=== PATIENT | male | born 1950 | race Caucasian/White ===

== ENCOUNTER → 2016-05-01 | Outpatient (CLI) | payer OTHER ==
[~2016-05-01] MED LIST: ADVIN25/60 INH; ALBUAER19 INH; ALLO300T2 PO; ASPI81TA21 PO; CALCTAB5 PO; CITA40TA12 PO; CLC100X PO; GUAI1TAB55 PO; LEVO125T4 PO; MULTTAB58 PO
--- NOTE | 2016-05-01 09:43 | DIAGNOSTIC IMAGING REPORT ---
RIGHT FOOT 3 VIEWS CLINICAL HISTORY: Bunion. FINDINGS: 3 views of the right foot are obtained. No prior studies are available for comparison at the time of dictation. The skeletal structures appear osteopenic. No fracture is seen. There is a hallux valgus deformity with mild arthritic change at the first metatarsophalangeal joint. Hammertoe deformities are suggested in the third through fifth digits. There is a dorsal calcaneal enthesophyte. Minimal spurring is seen along the dorsal aspect of the tarsal bones. Mild lateral soft tissue swelling is suggested at the level of the fifth metatarsophalangeal joint. IMPRESSION: 1. No acute bony abnormality is seen in the right foot. 2. Hallux valgus, suspected hammertoes, and mild arthritic change as above. 3. Lateral soft tissue swelling is suggested. Electronically signed by: Jeremy Rockwell M.D. 05/01/2016 9:41 AM Dictated Date/Time: 05/01/2016 9:37 AM
== END | disposition home or self-care (01) ==
LOC: C.RDSM 08:00
PROVIDERS: ATTEND Family Medicine
DX: M21.611 Bunion of right foot (principal)

== ENCOUNTER → 2016-06-03 | Outpatient (CLI) | payer OTHER ==
[2016-06-03 13:05] LABS: BLOOD UREA NITROGEN 14 mg/dl (7-18); BUN/CREATININE RATIO 14.9 (10-20); CALCIUM 8.7 mg/dl (8.5-10.1); CARBON DIOXIDE 27 mmol/L (21-32); CHLORIDE 99 mmol/L (98-107); CREATININE 0.96 mg/dl (0.60-1.40); GLUCOSE 98 mg/dl (70-99); POTASSIUM 4.2 mmol/L (3.5-5.1); SODIUM 135 mmol/L (136-145); URIC ACID 4.2 mg/dl (2.6-7.2)
[2016-06-03 13:10] LABS: C-REACTIVE PROTEIN 2.25 mg/dl (0-0.29); RHEUMATOID FACTOR 63.4 U/mL (0-15)
[2016-06-06 11:12] LABS: ANA TITER > OR = 1:1280 TITER (<1:40)
== END | disposition home or self-care (01) ==
LOC: C.LABBFT 07:45
PROVIDERS: ATTEND Nurse Practitioner
DX: Z11.59 Encounter for screening for other viral diseases (principal); M79.672 Pain in left foot

== ENCOUNTER → 2016-06-03 | Outpatient (CLI) | payer OTHER ==
--- NOTE | 2016-06-03 09:17 | DIAGNOSTIC IMAGING REPORT ---
LEFT FOOT MIN 3 VIEWS ROUTINE CLINICAL HISTORY: M79.672 Acute foot pain, [id number] pain COMPARISON: None. DISCUSSION: Moderate degenerative change of all major osseous structures. Moderate soft tissue edema. Deformity distal aspects second and third metatarsals felt to be secondary to old trauma. Mild bunion deformity distal first metatarsal. Mild hallux valgus configuration. IMPRESSION: Degenerative change. Heel spur. Nonspecific soft tissue edematous change Electronically signed by: Joby Ye M.D. 06/03/2016 9:15 AM Dictated Date/Time: 06/03/2016 9:13 AM
== END | disposition home or self-care (01) ==
LOC: C.RAD1850 08:58
PROVIDERS: ATTEND Nurse Practitioner
DX: M79.672 Pain in left foot (principal); M77.31 Calcaneal spur, right foot; Z11.59 Encounter for screening for other viral diseases

== ENCOUNTER → 2016-06-20 | Outpatient (CLI) | payer OTHER ==
--- NOTE | 2016-06-20 12:45 | DIAGNOSTIC IMAGING REPORT ---
MRI LEFT FOREFOOT WITHOUT IV CONTRAST CLINICAL HISTORY: Foot pain and swelling. Gout. Metatarsalgia. COMPARISON STUDY: Radiographs of the left foot dated 06/03/2016. TECHNIQUE: MRI of the left forefoot is performed utilizing various T1 and T2-weighted sequences in the axial, sagittal, coronal planes. IV contrast was not administered for this examination. The examination is modestly degraded by motion artifact. FINDINGS: There is hallux valgus deformity. Mild arthritic change is seen at the first metatarsophalangeal joint. There is significant marrow edema seen within the distal shafts and heads of the second and third metatarsals. There is flattening of both metatarsal heads, with significant drop in T1 signal identified in the head of the second metatarsal. There is more chronic appearing deformity seen in the third metatarsal head. 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 There are trace joint effusions. Overlying soft tissue edema is present in the surrounding soft tissues. No similar marrow changes are present within the first, third, or fifth metatarsals. A small loose body is seen at the third metatarsophalangeal joint. Mild myositis is noted in the musculature around the second and third metatarsals. The visualized flexor and extensor tendons appear intact. IMPRESSION: 1. 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 2. This may be chronic on the left where there is greater deformity and a small intra-articular loose body. 3. There is significant edema present in the soft tissues overlying the second and third metatarsals. 4. Hallux valgus is noted. Only mild arthritic change is present at the first metatarsophalangeal joint. Dictated: 06/20/2016 10:55 AM Transcribed: 06/20/2016 12:44 PM Alondra Electronically signed by: Jeremy Rockwell M.D. 06/20/2016 1:48 PM Dictated Date/Time: 06/20/2016 10:55 AM
== END | disposition home or self-care (01) ==
LOC: C.MRI 09:52
PROVIDERS: ATTEND Internal Medicine Rheumatology
DX: M10.9 Gout, unspecified (principal); M79.672 Pain in left foot; M77.40 Metatarsalgia, unspecified foot; R76.8 Other specified abnormal immunological findings in serum; M20.12 Hallux valgus (acquired), left foot

== ENCOUNTER → 2016-07-10 | Outpatient (CLI) | payer OTHER ==
[2016-07-10 13:02] LABS: URINE APPEARANCE CLEAR (CLEAR); URINE BILIRUBIN NEG (NEG); URINE COLOR YELLOW; URINE EPITHELIAL CELL AUTO 0-5 /lpf (0-5); URINE NITRITE NEG (NEG); URINE PH 7.5 (4.5-7.5); URINE SPECIFIC GRAVITY 1.007 (1.000-1.030); UROBILINOGEN NEG (NEG)
[2016-07-10 13:11] LABS: MANUAL MICROSCOPIC REQUIRED? NO; REVIEW REQ? NO
[2016-07-15 20:34] LABS: ANTI-CENTROMERE AB <1.0 NEG AI (<1.0 NEG); ANTI-SS-A >8.0 POS AI (<1.0 NEG); ANTI-SS-B >8.0 POS AI (<1.0 NEG); CYCLIC CITRULLINATED PEPT IGG <16 UNITS (<20); DNA ds CRITHIDIA NEGATIVE (NEGATIVE); MYELOPEROXIDASE AB <1.0 AI (<1.0); PARVOVIRUS IgG INDEX 3.5 (<0.9); PARVOVIRUS IgM INDEX 0.2 (<0.9); Sm Antibody <1.0 NEG AI (<1.0 NEG)
[2016-07-16 11:08] LABS: ANA TITER > OR = 1:1280 TITER (<1:40)
== END | disposition home or self-care (01) ==
LOC: C.LAB1850 08:45
PROVIDERS: ATTEND Internal Medicine Rheumatology
DX: M10.9 Gout, unspecified (principal); M79.672 Pain in left foot; M77.40 Metatarsalgia, unspecified foot; R76.8 Other specified abnormal immunological findings in serum; M87.17 Osteonecrosis due to drugs, ankle, foot and toes

== ENCOUNTER → 2016-07-25 | Outpatient (CLI) | payer OTHER ==
[~2016-07-25] MED LIST changes: -LEVO125T4 PO; +LEVO125T5 PO
== END | disposition home or self-care (01) ==
LOC: C.RDSM 12:20
PROVIDERS: ATTEND Physical Medicine & Rehabilitation Sports Medicine
DX: Z87.39 Personal history of other diseases of the musculoskeletal system and connective tissue (principal)

== ENCOUNTER → 2016-08-06 | Outpatient (CLI) | payer OTHER ==
[2016-08-06 13:08] LABS: CALCIUM 9.5 mg/dl (8.5-10.1)
[2016-08-06 13:11] LABS: ESTIMATED AVERAGE GLUCOSE 140 mg/dl; HA1C FLAG Normal (Normal)
[2016-08-06 13:12] LABS: ALT/SGPT 24 U/L (12-78); AST/SGOT 22 U/L (15-37); BLOOD UREA NITROGEN 19 mg/dl (7-18); BUN/CREATININE RATIO 19.9 (10-20); CARBON DIOXIDE 27 mmol/L (21-32); CHLORIDE 101 mmol/L (98-107); CHOLESTEROL 160 mg/dl (0-200); CREATININE 0.93 mg/dl (0.60-1.40); GLUCOSE 99 mg/dl (70-99); POTASSIUM 4.2 mmol/L (3.5-5.1); SODIUM 136 mmol/L (136-145); TRIGLYCERIDES 127 mg/dl (0-150); URIC ACID 4.2 mg/dl (2.6-7.2); VERY LOW DENSITY LIPOPROT CALC 25 mg/dl
[2016-08-06 13:23] LABS: ALB/GLOB RATIO 0.8 (0.9-2); ALKALINE PHOSPHATASE 87 U/L (45-117); HDL CHOLESTEROL 32 mg/dl; LDL CHOLESTEROL CALCULATED 103 mg/dl
== END | disposition home or self-care (01) ==
LOC: C.LABBFT 10:54
PROVIDERS: ATTEND Internal Medicine
DX: R73.01 Impaired fasting glucose (principal); I10 Essential (primary) hypertension; E03.9 Hypothyroidism, unspecified; M10.9 Gout, unspecified; Z12.5 Encounter for screening for malignant neoplasm of prostate

== ENCOUNTER → 2016-10-15 | Outpatient (CLI) | payer OTHER ==
[~2016-10-15] MED LIST changes: +LEVO125T4 PO; -LEVO125T5 PO
--- NOTE | 2016-10-15 17:49 | DIAGNOSTIC IMAGING REPORT ---
LEFT LOWER EXTREMITY VENOUS DOPPLER CLINICAL HISTORY: Left leg pain. COMPARISON STUDY: No previous studies for comparison. TECHNIQUE: Sonography of the deep venous system of the left lower extremity was performed. Compression and augmentation were evaluated. FINDINGS: The common femoral, superficial femoral and popliteal veins were compressible. Augmentation was normal. Flow was shown within the deep calf vessels. Subcutaneous edema of the left ankle was noted. No fluid collection is identified. IMPRESSION: No evidence of deep venous thrombus within the left lower extremity. Electronically signed by: Chris Salinas M.D. 10/15/2016 5:48 PM Dictated Date/Time: 10/15/2016 5:47 PM
[2016-10-15 17:54] LABS: HEMATOCRIT 37.9 % (42-52); MEAN CELL VOLUME 95.5 fL (80-100); MEAN CORPUSCULAR HEMOGLOBIN 31.2 pg (25-34); MEAN CORPUSCULAR HGB CONC 32.7 g/dl (32-36); MEAN PLATELET VOLUME 9.5 fL (7.4-10.4); PLATELET COUNT 193 K/uL (130-400); RED BLOOD COUNT 3.97 M/uL (4.7-6.1); WHITE BLOOD COUNT 4.04 K/uL (4.8-10.8)
== END | disposition home or self-care (01) ==
LOC: C.ULTR 17:04
PROVIDERS: ATTEND Physician Assistant Medical
DX: M79.605 Pain in left leg (principal); M79.89 Other specified soft tissue disorders; E03.9 Hypothyroidism, unspecified; R25.1 Tremor, unspecified

== ENCOUNTER → 2016-11-27 | Outpatient (CLI) | payer OTHER ==
[2016-11-27 12:18] LABS: BASO % 0.3 %; BASO ABS # 0.01 K/uL (0-0.2); COMPLETE YES; EOS % 0.8 %; HEMATOCRIT 40.4 % (42-52); IG% 0.3 %; LYMPH % 19.9 %; LYMPH ABS # 0.74 K/uL (1.2-3.4); MEAN CORPUSCULAR HEMOGLOBIN 30.6 pg (25-34); MEAN CORPUSCULAR HGB CONC 31.9 g/dl (32-36); MONO % 12.9 %; NEUT % 65.8 %; PLATELET COUNT 195 K/uL (130-400); RED BLOOD COUNT 4.21 M/uL (4.7-6.1); WHITE BLOOD COUNT 3.72 K/uL (4.8-10.8)
[2016-11-27 12:51] LABS: ALT/SGPT 20 U/L (12-78); CREATININE 0.99 mg/dl (0.60-1.40)
[2016-11-27 13:03] LABS: ALKALINE PHOSPHATASE 99 U/L (45-117); AST/SGOT 23 U/L (15-37); THYROID STIMULATING HORMONE 0.107 uIu/ml (0.300-4.500)
[2016-11-27 17:48] LABS: URINE APPEARANCE CLEAR (CLEAR); URINE BILIRUBIN NEG (NEG); URINE COLOR DK YELLOW; URINE EPITHELIAL CELL AUTO 0-5 /lpf (0-5); URINE NITRITE NEG (NEG); URINE PH 6.5 (4.5-7.5); URINE SPECIFIC GRAVITY 1.017 (1.000-1.030); UROBILINOGEN NEG (NEG)
[2016-11-27 18:07] LABS: MANUAL MICROSCOPIC REQUIRED? NO; REVIEW REQ? NO
== END | disposition home or self-care (01) ==
LOC: C.LABBFT 08:57
PROVIDERS: ATTEND Physician Assistant Medical
DX: M10.9 Gout, unspecified (principal); E03.9 Hypothyroidism, unspecified

== ENCOUNTER → 2016-12-16 | Outpatient (CLI) | payer OTHER | END | disposition home or self-care (01) | LOC: C.LABBFT 10:01 | PROVIDERS: ATTEND Physician Assistant Medical | DX: E03.9 Hypothyroidism, unspecified (principal); F41.8 Other specified anxiety disorders; J45.909 Unspecified asthma, uncomplicated; D64.9 Anemia, unspecified; M79.671 Pain in right foot; J98.4 Other disorders of lung; Z79.899 Other long term (current) drug therapy ==

== ENCOUNTER → 2017-01-29 | Outpatient (CLI) | payer OTHER ==
[2017-01-29 12:59] LABS: THYROID STIMULATING HORMONE 0.762 uIu/ml (0.300-4.500)
== END | disposition home or self-care (01) ==
LOC: C.LABBFT 09:07
PROVIDERS: ATTEND Physician Assistant Medical
DX: E03.9 Hypothyroidism, unspecified (principal)

== ENCOUNTER → 2017-02-04 | Outpatient (CLI) | payer OTHER ==
[~2017-02-04] MED LIST changes: -LEVO125T4 PO; +LEVO125T5 PO
[2017-02-04 12:35] LABS: ESTIMATED AVERAGE GLUCOSE 131 mg/dl; HA1C FLAG Normal (Normal)
[2017-02-04 13:05] LABS: ALT/SGPT 18 U/L (12-78); AST/SGOT 19 U/L (15-37); BLOOD UREA NITROGEN 7 mg/dl (7-18); BUN/CREATININE RATIO 7.5 (10-20); CALCIUM 8.8 mg/dl (8.5-10.1); CARBON DIOXIDE 25 mmol/L (21-32); CHLORIDE 104 mmol/L (98-107); CREATININE 0.97 mg/dl (0.60-1.40); GLUCOSE 107 mg/dl (70-99); POTASSIUM 4.1 mmol/L (3.5-5.1); SODIUM 134 mmol/L (136-145); TRIGLYCERIDES 76 mg/dl (0-150); VERY LOW DENSITY LIPOPROT CALC 15 mg/dl
[2017-02-04 13:07] LABS: ALB/GLOB RATIO 0.7 (0.9-2); ALKALINE PHOSPHATASE 111 U/L (45-117); CHOLESTEROL 128 mg/dl (0-200); CHOLESTEROL/HDL RATIO 3.5; HDL CHOLESTEROL 37 mg/dl; LDL CHOLESTEROL CALCULATED 76 mg/dl
== END | disposition home or self-care (01) ==
LOC: C.LABBFT 11:04
PROVIDERS: ATTEND Internal Medicine
DX: R73.01 Impaired fasting glucose (principal)

== ENCOUNTER → 2017-08-14 | Outpatient (CLI) | payer OTHER ==
[~2017-08-14] MED LIST changes: +ASPI-319 PO; -ASPI81TA21 PO
[2017-08-14 12:47] LABS: ALBUMIN 3.5 gm/dl (3.4-5.0); ALT/SGPT 21 U/L (12-78); AST/SGOT 25 U/L (15-37); BLOOD UREA NITROGEN 10 mg/dl (7-18); CALCIUM 8.9 mg/dl (8.5-10.1); CARBON DIOXIDE 28 mmol/L (21-32); CREATININE 0.97 mg/dl (0.60-1.40); GLUCOSE 100 mg/dl (70-99); POTASSIUM 4.2 mmol/L (3.5-5.1); SODIUM 132 mmol/L (136-145)
[2017-08-14 12:56] LABS: HEMOGLOBIN A1C 6.2 % (4.5-5.6)
[2017-08-14 12:59] LABS: ALKALINE PHOSPHATASE 103 U/L (45-117); TOTAL PROTEIN 8.8 gm/dl (6.4-8.2)
== END | disposition home or self-care (01) ==
LOC: C.LABBFT 09:56
PROVIDERS: ATTEND Internal Medicine
DX: E03.9 Hypothyroidism, unspecified (principal); R73.01 Impaired fasting glucose; Z12.5 Encounter for screening for malignant neoplasm of prostate

== ENCOUNTER → 2017-08-18 | Outpatient (CLI) | payer OTHER | END | disposition home or self-care (01) | LOC: C.LABBFT 13:40 | PROVIDERS: ATTEND Internal Medicine | DX: E88.09 Other disorders of plasma-protein metabolism, not elsewhere classified (principal) ==

== ENCOUNTER 2021-02-06 20:53 | Inpatient (IN) ==
[2021-02-06 21:48] LABS: Basophils # (auto) 0.01 K/uL (0-0.2); Basophils % (auto) 0.1 %; Hematocrit (blood only) 37.6 % (42-52); Hemoglobin 12.2 g/dL (14.0-18.0); Immature Granulocytes # (auto) 0.05 K/uL (0.00-0.02); Immature Granulocytes % (auto) 0.4 %; Lymphocytes # (auto) 0.54 K/uL (1.2-3.4); Lymphocytes % (auto) 3.9 %; Mean Corpuscular Hemoglobin 27.9 pg (25-34); Mean Corpuscular Hgb Conc 32.4 g/dL (32-36); Mean Corpuscular Volume 85.8 fL (80-100); Mean Platelet Volume 9.5 fL (7.4-10.4); Monocytes # (auto) 0.54 K/uL (0.11-0.59); Monocytes % (auto) 3.9 %; Neutrophils % (auto) 91.7 %; Platelet Count 256 K/uL (130-400); RDW Coefficient of Variation 14.5 % (11.5-14.5); RDW Standard Deviation 45.9 fL (36.4-46.3); Red Blood Count 4.38 M/uL (4.7-6.1); White Blood Count 13.84 K/uL (4.8-10.8)
[2021-02-06 21:56] LABS: Alanine Aminotransferase 16 U/L (12-78); Aspartate Aminotransferase 20 U/L (15-37); BUN Creatinine Ratio 14.9 (10-20); Blood Urea Nitrogen 18 mg/dl (7-18); Calcium 8.9 mg/dl (8.5-10.1); Carbon Dioxide 21 mmol/L (21-32); Chloride 100 mmol/L (98-107); Est GFR (African American) 68.9 ml/min; Est GFR (Non-African American) 59.5 ml/min; Glucose 150 mg/dl (70-99); Magnesium 1.8 mg/dl (1.8-2.4); Potassium 4.4 mmol/L (3.5-5.1); Sodium 131 mmol/L (136-145)
--- NOTE | 2021-02-06 21:58 | Emergency Department Note ---
Impression & Plan Pneumonia, Hypoxia, Generalized weakness ED Provider Note NAME: MONALISA BAEZ AGE: 70 SEX: M : 1950 ARRIVES VIA: Ambulance INFORMANT: Patient, ED PROVIDER(S): Fredi Pastor DO CHIEF COMPLAINT: Weakness HPI: The patient is a 70-year-old male who presented to emergency department for an evaluation of generalized weakness. The patient states he has been having generalized weakness has been worsening over the course the last few months. He states he is been trying to take his usual medications without relief. The patient states he was trying to get out of a chair tonight but he was unable to move. He felt he could not get out of the chair. He requested evaluation because he felt that he was unsafe at home. The patient states he has had similar symptoms in the past. He has been trying to see his family doctor but has been unable to reach him. ROS: See above HPI for pertinent positives & negatives. A total of 10 systems reviewed and were otherwise negative. PAST MEDICAL HISTORY: See Below PAST SURGICAL HISTORY: See Below FAMILY HISTORY: See Below SOCIAL HISTORY: See Below HOME MEDICATIONS: See Below ALLERGIES: See Below VITALS: See Below PHYSICAL EXAMINATION: GENERAL: Patient is awake alert in no acute distress patient is resting comfortably and showing no signs of anxiety EYES: The conjunctivae are clear. The pupils are round and reactive. EARS, NOSE, MOUTH AND THROAT: The nose is without any evidence of any deformity. NECK: The neck is nontender and supple. RESPIRATORY: Diminished breath sounds are noted throughout. There is no tachypnea or conversational dyspnea. CARDIOVASCULAR: Tachycardic but regular rate was noted to auscultation. There is no definite murmur. MUSCULOSKELETAL/EXTREMITIES: There is no evidence of gross deformity full range of motion is noted in the hips and shoulders. SKIN: Skin is warm and dry. Pedal edema was noted bilaterally. NEUROLOGIC: Patient is awake alert and oriented x3. Strength was diminished but symmetric. MEDICAL DECISION MAKING: The patient is a 70-year-old male who presented to the emergency department by ambulance for an evaluation of generalized weakness. The patient did have hypoxia and a cough. I discussed the patient's laboratory and radiographic martín dies with him. He was treated with supplemental oxygen and IV antibiotics. He was reevaluated multiple times. Because of his symptoms I discussed his case with the on-call [facility] hospitalist group. They have agreed to evaluate the patient in the emergency department for further management and disposition. The patient was feeling much better. Triage Nursing notes reviewed. Prior medical records reviewed Vital Signs: reviewed and remarkable for hypoxia. Differential diagnosis: Infection, dehydration, metabolic abnormality, hypo/hyperglycemia, electrolyte disturbance, anemia, hypoxia, cardiac sources, intracerebral event, toxicologic, neurologic, as well as other pathologies. ER treatment provided: See below Diagnostics interpreted by me: ECG: EKG was obtained in the emergency department. My interpretation is sinus tachycardia at 120 bpm. There was PVCs noted. No acute ST segment abnormalities were noted. This was compared to a tracing from March 29, 2020. There was an increase in the ventricular rate otherwise no significant changes were noted. Cardiac Monitoring: An order was placed for continuous cardiac monitoring. The monitor shows a rate of 88 bpm with sinus rhythm. Laboratory studies: As stated above and show below. Imaging studies: See below Consultation(s): I discussed this case with the on-call [facility] hospitalist. Past Med/Surg History Medical History Abnormal neck finding Anemia Asthma Ataxia Cystic-bullous disease of lung Depression with anxiety Elevated blood protein Fall at home Gout Granulomatous lung disease Hypertension Hypothyroidism Impaired fasting glucose Lymphadenopathy, cervical Neuropathy Oral candidiasis SUMANTH on CPAP Pain and swelling of left wrist Parkinson's disease Parotid mass Polyarthritis, inflammatory Positive LAZARO (antinuclear antibody) Pulmonary fibrosis Restless legs Sialoadenitis of submandibular gland Surgical History H/O inguinal hernia repair H/O parotidectomy H/O umbilical hernia repair S/P rotator cuff repair Family History Father Stroke Hypertension Lung disease Sister Diabetes Mother Cancer Denies family history of Ovarian cancer Prostate cancer Myocardial infarction Breast cancer Colorectal cancer Social History Smoking Status: Never smoker Second Hand Exposure: Yes (parents smoked); Hx Alcohol Use: No Hx Substance Use: No Preferred Language: Persian Communication Ability: Effective Visual Impairment: No Limitations Hearing Ability: Normal Tractor Expert Required: No Beliefs That Will Affect Care: None marital status: / Current Living Situation: Alone Current Living Situation Comment: alone in apartment current occupational status: retired Feels Safe at Home: Yes Dental Care, Regularly: No Physical Activity Frequency: Does not Exercise Seatbelt Use: sometimes Sunscreen Use: No Assistive Devices: Denture - Upper, Denture - Lower, Glasses and Walker Allergies Allergies Allergy/AdvReac Type Severity Reaction Status Date / Time No Known Drug Allergies Allergy Verified 02/06/21 22:13 Home Meds Home Medications Medication Instructions Recorded Confirmed allopurinol 300 mg tablet 300 mg PO QAM 06/15/18 02/06/21 aspirin 81 mg tablet,delayed 81 mg PO QAM 06/15/18 02/06/21 release calcium carbonate 600 mg calcium 600 mg PO QAM 06/15/18 02/06/21 (1,500 mg) tablet (Calcium) docusate sodium 100 mg capsule 100 mg PO QAM 06/15/18 02/06/21 (Colace) ascorbic acid (vitamin C) 1,000 mg 1 g PO DAILY tab 02/23/20 02/06/21 tablet omega-3 fatty acids 1,000 mg 1,000 mg PO DAILY 03/29/20 02/06/21 capsule (Fish Oil Concentrate) duloxetine 60 mg capsule,delayed 60 mg PO DAILY 02/06/21 02/06/21 release fluticasone 100 mcg-salmeterol 50 2 inh INHALATION BID 02/06/21 02/06/21 mcg/dose blistr powdr for inhalation (Advair Diskus) mycophenolate mofetil 500 mg tablet 500 mg PO BID 02/06/21 02/06/21 pramipexole 0.25 mg tablet 0.5 mg PO HS PRN 02/06/21 02/06/21 tamsulosin 0.4 mg capsule 0.4 mg PO DAILY 02/06/21 02/06/21 Previous Rx's Medication Instructions Recorded meclizine 12.5 mg tablet 12.5 mg PO DAILY PRN #90 tab 11/23/19 diclofenac sodium 1 % topical gel 4 g TOPICAL QID #100 g 01/30/20 levothyroxine 150 mcg tablet 150 mcg PO QAM #90 tab 04/23/20 omeprazole 20 mg tablet,delayed 20 mg PO DAILY #90 tab 10/16/20 release albuterol sulfate 90 mcg/actuation 2 puff INHALATION Q4H PRN #18 gm 12/04/20 aerosol inhaler (Ventolin HFA) carbidopa 25 mg-levodopa 100 mg 1 tab PO HS 30 Days #30 tab 12/14/20 tablet Results & Data (ED) Vital Signs Vital Signs - 24 hr 02/06/21 21:16 02/06/21 21:21 02/06/21 21:47 Temperature 36.7 C Temperature Source Oral Pulse Rate 120 H Pulse Rate [Apical] 115 H Respiratory Rate 18 18 Respiratory Effort / Characteristics SOB on Exertion Respiratory Depth Respiratory Pattern Blood Pressure 154/93 H Blood Pressure [Right Arm] Blood Pressure Mean 113 Blood Pressure Mean [Right Arm] Pulse Oximetry 95 95 Oxygen Delivery Method Nasal Cannula Nasal Cannula Nasal Cannula Oxygen Flow Rate 3 3 3 Sepsis Recent Fever Within 48 Hours No Sepsis New/Unexplained Change in Mental Status No Sepsis Action Taken by Nursing No Action Required 02/07/21 00:30 Temperature Temperature Source Pulse Rate Pulse Rate [Apical] 105 H Respiratory Rate 18 Respiratory Effort / Characteristics Non-Labored Spontaneous Respiratory Depth Normal Respiratory Pattern Regular Blood Pressure Blood Pressure [Right Arm] 123/76 Blood Pressure Mean Blood Pressure Mean [Right Arm] 91 Pulse Oximetry 94 Oxygen Delivery Method Nasal Cannula Oxygen Flow Rate 2 Sepsis Recent Fever Within 48 Hours Sepsis New/Unexplained Change in Mental Status Sepsis Action Taken by [facility] Medications Current Medication List: was personally reviewed by me Laboratory Data Attestation: I reviewed the patient's lab results. Result diagrams: 02/06/21 21:18 02/06/21 21:18 Lab Results 02/06/21 02/06/21 02/06/21 Range/Units 21:18 21:18 21:18 WBC 13.84 H (4.8-10.8) K/uL RBC 4.38 L (4.7-6.1) M/uL Hgb 12.2 L (14.0-18.0) g/dL Hct 37.6 L (42-52) % MCV 85.8 (80-100) fL MCH 27.9 (25-34) pg MCHC 32.4 (32-36) g/dL RDW Std Deviation 45.9 (36.4-46.3) fL RDW Coeff of Swathi 14.5 (11.5-14.5) % Plt Count 256 (130-400) K/uL MPV 9.5 (7.4-10.4) fL Immature Gran % (Auto) 0.4 % Neut % (Auto) 91.7 % Lymph % (Auto) 3.9 % [place] % (Auto) 3.9 % Eos % (Auto) 0.0 % Baso % (Auto) 0.1 % Neut # (Auto) 12.70 H (1.4-6.5) K/uL Lymph # (Auto) 0.54 L (1.2-3.4) K/uL [place] # (Auto) 0.54 (0.11-0.59) K/uL Eos # (Auto) 0.00 (0-0.5) K/uL Baso # (Auto) 0.01 (0-0.2) K/uL Immature Gran # (Auto) 0.05 H (0.00-0.02) K/uL PT 10.3 (9.0-12.0) Seconds INR 1.0 (0.9-1.1) APTT 29.0 (21.0-31.0) Seconds PTT Ratio 1.1 D-Dimer (0-500) ug/L FEU Sodium 131 L (136-145) mmol/L Potassium 4.4 (3.5-5.1) mmol/L Chloride 100 (98-107) mmol/L Carbon Dioxide 21 (21-32) mmol/L Anion Gap 9.0 (3-11) BUN 18 (7-18) mg/dl Creatinine 1.21 (0.6-1.4) mg/dl Est Cr Clr Drug Dosing Not Reportable Est GFR ( Amer) 68.9 ml/min Est GFR (Non-Af Amer) 59.5 ml/min BUN/Creatinine Ratio 14.9 (10-20) Glucose 150 H (70-99) mg/dl Lactate (0.4-2.0) mmol/L Calcium 8.9 (8.5-10.1) mg/dl Magnesium 1.8 (1.8-2.4) mg/dl Total Bilirubin 0.7 (0.2-1) mg/dl AST 20 (15-37) U/L ALT 16 (12-78) U/L Alkaline Phosphatase 101 (45-117) U/L Total Creatine Kinase 370 H (39-308) U/L Troponin I < 0.015 (0-0.045) ng/ml NT-Pro-B Natriuret Pep 392 (0-900) pg/ml Total Protein 8.1 (6.4-8.2) gm/dl Albumin 3.0 L (3.4-5.0) gm/dl Globulin 5.1 H (2.5-4.0) gm/dl Albumin/Globulin Ratio 0.6 L (0.9-2) TSH 0.943 (0.300-4.500) uIu/ml COVID-19 Eval Order SARS-CoV-2 (PCR) (Negative) 02/06/21 02/06/21 02/06/21 Range/Units 21:18 22:30 22:30 WBC (4.8-10.8) K/uL RBC (4.7-6.1) M/uL Hgb (14.0-18.0) g/dL Hct (42-52) % MCV (80-100) fL MCH (25-34) pg MCHC (32-36) g/dL RDW Std Deviation (36.4-46.3) fL RDW Coeff of Swathi (11.5-14.5) % Plt Count (130-400) K/uL MPV (7.4-10.4) fL Immature Gran % (Auto) % Neut % (Auto) % Lymph % (Auto) % [place] % (Auto) % Eos % (Auto) % Baso % (Auto) % Neut # (Auto) (1.4-6.5) K/uL Lymph # (Auto) (1.2-3.4) K/uL [place] # (Auto) (0.11-0.59) K/uL Eos # (Auto) (0-0.5) K/uL Baso # (Auto) (0-0.2) K/uL Immature Gran # (Auto) (0.00-0.02) K/uL PT (9.0-12.0) Seconds INR (0.9-1.1) APTT (21.0-31.0) Seconds PTT Ratio D-Dimer 1580 H* (0-500) ug/L FEU Sodium (136-145) mmol/L Potassium (3.5-5.1) mmol/L Chloride (98-107) mmol/L Carbon Dioxide (21-32) mmol/L Anion Gap (3-11) BUN (7-18) mg/dl Creatinine (0.6-1.4) mg/dl Est Cr Clr Drug Dosing Est GFR ( Amer) ml/min Est GFR (Non-Af Amer) ml/min BUN/Creatinine Ratio (10-20) Glucose (70-99) mg/dl Lactate (0.4-2.0) mmol/L Calcium (8.5-10.1) mg/dl Magnesium (1.8-2.4) mg/dl Total Bilirubin (0.2-1) mg/dl AST (15-37) U/L ALT (12-78) U/L Alkaline Phosphatase (45-117) U/L Total Creatine Kinase (39-308) U/L Troponin I (0-0.045) ng/ml NT-Pro-B Natriuret Pep (0-900) pg/ml Total Protein (6.4-8.2) gm/dl Albumin (3.4-5.0) gm/dl Globulin (2.5-4.0) gm/dl Albumin/Globulin Ratio (0.9-2) TSH (0.300-4.500) uIu/ml COVID-19 Eval Order Covid19 at [facility] SARS-CoV-2 (PCR) NEGATIVE (Negative) 02/06/21 Range/Units 23:28 WBC (4.8-10.8) K/uL RBC (4.7-6.1) M/uL Hgb (14.0-18.0) g/dL Hct (42-52) % MCV (80-100) fL MCH (25-34) pg MCHC (32-36) g/dL RDW Std Deviation (36.4-46.3) fL RDW Coeff of Swathi (11.5-14.5) % Plt Count (130-400) K/uL MPV (7.4-10.4) fL Immature Gran % (Auto) % Neut % (Auto) % Lymph % (Auto) % [place] % (Auto) % Eos % (Auto) % Baso % (Auto) % Neut # (Auto) (1.4-6.5) K/uL Lymph # (Auto) (1.2-3.4) K/uL [place] # (Auto) (0.11-0.59) K/uL Eos # (Auto) (0-0.5) K/uL Baso # (Auto) (0-0.2) K/uL Immature Gran # (Auto) (0.00-0.02) K/uL PT (9.0-12.0) Seconds INR (0.9-1.1) APTT (21.0-31.0) Seconds PTT Ratio D-Dimer (0-500) ug/L FEU Sodium (136-145) mmol/L Potassium (3.5-5.1) mmol/L Chloride (98-107) mmol/L Carbon Dioxide (21-32) mmol/L Anion Gap (3-11) BUN (7-18) mg/dl Creatinine (0.6-1.4) mg/dl Est Cr Clr Drug Dosing Est GFR ( Amer) ml/min Est GFR (Non-Af Amer) ml/min BUN/Creatinine Ratio (10-20) Glucose (70-99) mg/dl Lactate 1.2 (0.4-2.0) mmol/L Calcium (8.5-10.1) mg/dl Magnesium (1.8-2.4) mg/dl Total Bilirubin (0.2-1) mg/dl AST (15-37) U/L ALT (12-78) U/L Alkaline Phosphatase (45-117) U/L Total Creatine Kinase (39-308) U/L Troponin I (0-0.045) ng/ml NT-Pro-B Natriuret Pep (0-900) pg/ml Total Protein (6.4-8.2) gm/dl Albumin (3.4-5.0) gm/dl Globulin (2.5-4.0) gm/dl Albumin/Globulin Ratio (0.9-2) TSH (0.300-4.500) uIu/ml COVID-19 Eval Order SARS-CoV-2 (PCR) (Negative) Administered Medications Albuterol (Albut/Ipratrop 3mg/0.5mg Neb 3 Ml Vial) 3 ml NEB QIDR JOSAFAT Stop: 03/09/21 06:59 Last Admin: 02/07/21 15:21 Dose: 3 ml Documented by: [id number] Admin: 02/07/21 10:51 Dose: 3 ml Documented by: [id number] Admin: 02/07/21 07:38 Dose: 3 ml Documented by: [id number] Allopurinol (Allopurinol 300 Mg Tab) 300 mg PO QAM [facility] Stop: 03/09/21 08:59 Last Admin: 02/07/21 08:45 Dose: 300 mg Documented by: [id number] Ascorbic Acid (Ascorbic Acid 500 Mg Tab) 1,000 mg PO DAILY [facility] Stop: 03/09/21 08:59 Last Admin: 02/07/21 08:45 Dose: 1,000 mg Documented by: [id number] Aspirin (Aspirin 81 Mg Ectab) [facility] Stop: 03/09/21 08:59 Last Admin: 02/07/21 08:45 Dose: 81 mg Documented by: [id number] Docusate Sodium (Docusate Sodium 100 Mg Cap) [facility] [place] Stop: 03/09/21 08:59 Last Admin: 02/07/21 08:42 Dose: 100 mg Documented by: [id number] Duloxetine HCl (Duloxetine Hcl 60 Mg Cap) 60 mg PO DAILY [facility] Stop: 03/09/21 08:59 Last Admin: 02/07/21 08:44 Dose: 60 mg Documented by: [id number] Fish Oil ([place]-3 (Purified Fish Oil) 1 Gm Cap) 1 gm PO DAILY [facility] Stop: 03/09/21 08:59 Last Admin: 02/07/21 08:44 Dose: 1 gm Documented by: [id number] Guaifenesin (Guaifenesin 600 Mg Tabcr) 1,200 mg PO Q12 JOSAFAT Stop: 03/09/21 08:59 Last Admin: 02/07/21 08:45 Dose: 1,200 mg Documented by: [id number] Piperacillin Sod/Tazobactam (Sod 4.5 gm/ Dextrose) 120 mls @ 30 mls/hr IV Q8H [facility]; Protocol Stop: 02/14/21 07:59 Last Admin: 02/07/21 18:14 Dose: 30 mls/hr Documented by: [id number] Infusion: 02/07/21 12:33 Dose: 0 mls/hr Documented by: [id number] Admin: 02/07/21 08:45 Dose: 30 mls/hr Documented by: [id number] Methylprednisolone 40 mg/ (Syringe) 0.64 mls @ 1.5 mls/min IV Q8H JOSAFAT Stop: 03/09/21 04:59 Last Admin: 02/07/21 12:33 Dose: 1.5 mls/min Documented by: [id number] Admin: 02/07/21 06:23 Dose: 1.5 mls/min Documented by: [id number] Levothyroxine Sodium (Levothyroxine Sodium 150 Mcg Tablet) 150 mcg PO DAILYBB JOSAFAT Stop: 03/09/21 06:29 Last Admin: 02/07/21 06:25 Dose: 150 mcg Documented by: [id number] Multivitamins/Minerals (Calcium 600mg + Vit D 400 Iu Tab) 1 tab PO QAM JOSAFAT Stop: 03/09/21 08:59 Last Admin: 02/07/21 08:44 Dose: 1 tab Documented by: [id number] Pantoprazole Sodium (Pantoprazole 40 Mg Tab) 40 mg PO DAILY JOSAFAT Stop: 03/09/21 08:59 Last Admin: 02/07/21 08:45 Dose: 40 mg Documented by: [id number] Tamsulosin HCl (Tamsulosin Hcl 0.4 Mg Cap) 0.4 mg PO DAILY JOS[facility]AT Stop: 03/09/21 08:59 Last Admin: 02/07/21 08:45 Dose: 0.4 mg Documented by: [id number] Discontinued Medications Enoxaparin Sodium (Enoxaparin Inj 40 Mg/0.4 Ml Syr) 40 mg SQ Q12H JOSAFAT Stop: 03/09/21 05:59 Last Admin: 02/07/21 06:24 Dose: 40 mg Documented by: [id number] Piperacillin Sod/Tazobactam Sod (Zosyn) 4.5 gm in 120 mls @ 240 mls/hr IV NOW ONE Stop: 02/07/21 01:11 Last Infusion: 02/07/21 06:23 Dose: 0 mls/hr Documented by: [id number] Admin: 02/07/21 02:10 Dose: 240 mls/hr Documented by: [id number] Ioversol (Optiray 320 125ml) 125 ml IV ONCE ONE Stop: 02/07/21 00:28 Last Admin: 02/07/21 00:27 Dose: 119 ml Documented by: [id number] Miscellaneous (Patient's Height Needed) 1 ea N/A Q2H JOSAFAT Stop: 02/07/21 11:01 Last Admin: 02/07/21 06:12 Dose: 1 ea Documented by: [id number] Mycophenolate Mofetil (Mycophenolate Mofetil 250 Mg Cap) 500 mg PO BID JOSAFAT Stop: 03/09/21 08:59 Last Admin: 02/07/21 08:44 Dose: 500 mg Documented by: [id number] Imaging Data Radiologist's Impression: Abdomen/Pelvis CT 02/06/21 23:06 CT OF THE ABDOMEN AND PELVIS WITH CONTRAST CLINICAL HISTORY: Abdominal pain. Weakness. COMPARISON STUDY: None. TECHNIQUE: Following IV administration of 119 mL of Optiray, axial images of the abdomen and pelvis were obtained from the lung bases to the proximal femurs. Images were reviewed in the axial, sagittal, and coronal planes. IV contrast was administered without complication. Automated exposure control was utilized for the study. A dose lowering technique was utilized adhering to the principles of ALARA. CT DOSE: 5198.80 mGy.cm FINDINGS: Please note that the chest CT will be reported separately. Right lower lobe consolidation is better depicted on that exam. No pneumatosis, free air or portal venous gas is present. There is possible hepatic steatosis. No biliary or pancreatic ductal dilatation is present. Pancreatic glandular atrophy is noted. The spleen, adrenal glands and kidneys are unremarkable. There is no hydronephrosis. Mesenteric infiltration is of doubtful significance. The caliber and wall thickness of small and large bowel are normal. The appendix is normal. Infrarenal abdominal aorta is ectatic, measuring approximately 2.9 cm. 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 Left common iliac artery measures 2.5 cm. Right common iliac artery measures 2.2 cm. Fat- containing right ventral hernia is present. No acute fracture or suspicious lesion is identified within the visualized skeletal structures. IMPRESSION: 1. No acute process within the abdomen or pelvis. 2. Right lower lobe consolidation which favors pneumonia. This is better depicted on the chest CT which will be reported separately. 3. 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 Ectatic infrarenal abdominal aorta. 4. No bowel obstruction. No bowel wall thickening. Normal appendix. ACT 112: Negative or not required by law. Electronically signed by: Chris Salinas M.D. 02/07/2021 7:06 AM Chest CTA 02/06/21 23:06 CT angio chest PE protocol HISTORY: 70 years-old Male with PE. Acute chest pain with shortness of breath and weakness TECHNIQUE: Multiple CTA images of the chest were obtained after the intravenous administration of 119 ml Optiray. Coronal and sagittal MIPS were obtained from the axial data set and were submitted for review. All measurements were obtained according to NASCET criteria. A dose lowering technique was utilized adhering to the principles of ALARA. COMPARISON: Chest CT 03/28/2015, chest radiograph 02/06/2021, chest CT 01/19/2020 FINDINGS: CTA: Mild cardiomegaly. No pericardial effusion. No thoracic aortic aneurysm or dissection. Unchanged mild descending thoracic aortic ectasia, 3.9 x 3.9 cm. There is patency of the imaged great vessels. Descending thoracic aortic tortuosity. Unremarkable pulmonary artery without filling defects to suggest thromboembolic disease. Evaluation of the segmental and subsegmental branches at the level of the lung bases is limited secondary to respiratory motion artifact. CT CHEST: No thyroid nodule. Mild mediastinal and hilar adenopathy includes a 2.1 x 1.6 cm subcarinal lymph node with paratracheal lymph nodes measuring up to 10 mm. Calcified left hilar lymph nodes. No pneumothorax or pleural effusion. Mild emphysema. Calcified granuloma of the lingula redemonstrated. Reticular subple ural opacities compatible with fibrosis. Mild groundglass densities of the left lung base suggestive of atelectasis. Segmental consolidative opacities of the basal right lower lobe with air bronchograms. No suspicious pulmonary nodules or masses identified. No overt pulmonary edema. Mild tracheobronchial secretions. No acute process of the imaged upper abdomen. There is hepatic steatosis. No acute fracture. Degenerative changes of the shoulders and spine. IMPRESSION: 1. Consolidative opacities of the basal right lower lobe are suggestive of pneumonia. 2. Mild mediastinal and right hilar adenopathy is likely reactive. 3. Mild bibasilar fibrotic changes are redemonstrated. 4. No pulmonary emboli. 5. Prior granulomatous disease. ACT 112: Negative or not required by law. The above report was generated using voice recognition software. It may contain grammatical, syntax or spelling errors. Electronically signed by: Dario Delgadillo M.D. 02/07/2021 8:01 AM Patient: MONALISA BAZE (Male) : 46 Status: ER Date: 02/07/21 00:20 Room #: History: weakness Slices: 67 Priors: Tech: Jonatan Thurman @ [phone] Exams: CT HEAD Contrast: Accession Numbers: [id number] Referring Physician: REFERRED SELF Preliminary Findings Only See Final Report For Complete Findings CT HEAD: No acute infarct, bleed, or acute intracranial abnormality. Moderate age-related findings are stable compared with head CT March 29, 2020 Stable, prominent size left ICA terminus, ectasia versus 4 mm aneurysm. Radiologist: Eidlia Manriquez M.D. Study ready at 00:25 and initial results transmitted at 00:34 Patient: MONALISA BAEZ (Male) : 46 Status: ER Date: 02/07/21 00:20 Room #: History: CHEST PAIN SOB Slices: [id number] Priors: Tech: Jonatan Thurman @ [phone] Exams: CTA CHEST Contrast: IV Amt: 119 ML OPTIRAY 320 Accession Numbers: [id number] Referring Physician: REFERRED SELF Preliminary Findings Only See Final Report For Complete Findings CTA CHEST: No definite pulmonary embolism. Moderate breathing motion artifact limits evaluation. Moderate right lower lobe infiltrate, nonspecific, concerning for pneumonia. Emphysema with scattered blebs. Cardiomegaly. Radiologist: Edilia Manriquez M.D. Study ready at 00:25 and initial results transmitted at 00:37 Patient: MONALISA BAEZ (Male) : 46 Status: ER Date: 02/07/21 00:28 Room #: History: ABD PAIN WEAKNESS Slices: [id number] Priors: Tech: Jonatan Thurman @ [phone] Exams: CT ABDOMEN & PELVIS With Contrast Contrast: IV Amt: 119 ML OPTIRAY 320 Accession Numbers: [id number] Referring Physician: REFERRED SELF Preliminary Findings Only See Final Report For Complete Findings CT ABDOMEN & PELVIS With Contrast: No definite acute finding. No SBO, free air or free fluid. Mild mesenteric haziness, without adenopathy, likely chronic. Fatty liver, and fat-containing right femoral hernia. Radiologist: Edilia Manriquez M.D. Study ready at 00:33 and initial results transmitted at 00:44 Discharge Plan Visit Data Chief Complaint: Shortness of Breath/Dyspnea Stated Complaint: breathing difficulty ED Provider: Fredi Pastor Discharge Problem: Pneumonia, Hypoxia, Generalized weakness Patient Disposition: Admitted As Inpatient Discharge Instructions Interventions: ED Discharge Assessment Last Done: 02/07/21 01:44 Discharge Problem: Pneumonia Qualifiers: Pneumonia type: due to unspecified organism Laterality: unspecified laterality Lung location: lower lobe of lung Qualified Code(s): J18.9 - Pneumonia, unspecified organism
[2021-02-06 22:07] LABS: Albumin Globulin Ratio 0.6 (0.9-2); Alkaline Phosphatase 101 U/L (45-117); Bilirubin,Total 0.7 mg/dl (0.2-1); Creatine Kinase 370 U/L (39-308); Globulin 5.1 gm/dl (2.5-4.0); Thyroid Stimulating Hormone 0.943 uIu/ml (0.300-4.500); Total Protein 8.1 gm/dl (6.4-8.2); Troponin I < 0.015 ng/ml (0-0.045)
[2021-02-06 22:09] LABS: Partial Thromboplastin Ratio 1.1; Prothrombin Time 10.3 Seconds (9.0-12.0)
[2021-02-06 23:01] LABS: D Dimer 1580 ug/L FEU (0-500)
[2021-02-06 23:10] LABS: NT Pro B Type Natriuretic Pept 392 pg/ml (0-900)
[2021-02-07] MEDS ORDERED: OPTIRAY 320 125ml IV ONE (00:27)
[2021-02-07] MEDS ORDERED: PIPERACILLIN/TAZOBACTAM 4.5 GM/120 ML BAG IV ONE (00:42)
[2021-02-07] MEDS ORDERED: PIPERACILL/TAZOBAC CONSULT ACTIVE PRN ×2 (00:42→01:57)
--- NOTE | 2021-02-07 01:17 | History & Physical Report ---
Date of Service February 07, 2021 Assessment & Plan (1) Pneumonia: Plan: Right lower lobe pneumonia/interstitial lung disease/pulmonary fibrosis/asthma- Continue Zosyn 4.5 g IV every 8 hours begun in the ED Duonebs every 4 hours while awake and every 2 hours when necessary. Guaifenesin extended release 1200 mg p.o. twice daily Methylprednisolone 40 mg IV every 8 hours Continue Advair Diskus (2) Type 2 diabetes mellitus without complication: Plan: On no specific treatment If glucose increased in the morning, will place on Accu-Cheks with coverage. Glucose upon admission 150 (3) Parkinsonism: Plan: Continue carbidopa/levodopa and pramipexole Patient symptoms of not being able to get up from his chair a progressive weakness may be associated with this diagnosis May need to consult neurology (4) Hyperglobulinemia: Plan: Continue mycophenolate (5) SUMANTH (obstructive sleep apnea): Plan: CPAP at bedtime as needed (6) Interstitial lung disease: Plan: See above (7) Pulmonary fibrosis: Plan: See above (8) Hypertension: (9) Hypothyroidism: Plan: Continue levothyroxine (10) Neuropathy: (11) Gout: Plan: Continue allopurinol (12) Asthma: Plan: See above History of Present Illness Chief Complaint: The patient presents to the emergency department for progressively worsening just generalized weakness, which initially began a few months ago, but is worsened over the past several days. Primary Care Provider: Albert Abdullahi MD The patient is a 70-year-old male with a past medical history including diabetes mellitus type 2, parkinsonism, interstitial lung disease, hyperglobulinemia, urinary incontinence, SUMANTH, interstitial lung disease, granulomatous lung disease, restless legs, pulmonary fibrosis, positive LAZARO, inflammatory polyarthritis, hypothyroidism, hypertension, gout, depression with anxiety, ataxia, asthma and anemia. The patient reports symptoms as noted above, in addition, he was trying to get off his chair tonight please reports he that he was unable to move. Imaging in the emergency department included a CTA of chest PE protocol, which was negative for PE, but did show a right lower lobe infiltrate. CT scan head was negative for acute findings, but did note left ICA 4 mm aneurysm that was stable Allergies Allergy/AdvReac Type Severity Reaction Status Date / Time No Known Drug Allergies Allergy Verified 02/06/21 22:13 Home Medications Medication Instructions Recorded Confirmed Type allopurinol 300 mg tablet 300 mg PO QAM 06/15/18 02/06/21 History aspirin 81 mg tablet,delayed 81 mg PO QAM 06/15/18 02/06/21 History release calcium carbonate 600 mg calcium 600 mg PO QAM 06/15/18 02/06/21 History (1,500 mg) tablet (Calcium) docusate sodium 100 mg capsule 100 mg PO QAM 06/15/18 02/06/21 History (Colace) meclizine 12.5 mg tablet 12.5 mg PO DAILY PRN #90 tab 11/23/19 02/06/21 Rx diclofenac sodium 1 % topical gel 4 g TOPICAL QID #100 g 01/30/20 02/06/21 Rx ascorbic acid (vitamin C) 1,000 mg 1 g PO DAILY tab 02/23/20 02/06/21 History tablet omega-3 fatty acids 1,000 mg 1,000 mg PO DAILY 03/29/20 02/06/21 History capsule (Fish Oil Concentrate) levothyroxine 150 mcg tablet 150 mcg PO QAM #90 tab 04/23/20 02/06/21 Rx omeprazole 20 mg tablet,delayed 20 mg PO DAILY #90 tab 10/16/20 02/06/21 Rx release albuterol sulfate 90 mcg/actuation 2 puff INHALATION Q4H PRN #18 gm 12/04/20 02/06/21 Rx aerosol inhaler (Ventolin HFA) carbidopa 25 mg-levodopa 100 mg 1 tab PO HS 30 Days #30 tab 12/14/20 02/06/21 Rx tablet duloxetine 60 mg capsule,delayed 60 mg PO DAILY 02/06/21 02/06/21 History release fluticasone 100 mcg-salmeterol 50 2 inh INHALATION BID 02/06/21 02/06/21 History mcg/dose blistr powdr for inhalation (Advair Diskus) mycophenolate mofetil 500 mg tablet 500 mg PO BID 02/06/21 02/06/21 History pramipexole 0.25 mg tablet 0.5 mg PO HS PRN 02/06/21 02/06/21 History tamsulosin 0.4 mg capsule 0.4 mg PO DAILY 02/06/21 02/06/21 History Past Med/Surg History Medical History Abnormal neck finding Anemia Asthma Ataxia Cystic-bullous disease of lung Depression with anxiety Elevated blood protein Fall at home Gout Granulomatous lung disease Hypertension Hypothyroidism Impaired fasting glucose Lymphadenopathy, cervical Neuropathy Oral candidiasis SUMANTH on CPAP Pain and swelling of left wrist Parkinson's disease Parotid mass Polyarthritis, inflammatory Positive LAZARO (antinuclear antibody) Pulmonary fibrosis Restless legs Sialoadenitis of submandibular gland Surgical History H/O inguinal hernia repair H/O parotidectomy H/O umbilical hernia repair S/P rotator cuff repair Family History Father Stroke Hypertension Lung disease Sister Diabetes Mother Cancer Denies family history of Ovarian cancer Prostate cancer Myocardial infarction Breast cancer Colorectal cancer Social History Smoking Status: Smoker, status unknown Second Hand Exposure: Yes (parents smoked); Hx Alcohol Use: No Hx Substance Use: No Preferred Language: Bulgarian Communication Ability: Effective Visual Impairment: No Limitations Hearing Ability: Normal Current Living Situation: Alone current occupational status: retired Feels Safe at Home: Yes Dental Care, Regularly: No Physical Activity Frequency: Does not Exercise Seatbelt Use: sometimes Sunscreen Use: No Review of Systems Review of Systems: The patient denies chest pain, palpitations, cough, lower extremity swelling, sore throat, fevers, chills, sweats, nausea, vomiting, diarrhea , constipation, abdominal pain, pelvic pain, blood in urine or stool, dysuria, urinary frequency or urgency, lightheadedness, dizziness, headache, memory loss, loss of consciousness, rash, abnormal bruising or bleeding, imbalance, focal weakness, numbness or tingling in arms or legs, generalized arthralgias or myalgias, back or neck pain, or night sweats. The review of systems is otherwise negative other than for that already noted above, and at least 10 systems have been reviewed. Physical Exam Physical Exam: The patient is awake, alert and oriented 3, well developed and well nourished, normocephalic and atraumatic, lying in bed and in no acute distress. HEENT--PERRL, EOMI, mucous membranes and oropharynx normal. Neck--supple. No JVD. No bruits. Thyroid normal, trachea midline, no adenopathy. Heart--normal S1 and S2. No murmurs, rubs or gallops. Lungs--overall diminished bilaterally. No respiratory distress, no accessory muscle use. Abdomen--normal bowel sounds and soft. Nontender. Nondistended. Morbidly obese Extremities--no cyanosis or clubbing. No edema. Dermatologic--normal skin turgor, normal color, no abnormal lymph nodes, no rash. Neurologic--cranial nerves II through XII grossly intact. Rheumatologic--normal range of motion. Psychiatric--normal affect. Results & Data Results & Data ([facility]) Vital Signs (Past 12 Hours) Vital Signs Temp Pulse Pulse Resp BP BP Pulse Ox 02/07/21 00:30 105 H 18 123/76 94 02/06/21 21:47 115 H 18 95 02/06/21 21:16 98.1 F 120 H 18 154/93 H 95 Laboratory Results Laboratory Results WBC 13.84 K/uL (4.8-10.8) H 02/06/21 21:18 RBC 4.38 M/uL (4.7-6.1) L 02/06/21 21:18 Hgb 12.2 g/dL (14.0-18.0) L 02/06/21 21:18 Hct 37.6 % (42-52) L 02/06/21 21:18 MCV 85.8 fL (80-100) 02/06/21 21:18 MCH 27.9 pg (25-34) 02/06/21 21:18 MCHC 32.4 g/dL (32-36) 02/06/21 21:18 RDW Std Deviation 45.9 fL (36.4-46.3) 02/06/21 21:18 RDW Coeff of Swathi 14.5 % (11.5-14.5) 02/06/21 21:18 Plt Count 256 K/uL (130-400) 02/06/21 21:18 MPV 9.5 fL (7.4-10.4) 02/06/21 21:18 Immature Gran % (Auto) 0.4 % 02/06/21:18 Neut % (Auto) 91.7 % 02/06/21 21:18 Lymph % (Auto) 3.9 % 02/06/21 21:18 Mcpherson % (Auto) 3.9 % 02/06/21 21:18 Eos % (Auto) 0.0 % 02/06/21 21:18 Baso % (Auto) 0.1 % 02/06/21 21:18 Neut # (Auto) 12.70 K/uL (1.4-6.5) H 02/06/21 21:18 Lymph # (Auto) 0.54 K/uL (1.2-3.4) L 02/06/21 21:18 Mcpherson # (Auto) 0.54 K/uL (0.11-0.59) 02/06/21 21:18 Eos # (Auto) 0.00 K/uL (0-0.5) 02/06/21 21:18 Baso # (Auto) 0.01 K/uL (0-0.2) 02/06/21 21:18 Immature Gran # (Auto) 0.05 K/uL (0.00-0.02) H 02/06/21 21:18 PT 10.3 Seconds (9.0-12.0) 02/06/21 21:18 INR 1.0 (0.9-1.1) 02/06/21 21:18 APTT 29.0 Seconds (21.0-31.0) 02/06/21 21:18 PTT Ratio 1.1 02/06/21 21:18 D-Dimer 1580 ug/L FEU (0-500) H* 02/06/21 21:18 Sodium 131 mmol/L (136-145) L 02/06/21 21:18 Potassium 4.4 mmol/L (3.5-5.1) 02/06/21 21:18 Chloride 100 mmol/L (98-107) 02/06/21 21:18 Carbon Dioxide 21 mmol/L (21-32) 02/06/21 21:18 Anion Gap 9.0 (3-11) 02/06/21 21:18 BUN 18 mg/dl (7-18) 02/06/21 21:18 Creatinine 1.21 mg/dl (0.6-1.4) 02/06/21 21:18 Est Cr Clr Drug Dosing Not Reportable 02/06/21 21:18 Est GFR ( Amer) 68.9 ml/min 02/06/21 21:18 Est GFR (Non-Af Amer) 59.5 ml/min 02/06/21 21:18 BUN/Creatinine Ratio 14.9 (10-20) 02/06/21 21:18 Glucose 150 mg/dl (70-99) H 02/06/21 21:18 Lactate 1.2 mmol/L (0.4-2.0) 02/06/21 23:28 Calcium 8.9 mg/dl (8.5-10.1) 02/06/21 21:18 Magnesium 1.8 mg/dl (1.8-2.4) 02/06/21 21:18 Total Bilirubin 0.7 mg/dl (0.2-1) 02/06/21 21:18 AST 20 U/L (15-37) 02/06/21 21:18 ALT 16 U/L (12-78) 02/06/21 21:18 Alkaline Phosphatase 101 U/L (45-117) 02/06/21 21:18 Total Creatine Kinase 370 U/L (39-308) H 02/06/21 21:18 Troponin I < 0.015 ng/ml (0-0.045) 02/06/21 21:18 NT-Pro-B Natriuret Pep 392 pg/ml (0-900) 02/06/21 21:18 Total Protein 8.1 gm/dl (6.4-8.2) 02/06/21 21:18 Albumin 3.0 gm/dl (3.4-5.0) L 02/06/21 21:18 Globulin 5.1 gm/dl (2.5-4.0) H 02/06/21 21:18 Albumin/Globulin Ratio 0.6 (0.9-2) L 02/06/21 21:18 TSH 0.943 uIu/ml (0.300-4.500) 02/06/21 21:18 COVID-19 Eval Order Covid19 at [facility] 02/06/21 22:30 SARS-CoV-2 (PCR) NEGATIVE (Negative) 02/06/21 22:30 Diagnostic Findings [facility] Patient: MONALISA BAEZ (Male) : 46 Status: ER Date: 02/07/21 00:20 Room #: History: weakness Slices: 67 Priors: Tech: Jonatan Thurman @ [phone] Exams: CT HEAD Contrast: Accession Numbers: [id number] Referring Physician: REFERRED SELF Preliminary Findings Only See Final Report For Complete Findings CT HEAD: No acute infarct, bleed, or acute intracranial abnormality. Moderate age-related findings are stable compared with head CT March 29, 2020 Stable, prominent size left ICA terminus, ectasia versus 4 mm aneurysm. Radiologist: Edilia Manriquez M.D. Study ready at 00:25 and initial results transmitted at 00:34 *This report constitutes a preliminary interpretation only. Non-acute findings felt to be unrelated to the clinical presentation may not be discussed in this report. The study will be interpreted and a final report will be generated by the local Radiologist the following shift. To reach the hospital radiology department call [phone]. If a discrepancy is found between the preliminary and final interpretations of this study, please notify us via our Client Portal at [email or web address].You can also fax this report with a description of the discrepancy, or include the final report, to our daytime fax number [phone].If faxing, please indicate the severity of discrepancy using one of the following categories: [ ] 1 - Agree/Informational [ ] 2 - Unlikely to Affect Management [ ] 3 - Possible Eventual Change of Management [ ] 4 - Probable Immediate Change of Management For all other patient related information, please fax us at [phone]. [id number] [facility] Patient: MONALISA BAEZ (Male) : 46 Status: ER Date: 02/07/21 00:20 Room #: History: CHEST PAIN SOB Slices: 834 Priors: Tech: Jonatan Thurman @ [phone] Exams: CTA CHEST Contrast: IV Amt: 119 ML OPTIRAY 320 Accession Numbers: [id number] Referring Physician: REFERRED SELF Preliminary Findings Only See Final Report For Complete Findings CTA CHEST: No definite pulmonary embolism. Moderate breathing motion artifact limits evaluation. Moderate right lower lobe infiltrate, nonspecific, concerning for pneumonia. Emphysema with scattered blebs. Cardiomegaly. Radiologist: Edilia Manriquez M.D. Study ready at 00:25 and initial results transmitted at 00:37 *This report constitutes a preliminary interpretation only. Non-acute findings felt to be unrelated to the clinical presentation may not be discussed in this report. The study will be interpreted and a final report will be generated by the local Radiologist the following shift. To reach the hospital radiology department call [phone]. If a discrepancy is found between the preliminary and final interpretations of this study, please notify us via our Client Portal at [email or web address].You can also fax this report with a description of the discrepancy, or include the final report, to our daytime fax number [phone].If faxing, please indicate the severity of discrepancy using one of the following categories: [ ] 1 - Agree/Informational [ ] 2 - Unlikely to Affect Management [ ] 3 - Possible Eventual Change of Management [ ] 4 - Probable Immediate Change of Management For all other patient related information, please fax us at [phone]. [id number] [facility] Patient: MONALISA BAEZ (Male) : 46 Status: ER Date: 02/07/21 00:28 Room #: History: ABD PAIN WEAKNESS Slices: 1527 Priors: Tech: Jonatan Thurman @ [phone] Exams: CT ABDOMEN & PELVIS With Contrast Contrast: IV Amt: 119 ML OPTIRAY 320 Accession Numbers: [id number] Referring Physician: REFERRED SELF Preliminary Findings Only See Final Report For Complete Findings CT ABDOMEN & PELVIS With Contrast: No definite acute finding. No SBO, free air or free fluid. Mild mesenteric haziness, without adenopathy, likely chronic. Fatty liver, and fat-containing right femoral hernia. Radiologist: Edilia Manriquez M.D. Study ready at 00:33 and initial results transmitted at 00:44 *This report constitutes a preliminary interpretation only. Non-acute findings felt to be unrelated to the clinical presentation may not be discussed in this report. The study will be interpreted and a final report will be generated by the local Radiologist the following shift. To reach the hospital radiology department call [phone]. If a discrepancy is found between the preliminary and final interpretations of this study, please notify us via our Client Portal at [email or web address].You can also fax this report with a description of the discrepancy, or include the final report, to our daytime fax number [phone].If faxing, please indicate the severity of discrepancy using one of the following categories: [ ] 1 - Agree/Informational [ ] 2 - Unlikely to Affect Management [ ] 3 - Possible Eventual Change of Management [ ] 4 - Probable Immediate Change of Management For all other patient related information, please fax us at [phone]. [id number] Code Status & VTE Plan Code Status Full code VTE Prophylaxis Plan VTE Prophylaxis will be ordered: Yes PG Care Time/CCT Total # of Minutes Spent Total Time Spent with Patient: Total time spent is greater than 50% in coordination of care (as documented) at patient's floor/unit and/or counseling patient: Coding Level of Care Code 63336 Initial Inpt Care Lvl 3 Diagnoses Pneumonia J18.9 Type 2 diabetes mellitus without complication E11.9 Parkinsonism G20 Hyperglobulinemia R77.1 SUMANTH (obstructive sleep apnea) G47.33 Interstitial lung disease J84.9 Pulmonary fibrosis J84.10 Hypertension I10 Hypothyroidism E03.9 Neuropathy G62.9 Gout M10.9 Asthma J45.909
[2021-02-07] MEDS ORDERED: ACETAMINOPHEN 325 MG TAB PO PRN (01:57)
[2021-02-07] MEDS ORDERED: PRAMIPEXOLE DIHYDROCHLO 0.5 MG TAB PO PRN (01:57)
[2021-02-07] MEDS ORDERED: MECLIZINE 12.5 MG TAB PO PRN (01:57)
[2021-02-07] MEDS ORDERED: ONDANSETRON INJ 2 MG/ML 2 ML VIAL IV PRN (01:57)
[2021-02-07] MEDS ORDERED: PATIENT'S HEIGHT NEEDED SCH (05:00)
[2021-02-07] MEDS ORDERED: PNEUMOCOCCAL POLYSACCHARIDES 25 MCG/0.5 ML VIAL/SYR IM ONE (05:14)
[2021-02-07] MEDS ORDERED: ENOXAPARIN INJ 40 MG/0.4 ML SYR SQ SCH (06:00)
[2021-02-07] MEDS: methylPREDNISolone 40 MG in SYRINGE 0 ML IV SCH ×3 (06:23→21:16)
[2021-02-07] MEDS: LEVOTHYROXINE SODIUM 150 MCG TABLET PO SCH (06:25)
--- NOTE | 2021-02-07 06:45 | XRay Report ---
XR chest 1V portable HISTORY: 70 years-old Male weakness acute weakness COMPARISON: CTA chest of same day, chest radiograph 03/29/2020 TECHNIQUE: Portable AP view of the chest FINDINGS: Calcified left hilar lymph nodes. Mild cardiomegaly. Emphysema. Calcific granuloma of the lingula red emonstrated. No pneumothorax, pleural effusion or overt pulmonary edema. Right greater than left biba silar opacities. Degenerative changes of the shoulders and spine. IMPRESSION: 1. Right lung base opacities are suspicious for pneumonia versus aspiration pneumonitis. 2. Emphysema with prior granulomatous disease. ACT 112: Negative or not required by law. The above report was generated using voice recognition software. It may contain grammatical, syntax o r spelling errors. Electronically signed by: Dario Delgadillo M.D. 02/07/2021 6:43 AM
--- NOTE | 2021-02-07 06:48 | CT Scan Report ---
CT OF THE HEAD WITHOUT CONTRAST CLINICAL HISTORY: Weakness. Altered mental status. COMPARISON STUDY: MRI of the brain May 14, 2018. Head CT March 29, 2020. TECHNIQUE: Helical axial images of the head were obtained without IV contrast. Automated exposure con trol was utilized for the study. A dose lowering technique was utilized adhering to the principles o f ALARA. FINDINGS: No acute intracranial hemorrhage, midline shift or mass effect is present. The ventricular system is stable. Multifocal white matter hypodensities are slightly more prominent than on exam of D ec2019. The basal cisterns are patent. No extra-axial collections are present. There are no findings to suggest acute dural sinus thrombosis or acute territorial infarct. No significant calvar ial abnormalities are present. Visualized portions of the sinuses and mastoid air cells are clear. IMPRESSION: 1. No acute intracranial hemorrhage or mass effect. 2. White matter hypodensities which are slightly more prominent than on CT of March 29, 2020. Thes e statistically reflect small vessel disease however are nonspecific and if persistent symptoms, an M RI could be obtained. ACT 112: Negative or not required by law. Electronically signed by: Chris Salinas M.D. 02/07/2021 6:47 AM
--- NOTE | 2021-02-07 07:07 | CT Scan Report ---
CT OF THE ABDOMEN AND PELVIS WITH CONTRAST CLINICAL HISTORY: Abdominal pain. Weakness. COMPARISON STUDY: None. TECHNIQUE: Following IV administration of 119 mL of Optiray, axial images of the abdomen and pelvis w ere obtained from the lung bases to the proximal femurs. Images were reviewed in the axial, sagittal, and coronal planes. IV contrast was administered without complication. Automated exposure control w as utilized for the study. A dose lowering technique was utilized adhering to the principles of [place] Wiley. CT DOSE: 5198.80 mGy.cm FINDINGS: Please note that the chest CT will be reported separately. Right lower lobe consolidation i s better depicted on that exam. No pneumatosis, free air or portal venous gas is present. There is po ssible hepatic steatosis. No biliary or pancreatic ductal dilatation is present. Pancreatic glandular atrophy is noted. The spleen, adrenal glands and kidneys are unremarkable. There is no hydronephrosi s. Mesenteric infiltration is of doubtful significance. The caliber and wall thickness of small and l arge bowel are normal. The appendix is normal. Infrarenal abdominal aorta is ectatic, measuring appro ximately 2.9 cm. 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 Left com mon iliac artery measures 2.5 cm. Right common iliac artery measures 2.2 cm. Fat-containing right lizzy tral hernia is present. No acute fracture or suspicious lesion is identified within the visualized sk eletal structures. IMPRESSION: 1. No acute process within the abdomen or pelvis. 2. Right lower lobe consolidation which favors pneumonia. This is better depicted on the chest CT whi ch will be reported separately. 3. 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 Ectatic inf rarenal abdominal aorta. 4. No bowel obstruction. No bowel wall thickening. Normal appendix. ACT 112: Negative or not required by law. Electronically signed by: Chris Salinas M.D. 02/07/2021 7:06 AM
[2021-02-07] MEDS: ALBUT/IPRATROP 3MG/0.5MG NEB 3 ML VIAL NEB SCH ×4 (07:38→19:33)
--- NOTE | 2021-02-07 08:02 | CT Scan Report ---
CT angio chest PE protocol HISTORY: 70 years-old Male with PE. Acute chest pain with shortness of breath and weakness TECHNIQUE: Multiple CTA images of the chest were obtained after the intravenous administration of 119 ml Optiray. Coronal and sagittal MIPS were obtained from the axial data set and were submitted for review. All measurements were obtained according to NASCET criteria. A dose lowering technique was u tilized adhering to the principles of ALARA. COMPARISON: Chest CT 03/28/2015, chest radiograph 02/06/2021, chest CT 01/19/2020 FINDINGS: CTA: Mild cardiomegaly. No pericardial effusion. No thoracic aortic aneurysm or dissection. Unchanged mild descending thoracic aortic ectasia, 3.9 x 3.9 cm. There is patency of the imaged great vessels. Desc ending thoracic aortic tortuosity. Unremarkable pulmonary artery without filling defects to suggest t hromboembolic disease. Evaluation of the segmental and subsegmental branches at the level of the lung bases is limited secondary to respiratory motion artifact. CT CHEST: No thyroid nodule. Mild mediastinal and hilar adenopathy includes a 2.1 x 1.6 cm subcarinal lymph nod e with paratracheal lymph nodes measuring up to 10 mm. Calcified left hilar lymph nodes. No pneumotho rax or pleural effusion. Mild emphysema. Calcified granuloma of the lingula redemonstrated. Reticular subpleural opacities compatible with fibrosis. Mild groundglass densities of the left lung base sugg estive of atelectasis. Segmental consolidative opacities of the basal right lower lobe with air bronc hograms. No suspicious pulmonary nodules or masses identified. No overt pulmonary edema. Mild tracheo bronchial secretions. No acute process of the imaged upper abdomen. There is hepatic steatosis. No acute fracture. Degenera tive changes of the shoulders and spine. IMPRESSION: 1. Consolidative opacities of the basal right lower lobe are suggestive of pneumonia. 2. Mild mediastinal and right hilar adenopathy is likely reactive. 3. Mild bibasilar fibrotic changes are redemonstrated. 4. No pulmonary emboli. 5. Prior granulomatous disease. ACT 112: Negative or not required by law. The above report was generated using voice recognition software. It may contain grammatical, syntax o r spelling errors. Electronically signed by: Dario Delgadillo M.D. 02/07/2021 8:01 AM
[2021-02-07] MEDS: DOCUSATE SODIUM 100 MG CAP PO SCH (08:42)
[2021-02-07] MEDS: CALCIUM 600MG + VIT D 400 IU TAB PO SCH (08:44)
[2021-02-07] MEDS: DULoxetine HCL 60 MG CAP PO SCH (08:44)
[2021-02-07] MEDS: OMEGA-3 (PURIFIED FISH OIL) 1 GM CAP PO SCH (08:44)
[2021-02-07] MEDS: ASPIRIN 81 MG ECTAB PO SCH (08:45)
[2021-02-07] MEDS: TAMSULOSIN HCL 0.4 MG CAP PO SCH (08:45)
[2021-02-07] MEDS: PIPERACILLIN/TAZOBACTAM 4.5 GM in DEXTROSE 5% 100 ML IV SCH ×2 (08:45→18:14)
[2021-02-07] MEDS: guaiFENesin 600 MG TABCR PO SCH ×2 (08:45→21:16)
[2021-02-07] MEDS: allopurinoL 300 MG TAB PO SCH (08:45)
[2021-02-07] MEDS: ASCORBIC ACID 500 MG TAB PO SCH (08:45)
[2021-02-07] MEDS: PANTOprazole 40 MG TAB PO SCH (08:45)
[2021-02-07] MEDS ORDERED: MYCOPHENOLATE MOFETIL 250 MG CAP PO SCH (09:00)
--- NOTE | 2021-02-07 11:52 | Hospitalist Progress Note ---
Date of Service February 07, 2021 Assessment & Plan (1) Pneumonia: Plan: CTA chest on 02/06 showed right lower lobe consolidation, likely pneumonia. MRSA swab negative. - Continue Zosyn - Defer atypical given focal nature, but will add if no resolution of fever/overall improvement. - DuoNebs, guaifenesin - Continue methyl-prednisolone 40 mg IV every 8 hours for now; consider taper soon if improving. - Continue Advair Diskus - Will attempt to get sputum culture, though reports not bring much up. (2) Type 2 diabetes mellitus without complication: Plan: A1c was 6.8% in 10/2020. On no specific treatment. - Sliding scale insulin - Consider glycemic pharmacy consult given now on steroids (3) Hypertension: Plan: BP today is 150/70. Do not see home med for HTN. - Monitor (4) Interstitial lung disease: Plan: Seen by Dr. Castelan recently. Seems to be due to Sjogren's or a mixed connective tissue disease per notes. - See above - Continue CellCept for now; will reach out to pulm re: continuing with infection. (5) Parkinsonism: Plan: Follows with Dr. Lozano. Parkinson's variant, and he has not been on Sinemet due to somnolence. - Continue carbidopa/levodopa and pramipexole HS - May need to consult neurology if any changes (6) SUMANTH (obstructive sleep apnea): Plan: CPAP at bedtime as needed (7) Hypothyroidism: Plan: TSH is 0.94 this admission. - Continue home levothyroxine 150 mcg PO daily. (8) Gout: Plan: No present gout flare. - Continue allopurinol (9) DVT prophylaxis: Plan: Lovenox 40 mg SQ daily Admission and Anticipated Discharge Date Admission Date: February 07, 2021 Subjective With some sweating this morning. Some dry cough (non-productive). Reports no chest pain, shortness of breath, abdominal pain, nausea, or vomiting. Physical Exam Constitutional: WD/WN, vitals as above Eyes: EOM intact bilaterally; no conjunctival abnormality ENMT: external ear and nose normal, oropharynx normal Neck: trachea midline, no thyromegaly normal visual inspection Respiratory: normal respiratory effort, lungs clear to auscultation no respiratory distress Cardiovascular: RRR, no murmur, no edema Gastrointestinal (Abdomen): Inspection/Auscultation: abdomen normal to inspection; abdomen not distended Musculoskeletal: no cyanosis or clubbing, extremities motor strength 5/5 Skin: no rashes, warm and dry Neurologic: moves all extremities and awake Psychiatric: Orientation: alert, oriented to person and cooperative Results & Data Results & Data ([facility]) Vital Signs (Past 12 Hours) Vital Signs Temp Pulse Pulse Pulse Resp BP Pulse Ox 02/07/21 11:21 36.2 C L 90 18 151/68 H 93 02/07/21 10:52 90 18 98 02/07/21 07:39 81 18 94 02/07/21 07:26 37.0 C 90 18 115/71 96 02/07/21 02:27 98 H 02/07/21 02:10 36.5 C 101 H 16 123/75 94 02/07/21 01:29 104 H 18 117/80 95 02/07/21 00:30 105 H 18 123/76 94 PG Care Time/CCT Total # of Minutes Spent Total Time Spent with Patient: Total time spent is greater than 50% in coordination of care (as documented) at patient's floor/unit and/or counseling patient: Coding Level of Care Code 66334 Subseq Hosp Care Lvl 3 Diagnoses Pneumonia J18.9 Type 2 diabetes mellitus without complication E11.9 Parkinsonism G20 SUMANTH (obstructive sleep apnea) G47.33 Interstitial lung disease J84.9 Hypertension I10 Hypothyroidism E03.9 Gout M10.9 DVT prophylaxis Z29.9
[2021-02-07] MEDS: CARBIDOPA/LEVODOPA 25/100MG TAB PO SCH (21:16)
[2021-02-07] MEDS ORDERED: Nursing to Pharmacy Communication SCH (23:45)
[2021-02-08] MEDS: PIPERACILLIN/TAZOBACTAM 4.5 GM in DEXTROSE 5% 100 ML IV SCH ×3 (01:55→18:13)
--- NOTE | 2021-02-08 05:57 | Electrocardiogram Report ---
Test Reason : Blood Pressure : / mmHG Vent. Rate : 120 BPM Atrial Rate : 120 BPM P-R Int : 162 ms QRS Dur : 098 ms QT Int : 316 ms P-R-T Axes : 060 -20 067 degrees QTc Int : 446 ms Sinus tachycardia with occasional Premature ventricular complexes Possible Inferior infarct , age undetermined Abnormal ECG When compared with ECG of 29-MAR-2020 08:14, Premature ventricular complexes are now Present Confirmed by Brad Leung ([id number]) on 02/08/2021 5:57:18 AM Referred By: REFERRED SELF Confirmed By:Brad Leung
[2021-02-08] MEDS: methylPREDNISolone 40 MG in SYRINGE 0 ML IV SCH ×2 (07:05→13:51)
[2021-02-08] MEDS: ALBUT/IPRATROP 3MG/0.5MG NEB 3 ML VIAL NEB SCH (07:30)
[2021-02-08] MEDS: LEVOTHYROXINE SODIUM 150 MCG TABLET PO SCH (07:43)
[2021-02-08 08:01] LABS: Hematocrit (blood only) 36.6 % (42-52); Hemoglobin 11.8 g/dL (14.0-18.0); Mean Corpuscular Hemoglobin 27.6 pg (25-34); Mean Corpuscular Hgb Conc 32.2 g/dL (32-36); Mean Corpuscular Volume 85.7 fL (80-100); Mean Platelet Volume 9.5 fL (7.4-10.4); Platelet Count 282 K/uL (130-400); RDW Coefficient of Variation 14.6 % (11.5-14.5); RDW Standard Deviation 45.7 fL (36.4-46.3); Red Blood Count 4.27 M/uL (4.7-6.1); White Blood Count 15.94 K/uL (4.8-10.8)
[2021-02-08] MEDS: DOCUSATE SODIUM 100 MG CAP PO SCH (09:17)
[2021-02-08 09:18] LABS: Albumin Globulin Ratio 0.5 (0.9-2); Albumin Level 2.6 gm/dl (3.4-5.0); BUN Creatinine Ratio 22.3 (10-20); Bilirubin,Total 0.4 mg/dl (0.2-1); Calcium 9.3 mg/dl (8.5-10.1); Creatinine Clr Calc Pharmacy 72.5 ml/min; Est GFR (African American) 67.6 ml/min; Est GFR (Non-African American) 58.3 ml/min; Globulin 5.1 gm/dl (2.5-4.0); Magnesium 2.5 mg/dl (1.8-2.4); Potassium 4.3 mmol/L (3.5-5.1); Total Protein 7.7 gm/dl (6.4-8.2)
[2021-02-08] MEDS: PANTOprazole 40 MG TAB PO SCH (09:19)
[2021-02-08] MEDS: TAMSULOSIN HCL 0.4 MG CAP PO SCH (09:19)
[2021-02-08] MEDS: ASPIRIN 81 MG ECTAB PO SCH (09:19)
[2021-02-08] MEDS: guaiFENesin 600 MG TABCR PO SCH ×2 (09:19→21:19)
[2021-02-08] MEDS: allopurinoL 300 MG TAB PO SCH (09:19)
[2021-02-08] MEDS: DULoxetine HCL 60 MG CAP PO SCH (09:19)
[2021-02-08] MEDS: CALCIUM 600MG + VIT D 400 IU TAB PO SCH (09:19)
[2021-02-08] MEDS: ASCORBIC ACID 500 MG TAB PO SCH (09:19)
[2021-02-08] MEDS: OMEGA-3 (PURIFIED FISH OIL) 1 GM CAP PO SCH (09:20)
[2021-02-08] MEDS: ENOXAPARIN INJ 40 MG/0.4 ML SYR SQ SCH (09:20)
[2021-02-08] MEDS ORDERED: ALBUT/IPRATROP 3MG/0.5MG NEB 3 ML VIAL NEB PRN (10:49)
--- NOTE | 2021-02-08 13:16 | Hospitalist Progress Note ---
Date of Service February 08, 2021 Assessment & Plan (1) Pneumonia: Plan: CTA chest on 02/06 showed right lower lobe consolidation, likely pneumonia. MRSA swab negative. - Continue Zosyn - Defer atypical given focal nature, but will add if no resolution of fever/overall improvement. - DuoNejennyfer, guaifenesin - Stop methyl-prednisolone; move to prednisone with short taper on discharge. - Continue Advair Diskus - Sputum culture from 02/07 with normal oral isabel. (2) Type 2 diabetes mellitus without complication: Plan: A1c was 6.8% in 10/2020. On no specific treatment. - Sliding scale insulin - Consider glycemic pharmacy consult given now on steroids -> Sugars overall ok. Defer for now. (3) Hypertension: Plan: BP today is 130/80. Do not see home med for HTN. - Monitor (4) Interstitial lung disease: Plan: Seen by Dr. Castelan recently. Seems to be due to Sjogren's or a mixed connective tissue disease per notes. - See above - Hold CellCept for now after discussion with pulm. Could restart in approx. 1 week. (5) Parkinsonism: Plan: Follows with Dr. Lozano. Parkinson's variant, and he has not been on Sinemet due to somnolence. - Continue carbidopa/levodopa and pramipexole HS - May need to consult neurology if any changes (6) SUMANTH (obstructive sleep apnea): Plan: CPAP at bedtime as needed (7) Hypothyroidism: Plan: TSH is 0.94 this admission. - Continue home levothyroxine 150 mcg PO daily. (8) Gout: Plan: No present gout flare. - Continue allopurinol (9) DVT prophylaxis: Plan: Lovenox 40 mg SQ daily Admission and Anticipated Discharge Date Admission Date: February 07, 2021 Subjective Improved today. Some dry cough (non-productive). Reports no chest pain, shortness of breath, abdominal pain, nausea, or vomiting. Physical Exam Constitutional: WD/WN, vitals as above Eyes: EOM intact bilaterally; no conjunctival abnormality ENMT: external ear and nose normal, oropharynx normal Neck: trachea midline, no thyromegaly normal visual inspection Respiratory: normal respiratory effort, lungs clear to auscultation no respiratory distress Cardiovascular: RRR, no murmur, no edema Gastrointestinal (Abdomen): Inspection/Auscultation: abdomen normal to inspection; abdomen not distended Musculoskeletal: no cyanosis or clubbing, extremities motor strength 5/5 Skin: no rashes, warm and dry Neurologic: moves all extremities and awake Psychiatric: Orientation: alert, oriented to person and cooperative Results & Data Results & Data ([facility]) Vital Signs (Past 12 Hours) Vital Signs Temp Pulse Pulse Resp BP BP Pulse Ox 02/08/21 12:00 36.4 C L 96 H 18 131/78 93 02/08/21 11:27 02/08/21 09:18 36.4 C L 76 18 123/76 94 02/08/21 07:30 75 18 96 02/08/21 07:00 86 02/08/21 02:38 36.4 C L 78 18 121/81 94 Pulse Ox 02/08/21 12:00 02/08/21 11:27 94 02/08/21 09:18 02/08/21 07:30 02/08/21 07:00 02/08/21 02:38 PG Care Time/CCT Total # of Minutes Spent Total Time Spent with Patient: Total time spent is greater than 50% in coordination of care (as documented) at patient's floor/unit and/or counseling patient: Coding Level of Care Code 51822 Subseq Hosp Care Lvl 2 Diagnoses Pneumonia J18.9 Type 2 diabetes mellitus without complication E11.9 Hypertension I10 Interstitial lung disease J84.9 Parkinsonism G20 SUMANTH (obstructive sleep apnea) G47.33 Hypothyroidism E03.9 Gout M10.9 DVT prophylaxis Z29.9
[2021-02-08] MEDS: CARBIDOPA/LEVODOPA 25/100MG TAB PO SCH (21:18)
[2021-02-09] MEDS: PIPERACILLIN/TAZOBACTAM 4.5 GM in DEXTROSE 5% 100 ML IV SCH ×2 (01:35→09:21)
[2021-02-09] MEDS: LEVOTHYROXINE SODIUM 150 MCG TABLET PO SCH (06:14)
[2021-02-09 07:21] LABS: Hemoglobin 12.1 g/dL (14.0-18.0); Mean Corpuscular Hemoglobin 28.1 pg (25-34); Mean Corpuscular Hgb Conc 32.7 g/dL (32-36); Mean Corpuscular Volume 85.8 fL (80-100); Mean Platelet Volume 9.6 fL (7.4-10.4); Platelet Count 308 K/uL (130-400); RDW Coefficient of Variation 14.4 % (11.5-14.5); RDW Standard Deviation 45.2 fL (36.4-46.3); Red Blood Count 4.31 M/uL (4.7-6.1); White Blood Count 14.73 K/uL (4.8-10.8)
[2021-02-09 07:38] LABS: BUN Creatinine Ratio 23.4 (10-20); Calcium 8.8 mg/dl (8.5-10.1); Creatinine Clr Calc Pharmacy 72.6 ml/min; Est GFR (African American) 67.6 ml/min; Est GFR (Non-African American) 58.3 ml/min; Magnesium 2.5 mg/dl (1.8-2.4); Potassium 4.2 mmol/L (3.5-5.1)
[2021-02-09] MEDS: DOCUSATE SODIUM 100 MG CAP PO SCH (08:02)
[2021-02-09] MEDS: ENOXAPARIN INJ 40 MG/0.4 ML SYR SQ SCH (08:02)
[2021-02-09] MEDS: OMEGA-3 (PURIFIED FISH OIL) 1 GM CAP PO SCH (08:03)
[2021-02-09] MEDS: TAMSULOSIN HCL 0.4 MG CAP PO SCH (08:03)
[2021-02-09] MEDS: DULoxetine HCL 60 MG CAP PO SCH (08:03)
[2021-02-09] MEDS: ASPIRIN 81 MG ECTAB PO SCH (08:03)
[2021-02-09] MEDS: PANTOprazole 40 MG TAB PO SCH (08:03)
[2021-02-09] MEDS: ASCORBIC ACID 500 MG TAB PO SCH (08:03)
[2021-02-09] MEDS: allopurinoL 300 MG TAB PO SCH (08:03)
[2021-02-09] MEDS: CALCIUM 600MG + VIT D 400 IU TAB PO SCH (08:04)
[2021-02-09] MEDS: guaiFENesin 600 MG TABCR PO SCH (08:04)
[2021-02-09] MEDS ORDERED: predniSONE 10 MG TABLET PO SCH (09:00)
--- NOTE | 2021-02-09 18:16 | Discharge Summary ---
Date of Service February 09, 2021 Admission HPI Per Admitting Provider The patient is a 70-year-old male with a past medical history including diabetes mellitus type 2, parkinsonism, interstitial lung disease, hyperglobulinemia, urinary incontinence, SUMANTH, interstitial lung disease, granulomatous lung disease, restless legs, pulmonary fibrosis, positive LAZARO, inflammatory polyarthritis, hypothyroidism, hypertension, gout, depression with anxiety, ataxia, asthma and anemia. The patient reports symptoms as noted above, in addition, he was trying to get off his chair tonight please reports he that he was unable to move. Imaging in the emergency department included a CTA of chest PE protocol, which was negative for PE, but did show a right lower lobe infiltrate. CT scan head was negative for acute findings, but did note left ICA 4 mm aneurysm that was stable Principal Diagnosis Community-acquired pneumonia in an immunosuppressed patient Discharge Exam Constitutional WD/WN, vitals as above Eyes EOM intact bilaterally; no conjunctival abnormality ENMT external ear and nose normal, oropharynx normal Neck trachea midline, no thyromegaly normal visual inspection Respiratory normal respiratory effort, lungs clear to auscultation no respiratory distress Cardiovascular RRR, no murmur, no edema Gastrointestinal (Abdomen) Inspection/Auscultation: abdomen normal to inspection; abdomen not distended Musculoskeletal no cyanosis or clubbing, extremities motor strength 5/5 Skin no rashes, warm and dry Neurologic moves all extremities and awake Psychiatric Orientation: alert, oriented to person and cooperative Discharge Data Allergies Allergy/AdvReac Type Severity Reaction Status Date / Time No Known Drug Allergies Allergy Verified 02/06/21 22:13 Consultations 02/07/21 00:53 ED Decision to Admit Stat Ordered Studies 02/06/21 23:06 CT abd pelvis IV con only Urgent CT angio chest PE protocol Urgent CT head/brain wo con Urgent Hospital Course (1) Pneumonia: CTA chest on 02/06 showed right lower lobe consolidation, likely pneumonia. MRSA swab negative. - Defer atypical given focal nature, but will add if no resolution of fever/overall improvement. - danika Louise - On methyl-prednisolone; moved to prednisone 30 mg PO daily on discharge. (slightly lower dose given DM). - Continue Advair Diskus - Sputum culture from 02/07 with normal oral isabel. - Continue Zosyn inpatient, switched to Augmentin for a total of 7-day course of abx. Slightly longer due to his immunosuppression. Encouraged close f/u with his dining service worker, Dr. Castelan. (2) Type 2 diabetes mellitus without complication: A1c was 6.8% in 10/2020. On no specific treatment. - Sliding scale insulin while admitted. - Consider glycemic pharmacy consult given now on steroids -> Sugars overall ok while inpatient. Will return to normal after steroids done. (3) Hypertension: BP today is 130/80. Do not see home med for HTN. - Monitor (4) Interstitial lung disease: Seen by Dr. Castelan recently. Seems to be due to Sjogren's or a mixed connective tissue disease per notes. - See above - Hold CellCept for now after discussion with pulm. Restart in approx. 1 week. (5) Parkinsonism: Follows with Dr. Lozano. Parkinson's variant, and he has not been on Sinemet due to somnolence. - Continue carbidopa/levodopa and pramipexole HS - May need to consult neurology if any changes - None while inpatient. (6) SUMANTH (obstructive sleep apnea): CPAP at bedtime as needed (7) Hypothyroidism: TSH is 0.94 this admission. - Continue home levothyroxine 150 mcg PO daily. (8) Gout: No present gout flare. - Continue allopurinol (9) DVT prophylaxis: Lovenox 40 mg SQ daily Total Time Total Time Spent Total Time Spent (In Minutes): 35 Discharge Plan Discharge Items Patient Disposition: Home - Self-Care Reason For Visit: PNEUMONIA Discharge Diagnosis: Community-acquired pneumonia Activity: Resume your previous activity Non-emergency contact: Primary Care Provider and Disaster Recovery Manager Call non-emergency contact if: your symptoms worsen and your temperature is above 101 Follow-up/Referrals: Albert Abdullahi III, MD [Primary Care Provider] - 02/20/21 11:00 am Marlene Castelan MD [Physician] - 02/26/21 10:00 am () Diet: Regular Addtl Attending Provider Instructions: Mr. Hall, You were admitted to the hospital with pneumonia. This responded well to antibiotics. We did hold your CellCept as this suppresses the immune system, and we want your body to be able to fight off the infection. We are sending you home on 5 more days of antibiotics. Normally for community pneumonia, we would treat with 5 days, but for you, I'd like to go slightly longer to give your body a bit of extra time to recover. We are also sending a few days of steroids to help reduce any lung inflammation caused by the infection. Please restart your CellCept in 1 week. Please take the green "pickle" valve home and use that a few times per day to help break up any mucus remaining in your lungs. Please see Dr. Castelan soon (1-2 weeks) to make sure you breathing is better and that you are healing from your illness. Please call Dr. Abdullahi's office or Dr. Castelan's office if you have any fevers, chills, more shortness of breath, or other concerning symptoms. Pending Studies at Discharge: No Stand-Alone Forms: My [facility] [place], Smoking Cessation Medications and DC Order Prescriptions: New amoxicillin-pot clavulanate [Augmentin] 875-125 mg tablet 1 tab PO BID Qty: 11 RF: 0 prednisone 10 mg tablet 30 mg PO DAILY Qty: 9 RF: 0 Continued meclizine 12.5 mg tablet 12.5 mg PO DAILY PRN (Reason: dizziness) Qty: 90 RF: 3 omeprazole 20 mg tablet,delayed release (DR/EC) 20 mg PO DAILY Qty: 90 RF: 2 carbidopa-levodopa 25-100 mg tablet 1 tab PO HS 30 Days Qty: 30 RF: 5 levothyroxine 150 mcg tablet 150 mcg PO QAM Qty: 90 RF: 3 diclofenac sodium 1 % gel 4 g topical QID Qty: 100 RF: 5 ascorbic acid (vitamin C) 1,000 mg tablet 1 g PO DAILY RF: 0 albuterol sulfate [Ventolin HFA] 90 mcg/actuation HFA aerosol inhaler 2 puff INHALATION Q4H PRN (Reason: Shortness Of Breath Or Wheezing) Qty: 18 RF: 3 aspirin 81 mg Tablet,Delayed Release (Dr/Ec) 81 mg PO QAM RF: 0 calcium carbonate [Calcium 600] 600 mg calcium (1,500 mg) Tablet 600 mg PO QAM RF: 0 docusate sodium [Colace] 100 mg Capsule 100 mg PO QAM RF: 0 allopurinol 300 mg tablet 300 mg PO QAM RF: 0 omega-3 fatty acids [Fish Oil Concentrate] 1,000 mg Capsule 1,000 mg PO DAILY RF: 0 duloxetine 60 mg capsule,delayed release(DR/EC) 60 mg PO DAILY RF: 0 fluticasone propion-salmeterol [Advair Diskus] 100-50 mcg/dose blister with device 2 inh inhalation BID RF: 0 pramipexole 0.25 mg tablet 0.5 mg PO HS PRN (Reason: restless legs) RF: 0 tamsulosin 0.4 mg capsule 0.4 mg PO DAILY RF: 0 Discontinued mycophenolate mofetil 500 mg tablet 500 mg PO BID RF: 0 Discharge Orders: Discharge Order (Routine); Ordered 02/09/21 Ordered By: Italo Claudio Admission Data Admit Date/Time: 02/07/21 01:16 Attending Provider: Italo Claudio Admit Provider: Alfa Reyes Primary Care Provider: Albert Abdullahi III Other Providers: Italo Claudio Other Interventions: Discharge Summary Assessment (RN) Last Done: 02/09/21 14:01 Coding Level of Care Code D/C DAY MANAGEMENT >30 MINS Diagnoses Pneumonia J18.9 Type 2 diabetes mellitus without complication E11.9 Hypertension I10 Interstitial lung disease J84.9 Parkinsonism G20 SUMANTH (obstructive sleep apnea) G47.33 Hypothyroidism E03.9 Gout M10.9 DVT prophylaxis Z29.9
== END 2021-02-09 15:05 | disposition home or self-care (01) | DRG 194 ==
LOC: ED 20:53 → 2N 02-07 01:16 → SUATTDRO 02-07 01:16 → 2N 02-07 01:44

== ENCOUNTER 2021-07-28 22:33 | Inpatient (IN) ==
[2021-07-28] MEDS ORDERED: SODIUM CHLORIDE 0.9% 1000ML 1,000 ML IV ONE (22:53)
[2021-07-28 23:32] LABS: INR 1.1 (0.9-1.1); Prothrombin Time 11.7 Seconds (9.0-12.0)
[2021-07-28 23:40] LABS: Alanine Aminotransferase 13 U/L (7-52); Albumin Globulin Ratio 0.8 (0.9-2); Albumin Level 3.8 gm/dl (3.4-5.0); Alkaline Phosphatase 92 U/L (34-104); Anion Gap 10 (3-11); Bilirubin,Total 0.6 mg/dl (0.2-1.0); Blood Urea Nitrogen 36 mg/dl (6-23); Calcium 9.5 mg/dl (8.5-10.1); Carbon Dioxide 21 mmol/L (21-32); Chloride 101 mmol/L (98-107); Creatine Kinase 766 U/L (30-223); Est GFR (African American) 80.3 ml/min; Est GFR (Non-African American) 69.3 ml/min; Globulin 4.7 gm/dl (2.5-4.0); Glucose 104 mg/dl (70-99(Fasting)); Hematocrit (blood only) 42.3 % (42-52); Hemoglobin 13.7 g/dL (14.0-18.0); Lipase 5 U/L (11-82); Magnesium 2.2 mg/dl (1.7-2.4); Mean Corpuscular Hemoglobin 28.2 pg (25-34); Mean Corpuscular Hgb Conc 32.4 g/dL (32-36); Mean Platelet Volume 9.8 fL (7.4-10.4); Phosphorus 4.7 mg/dl (2.5-4.9); Platelet Count 184 K/uL (130-400); RDW Coefficient of Variation 15.9 % (11.5-14.5); RDW Standard Deviation 50.5 fL (36.4-46.3); Red Blood Count 4.86 M/uL (4.7-6.1); Sodium 132 mmol/L (136-145); Total Protein 8.5 gm/dl (6.0-8.3); Troponin I High Sensitivity 10.7 pg/ml (0-20); White Blood Count 7.76 K/uL (4.8-10.8)
[2021-07-28 23:42] LABS: Basophils # (auto) 0.01 K/uL (0-0.2); Basophils % (auto) 0.1 %; Eosinophils # (auto) 0.01 K/uL (0-0.5); Eosinophils % (auto) 0.1 %; Immature Granulocytes # (auto) 0.04 K/uL (0.00-0.02); Immature Granulocytes % (auto) 0.5 %; Lymphocytes # (auto) 0.74 K/uL (1.2-3.4); Lymphocytes % (auto) 9.5 %; Monocytes # (auto) 0.31 K/uL (0.11-0.59); Neutrophils # (auto) 6.65 K/uL (1.4-6.5); Neutrophils % (auto) 85.8 %; Platelet Estimate Normal (Normal)
[2021-07-28 23:52] LABS: Aspartate Aminotransferase 28 U/L (13-39); Potassium 4.5 mmol/L (3.5-5.1)
--- NOTE | 2021-07-29 00:27 | Emergency Department Note ---
Impression & Plan Weakness generalized, Elevated CPK, Ambulatory dysfunction ED Provider Note NAME: MONALISA BAEZ AGE: 71 SEX: M ARRIVES VIA: Ambulance INFORMANT: Patient, EMS ED PROVIDER(S): Robin Mayorga MD CHIEF COMPLAINT: Weakness. PLAN: Disposition: Admit MEDICAL DECISION MAKING: The patient is a pleasant 71-year-old gentleman with a past medical history of Parkinsonism/Lewy body disease, interstitial lung disease, hypertension, hyperlipidemia, inflammatory polyarthritis, SUMANTH on CPAP who presents emergency department via EMS after he was found down in his home/bathtub where he had apparently been since Thursday when he went to bathe. The patient reports that he became acutely weak in his legs and lowered himself to the ground but was unable to get up. It was not until family attempted to check on him today but it was noted that something was wrong. Prior to his episode of weakness he denies any recent fevers, chills, cough, congestion, GI or symptoms. On arrival the patient is acute on chronically ill-appearing but no acute distress, afebrile stable vital signs. He was stained in feces. He appears clinically dry. He has generalized weakness throughout with no focal deficits. Compartments are soft. EKG without overt acute ischemia. Chest x-ray negative for acute cardiopulmonary process per my preliminary review. Plain film of the pelvis negative for acute fracture per my preliminary review. WBC, HCT and platelets within normal limits. Chemistry without metabolic acidosis. BUN 36 with BUN/creatinine> 30 consistent with the patient's clinically dry appearance. Electrolytes and LFTs without significant abnormality. CPK is elevated at 766. Initial high-sensitivity troponin 10.7, within normal limits. Lipase is not elevated. Covid-19 RNA, NAAT negative. CT of the head was negative for acute process per preliminary stat rad report. Reevaluation the patient did feel some improvement after IV fluid hydration. Given the patient's weakness leading to his prolonged downtime he does agree with plan for admission. Likely will require placement. Case was discussed with Dr. Reyes, [facility] hospitalist, who will evaluate the patient for admission. Triage Nursing notes reviewed and agree them. Prior medical records reviewed Vital Signs: reviewed and remarkable for no significant abnormalities Differential diagnosis: Infection, dehydration, metabolic abnormality, hypo/hyperglycemia, electrolyte disturbance, anemia, hypoxia, cardiac sources, intracerebral event, toxicologic, neurologic, as well as other pathologies. ER treatment provided: See below. Diagnostics interpreted by me: ECG: Sinus rhythm with occasional PVCs, 93 bpm, no overt ST elevation or depression, QTC 457, QRS 102 Cardiac Monitoring: An order for continuous cardiac monitoring was placed and demonstrated sinus rhythm with occasional PVCs, 93 bpm. Laboratory studies: See below Imaging studies: See below Consultation(s): Case was discussed with Dr. Reyes, [facility] hospitalist, who will evaluate the patient for admission. HPI: The patient is a pleasant 71-year-old gentleman with a past medical history of Parkinsonism/Lewy body disease, interstitial lung disease, hypertension, hyperlipidemia, inflammatory polyarthritis, SUMANTH on CPAP who presents emergency department via EMS after he was found down in his home/bathtub where he had apparently been since Thursday when he went to bathe. The patient reports that he became acutely weak in his legs and lowered himself to the ground but was unable to get up. It was not until family attempted to check on him today but it was noted that something was wrong. Prior to his episode of weakness he denies any recent fevers, chills, cough, congestion, GI or symptoms. ROS: See above HPI for pertinent positives & negatives. A total of 10 systems reviewed and were otherwise negative. VITALS:See Below PHYSICAL EXAMINATION: GENERAL: Awake, alert, acute on chronically ill-appearing, in no distress HENT: Normocephalic, atraumatic. Oropharynx with dry mucous membranes and otherwise unremarkable. EYES: Normal conjunctiva. Mild injection of right sclera. EOMI. No nystamgus. PEARRL. NECK: Supple. No nuchal rigidity. FROM. No JVD. RESPIRATORY: Clear to auscultation. CARDIAC: Regular rate, normal rhythm. Extremities warm and well perfused. Pulses equal. ABDOMEN: Soft, non-distended. No tenderness to palpation. No rebound or guarding. No masses. RECTAL: Deferred. MUSCULOSKELETAL: Chest examination reveals no tenderness. The back is symmetrical on inspection without obvious abnormality. There is no CVA tenderness to palpation. No joint edema. LOWER EXTREMITIES: Calves are equal size bilaterally and non-tender. No edema. No discoloration. NEURO: Generalized muscle weakness throughout. No focal sensory or motor defic its noted. SKIN: Decubitus ulcer of bilateral gluteal areas. No rash or jaundice noted. Robin E Cross, MD Past Med/Surg History Medical History Acid reflux Asthma At high risk for falls PER PT Depression with anxiety Enlarged prostate Family history of reaction to anesthesia sister - n/v ; trouble staying awake - not every time Gout HX Granulomatous lung disease pt not sure...follows lung dr, not sure details - has phone # [phone] Hypertension Hypothyroidism Parkinson's disease Restless legs Rheumatoid arthritis [employer] Sleep apnea CPAP Surgical History H/O inguinal hernia repair L H/O parotidectomy H/O umbilical hernia repair History of colonoscopy with polypectomy S/P rotator cuff repair R Family History Father Lung disease Hypertension Stroke Sister Diabetes Mother Cancer Brother Diabetes Grandmother (Maternal) Diabetes Grandmother (Paternal) Diabetes Denies family history of Ovarian cancer Prostate cancer Myocardial infarction Breast cancer Colorectal cancer Social History Smoking Status: Never smoker Tobacco Type: Smokeless Tobacco (Dip or Chew) Second Hand Exposure: Yes (parents smoked); Hx Alcohol Use: No Hx Substance Use: No Preferred Language: Austrian Communication Ability: Effective Visual Impairment: No Limitations Hearing Ability: Normal Carburetor Expert Required: No Beliefs That Will Affect Care: None marital status: / Current Living Situation: Alone Current Living Situation Comment: alone in apartment current occupational status: retired current occupation: used to work on a farm, 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 [employer] Feels Safe at Home: Yes Childhood Exposure to Second-Hand Smoke: Yes caffeine: Yes Dental Care, Regularly: No Physical Activity Frequency: Does not Exercise Seatbelt Use: sometimes Sunscreen Use: No Assistive Devices: Cane, CPAP, Denture - Upper, Denture - Lower, Glasses and [place] lker Allergies Allergies Allergy/AdvReac Type Severity Reaction Status Date / Time No Known Allergies Allergy Verified 07/18/21 08:24 Home Meds Home Medications Medication Instructions Recorded Confirmed allopurinol 300 mg tablet 300 mg PO QAM 06/15/18 07/18/21 aspirin 81 mg tablet,delayed 81 mg PO QAM 06/15/18 07/18/21 release omega-3 fatty acids 1,000 mg 1,000 mg PO QAM 03/29/20 07/18/21 capsule (Fish Oil Concentrate) duloxetine 60 mg capsule,delayed 60 mg PO QAM 02/06/21 07/18/21 release tamsulosin 0.4 mg capsule 0.4 mg PO QAM 02/06/21 07/18/21 amlodipine 5 mg tablet 5 mg PO QAM 03/21/21 07/18/21 levothyroxine 175 mcg tablet 175 mcg PO QAM 06/04/21 07/18/21 meclizine 12.5 mg tablet 12.5 mg PO UD PRN 06/04/21 07/18/21 [id number] 333 mg-133 1 tab PO DAILY tab 07/18/21 07/18/21 mg-8.3 mg tablet docusate sodium 100 mg capsule 200 mg PO .COMPLEX cap 07/18/21 07/18/21 (Colace) guaifenesin 600 mg tablet, 600 mg PO Q12H PRN 07/18/21 07/18/21 extended release 12 hr (Mucinex) Previous Rx's Medication Instructions Recorded mycophenolate mofetil 500 mg tablet 500 mg PO BID #60 tab 02/26/21 syringe with needle, safety 1 mL #4 ea 03/22/21 28 gauge x 1/2" (Monoject TB Safety Syringe) cyanocobalamin (vitamin B-12) 1,000 mcg SUBCUT MONTHLY #1 ml 04/15/21 1,000 mcg/mL injection solution carbidopa 25 mg-levodopa 100 mg 1 tab PO HS 90 Days #90 tab 05/02/21 tablet pramipexole 0.5 mg tablet 0.5 mg PO HS #90 tab 05/02/21 omeprazole 20 mg tablet,delayed 20 mg PO QAM #90 tab 05/13/21 release albuterol sulfate 90 mcg/actuation 2 puff INHALATION Q4H PRN #18 g 07/11/21 aerosol inhaler (Ventolin HFA) CPAP Machine #1 ea 07/16/21 fluticasone 100 mcg-salmeterol 50 1 inh INHALATION BID #60 ea 07/17/21 mcg/dose blistr powdr for inhalation (Advair Diskus) Lift Chair #1 ea 07/26/21 Results & Data (ED) Vital Signs Vital Signs - 24 hr 07/28/21 22:40 07/28/21 23:15 07/29/21 01:01 Temperature 36.5 C Temperature Source Oral Pulse Rate 97 H 87 Pulse Rate [Right Finger] 100 H Pulse Rhythm Regular Regular Pulse Rhythm [Right Finger] Regular Pulse Strength Normal Pulse Strength [Right Finger] Normal Respiratory Rate 20 20 18 Respiratory Effort / Characteristics Non-Labored Spontaneous Non-Labored Spontaneous Respiratory Depth Normal Normal Respiratory Pattern Regular Blood Pressure 139/87 Blood Pressure [Right Arm] 154/102 H Blood Pressure Mean 104 Blood Pressure Mean [Right Arm] 119 Blood Pressure Position [Right Arm] Lying Pulse Oximetry 97 97 97 Oxygen Delivery Method Room Air Room Air Room Air Sepsis Recent Fever Within 48 Hours No Sepsis New/Unexplained Change in Mental Status No Sepsis Action Taken by Nursing No Action Required Laboratory Data Attestation: I reviewed the patient's lab results. Result diagrams: 07/28/21 22:50 07/28/21 22:50 Lab Results 07/28/21 07/28/21 07/28/21 Range/Units 22:50 22:50 23:05 WBC 7.76 (4.8-10.8) K/uL RBC 4.86 (4.7-6.1) M/uL Hgb 13.7 L (14.0-18.0) g/dL Hct 42.3 (42-52) % MCV 87.0 (80-100) fL MCH 28.2 (25-34) pg MCHC 32.4 (32-36) g/dL RDW Std Deviation 50.5 H (36.4-46.3) fL RDW Coeff of Swathi 15.9 H (11.5-14.5) % Plt Count 184 (130-400) K/uL MPV 9.8 (7.4-10.4) fL Immature Gran % (Auto) 0.5 % Neut % (Auto) 85.8 % Lymph % (Auto) 9.5 % [place] % (Auto) 4.0 % Eos % (Auto) 0.1 % Baso % (Auto) 0.1 % Neut # (Auto) 6.65 H (1.4-6.5) K/uL Lymph # (Auto) 0.74 L (1.2-3.4) K/uL [place] # (Auto) 0.31 (0.11-0.59) K/uL Eos # (Auto) 0.01 (0-0.5) K/uL Baso # (Auto) 0.01 (0-0.2) K/uL Immature Gran # (Auto) 0.04 H (0.00-0.02) K/uL Platelet Estimate Normal (Normal) PT 11.7 (9.0-12.0) Seconds INR 1.1 (0.9-1.1) Sodium 132 L (136-145) mmol/L Potassium 4.5 (3.5-5.1) mmol/L Chloride 101 (98-107) mmol/L Carbon Dioxide 21 (21-32) mmol/L Anion Gap 10 (3-11) BUN 36 H (6-23) mg/dl Creatinine 1.06 (0.6-1.4) mg/dl Est Cr Clr Drug Dosing Not Reportable Est GFR ( Amer) 80.3 ml/min Est GFR (Non-Af Amer) 69.3 ml/min BUN/Creatinine Ratio 34.0 H (10-20) Glucose 104 H (70-99(Fasting)) mg/dl Calcium 9.5 (8.5-10.1) mg/dl Phosphorus 4.7 (2.5-4.9) mg/dl Magnesium 2.2 (1.7-2.4) mg/dl Total Bilirubin 0.6 (0.2-1.0) mg/dl AST 28 (13-39) U/L ALT 13 (7-52) U/L Alkaline Phosphatase 92 (34-104) U/L Total Creatine Kinase 766 H (30-223) U/L Troponin I High Sens 10.7 (0-20) pg/ml Total Protein 8.5 H (6.0-8.3) gm/dl Albumin 3.8 (3.4-5.0) gm/dl Globulin 4.7 H (2.5-4.0) gm/dl Albumin/Globulin Ratio 0.8 L (0.9-2) Lipase 5 L (11-82) U/L SARS-CoV-2, RNA, NAAT (NEGATIVE) 07/28/21 Range/Units 23:21 WBC (4.8-10.8) K/uL RBC (4.7-6.1) M/uL Hgb (14.0-18.0) g/dL Hct (42-52) % MCV (80-100) fL MCH (25-34) pg MCHC (32-36) g/dL RDW Std Deviation (36.4-46.3) fL RDW Coeff of Swathi (11.5-14.5) % Plt Count (130-400) K/uL MPV (7.4-10.4) fL Immature Gran % (Auto) % Neut % (Auto) % Lymph % (Auto) % [place] % (Auto) % Eos % (Auto) % Baso % (Auto) % Neut # (Auto) (1.4-6.5) K/uL Lymph # (Auto) (1.2-3.4) K/uL [place] # (Auto) (0.11-0.59) K/uL Eos # (Auto) (0-0.5) K/uL Baso # (Auto) (0-0.2) K/uL Immature Gran # (Auto) (0.00-0.02) K/uL Platelet Estimate (Normal) PT (9.0-12.0) Seconds INR (0.9-1.1) Sodium (136-145) mmol/L Potassium (3.5-5.1) mmol/L Chloride (98-107) mmol/L Carbon Dioxide (21-32) mmol/L Anion Gap (3-11) BUN (6-23) mg/dl Creatinine (0.6-1.4) mg/dl Est Cr Clr Drug Dosing Est GFR ( Amer) ml/min Est GFR (Non-Af Amer) ml/min BUN/Creatinine Ratio (10-20) Glucose (70-99(Fasting)) mg/dl Calcium (8.5-10.1) mg/dl Phosphorus (2.5-4.9) mg/dl Magnesium (1.7-2.4) mg/dl Total Bilirubin (0.2-1.0) mg/dl AST (13-39) U/L ALT (7-52) U/L Alkaline Phosphatase (34-104) U/L Total Creatine Kinase (30-223) U/L Troponin I High Sens (0-20) pg/ml Total Protein (6.0-8.3) gm/dl Albumin (3.4-5.0) gm/dl Globulin (2.5-4.0) gm/dl Albumin/Globulin Ratio (0.9-2) Lipase (11-82) U/L SARS-CoV-2, RNA, NAAT NEGATIVE (NEGATIVE) Administered Medications Sodium Chloride (Nss 1000ml) 1,000 mls @ 125 mls/hr IV .Q8H JOSAFAT Stop: 08/28/21 01:29 Last Admin: 07/29/21 01:44 Dose: 125 mls/hr Documented by: [id number] Discontinued Medications Sodium Chloride (Nss 1000ml) 1,000 mls @ 999 mls/hr IV .Q1H1M ONE Stop: 07/28/21 23:53 Last Infusion: 07/29/21 00:22 Dose: 0 mls/hr Documented by: [id number] Admin: 07/28/21 23:02 Dose: 999 mls/hr Documented by: [id number] Imaging Data Radiologist's Impression: STATRAD Preliminary Findings Only See Final Report For Complete Findings CT HEAD: No acute intracranial abnormality. Radiologist: Alejandro Oleary MD Study ready at 23:42 and initial results transmitted at 00:15 Discharge Plan Visit Data Chief Complaint: Weakness Stated Complaint: WEAKNESS/DIZZY (COULDNT GET OUT OF TUB >12H ED Provider: Robin Mayorga Discharge Problem: Weakness generalized, Elevated CPK, Ambulatory dysfunction Forms Stand Alone Forms: [facility] Prescriptions Prescriptions: No Action (DME) Monoject TB Safety Syringe 1 mL 28 gauge x 1/2" syringe See Rx Instructions .ROUTE .MEDSUPPLY Qty: 4 RF: 0 cyanocobalamin (vitamin B-12) 1,000 mcg/mL solution 1,000 mcg subcut MONTHLY Qty: 1 RF: 5 omeprazole 20 mg tablet,delayed release (DR/EC) 20 mg PO QAM Qty: 90 RF: 0 (DME) CPAP Machine Misc See Rx Instructions .MEDSUPPLY Qty: 1 RF: 0 fluticasone propion-salmeterol [Advair Diskus] 100-50 mcg/dose blister with device 1 inh inhalation BID Qty: 60 RF: 6 (DME) Lift Chair Misc See Rx Instructions .Route Qty: 1 RF: 0 mycophenolate mofetil 500 mg tablet 500 mg PO BID Qty: 60 RF: 0 pramipexole 0.5 mg tablet 0.5 mg PO HS Qty: 90 RF: 1 carbidopa-levodopa 25-100 mg tablet 1 tab PO HS 90 Days Qty: 90 RF: 1 [id number]-wxomdfycm-hwbx 333-133-8.3 mg tablet 1 tab PO DAILY RF: 0 guaifenesin [Mucinex] 600 mg tablet extended release 12hr 600 mg PO Q12H PRNRF: 0 docusate sodium [Colace] 100 mg capsule 200 mg PO .COMPLEX RF: 0 albuterol sulfate [Ventolin HFA] 90 mcg/actuation HFA aerosol inhaler 2 puff INHALATION Q4H PRN (Reason: Shortness Of Breath Or Wheezing) Qty: 18 RF: 3 aspirin 81 mg Tablet,Delayed Release (Dr/Ec) 81 mg PO QAM RF: 0 allopurinol 300 mg tablet 300 mg PO QAM RF: 0 omega-3 fatty acids [Fish Oil Concentrate] 1,000 mg Capsule 1,000 mg PO QAM RF: 0 amlodipine 5 mg tablet 5 mg PO QAM RF: 0 levothyroxine 175 mcg tablet 175 mcg PO QAM RF: 0 meclizine 12.5 mg tablet 12.5 mg PO UD PRN (Reason: dizziness) RF: 0 duloxetine 60 mg capsule,delayed release(DR/EC) 60 mg PO QAM RF: 0 tamsulosin 0.4 mg capsule 0.4 mg PO QAM RF: 0 Referrals Referrals: PCP,NO [Primary Care Provider] -
[2021-07-29] MEDS: SODIUM CHLORIDE 0.9% 1000ML 1,000 ML IV SCH ×3 (01:44→18:09)
--- NOTE | 2021-07-29 02:31 | History & Physical Report ---
Date of Service July 29, 2021 Assessment & Plan (1) Confusion: Plan: Patient was found confused, possibly being in his bathtub for the past 3 days- CT of head negative Likely metabolic encephalopathy associated with dehydration, precipitated by generalized weakness Patient has been living by himself, and his present living situation should be verified that he is acceptable to go back to that situation eventually (2) Generalized weakness: Plan: When strong enough we will consult PT/OT Patient will likely need an inpatient rehab stay (3) Parkinsonism: Plan: Continue carbidopa levodopa (4) Polyarthritis, inflammatory: (5) Lewy body disease: Plan: Continue usual medications (6) Ambulatory dysfunction: (7) Pulmonary fibrosis: Plan: Pulmonary fibrosis/interstitial lung disease- Continue usual inhalers (8) Interstitial lung disease: Plan: See above (9) Hypertension: Plan: Continue amlodipine, aspirin (10) SUMANTH on CPAP: Plan: CPAP at bedtime as needed (11) Hypothyroidism: Plan: Continue levothyroxine 135 mcg daily (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 Primary Care Provider: NO PCP The patient is a 71-year-old male with a past medical history including hypothyroidism, neuropathy, SUMANTH on CPAP, inflammatory polyarthritis, pulmonary fibrosis, interstitial lung disease, morbid obesity, diabetes mellitus type 2, pneumonia, seizure-like activity, hypertension, parkinsonism, Lewy body disease and ambulatory dysfunction. Patient reportedly had become weak while he was attempting to base, and lowered himself to the bathtub but was unable to get up, and remained there for about the last 3 days. Upon arrival to the ED, he was noted to be stained in feces, appeared dehydrated, and was able to communicate to staff, but was lethargic. Allergies Allergy/AdvReac Type Severity Reaction Status Date / Time No Known Allergies Allergy Verified 07/18/21 08:24 Home Medications Medication Instructions Recorded Confirmed Type allopurinol 300 mg tablet 300 mg PO QAM 06/15/18 07/18/21 History aspirin 81 mg tablet,delayed 81 mg PO QAM 06/15/18 07/18/21 History release omega-3 fatty acids 1,000 mg 1,000 mg PO QAM 03/29/20 07/18/21 History capsule (Fish Oil Concentrate) duloxetine 60 mg capsule,delayed 60 mg PO QAM 02/06/21 07/18/21 History release tamsulosin 0.4 mg capsule 0.4 mg PO QAM 02/06/21 07/18/21 History mycophenolate mofetil 500 mg tablet 500 mg PO BID #60 tab 02/26/21 07/18/21 Rx amlodipine 5 mg tablet 5 mg PO QAM 03/21/21 07/18/21 History syringe with needle, safety 1 mL #4 ea 03/22/21 07/18/21 Rx 28 gauge x 1/2" (Monoject TB Safety Syringe) cyanocobalamin (vitamin B-12) 1,000 mcg SUBCUT MONTHLY #1 ml 04/15/21 07/18/21 Rx 1,000 mcg/mL injection solution carbidopa 25 mg-levodopa 100 mg 1 tab PO HS 90 Days #90 tab 05/02/21 07/18/21 Rx tablet pramipexole 0.5 mg tablet 0.5 mg PO HS #90 tab 05/02/21 07/18/21 Rx omeprazole 20 mg tablet,delayed 20 mg PO QAM #90 tab 05/13/21 07/18/21 Rx release levothyroxine 175 mcg tablet 175 mcg PO QAM 06/04/21 07/18/21 History meclizine 12.5 mg tablet 12.5 mg PO UD PRN 06/04/21 07/18/21 History albuterol sulfate 90 mcg/actuation 2 puff INHALATION Q4H PRN #18 g 07/11/21 07/18/21 Rx aerosol inhaler (Ventolin HFA) CPAP Machine #1 ea 07/16/21 07/18/21 Rx fluticasone 100 mcg-salmeterol 50 1 inh INHALATION BID #60 ea 07/17/21 07/18/21 Rx mcg/dose blistr powdr for inhalation (Advair Diskus) rjndzvb-aerhwvnit-tjzv 333 mg-133 1 tab PO DAILY tab 07/18/21 07/18/21 History mg-8.3 mg tablet docusate sodium 100 mg capsule 200 mg PO .COMPLEX cap 07/18/21 07/18/21 History (Colace) guaifenesin 600 mg tablet, 600 mg PO Q12H PRN 07/18/21 07/18/21 History extended release 12 hr (Mucinex) Lift Chair #1 ea 07/26/21 Rx Past Med/Surg History Medical History (Updated 07/29/21 @ 05:05 by Alfa Reyes MD) Acid reflux Asthma At high risk for falls PER PT Depression with anxiety Enlarged prostate Family history of reaction to anesthesia sister - n/v ; trouble staying awake - not every time Gout HX Granulomatous lung disease pt not sure...follows lung dr, not sure details - has phone # [phone] Hypertension Hypothyroidism Parkinson's disease Restless legs Rheumatoid arthritis GHANSHYAM AMBROSIO, [employer] Sleep apnea CPAP Surgical History H/O inguinal hernia repair L H/O parotidectomy H/O umbilical hernia repair History of colonoscopy with polypectomy S/P rotator cuff repair R Family History Father Lung disease Hypertension Stroke Sister Diabetes Mother Cancer Brother Diabetes Grandmother (Maternal) Diabetes Grandmother (Paternal) Diabetes Denies family history of Ovarian cancer Prostate cancer Myocardial infarction Breast cancer Colorectal cancer Social History Smoking Status: Never smoker Tobacco Type: Smokeless Tobacco (Dip or Chew) Second Hand Exposure: Yes (parents smoked); Hx Alcohol Use: No Hx Substance Use: No Preferred Language: [place] Helen[place] Communication Ability: Effective Visual Impairment: No Limitations Hearing Ability: Normal Instrument Mechanics Supervisor Required: No Beliefs That Will Affect Care: None marital status: / Current Living Situation: Alone Current Living Situation Comment: alone in apartment current occupational status: retired current occupation: used to work on a farm, 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 HEENT--PERRL, EOMI, mucous membranes and oropharynx dry. Neck--supple. No JVD. No bruits. Thyroid normal, trachea midline, no adenopathy. Heart--normal S1 and S2. No murmurs, rubs or gallops. Lungs--clear bilaterally, no respiratory distress, no accessory muscle use. Abdomen--normal bowel sounds and soft. Nontender. Nondistended Extremities--no cyanosis or clubbing. No edema. Dermatologic--decubitus ulcers noted on bilateral buttocks and shoulders Neurologic--cranial nerves II through XII grossly intact. Rheumatologic--limited exam Psychiatric--lethargic. Results & Data Results & Data ([facility]) Vital Signs (Past 12 Hours) Vital Signs Temp Pulse Pulse Resp BP BP Pulse Ox 07/29/21 01:01 100 H 18 154/102 H 97 07/28/21 23:15 87 20 97 07/28/21 22:40 36.5 C 97 H 20 139/87 97 Laboratory Results Laboratory Results WBC 7.76 K/uL (4.8-10.8) 07/28/21 22:50 RBC 4.86 M/uL (4.7-6.1) 07/28/21 22:50 Hgb 13.7 g/dL (14.0-18.0) L 07/28/21 22:50 Hct 42.3 % (42-52) 07/28/21 22:50 MCV 87.0 fL (80-100) 07/28/21 22:50 MCH 28.2 pg (25-34) 07/28/21 22:50 MCHC 32.4 g/dL (32-36) 07/28/21 22:50 RDW Std Deviation 50.5 fL (36.4-46.3) H 07/28/21 22:50 RDW Coeff of Swathi 15.9 % (11.5-14.5) H 07/28/21 22:50 Plt Count 184 K/uL (130-400) 07/28/21 22:50 MPV 9.8 fL (7.4-10.4) 07/28/21 22:50 Immature Gran % (Auto) 0.5 % 07/28/21 22:50 Neut % (Auto) 85.8 % 07/28/21 22:50 Lymph % (Auto) 9.5 % 07/28/21 22:50 [place] % (Auto) 4.0 % 07/28/21 22:50 Eos % (Auto) 0.1 % 07/28/21 22:50 Baso % (Auto) 0.1 % 07/28/21 22:50 Neut # (Auto) 6.65 K/uL (1.4-6.5) H 07/28/21 22:50 Lymph # (Auto) 0.74 K/uL (1.2-3.4) L 07/28/21 22:50 [place] # (Auto) 0.31 K/uL (0.11-0.59) 07/28/21 22:50 Eos # (Auto) 0.01 K/uL (0-0.5) 07/28/21 22:50 Baso # (Auto) 0.01 K/uL (0-0.2) 07/28/21 22:50 Immature Gran # (Auto) 0.04 K/uL (0.00-0.02) H 07/28/21 22:50 Platelet Estimate Normal (Normal) 07/28/21 22:50 PT 11.7 Seconds (9.0-12.0) 07/28/21 23:05 INR 1.1 (0.9-1.1) 07/28/21 23:05 Sodium 132 mmol/L (136-145) L 07/28/21 22:50 Potassium 4.5 mmol/L (3.5-5.1) 07/28/21 22:50 Chloride 101 mmol/L (98-107) 07/28/21 22:50 Carbon Dioxide 21 mmol/L (21-32) 07/28/21 22:50 Anion Gap 10 (3-11) 07/28/21 22:50 BUN 36 mg/dl (6-23) H 07/28/21 22:50 Creatinine 1.06 mg/dl (0.6-1.4) 07/28/21 22:50 Est Cr Clr Drug Dosing Not Reportable 07/28/21 22:50 Est GFR ( Amer) 80.3 ml/min 07/28/21 22:50 Est GFR (Non-Af Amer) 69.3 ml/min 07/28/21 22:50 BUN/Creatinine Ratio 34.0 (10-20) H 07/28/21 22:50 Glucose 104 mg/dl (70-99(Fasting)) H 07/28/21 22:50 Calcium 9.5 mg/dl (8.5-10.1) 07/28/21 22:50 Phosphorus 4.7 mg/dl (2.5-4.9) 07/28/21 22:50 Magnesium 2.2 mg/dl (1.7-2.4) 07/28/21 22:50 Total Bilirubin 0.6 mg/dl (0.2-1.0) 07/28/21 22:50 AST 28 U/L (13-39) 07/28/21 22:50 ALT 13 U/L (7-52) 07/28/21 22:50 Alkaline Phosphatase 92 U/L (34-104) 07/28/21 22:50 Total Creatine Kinase 766 U/L (30-223) H 07/28/21 22:50 Troponin I High Sens 10.7 pg/ml (0-20) 07/28/21 22:50 Total Protein 8.5 gm/dl (6.0-8.3) H 07/28/21 22:50 Albumin 3.8 gm/dl (3.4-5.0) 07/28/21 22:50 Globulin 4.7 gm/dl (2.5-4.0) H 07/28/21 22:50 Albumin/Globulin Ratio 0.8 (0.9-2) L 07/28/21 22:50 Lipase 5 U/L (11-82) L 07/28/21 22:50 SARS-CoV-2, RNA, NAAT NEGATIVE (NEGATIVE) 07/28/21 23:21 Diagnostic Findings [facility] Patient: MONALISA BAEZ (Male) : 46 Status: ER Date: 07/28/21 23:38 Room #: History: FELL IN TUB, LAYED IN TUB SINCE 07-26-21 Slices: 66 Priors: Tech: Jonatan Thurman @ [phone] Exams: CT HEAD Contrast: Accession Numbers: [id number] Referring Physician: REFERRED SELF Preliminary Findings Only See Final Report For Complete Findings CT HEAD: No acute intracranial abnormality. Radiologist: Alejandro Oleary MD Study ready at 23:42 and initial results transmitted at 00:15 *This report constitutes a preliminary interpretation only. Non-acute findings felt to be unrelated to the clinical presentation may not be discussed in this report. The study will be interpreted and a final report will be generated by the local Radiologist the following shift. To reach the [facility] radiology department call [phone]. If a discrepancy is found between the preliminary and final interpretations of this study, please notify us via our Client Portal at [email or web address], under QA Exams. You can also fax this report with a description of the discrepancy, or include the final report, to our daytime fax number [phone]. If faxing, please indicate the severity of discrepancy using one of the following categories: [ ] 1 - Agree/Informational [ ] 2 - Unlikely to Affect Management [ ] 3 - Possible Eventual Change of Management [ ] 4 - Probable Immediate Change of Management For all other patient related information, please fax us at [phone]. [id number] Code Status & VTE Plan Code Status Full code VTE Prophylaxis Plan VTE Prophylaxis will be ordered: Yes PG Care Time/CCT Total # of Minutes Spent Total Time Spent with Patient: Total time spent is greater than 50% in coordination of care (as documented) at patient's floor/unit and/or counseling patient: Coding Level of Care Code 22373 Initial Inpt Care Lvl 3 Diagnoses Hypothyroidism E03.9 SUMANTH on CPAP G47.33; Z99.89 Polyarthritis, inflammatory M06.4 Pulmonary fibrosis J84.10 Interstitial lung disease J84.9 Parkinsonism G20 Generalized weakness R53.1 Confusion R41.0 Lewy body disease G31.83; F02.80 Ambulatory dysfunction R26.2 Hypertension I10 Cystic-bullous disease of lung J98.4 Rheumatoid arthritis M06.9 BPH loc w urin obs/LUTS N40.1
[2021-07-29] MEDS ORDERED: ACETAMINOPHEN 325 MG TAB PO PRN (04:03)
[2021-07-29] MEDS ORDERED: ONDANSETRON INJ 2 MG/ML 2 ML VIAL IV PRN (04:03)
[2021-07-29] MEDS ORDERED: PATIENT'S HEIGHT AND/OR WEIGHT NEEDED SCH (05:00)
[2021-07-29] MEDS ORDERED: LEVOTHYROXINE SODIUM 175 MCG TABLET PO SCH (06:30)
[2021-07-29] MEDS: CEFEPIME 2,000 MG in SYRINGE 0 ML IV SCH ×3 (06:33→21:27)
--- NOTE | 2021-07-29 07:12 | CT Scan Report ---
CT OF THE HEAD WITHOUT CONTRAST CLINICAL HISTORY: fall, weakness COMPARISON STUDY: Head CT February 06, 2021. MRI of the brain March 12, 2021. CT DOSE: 614.27 mGy.cm TECHNIQUE: Helical axial images of the head were obtained without IV contrast. Automated exposure con trol was utilized for the study. A dose lowering technique was utilized adhering to the principles o f ALARA. FINDINGS: No acute intracranial hemorrhage, midline shift or mass effect is present. White matter hyp odensities are unchanged and suggest small vessel disease. The ventricular system is unremarkable. Th e basal cisterns are patent. No extra-axial collections are present. There are no findings to suggest acute dural sinus thrombosis or acute territorial infarct. No significant calvarial abnormalities ar e present. Visualized portions of the sinuses and mastoid air cells are clear. IMPRESSION: 1. No acute intracranial findings. 2. No acute calvarial fracture. ACT 112: Negative or not required by law. Electronically signed by: Chris Salinas M.D. 07/29/2021 7:11 AM
[2021-07-29] MEDS ORDERED: DAPTOmycin 375 MG in SYRINGE 0 ML IV SCH (08:00)
--- NOTE | 2021-07-29 08:06 | XRay Report ---
XR chest 1V portable HISTORY: Atypical Chest Pain COMPARISON: Chest 02/06/2021. FINDINGS: No pneumothorax. The heart remains mildly enlarged. Emphysema is again noted. Increased mar kings at the lung bases which favors vascular crowding from the emphysema. This is similar to the preet or study. Otherwise, no new focal lung consolidations. No evidence for pulmonary edema. Stable calcif ied granuloma within the left midlung zone. Stable blunting of the costophrenic sulci. This could be chronic or represent trace bilateral pleural effusions. IMPRESSION: 1. Emphysema with chronic interstitial thickening. This is similar to the prior study. 2. Stable blunting of the costophrenic sulci which is likely chronic. ACT 112: Negative or not required by law. Electronically signed by: Harshal Oliva M.D. 07/29/2021 8:04 AM
--- NOTE | 2021-07-29 08:07 | XRay Report ---
XR pelvis 1-2V routine CLINICAL HISTORY: Fall. Pelvic pain. COMPARISON STUDY: None. FINDINGS: No fracture or dislocation within the pelvis or hips. The sacrum appears intact. Mild degen erative changes within the bilateral hips and sacroiliac joints. No radiopaque foreign bodies. IMPRESSION: No fracture or dislocation within the pelvis or hips. ACT 112: Negative or not required by law. Electronically signed by: Harshal Oliva M.D. 07/29/2021 8:05 AM
[2021-07-29 08:56] LABS: Hematocrit (blood only) 35.5 % (42-52); Hemoglobin 11.2 g/dL (14.0-18.0); Mean Corpuscular Hemoglobin 27.7 pg (25-34); Mean Corpuscular Hgb Conc 31.5 g/dL (32-36); Mean Corpuscular Volume 87.9 fL (80-100); Mean Platelet Volume 9.7 fL (7.4-10.4); Platelet Count 251 K/uL (130-400); RDW Coefficient of Variation 15.8 % (11.5-14.5); RDW Standard Deviation 50.8 fL (36.4-46.3); Red Blood Count 4.04 M/uL (4.7-6.1); White Blood Count 7.53 K/uL (4.8-10.8)
[2021-07-29] MEDS: MYCOPHENOLATE MOFETIL 250 MG CAP PO SCH ×2 (09:10→21:28)
[2021-07-29 09:11] LABS: Calcium 8.8 mg/dl (8.5-10.1); Creatinine Clr Calc Pharmacy 93.7 ml/min; Est GFR (African American) 98.8 ml/min; Est GFR (Non-African American) 85.2 ml/min; Potassium 3.8 mmol/L (3.5-5.1)
[2021-07-29] MEDS: ASPIRIN 81 MG ECTAB PO SCH (09:11)
[2021-07-29] MEDS: DULoxetine HCL 60 MG CAP PO SCH (09:11)
[2021-07-29] MEDS: ENOXAPARIN INJ 30 MG/0.3 ML SYR SQ SCH (09:11)
[2021-07-29] MEDS: allopurinoL 300 MG TAB PO SCH (09:11)
--- NOTE | 2021-07-29 10:22 | History & Physical Bridge Note ---
Date of Service July 29, 2021 History & Physical Bridge Note I have examined the patient, reviewed the History & Physical and in the interval since the performance of the History & Physical I have noted the following changes of clinical significance: no changes noted Patient seen later in the morning. He notes his legs just gave out on him and he lowered himself into the bathtub. It wasn't until police/EMS arrived to get him out after sister/brother called the police. He notes he was given water when they arrived and drank half a bottle without stopping as he was so thirsty. Pain to his right knee where he notes his in home nanny stated he had some fluid collection there. Mildly tender to palpation. No issues with the left knee. He states someone said something about a cream but he hasn't gotten any. Discussed would check for Voltaren and order if not ordered. Assisted RN in getting in better position in the bed. Continues on IVF for elevated CK/rhabdo secondary to being down for extended period of time.Cr stable. BUN improving. TSH elevated but suspect some degree of non-compliance (TSH July 11), but given weakness/confusion prior increased dose for AM. F/u TFT outpatient. Also, checking B12/folate given prior borderline low B12 and weakness. On Dapto/Cefepime for decubitus ulcers to b/l shoulder (elbow) and buttocks. Will also check Xray R knee given fluid collection/hematoma to lateral aspect. Ordered voltaren for comfort. Will also check Lyme. Urine cx ordered but already on abx -- denied urinary sx Consult orthopedics if needed.
--- NOTE | 2021-07-29 10:56 | XRay Report ---
XR knee RT 3V CLINICAL HISTORY: s/p fall, hematoma lateral knee, eval fx COMPARISON STUDY: Right knee 01/24/2020. FINDINGS: There is lateral soft tissue swelling and a moderate joint effusion. There is chondrocalcin osis. No acute fractures identified within the right knee. There is moderate tricompartmental osteoar thritis most pronounced at the medial compartment. IMPRESSION: 1. No acute fracture or dislocation within the right knee. 2. Moderate joint effusion and lateral soft tissue swelling. 3. Chondrocalcinosis and moderate osteoarthritis. ACT 112: Negative or not required by law. Electronically signed by: Harshal Oliva M.D. 07/29/2021 10:54 AM
[2021-07-29 11:33] LABS: Lyme Ab IgG w/WB Rflx Negative (Negative); Lyme Ab IgM w/WB Rflx Negative (Negative)
[2021-07-29] MEDS ORDERED: IRON SUCROSE 200 MG in 0.9 % SODIUM CHLORIDE 100 ML IV ONE (11:45)
[2021-07-29 12:17] LABS: Ferritin 154.3 ng/ml (8-388)
[2021-07-29] MEDS: DICLOFENAC SOD 1% GEL 100 GM TUBE EXT SCH ×3 (12:26→21:27)
[2021-07-29] MEDS ORDERED: BUPIVACAINE/EPINEPHRINE 0.25% 1:200,000 30 ML VIAL INFIL ONE (12:52)
[2021-07-29] MEDS ORDERED: TRIAMCINOLONE ACET 40 MG/ML VIAL IA ONE (12:55)
[2021-07-29 13:14] LABS: Folate (Folic Acid) 4.56 ng/ml (>5.38)
--- NOTE | 2021-07-29 14:06 | Electrocardiogram Report ---
Test Reason : Blood Pressure : / mmHG Vent. Rate : 093 BPM Atrial Rate : 093 BPM P-R Int : 162 ms QRS Dur : 102 ms QT Int : 368 ms P-R-T Axes : 052 -17 072 degrees QTc Int : 457 ms Sinus rhythm with occasional Premature ventricular complexes Otherwise normal ECG When compared with ECG of 06-FEB-2021 20:58, No significant change was found Confirmed by Elijah Little ([id number]) on 07/29/2021 2:05:52 PM Referred By: REFERRED SELF Confirmed By:Dallas Little
[2021-07-29 14:42] LABS: Appearance Urine Clear (Clear); Bacteria Urine Automated Negative (Negative); Bilirubin Urine Negative (Negative); Blood Urine Negative (Negative); Cast Urine Automated 0 /lpf (0-5); Color Urine Yellow; Glucose Urine UA Negative (Negative); Ketones Urine 1+ (Negative); Leukocyte Esterase Urine Negative (Negative); Nitrite Urine Negative (Negative); Protein Urine 2+ (Negative); RBC Urine Automated 0-4 /hpf (0-4); Specific Gravity Urine 1.022 (1.000-1.030); Urobilinogen Urine Negative (Negative)
[2021-07-29] MEDS: FOLIC ACID 400 MCG TAB PO SCH (14:45)
--- NOTE | 2021-07-29 14:51 | Orthopedic Consultation ---
Date of Service July 29, 2021 Assessment & Plan (1) Osteoarthritis of right knee: (2) Effusion, right knee: -Effusion is secondary to a flare up of severe arthritis -We discussed treatment of this with pt and recommended aspiration and injection of steroid. He agreed to procedure and tolerated it well. 30 mL of normal appearing joint fluid was aspirated from his knee. He was injected with a mixture of 2 mL Kenolog (80 mg) and 3 mL Bupivacaine. -No weight bearing or range of motion restrictions. Agree w/ PT/OT -Follow up with Dr. Carolina as an outpatient on an as needed basis. Injection can be repeated in 3 months Pt seen and discussed w/ Dr. Carolina who performed the bedside procedure. History of Present Illness Reason for Consultation: Painful R knee effusion . Requesting Physician: Kodi Alcocer . Attending Physician: Kodi Alcocer Pt is a 71 y/o/m with extensive past medical history who was admitted to the hospital after a fall at home. His legs suddenly felt weak and he lowered himself to the floor and was unable to get up. Family found him overnight last night and he was brought to [facility] ED for evaluation. Admitted to medicine service for further workup and treatment of rhabdomyolysis. Noted to have a painful right knee effusion on admission; consulted for evaluation and management of effusion. Knee XRs obtained showing no acute injury with soft tissue swelling and severe degenerative joint space loss. Pt is a good historian. He states that he's had several weeks of worsening knee pain and swelling. He knows he has a history of knee osteoarthritis that is severe. His PCP had given him a steroid shot in the knee several months ago which he feels helped quite a bit with his day-to-day knee pain for several months until it wore off several weeks ago. He denies any recent fevers, myalgias, tick bites, etc. He ambulates typically with a cane or a walker. Allergies Allergy/AdvReac Type Severity Reaction Status Date / Time No Known Allergies Allergy Verified 07/18/21 08:24 Home Medications Medication Instructions Recorded Confirmed Type allopurinol 300 mg tablet 300 mg PO QAM 06/15/18 07/18/21 History aspirin 81 mg tablet,delayed 81 mg PO QAM 06/15/18 07/18/21 History release omega-3 fatty acids 1,000 mg 1,000 mg PO QAM 03/29/20 07/18/21 History capsule (Fish Oil Concentrate) duloxetine 60 mg capsule,delayed 60 mg PO QAM 02/06/21 07/18/21 History release tamsulosin 0.4 mg capsule 0.4 mg PO QAM 02/06/21 07/18/21 History mycophenolate mofetil 500 mg tablet 500 mg PO BID #60 tab 02/26/21 07/18/21 Rx amlodipine 5 mg tablet 5 mg PO QAM 03/21/21 07/18/21 History syringe with needle, safety 1 mL #4 ea 03/22/21 07/18/21 Rx 28 gauge x 1/2" (Monoject TB Safety Syringe) cyanocobalamin (vitamin B-12) 1,000 mcg SUBCUT MONTHLY #1 ml 04/15/21 07/18/21 Rx 1,000 mcg/mL injection solution carbidopa 25 mg-levodopa 100 mg 1 tab PO HS 90 Days #90 tab 05/02/21 07/18/21 Rx tablet pramipexole 0.5 mg tablet 0.5 mg PO HS #90 tab 05/02/21 07/18/21 Rx omeprazole 20 mg tablet,delayed 20 mg PO QAM #90 tab 05/13/21 07/18/21 Rx release levothyroxine 175 mcg tablet 175 mcg PO QAM 06/04/21 07/18/21 History meclizine 12.5 mg tablet 12.5 mg PO UD PRN 06/04/21 07/18/21 History albuterol sulfate 90 mcg/actuation 2 puff INHALATION Q4H PRN #18 g 07/11/21 Rx aerosol inhaler (Ventolin HFA) CPAP Machine #1 ea 07/16/21 07/18/21 Rx fluticasone 100 mcg-salmeterol 50 1 inh INHALATION BID #60 ea 07/17/21 07/18/21 Rx mcg/dose blistr powdr for inhalation (Advair Diskus) aprpeuo-cjzdazfvv-hamk 333 mg-133 1 tab PO DAILY tab 07/18/21 07/18/21 History mg-8.3 mg tablet docusate sodium 100 mg capsule 200 mg PO .COMPLEX cap 07/18/21 07/18/21 History (Colace) guaifenesin 600 mg tablet, 600 mg PO Q12H PRN 07/18/21 07/18/21 History extended release 12 hr (Mucinex) Lift Chair #1 ea 07/26/21 Rx Past Med/Surg History Medical History (Updated 07/29/21 @ 14:57 by Alejandro Syed PA-C) Acid reflux Asthma At high risk for falls PER PT Depression with anxiety Enlarged prostate Family history of reaction to anesthesia sister - n/v ; trouble staying awake - not every time Gout HX Granulomatous lung disease pt not sure...follows lung dr, not sure details - has phone # [phone] Hypertension Hypothyroidism Parkinson's disease Restless legs Rheumatoid arthritis [employer] [employer] Sleep apnea CPAP Surgical History H/O inguinal hernia repair L H/O parotidectomy H/O umbilical hernia repair History of colonoscopy with polypectomy S/P rotator cuff repair R Family History Father Lung disease Hypertension Stroke Sister Diabetes Mother Cancer Brother Diabetes Grandmother (Maternal) Diabetes Grandmother (Paternal) Diabetes Denies family history of Ovarian cancer Prostate cancer Myocardial infarction Breast cancer Colorectal cancer Social History Smoking Status: Never smoker Tobacco Type: Smokeless Tobacco (Dip or Chew) Second Hand Exposure: Yes (parents smoked); Hx Alcohol Use: No Hx Substance Use: No Preferred Language: Syriac Communication Ability: Effective Visual Impairment: No Limitations Hearing Ability: Normal Chemical Machine Tender Required: No Beliefs That Will Affect Care: None marital status: / Current Living Situation: Alone Current Living Situation Comment: alone in apartment current occupational status: retired current occupation: used to work on a farm, 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 Physical Exam General: Chronically ill appearing 71 y/o/m resting in bed comfortably in no acute distress. AAO X 4. Right knee: Right knee is non-tender to palpation. No medial or lateral joint line tenderness. Large effusion present. No surrounding erythema. ROM 0-70 degrees, painful past 70 degrees of flexion. Results & Data Results & Data Laboratory Results Reviewed . Diagnostic Findings Reviewed . PG Care Time/CCT Total # of Minutes Spent Total Time Spent with Patient: Total time spent is greater than 50% in coordination of care (as documented) at patient's floor/unit and/or counseling patient: Coding Level of Care Code 33686 Inpt Consult Level 4 Diagnoses Osteoarthritis of right knee M17.11 Effusion, right knee M25.461
[2021-07-29] MEDS ORDERED: NYSTATIN POWDER 15GM BTL EXT PRN (18:22)
[2021-07-29] MEDS: CARBIDOPA/LEVODOPA 25/100MG TAB PO SCH (21:28)
[2021-07-29] MEDS: DOCUSATE SODIUM 100 MG CAP PO SCH (21:28)
[2021-07-29] MEDS: PRAMIPEXOLE DIHYDROCHLO 0.5 MG TAB PO SCH (21:29)
[2021-07-29] MEDS: TAMSULOSIN HCL 0.4 MG CAP PO SCH (21:29)
[2021-07-30] MEDS: SODIUM CHLORIDE 0.9% 1000ML 1,000 ML IV SCH (01:07)
[2021-07-30] MEDS: LEVOTHYROXINE SODIUM 100 MCG TABLET PO SCH (05:59)
[2021-07-30] MEDS: CEFEPIME 2,000 MG in SYRINGE 0 ML IV SCH ×3 (05:59→21:04)
[2021-07-30] MEDS: LEVOTHYROXINE SODIUM 88 MCG TABLET PO SCH (06:00)
[2021-07-30 06:05] LABS: Hematocrit (blood only) 35.4 % (42-52); Hemoglobin 11.3 g/dL (14.0-18.0); Immature Granulocytes # (auto) 0.01 K/uL (0.00-0.02); Immature Granulocytes % (auto) 0.2 %; Lymphocytes # (auto) 0.63 K/uL (1.2-3.4); Lymphocytes % (auto) 11.6 %; Mean Corpuscular Hemoglobin 27.5 pg (25-34); Mean Corpuscular Hgb Conc 31.9 g/dL (32-36); Mean Corpuscular Volume 86.1 fL (80-100); Mean Platelet Volume 9.6 fL (7.4-10.4); Monocytes # (auto) 0.06 K/uL (0.11-0.59); Monocytes % (auto) 1.1 %; Neutrophils # (auto) 4.71 K/uL (1.4-6.5); Neutrophils % (auto) 87.1 %; Platelet Count 244 K/uL (130-400); RDW Coefficient of Variation 15.5 % (11.5-14.5); Red Blood Count 4.11 M/uL (4.7-6.1); White Blood Count 5.41 K/uL (4.8-10.8)
[2021-07-30] MEDS ORDERED: LEVOTHYROXINE SODIUM 175 MCG TABLET PO SCH (06:30)
[2021-07-30 06:42] LABS: Albumin Globulin Ratio 0.8 (0.9-2); Albumin Level 3.1 gm/dl (3.4-5.0); Bilirubin,Total 0.4 mg/dl (0.2-1.0); Calcium 8.7 mg/dl (8.5-10.1); Creatinine Clr Calc Pharmacy 109.7 ml/min; Est GFR (African American) 104.9 ml/min; Est GFR (Non-African American) 90.5 ml/min; Potassium 4.1 mmol/L (3.5-5.1); Total Protein 7.1 gm/dl (6.0-8.3)
[2021-07-30] MEDS: FOLIC ACID 400 MCG TAB PO SCH (07:29)
[2021-07-30] MEDS: DULoxetine HCL 60 MG CAP PO SCH (07:30)
[2021-07-30] MEDS: MYCOPHENOLATE MOFETIL 250 MG CAP PO SCH ×3 (07:30→21:10)
[2021-07-30] MEDS: CYANOCOBALAMIN (B-12) 500 MCG TABLET PO SCH (07:30)
[2021-07-30] MEDS: allopurinoL 300 MG TAB PO SCH (07:30)
[2021-07-30] MEDS: CHOLECALCIFEROL 5,000 UNITS 125 MCG TAB PO SCH (07:30)
[2021-07-30] MEDS: DICLOFENAC SOD 1% GEL 100 GM TUBE EXT SCH ×4 (07:30→21:05)
[2021-07-30] MEDS: ASPIRIN 81 MG ECTAB PO SCH (07:30)
[2021-07-30] MEDS: ENOXAPARIN INJ 30 MG/0.3 ML SYR SQ SCH (07:34)
[2021-07-30] MEDS ORDERED: IRON SUCROSE 300 MG in SODIUM CHLORIDE 0.9% 250 ML IV SCH (09:00)
--- NOTE | 2021-07-30 14:14 | Hospitalist Progress Note ---
Date of Service July 30, 2021 Assessment & Plan (1) Generalized weakness: Plan: Had a fall into his bathtub where he remained for 2-1/2 days straight. Reports his right knee was swollen and painful prior to the fall and this is what caused him to fall. Now status post aspiration of the knee joint and pain there is much improved With mild rhabdomyolysis as below Remains with generalized weakness Consult PT/OT today-recommend inpatient rehab TSH elevated but suspect some degree of non-compliance (TSH 15March 31st), but given weakness/confusion prior increased dose for AM. F/u TFT outpatient. Also, checked B12/folate given prior borderline low B12 and weakness-both are borderline low and will be replaced Lyme titer negative Urine cx ordered but already on abx -- denied urinary sx (2) Elevated CPK: Plan: Mild rhabdomyolysis secondary laying in a bathtub for 2-1/2 days-now resolved. CK was 766, now down to 196 DC IV fluids as he is not becoming hyponatremic No renal failure (3) Hyponatremia: Plan: Sodium down to 128 from 135 yesterday Could be some volume overload DC IV fluids Follow BMP in the morning (4) Anemia: Plan: Hemoglobin mildly low at 11.3 Replacing B12 and folate Give IV iron as well for low iron saturation (5) Knee pain, right: Plan: As above, with joint effusion prior to the fall with significant pain Now status post arthrocentesis and steroid injection- fluid analysis or culture sent Thought to be secondary to severe arthritis flare Pain is now much improved Appreciate orthopedic surgery consultation (6) Confusion: Plan: Patient was found confused, possibly being in his bathtub for the past 3 days- CT of head negative Likely metabolic encephalopathy associated with dehydration, precipitated by generalized weakness Patient has been living by himself, and his present living situation should be verified that he is acceptable to go back to that situation eventually Now since resolved (7) Ambulatory dysfunction: Plan: As above, needs rehab (8) Parkinsonism: Plan: Continue carbidopa levodopa (9) Polyarthritis, inflammatory: Plan: Continue CellCept (10) Lewy body disease: Plan: Supportive care (11) Pulmonary fibrosis: Plan: Pulmonary fibrosis/interstitial lung disease- Continue usual inhalers (12) Interstitial lung disease: Plan: See above (13) Hypertension: Plan: Blood pressures are controlled Continue amlodipine, aspirin (14) SUMANTH on CPAP: Plan: CPAP at bedtime as needed (15) Hypothyroidism: Plan: Continue levothyroxine 188 mcg daily (16) Rheumatoid arthritis: Plan: Unclear reasons why patient is on CellCept, but we will continue (17) BPH loc w urin obs/LUTS: Plan: Continue tamsulosin (18) Morbid obesity: Plan: BMI 36.2 Needs weight loss (19) Type 2 diabetes mellitus without complication: Plan: Most recent hemoglobin A1c 7.2% Not on medications at home for this No need for insulin or Accu-Cheks here (20) Folate deficiency: Plan: Low here for Replace with oral folic acid (21) Decubitus ulcer: Plan: Wound care, offload pressure On cefepime in case of superinfection (22) Depression with anxiety: Plan: Continue duloxetine Plan: DVT prophylaxis-Lovenox Disposition-continued stay, but likely can discharge to rehab tomorrow if sodium improving and stable otherwise Admission and Anticipated Discharge Date Admission Date: July 29, 2021 Subjective Feeling much better but still very weak and was scared to get up with PT today. Right knee feeling so much better since joint aspiration by Ortho yesterday Is moving his bowels Tele with NSR, PVCs, rates 70-90s Review of Systems Review of Systems: All systems reviewed & are unremarkable except as noted in HPI & below Physical Exam Constitutional: WD/WN, vitals as above + obese Eyes: + anicteric sclerae ENMT: external ear and nose normal, oropharynx normal Neck: trachea midline, no thyromegaly Respiratory: normal respiratory effort, lungs clear to auscultation Cardiovascular: Rate/Rhythm: regular rate and regular rhythm Heart Sounds: no murmur Extremities: + edema (1+ pitting edema legs bilat) Chest (Breasts): Chest: normal inspection of chest Gastrointestinal (Abdomen): normal bowel sounds, soft, nontender, no he patosplenomegaly Musculoskeletal: Extremities: extremities normal to inspection; no cyanosis and no clubbing Skin: no rashes, warm and dry Trauma: + abrasion (left elbow,left hip) Neurologic: moves all extremities and awake; no focal motor deficits Psychiatric: A+Ox3, euthymic affect Results & Data Results & Data ([facility]) Vital Signs (Past 12 Hours) Vital Signs Temp Pulse Resp BP Pulse Ox 07/30/21 11:13 36.4 C L 70 19 119/76 93 07/30/21 02:53 36.8 C 69 18 134/75 93 Laboratory Results 07/30/21 07/30/21 07/29/21 Range/Units 05:53 05:53 14:15 WBC 5.41 (4.8-10.8) K/uL RBC 4.11 L (4.7-6.1) M/uL Hgb 11.3 L (14.0-18.0) g/dL Hct 35.4 L (42-52) % MCV 86.1 (80-100) fL MCH 27.5 (25-34) pg MCHC 31.9 L (32-36) g/dL RDW Std Deviation 49.0 H (36.4-46.3) fL RDW Coeff of Swathi 15.5 H (11.5-14.5) % Plt Count 244 (130-400) K/uL MPV 9.6 (7.4-10.4) fL Immature Gran % (Auto) 0.2 % Neut % (Auto) 87.1 % Lymph % (Auto) 11.6 % Arthur % (Auto) 1.1 % Eos % (Auto) 0.0 % Baso % (Auto) 0.0 % Neut # (Auto) 4.71 (1.4-6.5) K/uL Lymph # (Auto) 0.63 L (1.2-3.4) K/uL Arthur # (Auto) 0.06 L (0.11-0.59) K/uL Eos # (Auto) 0.00 (0-0.5) K/uL Baso # (Auto) 0.00 (0-0.2) K/uL Immature Gran # (Auto) 0.01 (0.00-0.02) K/uL ESR (0-20) mm/hr Sodium 128 L (136-145) mmol/L Potassium 4.1 (3.5-5.1) mmol/L Chloride 100 (98-107) mmol/L Carbon Dioxide 23 (21-32) mmol/L Anion Gap 5 (3-11) BUN 19 (6-23) mg/dl Creatinine 0.76 (0.6-1.4) mg/dl Est Cr Clr Drug Dosing 109.7 ml/min Est GFR ( Amer) 104.9 ml/min Est GFR (Non-Af Amer) 90.5 ml/min BUN/Creatinine Ratio 25.0 H (10-20) Glucose 155 H (70-99(Fasting)) mg/dl Calcium 8.7 (8.5-10.1) mg/dl Total Bilirubin 0.4 (0.2-1.0) mg/dl AST 19 (13-39) U/L ALT 5 L (7-52) U/L Alkaline Phosphatase 71 (34-104) U/L Total Creatine Kinase 196 (30-223) U/L C-Reactive Protein (0-0.5) mg/dl Total Protein 7.1 (6.0-8.3) gm/dl Albumin 3.1 L (3.4-5.0) gm/dl Globulin 4.0 (2.5-4.0) gm/dl Albumin/Globulin Ratio 0.8 L (0.9-2) Urine Color Yellow Urine Appearance Clear (Clear) Urine pH 6.0 (4.5-7.5) Ur Specific Goodwin 1.022 (1.000-1.030) Urine Protein 2+ H (Negative) Urine Glucose (UA) Negative (Negative) Urine Ketones 1+ H (Negative) Urine Blood Negative (Negative) Urine Nitrite Negative (Negative) Urine Bilirubin Negative (Negative) Urine Urobilinogen Negative (Negative) Ur Leukocyte Esterase Negative (Negative) Urine WBC (Auto) 1-5 (0-5) /hpf Urine RBC (Auto) 0-4 (0-4) /hpf U Hyaline Cast (Auto) 0 (0-5) /lpf U Epithel Cells (Auto) 5-10 H (0-5) /lpf Urine Bacteria (Auto) Negative (Negative) 07/29/21 07/29/21 Range/Units 10:19 07:58 WBC (4.8-10.8) K/uL RBC (4.7-6.1) M/uL Hgb (14.0-18.0) g/dL Hct (42-52) % MCV (80-100) fL MCH (25-34) pg MCHC (32-36) g/dL RDW Std Deviation (36.4-46.3) fL RDW Coeff of Swathi (11.5-14.5) % Plt Count (130-400) K/uL MPV (7.4-10.4) fL Immature Gran % (Auto) % Neut % (Auto) % Lymph % (Auto) % Arthur % (Auto) % Eos % (Auto) % Baso % (Auto) % Neut # (Auto) (1.4-6.5) K/uL Lymph # (Auto) (1.2-3.4) K/uL Arthur # (Auto) (0.11-0.59) K/uL Eos # (Auto) (0-0.5) K/uL Baso # (Auto) (0-0.2) K/uL Immature Gran # (Auto) (0.00-0.02) K/uL ESR 60 H (0-20) mm/hr Sodium (136-145) mmol/L Potassium (3.5-5.1) mmol/L Chloride (98-107) mmol/L Carbon Dioxide (21-32) mmol/L Anion Gap (3-11) BUN (6-23) mg/dl Creatinine (0.6-1.4) mg/dl Est Cr Clr Drug Dosing ml/min Est GFR ( Amer) ml/min Est GFR (Non-Af Amer) ml/min BUN/Creatinine Ratio (10-20) Glucose (70-99(Fasting)) mg/dl Calcium (8.5-10.1) mg/dl Total Bilirubin (0.2-1.0) mg/dl AST (13-39) U/L ALT (7-52) U/L Alkaline Phosphatase (34-104) U/L Total Creatine Kinase (30-223) U/L C-Reactive Protein 9.69 H (0-0.5) mg/dl Total Protein (6.0-8.3) gm/dl Albumin (3.4-5.0) gm/dl Globulin (2.5-4.0) gm/dl Albumin/Globulin Ratio (0.9-2) Urine Color Urine Appearance (Clear) Urine pH (4.5-7.5) Ur Specific Goodwin (1.000-1.030) Urine Protein (Negative) Urine Glucose (UA) (Negative) Urine Ketones (Negative) Urine Blood (Negative) Urine Nitrite (Negative) Urine Bilirubin (Negative) Urine Urobilinogen (Negative) Ur Leukocyte Esterase (Negative) Urine WBC (Auto) (0-5) /hpf Urine RBC (Auto) (0-4) /hpf U Hyaline Cast (Auto) (0-5) /lpf U Epithel Cells (Auto) (0-5) /lpf Urine Bacteria (Auto) (Negative) PG Care Time/CCT Total # of Minutes Spent Total Time Spent with Patient: Total time spent is greater than 50% in coordination of care (as documented) at patient's floor/unit and/or counseling patient: Coding Level of Care Code 80888 Subseq Hosp Care Lvl 3 Diagnoses Confusion R41.0 Generalized weakness R53.1 Parkinsonism G20 Polyarthritis, inflammatory M06.4 Lewy body disease G31.83; F02.80 Ambulatory dysfunction R26.2 Pulmonary fibrosis J84.10 Interstitial lung disease J84.9 Hypertension I10 SUMANTH on CPAP G47.33; Z99.89 Hypothyroidism E03.9 Rheumatoid arthritis M06.9 BPH loc w urin obs/LUTS N40.1 Anemia D64.9 Morbid obesity E66.01 Knee pain, right M25.561 Elevated CPK R74.8 Type 2 diabetes mellitus without complication E11.9 Folate deficiency E53.8 Decubitus ulcer L89.90 Depression with anxiety F41.8 Hyponatremia E87.1
[2021-07-30] MEDS: TAMSULOSIN HCL 0.4 MG CAP PO SCH (21:06)
[2021-07-30] MEDS: CARBIDOPA/LEVODOPA 25/100MG TAB PO SCH (21:06)
[2021-07-30] MEDS: PRAMIPEXOLE DIHYDROCHLO 0.5 MG TAB PO SCH (21:06)
[2021-07-30] MEDS: DOCUSATE SODIUM 100 MG CAP PO SCH (21:08)
[2021-07-31] MEDS: LEVOTHYROXINE SODIUM 100 MCG TABLET PO SCH (05:22)
[2021-07-31] MEDS: CEFEPIME 2,000 MG in SYRINGE 0 ML IV SCH ×2 (05:22→13:52)
[2021-07-31] MEDS: LEVOTHYROXINE SODIUM 88 MCG TABLET PO SCH (05:23)
[2021-07-31 07:33] LABS: Hematocrit (blood only) 36.2 % (42-52); Hemoglobin 11.9 g/dL (14.0-18.0); Immature Granulocytes # (auto) 0.03 K/uL (0.00-0.02); Immature Granulocytes % (auto) 0.4 %; Lymphocytes # (auto) 0.74 K/uL (1.2-3.4); Lymphocytes % (auto) 10.3 %; Mean Corpuscular Hemoglobin 27.9 pg (25-34); Mean Corpuscular Hgb Conc 32.9 g/dL (32-36); Mean Corpuscular Volume 84.8 fL (80-100); Mean Platelet Volume 9.8 fL (7.4-10.4); Monocytes # (auto) 0.33 K/uL (0.11-0.59); Monocytes % (auto) 4.6 %; Neutrophils # (auto) 6.05 K/uL (1.4-6.5); Neutrophils % (auto) 84.7 %; Platelet Count 266 K/uL (130-400); RDW Coefficient of Variation 15.2 % (11.5-14.5); RDW Standard Deviation 46.9 fL (36.4-46.3); Red Blood Count 4.27 M/uL (4.7-6.1); White Blood Count 7.15 K/uL (4.8-10.8)
[2021-07-31 07:54] LABS: Albumin Globulin Ratio 0.8 (0.9-2); Albumin Level 3.2 gm/dl (3.4-5.0); BUN Creatinine Ratio 29.5 (10-20); Bilirubin,Total 0.4 mg/dl (0.2-1.0); Creatinine Clr Calc Pharmacy 106.9 ml/min; Est GFR (African American) 103.8 ml/min; Est GFR (Non-African American) 89.6 ml/min; Globulin 4.1 gm/dl (2.5-4.0); Potassium 3.9 mmol/L (3.5-5.1); Total Protein 7.3 gm/dl (6.0-8.3)
[2021-07-31] MEDS: CYANOCOBALAMIN (B-12) 500 MCG TABLET PO SCH (08:13)
[2021-07-31] MEDS: DULoxetine HCL 60 MG CAP PO SCH (08:13)
[2021-07-31] MEDS: CHOLECALCIFEROL 5,000 UNITS 125 MCG TAB PO SCH (08:13)
[2021-07-31] MEDS: ENOXAPARIN INJ 30 MG/0.3 ML SYR SQ SCH (08:13)
[2021-07-31] MEDS: ASPIRIN 81 MG ECTAB PO SCH (08:13)
[2021-07-31] MEDS: DICLOFENAC SOD 1% GEL 100 GM TUBE EXT SCH ×4 (08:14→20:10)
[2021-07-31] MEDS: FOLIC ACID 400 MCG TAB PO SCH (08:14)
[2021-07-31] MEDS: allopurinoL 300 MG TAB PO SCH (08:14)
[2021-07-31] MEDS ORDERED: FUROSEMIDE INJ 20 MG/2 ML VIAL IV ONE (08:46)
--- NOTE | 2021-07-31 17:32 | Hospitalist Progress Note ---
Date of Service July 31, 2021 Assessment & Plan (1) Generalized weakness: Plan: Had a fall into his bathtub where he remained for 2-1/2 days straight. Reports his right knee was swollen and painful prior to the fall and this is what caused him to fall. Now status post aspiration of the knee joint and pain there is much improved With mild rhabdomyolysis as below, now resolved Remains with generalized weakness Consult PT/OT appreciated--> recommend inpatient rehab TSH elevated -possibly 2/2 non-compliance (TSH 15March 31st)-increased dose of levothyroxine F/u TFT outpatient in 4-6 weeks. Also, checked B12/folate given prior borderline low B12 and weakness-both are borderline low and will be replaced Lyme titer negative UA negative and denies urinary symptoms (2) Hyponatremia: Plan: Sodium down to 128 from 135 on admission Could be some volume overload from IVFs he received for rhabdo the first 36 hrs of admission Does have pitting edema on exam -give lasix 20mg IV x 1 today--> putting out large amounts of urine now Follow BMP in the morning (3) Elevated CPK: Plan: Mild rhabdomyolysis secondary laying in a bathtub for 2-1/2 days-now resolved. CK was 766, now down to 196 discontinued IV fluids as he became hyponatremic No renal failure (4) Anemia: Plan: Hemoglobin mildly low at 11.3-11.9 Replacing B12 and folate Give IV iron as well for low iron saturation (5) Knee pain, right: Plan: As above, with joint effusion prior to the fall with significant pain Now status post arthrocentesis and steroid injection- fluid analysis or culture sent Thought to be secondary to severe arthritis flare Pain is now much improved Appreciate orthopedic surgery consultation continue Augustine anasri (6) Confusion: Plan: Patient was found confused, possibly being in his bathtub for the past 3 days- CT of head negative No evidence of significant infection--> no real cellulitis around elbow wound--> dc Cefepime Likely metabolic encephalopathy associated with dehydration, precipitated by generalized weakness Patient has been living by himself, and his present living situation should be verified that he is acceptable to go back to that situation eventually--> discussed this with his nephew who is his POA and recommended looking into Assisted care living situations after rehab Now since resolved (7) Ambulatory dysfunction: Plan: As above, needs rehab (8) Parkinsonism: Plan: Continue carbidopa levodopa, mirapex (9) Polyarthritis, inflammatory: Plan: sees Rheumatology (10) Lewy body disease: Plan: Supportive care (11) Pulmonary fibrosis: Plan: Pulmonary fibrosis/interstitial lung disease- Continue usual inhalers holding CellCept while treating with abx for possible cellulitis but now can restart as abx dcd (12) Interstitial lung disease: Plan: See above (13) Hypertension: Plan: Blood pressures are controlled Continue amlodipine, aspirin (14) SUMANTH on CPAP: Plan: CPAP at bedtime as needed (15) Hypothyroidism: Plan: Continue levothyroxine 188 mcg daily (16) BPH loc w urin obs/LUTS: Plan: Continue tamsulosin (17) Morbid obesity: Plan: BMI 36.2 Needs weight loss (18) Type 2 diabetes mellitus without complication: Plan: Most recent hemoglobin A1c 7.2% Not on medications at home for this No need for insulin or Accu-Cheks here (19) Folate deficiency: Plan: Low here at 4.5 Replace with oral folic acid (20) Decubitus ulcer: Plan: Wound care, offload pressure On cefepime in case of superinfection but no infection noted-dc cefepime (21) Depression with anxiety: Plan: Continue duloxetine (22) Vitamin D deficiency: Plan: very low in 06/2021 at 9 continue Vit D3 5000 units daily Plan: DVT prophylaxis-Lovenox Disposition-continued stay, but likely can discharge to rehab tomorrow if sodium improving and stable otherwise Discussed care with his nephew, Horace on phone Admission and Anticipated Discharge Date Admission Date: July 29, 2021 Subjective Feeling well today. Was OOB to chair eating a meal when I saw him. Is moving his bowels, denies abd pain. Is making a lot of urine with IV lasix given this AM. Denies CP or SOB, no pain elsewhere, right knee pain much improved. Tele with NSR, PACs, PVCs, bigem, rates 70-80s Review of Systems Review of Systems: All systems reviewed & are unremarkable except as noted in HPI & below Physical Exam Constitutional: WD/WN, vitals as above + obese Eyes: + anicteric sclerae Neck: trachea midline, no thyromegaly Respiratory: normal respiratory effort, lungs clear to auscultation Cardiovascular: Rate/Rhythm: regular rate and regular rhythm Heart Sounds: no murmur Extremities: + edema (1+ pitting edema legs bilat) Chest (Breasts): Chest: normal inspection of chest Gastrointestinal (Abdomen): normal bowel sounds, soft, nontender, no hepatosplenomegaly Musculoskeletal: Extremities: extremities normal to inspection (no TTP over Rt knee,no erythema or effusion); no cyanosis and no clubbing Skin: no rashes, warm and dry Trauma: + abrasion (left elbow,left hip) Neurologic: moves all extremities and awake; no focal motor deficits Psychiatric: A+Ox3, euthymic affect Results & Data Results & Data ([facility]) Vital Signs (Past 12 Hours) Vital Signs Temp Pulse Pulse Resp BP Pulse Ox 07/31/21 16:00 74 07/31/21 14:52 36.5 C 76 18 145/88 H 95 07/31/21 11:11 36.7 C 86 18 153/95 H 95 07/31/21 07:15 36.7 C 73 18 151/91 H 92 07/31/21 07:00 68 Laboratory Results 07/31/21 07/31/21 Range/Units 07:00 07:00 WBC 7.15 (4.8-10.8) K/uL RBC 4.27 L (4.7-6.1) M/uL Hgb 11.9 L (14.0-18.0) g/dL Hct 36.2 L (42-52) % MCV 84.8 (80-100) fL MCH 27.9 (25-34) pg MCHC 32.9 (32-36) g/dL RDW Std Deviation 46.9 H (36.4-46.3) fL RDW Coeff of Swathi 15.2 H (11.5-14.5) % Plt Count 266 (130-400) K/uL MPV 9.8 (7.4-10.4) fL Immature Gran % (Auto) 0.4 % Neut % (Auto) 84.7 % Lymph % (Auto) 10.3 % [place] % (Auto) 4.6 % Eos % (Auto) 0.0 % Baso % (Auto) 0.0 % Neut # (Auto) 6.05 (1.4-6.5) K/uL Lymph # (Auto) 0.74 L (1.2-3.4) K/uL [place] # (Auto) 0.33 (0.11-0.59) K/uL Eos # (Auto) 0.00 (0-0.5) K/uL Baso # (Auto) 0.00 (0-0.2) K/uL Immature Gran # (Auto) 0.03 H (0.00-0.02) K/uL Sodium 128 L (136-145) mmol/L Potassium 3.9 (3.5-5.1) mmol/L Chloride 99 (98-107) mmol/L Carbon Dioxide 24 (21-32) mmol/L Anion Gap 5 (3-11) BUN 23 (6-23) mg/dl Creatinine 0.78 (0.6-1.4) mg/dl Est Cr Clr Drug Dosing 106.9 ml/min Est GFR ( Amer) 103.8 ml/min Est GFR (Non-Af Amer) 89.6 ml/min BUN/Creatinine Ratio 29.5 H (10-20) Glucose 172 H (70-99(Fasting)) mg/dl Calcium 9.0 (8.5-10.1) mg/dl Total Bilirubin 0.4 (0.2-1.0) mg/dl AST 19 (13-39) U/L ALT 10 (7-52) U/L Alkaline Phosphatase 73 (34-104) U/L Total Protein 7.3 (6.0-8.3) gm/dl Albumin 3.2 L (3.4-5.0) gm/dl Globulin 4.1 H (2.5-4.0) gm/dl Albumin/Globulin Ratio 0.8 L (0.9-2) PG Care Time/CCT Total # of Minutes Spent Total Time Spent with Patient: Total time spent is greater than 50% in coordination of care (as documented) at patient's floor/unit and/or counseling patient: Coding Level of Care Code 92324 Subseq Hosp Care Lvl 2 Diagnoses Generalized weakness R53.1 Elevated CPK R74.8 Hyponatremia E87.1 Anemia D64.9 Knee pain, right M25.561 Confusion R41.0 Ambulatory dysfunction R26.2 Parkinsonism G20 Polyarthritis, inflammatory M06.4 Lewy body disease G31.83; F02.80 Pulmonary fibrosis J84.10 Interstitial lung disease J84.9 Hypertension I10 SUMANTH on CPAP G47.33; Z99.89 Hypothyroidism E03.9 BPH loc w urin obs/LUTS N40.1 Morbid obesity E66.01 Type 2 diabetes mellitus without complication E11.9 Folate deficiency E53.8 Decubitus ulcer L89.90 Depression with anxiety F41.8 Vitamin D deficiency E55.9
[2021-07-31] MEDS: PRAMIPEXOLE DIHYDROCHLO 0.5 MG TAB PO SCH (20:09)
[2021-07-31] MEDS: DOCUSATE SODIUM 100 MG CAP PO SCH (20:09)
[2021-07-31] MEDS: TAMSULOSIN HCL 0.4 MG CAP PO SCH (20:09)
[2021-07-31] MEDS: CARBIDOPA/LEVODOPA 25/100MG TAB PO SCH (20:10)
[2021-07-31] MEDS: MYCOPHENOLATE MOFETIL 250 MG CAP PO SCH (21:59)
[2021-08-01] MEDS: LEVOTHYROXINE SODIUM 88 MCG TABLET PO SCH (05:37)
[2021-08-01] MEDS: LEVOTHYROXINE SODIUM 100 MCG TABLET PO SCH (05:38)
[2021-08-01 06:44] LABS: BUN Creatinine Ratio 41.3 (10-20); C Reactive Protein 1.59 mg/dl (0-0.5); Calcium 8.9 mg/dl (8.5-10.1); Creatinine Clr Calc Pharmacy 111.2 ml/min; Est GFR (African American) 105.5 ml/min; Magnesium 1.9 mg/dl (1.7-2.4)
[2021-08-01 06:49] LABS: Hematocrit (blood only) 39.1 % (42-52); Hemoglobin 12.9 g/dL (14.0-18.0); Immature Granulocytes # (auto) 0.05 K/uL (0.00-0.02); Immature Granulocytes % (auto) 0.5 %; Lymphocytes # (auto) 0.99 K/uL (1.2-3.4); Mean Corpuscular Hemoglobin 28.2 pg (25-34); Mean Corpuscular Volume 85.4 fL (80-100); Monocytes # (auto) 0.73 K/uL (0.11-0.59); Monocytes % (auto) 6.7 %; Neutrophils # (auto) 9.19 K/uL (1.4-6.5); Neutrophils % (auto) 83.8 %; Platelet Count 292 K/uL (130-400); RDW Coefficient of Variation 15.4 % (11.5-14.5); RDW Standard Deviation 48.4 fL (36.4-46.3); Red Blood Count 4.58 M/uL (4.7-6.1); White Blood Count 10.96 K/uL (4.8-10.8)
[2021-08-01] MEDS: DULoxetine HCL 60 MG CAP PO SCH (08:39)
[2021-08-01] MEDS: THIAMINE HCL 100 MG TAB PO SCH (08:39)
[2021-08-01] MEDS: CYANOCOBALAMIN (B-12) 500 MCG TABLET PO SCH (08:39)
[2021-08-01] MEDS: allopurinoL 300 MG TAB PO SCH (08:39)
[2021-08-01] MEDS: FOLIC ACID 400 MCG TAB PO SCH (08:39)
[2021-08-01] MEDS: CHOLECALCIFEROL 5,000 UNITS 125 MCG TAB PO SCH (08:39)
[2021-08-01] MEDS: MYCOPHENOLATE MOFETIL 250 MG CAP PO SCH ×2 (08:39→21:14)
[2021-08-01] MEDS: ASPIRIN 81 MG ECTAB PO SCH (08:39)
[2021-08-01] MEDS: DICLOFENAC SOD 1% GEL 100 GM TUBE EXT SCH ×4 (08:41→21:13)
[2021-08-01] MEDS: ENOXAPARIN INJ 30 MG/0.3 ML SYR SQ SCH (08:41)
[2021-08-01] MEDS ORDERED: FUROSEMIDE INJ 20 MG/2 ML VIAL IV ONE ×2 (08:44→17:00)
--- NOTE | 2021-08-01 15:52 | Hospitalist Progress Note ---
Date of Service August 01, 2021 Assessment & Plan (1) Generalized weakness: Plan: Had a fall into his bathtub where he remained for 2-1/2 days straight. Reports his right knee was swollen and painful prior to the fall and this is what caused him to fall. Now status post aspiration of the knee joint and pain there is much improved With mild rhabdomyolysis as below, now resolved Remains with generalized weakness Consult PT/OT appreciated--> recommend inpatient rehab TSH elevated -possibly 2/2 non-compliance (TSH 15March 31st)-increased dose of levothyroxine F/u TFT outpatient in 4-6 weeks. Also, checked B12/folate given prior borderline low B12 and weakness-both are borderline low and are being replaced Lyme titer negative UA negative and denies urinary symptoms (2) Hyponatremia: Plan: Sodium down to 128 from 135 on admission Sodium remains at 128 for 3 days in a row despite receiving IV Lasix yesterday Likely still with volume overload from IVFs he received for rhabdo the first 36 hrs of admission Does have pitting edema on exam -give lasix 20mg IV twice daily today -Check urine sodium and urine osmolality although he has received Lasix so this may be inaccurate Follow BMP in the morning (3) Elevated CPK: Plan: Mild rhabdomyolysis secondary laying in a bathtub for 2-1/2 days-now resolved. CK was 766, now down to 196 discontinued IV fluids as he became hyponatremic No renal failure (4) Anemia: Plan: Hemoglobin mildly low at 11.3-11.9 Replacing B12 and folate Give IV iron as well for low iron saturation-received 2 doses of Venofer Follow as an outpatient (5) Knee pain, right: Plan: As above, with joint effusion prior to the fall with significant pain Now status post arthrocentesis and steroid injection- fluid analysis or culture sent Thought to be secondary to severe arthritis flare Pain is now much improved on the right, also now having some pain in the left knee but no effusion or erythema Appreciate orthopedic surgery consultation continue Voltaren gel and add this to the left knee as well (6) Confusion: Plan: Patient was found confused, possibly being in his bathtub for the past 3 days- CT of head negative No evidence of significant infection--> no real cellulitis around elbow wound--> have since discontinued cefepime Likely metabolic encephalopathy associated with dehydration, precipitated by generalized weakness Patient has been living by himself, and his present living situation should be verified that he is acceptable to go back to that situation eventually--> discu ssed this with his nephew who is his POA and recommended looking into Assisted care living situations after rehab Has since resolved (7) Ambulatory dysfunction: Plan: As above, needs rehab (8) Parkinsonism: Plan: Continue carbidopa levodopa, mirapex (9) Polyarthritis, inflammatory: Plan: sees Rheumatology (10) Lewy body disease: Plan: Supportive care (11) Pulmonary fibrosis: Plan: Pulmonary fibrosis/interstitial lung disease- Continue usual inhalers Held CellCept while treating with abx for possible cellulitis but now restarted as infection ruled out (12) Interstitial lung disease: Plan: See above (13) Hypertension: Plan: Blood pressures are controlled holding home amlodipine, aspirin giving lasix (14) SUMANTH on CPAP: Plan: CPAP at bedtime as needed (15) Hypothyroidism: Plan: Continue levothyroxine 200 mcg daily which is an increase from home dose (16) BPH loc w urin obs/LUTS: Plan: Continue tamsulosin (17) Morbid obesity: Plan: BMI 36.2 Needs weight loss (18) Type 2 diabetes mellitus without complication: Plan: Most recent hemoglobin A1c 7.2% Not on medications at home for this No need for insulin or Accu-Cheks here (19) Folate deficiency: Plan: Low here at 4.5 Replace with oral folic acid (20) Decubitus ulcer: Plan: Wound care, offload pressure On cefepime in case of superinfection but no infection noted-dcd cefepime (21) Depression with anxiety: Plan: Continue duloxetine (22) Vitamin D deficiency: Plan: very low in 06/2021 at 9 continue Vit D3 5000 units daily Plan: DVT prophylaxis-Lovenox Disposition-continued stay, but likely can discharge to rehab tomorrow if sodium improving and stable otherwise Discussed care with his nephewHorace on phone on 07/31 Admission and Anticipated Discharge Date Admission Date: July 29, 2021 Subjective Patient reports feeling a little bit stronger today when he walked with physical therapy. He is eating and drinking, moving his bowels. No chest pains or shortness of breath. Telemetry with normal sinus rhythm, rates in the 70s Review of Systems Review of Systems: All systems reviewed & are unremarkable except as noted in HPI & below Physical Exam Constitutional: WD/WN, vitals as above + obese Eyes: + anicteric sclerae ENMT: external ear and nose normal, oropharynx normal Neck: trachea midline, no thyromegaly Respiratory: normal respiratory effort, lungs clear to auscultation (mild fine crackles at bases) Cardiovascular: Rate/Rhythm: regular rate and regular rhythm Heart Sounds: no murmur Extremities: + edema (1+ pitting edema legs bilat) Chest (Breasts): Chest: normal inspection of chest Gastrointestinal (Abdomen): normal bowel sounds, soft, nontender, no hepatosplenomegaly Musculoskeletal: Extremities: extremities normal to inspection (no TTP over Rt knee,no erythema or effusion); no cyanosis and no clubbing Skin: no rashes, warm and dry Trauma: + abrasion (left elbow,left hip) Neurologic: moves all extremities and awake; no focal motor deficits Psychiatric: A+Ox3, euthymic affect Results & Data Results & Data ([facility]) Vital Signs (Past 12 Hours) Vital Signs Temp Pulse Pulse Pulse Resp BP BP 08/01/21 15:28 86 08/01/21 15:20 37.0 C 86 18 127/80 08/01/21 11:05 36.9 C 79 20 112/75 08/01/21 09:42 75 08/01/21 06:38 36.6 C 73 20 127/87 08/01/21 04:00 Pulse Ox Pulse Ox 08/01/21 15:28 08/01/21 15:20 95 08/01/21 11:05 90 08/01/21 09:42 08/01/21 06:38 94 08/01/21 04:00 95 Laboratory Results 08/01/21 08/01/21 08/01/21 Range/Units 05:44 05:44 05:44 WBC 10.96 H (4.8-10.8) K/uL RBC 4.58 L (4.7-6.1) M/uL Hgb 12.9 L (14.0-18.0) g/dL Hct 39.1 L (42-52) % MCV 85.4 (80-100) fL MCH 28.2 (25-34) pg MCHC 33.0 (32-36) g/dL RDW Std Deviation 48.4 H (36.4-46.3) fL RDW Coeff of Swathi 15.4 H (11.5-14.5) % Plt Count 292 (130-400) K/uL MPV 10.0 (7.4-10.4) fL Immature Gran % (Auto) 0.5 % Neut % (Auto) 83.8 % Lymph % (Auto) 9.0 % [place] % (Auto) 6.7 % Eos % (Auto) 0.0 % Baso % (Auto) 0.0 % Neut # (Auto) 9.19 H (1.4-6.5) K/uL Lymph # (Auto) 0.99 L (1.2-3.4) K/uL [place] # (Auto) 0.73 H (0.11-0.59) K/uL Eos # (Auto) 0.00 (0-0.5) K/uL Baso # (Auto) 0.00 (0-0.2) K/uL Immature Gran # (Auto) 0.05 H (0.00-0.02) K/uL Sodium 128 L (136-145) mmol/L Potassium 4.0 (3.5-5.1) mmol/L Chloride 99 (98-107) mmol/L Carbon Dioxide 23 (21-32) mmol/L Anion Gap 6 (3-11) BUN 31 H (6-23) mg/dl Creatinine 0.75 (0.6-1.4) mg/dl Est Cr Clr Drug Dosing 111.2 ml/min Est GFR ( Amer) 105.5 ml/min Est GFR (Non-Af Amer) 91.0 ml/min BUN/Creatinine Ratio 41.3 H (10-20) Glucose 132 H (70-99(Fasting)) mg/dl Calcium 8.9 (8.5-10.1) mg/dl Magnesium 1.9 (1.7-2.4) mg/dl C-Reactive Protein 1.59 H (0-0.5) mg/dl Whole Bld Vitamin B1 Pending PG Care Time/CCT Total # of Minutes Spent Total Time Spent with Patient: Total time spent is greater than 50% in coordination of care (as documented) at patient's floor/unit and/or counseling patient: Coding Level of Care Code 34853 Subseq Hosp Care Lvl 2 Diagnoses Generalized weakness R53.1 Hyponatremia E87.1 Elevated CPK R74.8 Anemia D64.9 Knee pain, right M25.561 Confusion R41.0 Ambulatory dysfunction R26.2 Parkinsonism G20 Polyarthritis, inflammatory M06.4 Lewy body disease G31.83; F02.80 Pulmonary fibrosis J84.10 Interstitial lung disease J84.9 Hypertension I10 SUMANTH on CPAP G47.33; Z99.89 Hypothyroidism E03.9 BPH loc w urin obs/LUTS N40.1 Morbid obesity E66.01 Type 2 diabetes mellitus without complication E11.9 Folate deficiency E53.8 Decubitus ulcer L89.90 Depression with anxiety F41.8 Vitamin D deficiency E55.9
[2021-08-01] MEDS: CARBIDOPA/LEVODOPA 25/100MG TAB PO SCH (21:13)
[2021-08-01] MEDS: DOCUSATE SODIUM 100 MG CAP PO SCH (21:14)
[2021-08-01] MEDS: PRAMIPEXOLE DIHYDROCHLO 0.5 MG TAB PO SCH (21:15)
[2021-08-01] MEDS: TAMSULOSIN HCL 0.4 MG CAP PO SCH (21:15)
[2021-08-02] MEDS: LEVOTHYROXINE SODIUM 200 MCG TABLET PO SCH (05:56)
[2021-08-02] MEDS: CHOLECALCIFEROL 5,000 UNITS 125 MCG TAB PO SCH (08:35)
[2021-08-02] MEDS: ASPIRIN 81 MG ECTAB PO SCH (08:35)
[2021-08-02] MEDS: CYANOCOBALAMIN (B-12) 500 MCG TABLET PO SCH (08:35)
[2021-08-02] MEDS: allopurinoL 300 MG TAB PO SCH (08:35)
[2021-08-02] MEDS: FOLIC ACID 400 MCG TAB PO SCH (08:36)
[2021-08-02] MEDS: DICLOFENAC SOD 1% GEL 100 GM TUBE EXT SCH ×4 (08:36→20:09)
[2021-08-02] MEDS: THIAMINE HCL 100 MG TAB PO SCH (08:36)
[2021-08-02] MEDS: ENOXAPARIN INJ 30 MG/0.3 ML SYR SQ SCH (08:36)
[2021-08-02] MEDS: MYCOPHENOLATE MOFETIL 250 MG CAP PO SCH ×2 (08:36→20:11)
[2021-08-02] MEDS: DULoxetine HCL 60 MG CAP PO SCH (08:37)
[2021-08-02 08:46] LABS: Eosinophils # (auto) 0.01 K/uL (0-0.5); Eosinophils % (auto) 0.1 %; Hematocrit (blood only) 39.7 % (42-52); Hemoglobin 12.9 g/dL (14.0-18.0); Immature Granulocytes # (auto) 0.09 K/uL (0.00-0.02); Immature Granulocytes % (auto) 0.9 %; Lymphocytes # (auto) 1.12 K/uL (1.2-3.4); Lymphocytes % (auto) 11.2 %; Mean Corpuscular Hemoglobin 27.9 pg (25-34); Mean Corpuscular Hgb Conc 32.5 g/dL (32-36); Mean Corpuscular Volume 85.9 fL (80-100); Mean Platelet Volume 9.7 fL (7.4-10.4); Neutrophils # (auto) 7.95 K/uL (1.4-6.5); Neutrophils % (auto) 79.8 %; Platelet Count 292 K/uL (130-400); RDW Coefficient of Variation 15.4 % (11.5-14.5); RDW Standard Deviation 48.3 fL (36.4-46.3); Red Blood Count 4.62 M/uL (4.7-6.1); White Blood Count 9.97 K/uL (4.8-10.8)
[2021-08-02 09:22] LABS: BUN Creatinine Ratio 47.9 (10-20); Calcium 8.9 mg/dl (8.5-10.1); Creatinine Clr Calc Pharmacy 113.2 ml/min; Est GFR (African American) 106.7 ml/min; Magnesium 1.9 mg/dl (1.7-2.4)
--- NOTE | 2021-08-02 10:28 | Hospitalist Progress Note ---
Date of Service August 02, 2021 Assessment & Plan (1) Generalized weakness: Plan: Had a fall into his bathtub where he remained for 2-1/2 days straight. Reports his right knee was swollen and painful prior to the fall and this is what caused him to fall. Now status post aspiration of the knee joint and pain there is much improved With mild rhabdomyolysis as below, now resolved Remains with generalized weakness Consult PT/OT appreciated--> recommend inpatient rehab TSH elevated -possibly 2/2 non-compliance (TSH 15March 31st)-increased dose of levothyroxine F/u TFT outpatient in 4-6 weeks. Also, checked B12/folate given prior borderline low B12 and weakness-both are borderline low and are being replaced Lyme titer negative UA negative and denies urinary symptoms (2) Hyponatremia: Plan: Sodium down to 128 from 135 on admission Sodium remained at 128 for 3 days in a row but now up to 129 after lasix x 2 days Was hypervolemic on exam--> pitting edema and abd distension now improved Likely was volume overload from IVFs he received for rhabdo the first 36 hrs of admission Ur Na+ 54 but received Lasix so this may be inaccurate Ur Osm high in the 600s indicating excessive ADH Follow BMP in the morning continue lasix 40mg po daily for now (3) Elevated CPK: Plan: Mild rhabdomyolysis secondary laying in a bathtub for 2-1/2 days-now resolved. CK was 766, now down to 196 discontinued IV fluids as he became hyponatremic No renal failure (4) Anemia: Plan: Hemoglobin mildly low at 11.3-11.9 Replacing B12 and folate Give IV iron as well for low iron saturation-received 2 doses of Venofer Follow as an outpatient (5) Knee pain, right: Plan: As above, with joint effusion prior to the fall with significant pain Now status post arthrocentesis and steroid injection- fluid analysis or culture sent Thought to be secondary to severe arthritis flare Pain is now much improved on the right, also now having some pain in the left knee but no effusion or erythema Appreciate orthopedic surgery consultation continue Voltaren gel and add this to the left knee as well (6) Confusion: Plan: Patient was found confused, possibly being in his bathtub for the past 3 days- CT of head negative No evidence of significant infection--> no real cellulitis around elbow wound--> have since discontinued cefepime Likely metabolic encephalopathy associated with dehydration, precipitated by generalized weakness Patient has been living by himself, and his present living situation should be verified that he is acceptable to go back to that situation eventually--> discussed this with his nephew who is his POA and recommended looking into Assisted care living situations after rehab Has since resolved but does have some baseline cognitive impairment (7) Ambulatory dysfunction: Plan: As above, needs rehab (8) Parkinsonism: Plan: Continue carbidopa levodopa, mirapex (9) Polyarthritis, inflammatory: Plan: sees Rheumatology (10) Lewy body disease: Plan: Supportive care (11) Pulmonary fibrosis: Plan: Pulmonary fibrosis/interstitial lung disease- Continue usual inhalers Held CellCept while treating with abx for possible cellulitis but now restarted as infection ruled out (12) Interstitial lung disease: Plan: See above (13) Hypertension: Plan: Blood pressures are controlled holding home amlodipine, aspirin giving lasix (14) SUMANTH on CPAP: Plan: CPAP at bedtime as needed (15) Hypothyroidism: Plan: Continue levothyroxine 200 mcg daily which is an increase from home dose as TSH 15 as above repeat TSH in 4-6 weeks (16) BPH loc w urin obs/LUTS: Plan: Continue tamsulosin (17) Morbid obesity: Plan: BMI 36.2 Needs weight loss (18) Type 2 diabetes mellitus without complication: Plan: Most recent hemoglobin A1c 7.2% Not on medications at home for this No need for insulin or Accu-Cheks here (19) Folate deficiency: Plan: Low here at 4.5 Replace with oral folic acid (20) Decubitus ulcer: Plan: Wound care, offload pressure On cefepime in case of superinfection but no infection noted-dcd cefepime (21) Depression with anxiety: Plan: Continue duloxetine (22) Vitamin D deficiency: Plan: very low in 06/2021 at 9 continue Vit D3 5000 units daily Plan: DVT prophylaxis-Lovenox Disposition-improving, awaiting rehab placement now, will need to follow sodium levels closely after discharge Discussed care with his nephew, Horace on phone on 07/31 and will call again today Admission and Anticipated Discharge Date Admission Date: July 29, 2021 Subjective Pt feels well, has no complaints. Says bilat knee pain is much improved. Feels like his abdominal bloating is completely gone Tele with NSR, normal rates Review of Systems Review of Systems: All systems reviewed & are unremarkable except as noted in HPI & below Physical Exam Constitutional: WD/WN, vitals as above + obese Eyes: + anicteric sclerae Neck: trachea midline, no thyromegaly Respiratory: normal respiratory effort, lungs clear to auscultation (mild fine crackles at bases) Cardiovascular: Rate/Rhythm: regular rate and regular rhythm Heart Sounds: no murmur Extremities: no edema Chest (Breasts): Chest: normal inspection of chest Gastrointestinal (Abdomen): normal bowel sounds, soft, nontender, no hepatosplenomegaly Musculoskeletal: Extremities: extremities normal to inspection (no TTP over Rt knee,no erythema. mild effusion); no cyanosis and no clubbing Skin: no rashes, warm and dry Trauma: + abrasion (left elbow,left hip) Neurologic: moves all extremities and awake; no focal motor deficits Psychiatric: A+Ox3, euthymic affect Results & Data Results & Data ([facility]) Vital Signs (Past 12 Hours) Vital Signs Temp Pulse Pulse Resp BP Pulse Ox 08/02/21 08:06 94 H 08/02/21 06:38 36.7 C 80 20 124/78 95 08/02/21 02:54 36.7 C 82 20 127/84 96 08/01/21 23:53 76 08/01/21 22:33 36.6 C 74 20 131/88 95 Laboratory Results 08/02/21 08/02/21 08/02/21 Range/Units 08:23 08:23 01:00 WBC 9.97 (4.8-10.8) K/uL RBC 4.62 L (4.7-6.1) M/uL Hgb 12.9 L (14.0-18.0) g/dL Hct 39.7 L (42-52) % MCV 85.9 (80-100) fL MCH 27.9 (25-34) pg MCHC 32.5 (32-36) g/dL RDW Std Deviation 48.3 H (36.4-46.3) fL RDW Coeff of Swathi 15.4 H (11.5-14.5) % Plt Count 292 (130-400) K/uL MPV 9.7 (7.4-10.4) fL Immature Gran % (Auto) 0.9 % Neut % (Auto) 79.8 % Lymph % (Auto) 11.2 % [place] % (Auto) 8.0 % Eos % (Auto) 0.1 % Baso % (Auto) 0.0 % Neut # (Auto) 7.95 H (1.4-6.5) K/uL Lymph # (Auto) 1.12 L (1.2-3.4) K/uL [place] # (Auto) 0.80 H (0.11-0.59) K/uL Eos # (Auto) 0.01 (0-0.5) K/uL Baso # (Auto) 0.00 (0-0.2) K/uL Immature Gran # (Auto) 0.09 H (0.00-0.02) K/uL Sodium 129 L (136-145) mmol/L Potassium 4.0 (3.5-5.1) mmol/L Chloride 99 (98-107) mmol/L Carbon Dioxide 26 (21-32) mmol/L Anion Gap 4 (3-11) BUN 35 H (6-23) mg/dl Creatinine 0.73 (0.6-1.4) mg/dl Est Cr Clr Drug Dosing 113.2 ml/min Est GFR ( Amer) 106.7 ml/min Est GFR (Non-Af Amer) 92.0 ml/min BUN/Creatinine Ratio 47.9 H (10-20) Glucose 111 H (70-99(Fasting)) mg/dl Calcium 8.9 (8.5-10.1) mg/dl Magnesium 1.9 (1.7-2.4) mg/dl Urine Osmolality 694 (500-800) mOsm/kg Ur Random Sodium mmol/L 08/02/21 Range/Units 01:00 WBC (4.8-10.8) K/uL RBC (4.7-6.1) M/uL Hgb (14.0-18.0) g/dL Hct (42-52) % MCV (80-100) fL MCH (25-34) pg MCHC (32-36) g/dL RDW Std Deviation (36.4-46.3) fL RDW Coeff of Swathi (11.5-14.5) % Plt Count (130-400) K/uL MPV (7.4-10.4) fL Immature Gran % (Auto) % Neut % (Auto) % Lymph % (Auto) % [place] % (Auto) % Eos % (Auto) % Baso % (Auto) % Neut # (Auto) (1.4-6.5) K/uL Lymph # (Auto) (1.2-3.4) K/uL [place] # (Auto) (0.11-0.59) K/uL Eos # (Auto) (0-0.5) K/uL Baso # (Auto) (0-0.2) K/uL Immature Gran # (Auto) (0.00-0.02) K/uL Sodium (136-145) mmol/L Potassium (3.5-5.1) mmol/L Chloride (98-107) mmol/L Carbon Dioxide (21-32) mmol/L Anion Gap (3-11) BUN (6-23) mg/dl Creatinine (0.6-1.4) mg/dl Est Cr Clr Drug Dosing ml/min Est GFR ( Amer) ml/min Est GFR (Non-Af Amer) ml/min BUN/Creatinine Ratio (10-20) Glucose (70-99(Fasting)) mg/dl Calcium (8.5-10.1) mg/dl Magnesium (1.7-2.4) mg/dl Urine Osmolality (500-800) mOsm/kg Ur Random Sodium 53 mmol/L PG Care Time/CCT Total # of Minutes Spent Total Time Spent with Patient: Total time spent is greater than 50% in coordination of care (as documented) at patient's floor/unit and/or counseling patient: Coding Level of Care Code 61450 Subseq Hosp Care Lvl 2 Diagnoses Generalized weakness R53.1 Hyponatremia E87.1 Elevated CPK R74.8 Anemia D64.9 Knee pain, right M25.561 Confusion R41.0 Ambulatory dysfunction R26.2 Parkinsonism G20 Polyarthritis, inflammatory M06.4 Lewy body disease G31.83; F02.80 Pulmonary fibrosis J84.10 Interstitial lung disease J84.9 Hypertension I10 SUMANTH on CPAP G47.33; Z99.89 Hypothyroidism E03.9 BPH loc w urin obs/LUTS N40.1 Morbid obesity E66.01 Type 2 diabetes mellitus without complication E11.9 Folate deficiency E53.8 Decubitus ulcer L89.90 Depression with anxiety F41.8 Vitamin D deficiency E55.9
[2021-08-02] MEDS: FUROSEMIDE 40 MG TAB PO SCH (11:23)
[2021-08-02] MEDS: CARBIDOPA/LEVODOPA 25/100MG TAB PO SCH (20:08)
[2021-08-02] MEDS: DOCUSATE SODIUM 100 MG CAP PO SCH (20:09)
[2021-08-02] MEDS: PRAMIPEXOLE DIHYDROCHLO 0.5 MG TAB PO SCH (20:11)
[2021-08-02] MEDS: TAMSULOSIN HCL 0.4 MG CAP PO SCH (20:12)
[2021-08-03] MEDS: LEVOTHYROXINE SODIUM 200 MCG TABLET PO SCH (05:42)
[2021-08-03 06:43] LABS: BUN Creatinine Ratio 39.2 (10-20); Calcium 8.9 mg/dl (8.5-10.1); Creatinine Clr Calc Pharmacy 105.8 ml/min; Est GFR (African American) 106.1 ml/min; Est GFR (Non-African American) 91.5 ml/min; Magnesium 1.9 mg/dl (1.7-2.4); Potassium 3.9 mmol/L (3.5-5.1)
--- NOTE | 2021-08-03 07:27 | Orthopedic Progress Note ---
Date of Service August 03, 2021 Assessment & Plan (1) Effusion, right knee: He has responded well to the aspiration injection of his right knee. He does have advanced arthritis of the right knee. He can continue activities as tolerated with the right knee. Orthopedics will see him back in the office on an as-needed basis. If he has a recurrence of symptoms he can return for likely another aspiration injection of his knee. We will continue to treat the arthritis as needed. At this point orthopedics will sign off. If you have any further questions please feel free to [place] text me or contact me personally on my cell phone at [phone]. Karin Bentley was seen and examined at bedside this morning. He says his right knee is feeling much better. He has minimal pain in at this time. He has no complaints with his knee. Review of Systems All systems reviewed & are unremarkable except as noted in HPI & below. Physical Exam Physical examination of his right knee shows no effusion. He did not have any pain along the femoral condyles. There is no signs of infection. Results & Data Results & Data Laboratory Results . Diagnostic Findings . PG Care Time/CCT Total # of Minutes Spent Total Time Spent with Patient: Total time spent is greater than 50% in coordination of care (as documented) at patient's floor/unit and/or counseling patient: Coding Level of Care Code 28206 Subseq Hosp Care Lvl 2 Diagnoses Effusion, right knee M25.461
[2021-08-03] MEDS ORDERED: POTASSIUM CHLORIDE 10 MEQ TABCR PO STA (07:42)
[2021-08-03] MEDS: FUROSEMIDE 40 MG TAB PO SCH (07:54)
[2021-08-03] MEDS: ASPIRIN 81 MG ECTAB PO SCH (07:55)
[2021-08-03] MEDS: THIAMINE HCL 100 MG TAB PO SCH (07:55)
[2021-08-03] MEDS: CHOLECALCIFEROL 5,000 UNITS 125 MCG TAB PO SCH (07:55)
[2021-08-03] MEDS: FOLIC ACID 400 MCG TAB PO SCH (07:56)
[2021-08-03] MEDS: CYANOCOBALAMIN (B-12) 500 MCG TABLET PO SCH (07:56)
[2021-08-03] MEDS: allopurinoL 300 MG TAB PO SCH (07:57)
[2021-08-03] MEDS: DULoxetine HCL 60 MG CAP PO SCH (07:57)
[2021-08-03] MEDS: DICLOFENAC SOD 1% GEL 100 GM TUBE EXT SCH ×4 (07:58→21:16)
[2021-08-03] MEDS: MYCOPHENOLATE MOFETIL 250 MG CAP PO SCH ×2 (07:58→21:15)
[2021-08-03] MEDS: ENOXAPARIN INJ 30 MG/0.3 ML SYR SQ SCH (07:58)
[2021-08-03] MEDS ORDERED: MAGNESIUM SULFATE / D5W 1 GM/100 ML BAG IV ONE (08:00)
--- NOTE | 2021-08-03 17:55 | Hospitalist Progress Note ---
Date of Service August 03, 2021 Assessment & Plan (1) Generalized weakness: Plan: Had a fall into his bathtub where he remained for 2-1/2 days straight. Reports his right knee was swollen and painful prior to the fall and this is what caused him to fall. Now status post aspiration of the knee joint and pain there is much improved With mild rhabdomyolysis as below, now resolved Remains with generalized weakness Consult PT/OT appreciated--> recommend inpatient rehab TSH elevated -possibly 2/2 non-compliance (TSH 15March 31st)-increased dose of levothyroxine F/u TFT outpatient in 4-6 weeks. Also, checked B12/folate given prior borderline low B12 and weakness-both are borderline low and are being replaced Lyme titer negative UA negative and denies urinary symptoms (2) Hyponatremia: Plan: Sodium down to 128 from 135 on admission Sodium remained at 128 for 3 days in a row but now up to 129 after lasix x 2 days and stable His sodium is chronically low around 130 Was hypervolemic on exam--> pitting edema and abd distension now improved Likely was volume overload from IVFs he received for rhabdo the first 36 hrs of admission in the setting of possible reset osmostat Ur Na+ 54 but received Lasix so this may be inaccurate Ur Osm high in the 600s indicating excessive ADH Follow BMP in the morning continue lasix 40mg po daily for now (3) Elevated CPK: Plan: Mild rhabdomyolysis secondary laying in a bathtub for 2-1/2 days-now resolved. CK was 766, now down to 196 discontinued IV fluids as he became hyponatremic No renal failure (4) Anemia: Plan: Hemoglobin mildly low at 11.3-11.9 Replacing B12 and folate Give IV iron as well for low iron saturation-received 2 doses of Venofer Follow as an outpatient (5) Knee pain, right: Plan: As above, with joint effusion prior to the fall with significant pain Now status post arthrocentesis and steroid injection- fluid analysis or culture sent Thought to be secondary to severe arthritis flare Pain is now much improved on the right, also now having some pain in the left knee but no effusion or erythema Appreciate orthopedic surgery consultation continue Voltaren gel and add this to the left knee as well (6) Confusion: Plan: Patient was found confused, possibly being in his bathtub for the past 3 days- CT of head negative No evidence of significant infection--> no real cellulitis around elbow wound--> have since discontinued cefepime Likely metabolic encephalopathy associated with dehydration, precipitated by generalized weakness Patient has been living by himself, and his present living situation should be verified that he is acceptable to go back to that situation eventually--> discussed this with his nephew who is his POA and recommended looking into Assisted care living situations after rehab Has since resolved but does have some baseline cognitive impairment (7) Ambulatory dysfunction: Plan: As above, needs rehab (8) Parkinsonism: Plan: Continue carbidopa levodopa, mirapex (9) Polyarthritis, inflammatory: Plan: sees Rheumatology (10) Lewy body disease: Plan: Supportive care (11) Pulmonary fibrosis: Plan: Pulmonary fibrosis/interstitial lung disease- Continue usual inhalers Held CellCept while treating with abx for possible cellulitis but now restarted as infection ruled out (12) Interstitial lung disease: Plan: See above (13) Hypertension: Plan: Blood pressures are controlled holding home amlodipine, aspirin giving lasix (14) SUMANTH on CPAP: Plan: CPAP at bedtime as needed (15) Hypothyroidism: Plan: Continue levothyroxine 200 mcg daily which is an increase from home dose as TSH 15 as above repeat TSH in 4-6 weeks (16) BPH loc w urin obs/LUTS: Plan: Continue tamsulosin (17) Morbid obesity: Plan: BMI 36.2 Needs weight loss (18) Type 2 diabetes mellitus without complication: Plan: Most recent hemoglobin A1c 7.2% Not on medications at home for this No need for insulin or Accu-Cheks here (19) Folate deficiency: Plan: Low here at 4.5 Replace with oral folic acid (20) Decubitus ulcer: Plan: Wound care, offload pressure On cefepime in case of superinfection but no infection noted-dcd cefepime (21) Depression with anxiety: Plan: Continue duloxetine (22) Vitamin D deficiency: Plan: very low in 06/2021 at 9 continue Vit D3 5000 units daily Plan: DVT prophylaxis-Lovenox Disposition-improving, awaiting rehab placement now Admission and Anticipated Discharge Date Admission Date: July 29, 2021 Subjective Patient feeling well today, minimal pain in the knees which is relieved with Voltaren gel. He is eating and drinking. Awaiting placement in rehab. Telemetry with normal sinus rhythm with rates in the 60s to 80s, PVCs Review of Systems Review of Systems: All systems reviewed & are unremarkable except as noted in HPI & below Physical Exam Constitutional: WD/WN, vitals as above + obese Eyes: + anicteric sclerae Neck: trachea midline, no thyromegaly Respiratory: normal respiratory effort, lungs clear to auscultation (mild fine crackles at bases) Cardiovascular: Rate/Rhythm: regular rate and regular rhythm Heart Sounds: no murmur Extremities: + edema (Trace pitting edema legs but improved overall) Chest (Breasts): Chest: normal inspection of chest Gastrointestinal (Abdomen): normal bowel sounds, soft, nontender, no hepatosplenomegaly Musculoskeletal: Extremities: extremities normal to inspection (no TTP over Rt knee,no erythema. mild effusion); no cyanosis and no clubbing Skin: no rashes, warm and dry Trauma: + abrasion (left elbow,left hip) Neurologic: moves all extremities and awake; no focal motor deficits Psychiatric: A+Ox3, euthymic affect Results & Data Results & [facility] ([facility]) Vital Signs (Past 12 Hours) Vital Signs Temp Pulse Pulse Resp BP Pulse Ox 08/03/21 16:40 68 08/03/21 15:03 36.5 C 76 20 138/92 97 08/03/21 11:35 36.3 C L 71 20 122/77 97 08/03/21 07:46 36.4 C L 63 16 125/82 97 08/03/21 07:11 61 Laboratory Results 08/03/21 Range/Units 05:55 Sodium 129 L (136-145) mmol/L Potassium 3.9 (3.5-5.1) mmol/L Chloride 99 (98-107) mmol/L Carbon Dioxide 27 (21-32) mmol/L Anion Gap 3 (3-11) BUN 29 H (6-23) mg/dl Creatinine 0.74 (0.6-1.4) mg/dl Est Cr Clr Drug Dosing 105.8 ml/min Est GFR ( Amer) 106.1 ml/min Est GFR (Non-Af Amer) 91.5 ml/min BUN/Creatinine Ratio 39.2 H (10-20) Glucose 112 H (70-99(Fasting)) mg/dl Calcium 8.9 (8.5-10.1) mg/dl Magnesium 1.9 (1.7-2.4) mg/dl PG Care Time/CCT Total # of Minutes Spent Total Time Spent with Patient: Total time spent is greater than 50% in coordination of care (as documented) at patient's floor/unit and/or counseling patient: Coding Level of Care Code 45559 Subseq Hosp Care Lvl 2 Diagnoses Generalized weakness R53.1 Hyponatremia E87.1 Elevated CPK R74.8 Anemia D64.9 Knee pain, right M25.561 Confusion R41.0 Ambulatory dysfunction R26.2 Parkinsonism G20 Polyarthritis, inflammatory M06.4 Lewy body disease G31.83; F02.80 Pulmonary fibrosis J84.10 Interstitial lung disease J84.9 Hypertension I10 SUMANTH on CPAP G47.33; Z99.89 Hypothyroidism E03.9 BPH loc w urin obs/LUTS N40.1 Morbid obesity E66.01 Type 2 diabetes mellitus without complication E11.9 Folate deficiency E53.8 Decubitus ulcer L89.90 Depression with anxiety F41.8 Vitamin D deficiency E55.9
[2021-08-03] MEDS: TAMSULOSIN HCL 0.4 MG CAP PO SCH (21:16)
[2021-08-03] MEDS: CARBIDOPA/LEVODOPA 25/100MG TAB PO SCH (21:16)
[2021-08-03] MEDS: PRAMIPEXOLE DIHYDROCHLO 0.5 MG TAB PO SCH (21:16)
[2021-08-03] MEDS: DOCUSATE SODIUM 100 MG CAP PO SCH (21:16)
[2021-08-04] MEDS: LEVOTHYROXINE SODIUM 200 MCG TABLET PO SCH (05:59)
[2021-08-04 07:15] LABS: BUN Creatinine Ratio 43.8 (10-20); Calcium 8.9 mg/dl (8.5-10.1); Creatinine Clr Calc Pharmacy 111.3 ml/min; Est GFR (African American) 106.7 ml/min
[2021-08-04] MEDS: MYCOPHENOLATE MOFETIL 250 MG CAP PO SCH ×2 (07:30→19:56)
[2021-08-04] MEDS: THIAMINE HCL 100 MG TAB PO SCH (07:31)
[2021-08-04] MEDS: CYANOCOBALAMIN (B-12) 500 MCG TABLET PO SCH (07:31)
[2021-08-04] MEDS: FUROSEMIDE 40 MG TAB PO SCH (07:31)
[2021-08-04] MEDS: DULoxetine HCL 60 MG CAP PO SCH (07:32)
[2021-08-04] MEDS: FOLIC ACID 400 MCG TAB PO SCH (07:32)
[2021-08-04] MEDS: allopurinoL 300 MG TAB PO SCH (07:32)
[2021-08-04] MEDS: CHOLECALCIFEROL 5,000 UNITS 125 MCG TAB PO SCH (07:33)
[2021-08-04] MEDS: ASPIRIN 81 MG ECTAB PO SCH (07:33)
[2021-08-04] MEDS: ENOXAPARIN INJ 30 MG/0.3 ML SYR SQ SCH (07:34)
[2021-08-04] MEDS: DICLOFENAC SOD 1% GEL 100 GM TUBE EXT SCH ×4 (07:35→20:04)
--- NOTE | 2021-08-04 19:46 | Hospitalist Progress Note ---
Date of Service August 04, 2021 Assessment & Plan (1) Generalized weakness: Plan: Had a fall into his bathtub where he remained for 2-1/2 days straight. Reports his right knee was swollen and painful prior to the fall and this is what caused him to fall. Now status post aspiration of the knee joint and pain there is much improved With mild rhabdomyolysis as below, now resolved Remains with generalized weakness Has bilateral pressure sores on his hips which cause some pain Consult PT/OT appreciated--> recommend inpatient rehab TSH elevated -possibly 2/2 non-compliance (TSH 15March 31st)-increased dose of levothyroxine F/u TFT outpatient in 4-6 weeks. Also, checked B12/folate given prior borderline low B12 and weakness-both are borderline low and are being replaced Lyme titer negative UA negative and denies urinary symptoms (2) Hyponatremia: Plan: Sodium down to 128 from 135 on admission Sodium remained at 128 for 3 days in a row but now up to 130 after starting daily Lasix His sodium is chronically low around 130 Was hypervolemic on exam--> pitting edema and abd distension now improved Likely was volume overload from IVFs he received for rhabdo the first 36 hrs of admission Ur Na+ 54 but received Lasix so this may be inaccurate Ur Osm high in the 600s indicating excessive ADH which provides a mixed picture for etiology. Perhaps he has some component of SIADH Follow BMP in the morning continue lasix 40mg po daily for now (3) Elevated CPK: Plan: Mild rhabdomyolysis secondary laying in a bathtub for 2-1/2 days-now resolved. CK was 766, now down to 196 discontinued IV fluids as he became hyponatremic No renal failure (4) Anemia: Plan: Hemoglobin mildly low at 11.3-11.9 Replacing B12 and folate Give IV iron as well for low iron saturation-received 2 doses of Venofer Follow as an outpatient (5) Knee pain, right: Plan: As above, with joint effusion prior to the fall with significant pain Now status post arthrocentesis and steroid injection- fluid analysis or culture sent Thought to be secondary to severe arthritis flare Pain is now much improved on the right, also now having some pain in the left knee but no effusion or erythema Appreciate orthopedic surgery consultation continue Voltaren gel and add this to the left knee as well (6) Confusion: Plan: Patient was found confused, possibly being in his bathtub for the past 3 days- CT of head negative No evidence of significant infection--> no real cellulitis around elbow wound--> have since discontinued cefepime Likely metabolic encephalopathy associated with dehydration, precipitated by generalized weakness Patient has been living by himself, and his present living situation should be verified that he is acceptable to go back to that situation eventually--> discussed this with his nephew who is his POA and recommended looking into Assisted care living situations after rehab Has since resolved but does have some baseline cognitive impairment (7) Ambulatory dysfunction: Plan: As above, needs rehab (8) Parkinsonism: Plan: Continue carbidopa levodopa, mirapex (9) Polyarthritis, inflammatory: Plan: sees Rheumatology (10) Lewy body disease: Plan: Supportive care (11) Pulmonary fibrosis: Plan: Pulmonary fibrosis/interstitial lung disease- Continue usual inhalers Held CellCept while treating with abx for possible cellulitis but now restarted as infection ruled out and CellCept restarted (12) Interstitial lung disease: Plan: See above (13) Hypertension: Plan: Blood pressures are controlled holding home amlodipine, aspirin giving lasix Not sure that his blood pressure will be able to handle restarting amlodipine on discharge (14) SUMANTH on CPAP: Plan: CPAP at bedtime as needed (15) Hypothyroidism: Plan: Continue levothyroxine 200 mcg daily which is an increase from home dose as TSH 15 as above repeat TSH in 4-6 weeks (16) BPH loc w urin obs/LUTS: Plan: Continue tamsulosin (17) Morbid obesity: Plan: BMI 36.2 Needs weight loss (18) Type 2 diabetes mellitus without complication: Plan: Most recent hemoglobin A1c 7.2% Not on medications at home for this No need for insulin or Accu-Cheks here (19) Folate deficiency: Plan: Low here at 4.5 Replace with oral folic acid (20) Decubitus ulcer: Plan: Wound care, offload pressure On cefepime in case of superinfection from his open wounds but no infection noted on examination, no fevers-have since cefepime (21) Depression with anxiety: Plan: Continue duloxetine (22) Vitamin D deficiency: Plan: very low in 06/2021 at 9 continue Vit D3 5000 units daily Plan: DVT prophylaxis-Lovenox Disposition-improving, medically stable for discharge, awaiting rehab placement hopefully on Thursday Admission and Anticipated Discharge Date Admission Date: July 29, 2021 Subjective Patient reports pain in the sides of his hips where his pressure sores are, but otherwise feeling well, no chest pains or shortness of breath. Knee pain is improved. He is eating and drinking. He reports that if he does not get to rehab tomorrow, he is considering going home with home health Review of Systems Review of Systems: All systems reviewed & are unremarkable except as noted in HPI & below Physical Exam Constitutional: WD/WN, vitals as above + obese Eyes: + anicteric sclerae Neck: trachea midline, no thyromegaly Respiratory: normal respiratory effort, lungs clear to auscultation (mild fine crackles at bases) Cardiovascular: Rate/Rhythm: regular rate and regular rhythm Heart Sounds: no murmur Extremities: + edema (Trace pitting edema legs but improved overall) Chest (Breasts): Chest: normal inspection of chest Gastrointestinal (Abdomen): normal bowel sounds, soft, nontender, no hepatosplenomegaly Musculoskeletal: Extremities: extremities normal to inspection (no TTP over Rt knee,no erythema. mild effusion); no cyanosis and no clubbing Skin: no rashes, warm and dry Trauma: + abrasion (left elbow, bilateral buttocks towards the hips with pressure sores stage 2) Neurologic: moves all extremities and awake; no focal motor deficits Psychiatric: A+Ox3, euthymic affect Results & Data Results & Data ([facility]) Vital Signs (Past 12 Hours) Vital Signs Temp Pulse Resp BP Pulse Ox 08/04/21 15:42 36.7 C 76 16 104/70 95 Laboratory Results 08/04/21 Range/Units 06:04 Sodium 130 L (136-145) mmol/L Potassium 4.0 (3.5-5.1) mmol/L Chloride 100 (98-107) mmol/L Carbon Dioxide 25 (21-32) mmol/L Anion Gap 5 (3-11) BUN 32 H (6-23) mg/dl Creatinine 0.73 (0.6-1.4) mg/dl Est Cr Clr Drug Dosing 111.3 ml/min Est GFR ( Amer) 106.7 ml/min Est GFR (Non-Af Amer) 92.0 ml/min BUN/Creatinine Ratio 43.8 H (10-20) Glucose 99 (70-99(Fasting)) mg/dl Calcium 8.9 (8.5-10.1) mg/dl PG Care Time/CCT Total # of Minutes Spent Total Time Spent with Patient: Total time spent is greater than 50% in coordination of care (as documented) at patient's floor/unit and/or counseling patient: Coding Level of Care Code 87677 Subseq Hosp Care Lvl 2 Diagnoses Generalized weakness R53.1 Hyponatremia E87.1 Elevated CPK R74.8 Anemia D64.9 Knee pain, right M25.561 Confusion R41.0 Ambulatory dysfunction R26.2 Parkinsonism G20 Polyarthritis, inflammatory M06.4 Lewy body disease G31.83; F02.80 Pulmonary fibrosis J84.10 Interstitial lung disease J84.9 Hypertension I10 SUMANTH on CPAP G47.33; Z99.89 Hypothyroidism E03.9 BPH loc w urin obs/LUTS N40.1 Morbid obesity E66.01 Type 2 diabetes mellitus without complication E11.9 Folate deficiency E53.8 Decubitus ulcer L89.90 Depression with anxiety F41.8 Vitamin D deficiency E55.9
[2021-08-04] MEDS: DOCUSATE SODIUM 100 MG CAP PO SCH (19:56)
[2021-08-04] MEDS: PRAMIPEXOLE DIHYDROCHLO 0.5 MG TAB PO SCH (19:57)
[2021-08-04] MEDS: TAMSULOSIN HCL 0.4 MG CAP PO SCH (19:57)
[2021-08-04] MEDS: CARBIDOPA/LEVODOPA 25/100MG TAB PO SCH (19:57)
[2021-08-05] MEDS: LEVOTHYROXINE SODIUM 200 MCG TABLET PO SCH (05:45)
[2021-08-05 06:29] LABS: BUN Creatinine Ratio 46.2 (10-20); Calcium 8.9 mg/dl (8.5-10.1); Est GFR (African American) 111.9 ml/min; Est GFR (Non-African American) 96.5 ml/min; Potassium 3.8 mmol/L (3.5-5.1)
--- NOTE | 2021-08-05 07:57 | Hospitalist Progress Note ---
Date of Service August 05, 2021 Assessment & Plan (1) Generalized weakness: Plan: Had a fall into his bathtub where he remained for 2-1/2 days straight. Reports his right knee was swollen and painful prior to the fall and this is what caused him to fall. Now status post aspiration of the knee joint and pain there is much improved With mild rhabdomyolysis as below, now resolved Remains with generalized weakness Has bilateral pressure sores on his hips which cause some pain Consult PT/OT appreciated--> recommend inpatient rehab TSH elevated -possibly 2/2 non-compliance (TSH 15March 31st)-increased dose of levothyroxine F/u TFT outpatient in 4-6 weeks. Also, checked B12/folate given prior borderline low B12 and weakness-both are borderline low and are being replaced Lyme titer negative UA negative and denies urinary symptoms (2) Hyponatremia: Plan: Sodium down to 128 from 135 on admission Was hypervolemic on exam--> pitting edema and abd distension now improved Likely was volume overload from IVFs he received for rhabdo the first 36 hrs of admission Ur Na+ 54 but received Lasix so this may be inaccurate Ur Osm high in the 600s indicating excessive ADH which provides a mixed picture for etiology. Perhaps he has some component of SIADH (3) Elevated CPK: Plan: Mild rhabdomyolysis secondary laying in a bathtub for 2-1/2 days-now resolved. CK was 766, now down to 196 discontinued IV fluids as he became hyponatremic No renal failure (4) Anemia: Plan: Hemoglobin mildly low at 11.3-11.9 Replacing B12 and folate Give IV iron as well for low iron saturation-received 2 doses of Venofer Follow as an outpatient (5) Knee pain, right: Plan: As above, with joint effusion prior to the fall with significant pain Now status post arthrocentesis and steroid injection- fluid analysis or culture sent Thought to be secondary to severe arthritis flare Pain is now much improved on the right, also now having some pain in the left knee but no effusion or erythema Appreciate orthopedic surgery consultation continue Voltaren gel and add this to the left knee as well (6) Confusion: Plan: Patient was found confused, possibly being in his bathtub for the past 3 days- CT of head negative No evidence of significant infection--> no real cellulitis around elbow wound--> have since discontinued cefepime Likely metabolic encephalopathy associated with dehydration, precipitated by generalized weakness Patient has been living by himself, and his present living situation should be verified that he is acceptable to go back to that situation eventually--> discussed this with his nephew who is his POA and recommended looking into Assisted care living situations after rehab Has since resolved but does have some baseline cognitive impairment (7) Ambulatory dysfunction: Plan: As above, needs rehab (8) Parkinsonism: Plan: Continue carbidopa levodopa, mirapex (9) Polyarthritis, inflammatory: Plan: sees Rheumatology (10) Lewy body disease: Plan: Supportive care (11) Pulmonary fibrosis: Plan: Pulmonary fibrosis/interstitial lung disease- Continue usual inhalers Held CellCept while treating with abx for possible cellulitis but now restarted as infection ruled out and CellCept restarted (12) Interstitial lung disease: Plan: See above (13) Hypertension: Plan: Blood pressures are controlled holding home amlodipine, aspirin giving lasix Not sure that his blood pressure will be able to handle restarting amlodipine on discharge (14) SUMANTH on CPAP: Plan: CPAP at bedtime as needed (15) Hypothyroidism: Plan: Continue levothyroxine 200 mcg daily which is an increase from home dose as TSH 15 as above repeat TSH in 4-6 weeks (16) BPH loc w urin obs/LUTS: Plan: Continue tamsulosin (17) Morbid obesity: Plan: BMI 36.2 Needs weight loss (18) Type 2 diabetes mellitus without complication: Plan: Most recent hemoglobin A1c 7.2% Not on medications at home for this No need for insulin or Accu-Cheks here (19) Folate deficiency: Plan: Low here at 4.5 Replace with oral folic acid (20) Decubitus ulcer: Plan: Wound care, offload pressure On cefepime in case of superinfection from his open wounds but no infection noted on examination, no fevers-have since cefepime (21) Depression with anxiety: Plan: Continue duloxetine (22) Vitamin D deficiency: Plan: very low in 06/2021 at 9 continue Vit D3 5000 units daily Plan: DVT prophylaxis-Lovenox Disposition-improving, medically stable for discharge, awaiting rehab placement hopefully on Thursday Admission and Anticipated Discharge Date Admission Date: July 29, 2021 Results & Data Results & Data ([facility]) Vital Signs (Past 12 Hours) Vital Signs Temp Pulse Pulse Resp BP Pulse Ox 08/05/21 02:21 76 15 97 08/04/21 22:34 80 17 94 08/04/21 22:13 98.1 F 72 18 120/76 94 PG Care Time/CCT Total # of Minutes Spent Total Time Spent with Patient: Total time spent is greater than 50% in coordination of care (as documented) at patient's floor/unit and/or counseling patient: Coding Diagnoses Generalized weakness R53.1 Hyponatremia E87.1 Elevated CPK R74.8 Anemia D64.9 Knee pain, right M25.561 Confusion R41.0 Ambulatory dysfunction R26.2 Parkinsonism G20 Polyarthritis, inflammatory M06.4 Lewy body disease G31.83; F02.80 Pulmonary fibrosis J84.10 Interstitial lung disease J84.9 Hypertension I10 SUMANTH on CPAP G47.33; Z99.89 Hypothyroidism E03.9 BPH loc w urin obs/LUTS N40.1 Morbid obesity E66.01 Type 2 diabetes mellitus without complication E11.9 Folate deficiency E53.8 Decubitus ulcer L89.90 Depression with anxiety F41.8 Vitamin D deficiency E55.9
[2021-08-05] MEDS: DULoxetine HCL 60 MG CAP PO SCH (09:19)
[2021-08-05] MEDS: FOLIC ACID 400 MCG TAB PO SCH (09:19)
[2021-08-05] MEDS: CYANOCOBALAMIN (B-12) 500 MCG TABLET PO SCH (09:19)
[2021-08-05] MEDS: allopurinoL 300 MG TAB PO SCH (09:20)
[2021-08-05] MEDS: ASPIRIN 81 MG ECTAB PO SCH (09:20)
[2021-08-05] MEDS: MYCOPHENOLATE MOFETIL 250 MG CAP PO SCH ×2 (09:20→21:10)
[2021-08-05] MEDS: THIAMINE HCL 100 MG TAB PO SCH (09:20)
[2021-08-05] MEDS: CHOLECALCIFEROL 5,000 UNITS 125 MCG TAB PO SCH (09:20)
[2021-08-05] MEDS: DICLOFENAC SOD 1% GEL 100 GM TUBE EXT SCH ×4 (09:21→21:20)
[2021-08-05] MEDS: ENOXAPARIN INJ 30 MG/0.3 ML SYR SQ SCH (09:22)
[2021-08-05] MEDS ORDERED: FUROSEMIDE INJ 20 MG/2 ML VIAL IV ONE (13:55)
--- NOTE | 2021-08-05 14:07 | Hospitalist Progress Note ---
Date of Service August 05, 2021 Assessment & Plan (1) Generalized weakness: Plan: Had a fall into his bathtub where he remained for 2-1/2 days straight. Reports his right knee was swollen and painful prior to the fall and this is what caused him to fall. Now status post aspiration of the knee joint and pain there is much improved (thought to be flare of OA. Seen by orthopedics and had joint aspiration/steroid anddo not see joint aspiration culture) With mild rhabdomyolysis as below, now resolved Remains with generalized weakness Has bilateral pressure sores on his hips and his left elbow which cause some pain Consult PT/OT appreciated--> recommend inpatient rehab. [facility] been accepted to Center careauthorization submitted and pending TSH elevated -possibly 2/2 non-compliance (TSH 15March 31st)-increased dose of levothyroxine F/u TFT outpatient in 4-6 weeks. Also, checked B12/folate given prior borderline low B12 and weakness-both are borderline low and are being replaced Lyme titer negative UA negative and denies urinary symptoms (2) Hyponatremia: Plan: Sodium down to 128 from 135 on admission Was hypervolemic on exam--> pitting edema and abd distension now improved Likely was volume overload from IVFs he received for rhabdo the first 36 hrs of admission Ur Na+ 54 but received Lasix so this may be inaccurate Ur Osm high in the 600s indicating excessive ADH which provides a mixed picture for etiology. Perhaps he has some component of SIADH Fluid balance (net +5 L), total cumulative intake, 13 L. Patient with pitting edema. Review of old echocardiogram shows diastolic dysfunction (2018). Sodium did slightly improve with multiple doses of Lasix. We will give additional dose of IV Lasix today and fluid restrict (in discussion, patient is drinking in excess of 8 glasses of water a eed014 cc each). (3) Elevated CPK: Plan: Mild rhabdomyolysis secondary laying in a bathtub for 2-1/2 days-now resolved. CK was 766, now down to 196 discontinued IV fluids as he became hyponatremic No renal failure (4) Anemia: Plan: Hemoglobin mildly low at 11.3-11.9 Replacing B12 and folate Give IV iron as well for low iron saturation-received 2 doses of Venofer Follow as an outpatient Chronic and ongoing. Likely has anemia of chronic disease given his underlying rheumatoid arthritis (5) Knee pain, right: Plan: As above, with joint effusion prior to the fall with significant pain Orthopedics consulted now status post arthrocentesis and steroid injection- no fluid analysis or culture sent Thought to be secondary to severe arthritis flare (has RA) Pain is now much improved on the right, also now having some pain in the left knee but no effusion or erythema Appreciate orthopedic surgery consultation continue Voltaren gel and add this to the left knee as well (6) Confusion: Plan: Patient was found confused, possibly being in his bathtub for the past 3 days- CT of head negative No evidence of significant infection--> no real cellulitis around elbow wound--> have since discontinued cefepime Likely metabolic encephalopathy associated with dehydration, precipitated by generalized weakness Patient has been living by himself, and his present living situation should be verified that he is acceptable to go back to that situation eventually--> discussed this with his nephew who is his POA and recommended looking into Assisted care living situations after rehab Has since resolved but does have some baseline cognitive impairment (7) Ambulatory dysfunction: Plan: As above, needs rehab (8) Parkinsonism: Plan: Continue carbidopa levodopa, mirapex (9) Polyarthritis, inflammatory: Plan: sees Rheumatology (10) Lewy body disease: Plan: Supportive care (11) Pulmonary fibrosis: Plan: Pulmonary fibrosis/interstitial lung disease- Continue usual inhalers Held CellCept while treating with abx for possible cellulitis but now restarted as infection ruled out and CellCept restarted (12) Interstitial lung disease: Plan: See above (13) Hypertension: Plan: Blood pressures are controlled holding home amlodipine, aspirin giving lasix Not sure that his blood pressure will be able to handle restarting amlodipine on discharge (14) SUMANTH on CPAP: Plan: CPAP at bedtime as needed (15) Hypothyroidism: Plan: Continue levothyroxine 200 mcg daily which is an increase from home dose as TSH 15 as above repeat TSH in 4-6 weeks (16) BPH loc w urin obs/LUTS: Plan: Continue tamsulosin (17) Morbid obesity: Plan: BMI 36.2 Needs weight loss (18) Type 2 diabetes mellitus without complication: Plan: Most recent hemoglobin A1c 7.2% Not on medications at home for this No need for insulin or Accu-Cheks here (19) Folate deficiency: Plan: Low here at 4.5 Replace with oral folic acid (20) Decubitus ulcer: Plan: Wound care, offload pressure On cefepime in case of superinfection from his open wounds but no infection noted on examination, no fevers-have since cefepime (21) Depression with anxiety: Plan: Continue duloxetine (22) Vitamin D deficiency: Plan: very low in 06/2021 at 9 continue Vit D3 5000 units daily Plan: DVT prophylaxis-Lovenox Disposition-improving, medically stable for discharge, awaiting rehab placement Admission and Anticipated Discharge Date Admission Date: July 29, 2021 Subjective Patient seen on daily rounds today. Hospitalized 07/29 after being found down in the bathtub for approximately 3 days. Claims he was sitting on a shower chair when it gave out causing him to fall into the tub. He had significant weakness prohibiting his ability to independently get out of the tub. A friend had checked on him after approximately 3 days and summoned EMS services. Patient was brought to the emergency department where he was found to be in mild rhabdomyolysis (CK was 766). He was aggressively hydrated with IV fluids and he CK level has improved. Since aggressive IV hydration, patient's sodium level has dropped down to 128. He complains of mild weakness but otherwise denies change in mental status, nausea or vomiting. He had peripheral edema and was given 3 doses of Lasix orally (on consecutive days). His sodium improved to 129 with this. No Lasix today and sodium down to 128. He does report drinking approximately 8 (500 cc) glasses of water a day. His cumulative fluid balance is 13 L (net +5 L). Was able to ambulate the portillo today (~70feet) and became significantly fatigued with this. Denies SOB, orthopnea, PND or cough. Review of Systems Review of Systems: All systems reviewed and are unremarkable except as noted in HPI and below Denies fevers, chills, headache, nasal congestion, sore throat, cough, chest pain, shortness of breath, palpitations, orthopnea, PND, abdominal pain, nausea, vomiting, diarrhea, constipation, dysuria, hematuria, frequency, back pain, joint pain or swelling, easy bruising or bleeding Physical Exam Physical Exam: General: Resting comfortably in his bedside chair. He does not appear ill or toxic. NAD. HEENT: Head is AT/NC. Buccal mucosa is moist and pink Neck: No JVD. + Hepatojugular reflux Cardiac: RRR with 2/6 GEOVANNY Lungs: CTA without W/R/R Abdomen: Normoactive X4. Abdomen is nondistended. Soft and nontender in all quadrants. Extremities: +1 pitting edema of bilateral lower extremities tracking proximally up into the thigh Neuro: A&O X4. Cranial nerves II through XII are grossly intact. No focal neuro deficits Skin: No obvious skin lesions or rashes Psych: Slow to respond but answers questions appropriately. Results & Data Results & Data ([facility]) Vital Signs (Past 12 Hours) Vital Signs Pulse Resp Pulse Ox 08/05/21 02:21 76 15 97 Laboratory Results 08/02/21 08:23 08/05/21 05:26 PG Care Time/CCT Total # of Minutes Spent Total Time Spent with Patient: Total time spent is greater than 50% in coordination of care (as documented) at patient's floor/unit and/or counseling patient: Coding Level of Care Code 82844 Subseq Hosp Care Lvl 2 Diagnoses Generalized weakness R53.1 Hyponatremia E87.1 Elevated CPK R74.8 Anemia D64.9 Knee pain, right M25.561 Confusion R41.0 Ambulatory dysfunction R26.2 Parkinsonism G20 Polyarthritis, inflammatory M06.4 Lewy body disease G31.83; F02.80 Pulmonary fibrosis J84.10 Interstitial lung disease J84.9 Hypertension I10 SUMANTH on CPAP G47.33; Z99.89 Hypothyroidism E03.9 BPH loc w urin obs/LUTS N40.1 Morbid obesity E66.01 Type 2 diabetes mellitus without complication E11.9 Folate deficiency E53.8 Decubitus ulcer L89.90 Depression with anxiety F41.8 Vitamin D deficiency E55.9
--- NOTE | 2021-08-05 16:04 | XCELERA ---
[id number]
[2021-08-05] MEDS: DOCUSATE SODIUM 100 MG CAP PO SCH (21:10)
[2021-08-05] MEDS: CARBIDOPA/LEVODOPA 25/100MG TAB PO SCH (21:13)
[2021-08-05] MEDS: TAMSULOSIN HCL 0.4 MG CAP PO SCH (21:13)
[2021-08-05] MEDS: PRAMIPEXOLE DIHYDROCHLO 0.5 MG TAB PO SCH (21:14)
[2021-08-06] MEDS: LEVOTHYROXINE SODIUM 200 MCG TABLET PO SCH (05:49)
[2021-08-06 07:17] LABS: BUN Creatinine Ratio 33.3 (10-20); Calcium 8.5 mg/dl (8.5-10.1); Creatinine Clr Calc Pharmacy 104.8 ml/min; Est GFR (African American) 103.8 ml/min; Est GFR (Non-African American) 89.6 ml/min; Potassium 3.9 mmol/L (3.5-5.1)
[2021-08-06] MEDS: MYCOPHENOLATE MOFETIL 250 MG CAP PO SCH (08:40)
[2021-08-06] MEDS: DICLOFENAC SOD 1% GEL 100 GM TUBE EXT SCH ×2 (08:40→12:36)
[2021-08-06] MEDS: ENOXAPARIN INJ 30 MG/0.3 ML SYR SQ SCH (08:40)
[2021-08-06] MEDS: CHOLECALCIFEROL 5,000 UNITS 125 MCG TAB PO SCH (08:41)
[2021-08-06] MEDS: ASPIRIN 81 MG ECTAB PO SCH (08:41)
[2021-08-06] MEDS: allopurinoL 300 MG TAB PO SCH (08:41)
[2021-08-06] MEDS: FOLIC ACID 400 MCG TAB PO SCH (08:41)
[2021-08-06] MEDS: THIAMINE HCL 100 MG TAB PO SCH (08:41)
[2021-08-06] MEDS: DULoxetine HCL 60 MG CAP PO SCH (08:41)
[2021-08-06] MEDS: CYANOCOBALAMIN (B-12) 500 MCG TABLET PO SCH (08:41)
[2021-08-06] MEDS ORDERED: SODIUM CHLORIDE 1 GM TABLET PO SCH (09:00)
[2021-08-06 12:18] LABS: BUN Creatinine Ratio 38.2 (10-20); Calcium 8.6 mg/dl (8.5-10.1); Creatinine Clr Calc Pharmacy 120.3 ml/min; Est GFR (African American) 109.8 ml/min; Est GFR (Non-African American) 94.7 ml/min
--- NOTE | 2021-08-06 14:30 | Discharge Summary ---
Date of Service August 06, 2021 Admission HPI Per Admitting Provider The patient is a 71-year-old male with a past medical history including hypothyroidism, neuropathy, SUMANTH on CPAP, inflammatory polyarthritis, pulmonary fibrosis, interstitial lung disease, morbid obesity, diabetes mellitus type 2, pneumonia, seizure-like activity, hypertension, parkinsonism, Lewy body disease and ambulatory dysfunction. Patient reportedly had become weak while he was attempting to base, and lowered himself to the bathtub but was unable to get up, and remained there for about the last 3 days. Upon arrival to the ED, he was noted to be stained in feces, appeared dehydrated, and was able to communicate to staff, but was lethargic. Principal Diagnosis 1. Acute rhabdomyolysisresolved 2. Confusionresolved 3. Hyponatremia (hypervolemic) 4. Decubitus ulcerstage I 5. Uncontrolled hypothyroidism 6. Right knee painflare of RA Discharge Exam General: Resting comfortably in his bedside chair. He does not appear ill or toxic. NAD. HEENT: Head is AT/NC. Buccal mucosa is moist and pink Neck: No JVD. + Hepatojugular reflux Cardiac: RRR with 2/6 GEOVANNY Lungs: CTA without W/R/R Abdomen: Normoactive X4. Abdomen is nondistended. Soft and nontender in all quadrants. Extremities: +1 pitting edema of bilateral lower extremities tracking proximally up into the thigh Neuro: A&O X4. Cranial nerves II through XII are grossly intact. No focal neuro deficits Skin: No obvious skin lesions or rashes Psych: Slow to respond but answers questions appropriately. Discharge Data Allergies Allergy/AdvReac Type Severity Reaction Status Date / Time No Known Allergies Allergy Verified 07/18/21 08:24 Consultations 07/29/21 01:29 ED Decision to Admit Stat 07/29/21 11:23 Consult Orthopedic Surgery Routine Assessment & Plan (1) Effusion, right knee: He has responded well to the aspiration injection of his right knee. He does have advanced arthritis of the right knee. He can continue activities as tolerated with the right knee. Orthopedics will see him back in the office on an as-needed basis. If he has a recurrence of symptoms he can return for likely another aspiration injection of his knee. We will continue to treat the arthritis as needed. At this point orthopedics will sign off. Ordered Studies 07/28/21 22:53 CT head/brain wo con Urgent IMPRESSION: 1. No acute intracranial findings. 2. No acute calvarial fracture. pelvis xray: IMPRESSION: No fracture or dislocation within the pelvis or hips. Right knee x-ray: IMPRESSION: 1. No acute fracture or dislocation within the right knee. 2. Moderate joint effusion and lateral soft tissue swelling. 3. Chondrocalcinosis and moderate osteoarthritis. Hospital Course (1) Generalized weakness: Had a fall into his bathtub where he remained for 2-1/2 days straight. Reports his right knee was swollen and painful prior to the fall and this is what caused him to fall. Now status post aspiration of the knee joint and pain there is much improved (thought to be flare of OA. Seen by orthopedics and had joint aspiration/steroid anddo not see joint aspiration culture) With mild rhabdomyolysis as below, now resolved Remains with generalized weakness (to SNF for rehab today) Has bilateral pressure sores on his hips and his left elbow which cause some pain- continue wound care for these Consult PT/OT appreciated--> recommend inpatient rehab. To [facility] today TSH elevated -possibly 2/2 non-compliance (TSH 15March 31st)-increased dose of levothyroxine F/u TFT outpatient in 4-6 weeks. Also, checked B12/folate given prior borderline low B12 and weakness-both are borderline low and are being replaced-- follow up labs recommended: 3 months Lyme titer negative UA negative and denies urinary symptoms (2) Hyponatremia: Sodium down to 127 from 135 on admission (with aggressive hydration) Was hypervolemic on exam--> pitting edema and abd distension now improved Likely was volume overload from IVFs he received for rhabdo the first 36 hrs of admission Ur Na+ 54 but received Lasix so this may be inaccurate Ur Osm high in the 600s indicating excessive ADH which provides a mixed picture for etiology. Perhaps he has some component of SIADH Fluid balance (net +5 L), total cumulative intake, 13 L. Patient with pitting edema. Review of old echocardiogram shows diastolic dysfunction (2018). Sodium did slightly improve with multiple doses of Lasix. Iin discussion, patient is drinking in excess of 8 glasses of water a bju645 cc each. At this point, patient's sodium remains slightly low at 128. He is denying any symptoms including altered mental status, nausea, vomiting, etc. At this point, a bed has become available for him at [facility]. I do not feel that a sodium of 128 should prohibit him for discharge today as he is completely asymptomatic. In addition, with review of records it appears as if his baseline sodium is around 130-132. I do suspect that the patient has an underlying history of SIADH but was volume contracted upon arrival which does make this slightly more complicated. He is on Cymbalta which is likely contributing to underlying SIADH. Upfront, I would advise adhering to fluid restricted diet menses 1200 cc a day). Would recommend repeat BMP in 1 week. If he remains hyponatremic, would consider down titration of his Cymbalta with potential discontinuation of this medication. This is at the discretion of the house physician. (3) Elevated CPK: Mild rhabdomyolysis secondary laying in a bathtub for 2-1/2 days-now resolved. CK was 766, now down to 196 discontinued IV fluids as he became hyponatremic No renal failure (4) Anemia: Hemoglobin mildly low at 11.3-11.9 Replacing B12 and folate Give IV iron as well for low iron saturation-received 2 doses of Venofer Follow as an outpatient Chronic and ongoing. Likely has anemia of chronic disease given his underlying rheumatoid arthritis (5) Knee pain, right: As above, with joint effusion prior to the fall with significant pain Orthopedics consulted now status post arthrocentesis and steroid injection- no fluid analysis or culture sent Thought to be secondary to severe arthritis flare (has RA) Pain is now much improved on the right, also now having some pain in the left knee but no effusion or erythema Appreciate orthopedic surgery consultation continue Voltaren gel and add this to the left knee as well (6) Confusion: Patient was found confused, possibly being in his bathtub for the past 3 days- CT of head negative No evidence of significant infection--> no real cellulitis around elbow wound--> have since discontinued cefepime Likely metabolic encephalopathy associated with dehydration, precipitated by generalized weakness Patient has been living by himself, and his present living situation should be verified that he is acceptable to go back to that situation eventually--> discussed this with his nephew who is his POA and recommended looking into Assisted care living situations after rehab Has since resolved but does have some baseline cognitive impairment (7) Ambulatory dysfunction: As above, needs rehab (8) Parkinsonism: Continue carbidopa levodopa, mirapex (9) Polyarthritis, inflammatory: sees Rheumatology (10) Lewy body disease: Supportive care (11) Pulmonary fibrosis: Pulmonary fibrosis/interstitial lung disease- Continue usual inhalers Held CellCept while treating with abx for possible cellulitis but now restarted as infection ruled out and CellCept restarted (12) Interstitial lung disease: See above (13) Hypertension: continue norvasc (14) SUMANTH on CPAP: CPAP at bedtime as needed (15) Hypothyroidism: Continue levothyroxine 200 mcg daily which is an increase from home dose as TSH 15 as above repeat TSH in 4-6 weeks (16) BPH loc w urin obs/LUTS: Continue tamsulosin (17) Morbid obesity: BMI 36.2 Needs weight loss (18) Type 2 diabetes mellitus without complication: Most recent hemoglobin A1c 7.2% Not on medications at home for this No need for insulin or Accu-Cheks here (19) Folate deficiency: Low here at 4.5 Replace with oral folic acid (20) Decubitus ulcer: Wound care, offload pressure On cefepime in case of superinfection from his open wounds but no infection noted on examination, no fevers-have since cefepime Recommend continued wound care for this to prevent further breakdown (skin barrier, offload pressure) (21) Depression with anxiety: Continue duloxetine but may need to consider down titration/discontinuation of this medication if he continues to have issues with hyponatremia (22) Vitamin D deficiency: very low in 06/2021 at 9 continue Vit D3 5000 units daily Although sodium level is slightly low, not far from baseline (128 today. Baseline 130-132). I do not feel that this is a contraindication to proceed with discharge as he remains completely asymptomatic. Adhere to a fluid restricted diet [facility] Follow-up lab data recommended as outlined above Total Time Total Time Spent Total Time Spent (In Minutes): 45 minutes including time spent with patient, discussion with attending provider and case management, preparation of documentation and coordination of care Discharge Plan Discharge Items Patient Disposition: Transfer [facility] Reason For Visit: CONFUSION, RHABDO, DECUBITIS ULCERS, WEAKNESS, AMB Discharge Diagnosis: 1. Acute rhabdomyolysisresolved 2. Confusionresolved 3. Hyponatremia (hypervolemic) 4. Decubitus ulcerstage I 5. Uncontrolled hypothyroidism 6. Right knee painflare of RA Activity: Resume your previous activity Non-emergency contact: Primary Care Provider Call non-emergency contact if: you have any medication questions and your symptoms worsen Follow-up/Referrals: Aggie Good PA-C [Primary Care Provider] - Diet: Carb Consistent or DM2 Fluids: 1200ml (5 cups) Addtl Attending Provider Instructions: Patient presented to the hospital after falling in the bathtub and being found down X 2.5 days. Reports ongoing right knee pain prior to the fall. Was sitting in the shower when his shower chair gave out causing him to fall down into the bathtub. He is unable to get out. Laid there for nearly 3 days before a friend came to check on him. Was found to have mild rhabdomyolysis with associated confusion and mild CHICO. Responded favorably to IV hydration. Seen by orthopedics for the knee pain. Had a steroid injection. Thought to be a consequence of an RA flare. Continue utilizing Voltaren gel TSH significantly elevated at 15.026 for which his Synthroid was increased. Recommend follow-up TSH in 6 to 8 weeksat discretion of PCP/house provider With aggressive IV hydration (13 L cumulative, fluid balance net +5 L)patient became hyponatremic. He had signs and symptoms of hypervolemia (edema of the lower extremities. Was given multiple doses of Lasix and his sodium level has up trended (currently 128-- uptrending and asymptomatic). A urine and serum osmolality were obtained but after receiving multiple doses of Lasix thus results skewed. Was drinking in excess of 8 cups of fluid a day (500 cc each). In addition, on Cymbalta which could have an effect. Lengthy discussion with patient regarding the importance of fluid restriction. Would advise follow-up BMP in 1 week to trend. Fortunately, patient was not significantly symptomatic with this. He is complaining of weakness but I think it is mostly related to general decline. And work-up for the generalized weakness, he has since been started on B12 supplementationrecommend repeat B12 level in 3 months Follow-up with house physician within 24 to 48 hours Return to the ED for any new or worsening symptoms Pending Studies at Discharge: No Stand-Alone Forms: My [facility] Skilled Items Patient informed of condition?: No DNR: No Discharge Level of Care: Skilled Communicable Disease: No Discharge Prognosis: Improving Lines: None Urinary Catheter: No Medications and DC Order Prescriptions: New levothyroxine [Synthroid] 200 mcg Tablet 200 mcg PO DAILYBB Qty: 30 RF: 0 diclofenac sodium [Voltaren Arthritis Pain] 1 % Gel 2 g EXT QID PRN (Reason: pain) Qty: 100 RF: 0 folic acid 400 mcg Tablet 400 mcg PO QAM Qty: 30 RF: 0 cyanocobalamin (vitamin B-12) 500 mcg Tablet 1,000 mcg PO QAM Qty: 60 RF: 0 Continued (DME) Monoject TB Safety Syringe 1 mL 28 gauge x 1/2" syringe See Rx Instructions .ROUTE .MEDSUPPLY Qty: 4 RF: 0 cyanocobalamin (vitamin B-12) 1,000 mcg/mL solution 1,000 mcg subcut MONTHLY Qty: 1 RF: 5 omeprazole 20 mg tablet,delayed release (DR/EC) 20 mg PO QAM Qty: 90 RF: 0 (DME) CPAP Machine Misc See Rx Instructions .MEDSUPPLY Qty: 1 RF: 0 fluticasone propion-salmeterol [Advair Diskus] 100-50 mcg/dose blister with device 1 inh inhalation BID Qty: 60 RF: 6 (DME) Lift Chair Misc See Rx Instructions .Route Qty: 1 RF: 0 mycophenolate mofetil 500 mg tablet 500 mg PO BID Qty: 60 RF: 0 pramipexole 0.5 mg tablet 0.5 mg PO HS Qty: 90 RF: 1 carbidopa-levodopa 25-100 mg tablet 1 tab PO HS 90 Days Qty: 90 RF: 1 bkdglxa-iqvdyxinh-chjv 333-133-8.3 mg tablet 1 tab PO DAILY RF: 0 guaifenesin [Mucinex] 600 mg tablet extended release 12hr 600 mg PO Q12H PRNRF: 0 docusate sodium [Colace] 100 mg capsule 200 mg PO .COMPLEX RF: 0 albuterol sulfate [Ventolin HFA] 90 mcg/actuation HFA aerosol inhaler 2 puff INHALATION Q4H PRN (Reason: Shortness Of Breath Or Wheezing) Qty: 18 RF: 3 aspirin 81 mg Tablet,Delayed Release (Dr/Ec) 81 mg PO QAM RF: 0 allopurinol 300 mg tablet 300 mg PO QAM RF: 0 omega-3 fatty acids [Fish Oil Concentrate] 1,000 mg Capsule 1,000 mg PO QAM RF: 0 amlodipine 5 mg tablet 5 mg PO QAM RF: 0 meclizine 12.5 mg tablet 12.5 mg PO UD PRN (Reason: dizziness) RF: 0 duloxetine 60 mg capsule,delayed release(DR/EC) 60 mg PO QAM RF: 0 tamsulosin 0.4 mg capsule 0.4 mg PO QAM RF: 0 Discontinued levothyroxine 175 mcg tablet 175 mcg PO QAM RF: 0 Discharge Orders: Discharge Order (Routine); Ordered 08/06/21 Ordered By: Angelica Soto Admission Data Admit Date/Time: 07/29/21 02:31 Attending Provider: Tony Denis Admit Provider: Alfa Reyes Primary Care Provider: Aggie Good Other Providers: [place] ; [facility] ; Alfa Reyes ; Heber Duffy Other Interventions: Discharge Summary Assessment (RN) Last Done: 08/06/21 13:01 Supervising Physician Co-Signing Physician Notes During face to face encounter, obtained physical examination and history of hospital stay. Answered any questions patient had during hospital stay. D/W patient and DOTTIE Soto. Reviewed above note and agree with it. Treated for rhabdomyolysis and CHICO. treated with fluids. Discharge instructions noted above, Coding Level of Care Code D/C DAY MANAGEMENT >30 MINS Diagnoses Generalized weakness R53.1 Hyponatremia E87.1 Elevated CPK R74.8 Anemia D64.9 Knee pain, right M25.561 Confusion R41.0 Ambulatory dysfunction R26.2 Parkinsonism G20 Polyarthritis, inflammatory M06.4 Lewy body disease G31.83; F02.80 Pulmonary fibrosis J84.10 Interstitial lung disease J84.9 Hypertension I10 SUMANTH on CPAP G47.33; Z99.89 Hypothyroidism E03.9 BPH loc w urin obs/LUTS N40.1 Morbid obesity E66.01 Type 2 diabetes mellitus without complication E11.9 Folate deficiency E53.8 Decubitus ulcer L89.90 Depression with anxiety F41.8 Vitamin D deficiency E55.9
== END 2021-08-06 13:35 | DRG 640 ==
LOC: ED 22:33 → 2N 07-29 02:31 → SUATTDRO 07-29 02:31 → 2N 07-29 03:55

== ENCOUNTER 2022-08-19 09:18 | Observation (INO) ==
--- NOTE | 2022-07-30 10:21 | PAT Medication Instructions ---
Medication Instructions Date of Service July 30, 2022 Home Medications Medication Instructions Recorded syringe with needle, safety 1 mL #4 ea 03/22/21 28 gauge x 1/2" (Monoject TB Safety Syringe) Lift Chair #1 ea 07/26/21 cyanocobalamin (vitamin B-12) 500 1,000 mcg PO QAM #60 tabs 08/06/21 mcg tablet blood-glucose meter (OneTouch #1 ea 08/22/21 Verio Flex Start kit) foam bandage 4" X 4" (Optifoam) #20 ea 11/04/21 cyanocobalamin (vitamin B-12) 1,000 mcg subcut MONTHLY #3 mL 11/05/21 1,000 mcg/mL injection solution folic acid 400 mcg tablet 400 mcg PO QAM #90 tabs 11/05/21 CPAP Machine #1 ea 11/26/21 mycophenolate mofetil 500 mg tablet 500 mg PO BID #60 tabs 12/03/21 duloxetine 60 mg capsule,delayed 60 mg PO QAM #90 caps 12/26/21 release tamsulosin 0.4 mg capsule 0.4 mg PO HS #90 caps 12/30/21 diclofenac sodium 1 % topical gel 2 g EXT QID PRN pain #100 grams 01/16/22 (Voltaren Arthritis Pain) albuterol sulfate 90 mcg/actuation 1 inh inhalation QID PRN shortness 05/27/22 aerosol inhaler (ProAir HFA) of breath or wheezing #8.5 grams fluticasone 100 mcg-salmeterol 50 1 inh inhalation BID #180 ea 05/27/22 mcg/dose blistr powdr for inhalation (Advair Diskus) pramipexole 0.5 mg tablet 0.5 mg PO HS #90 tabs 06/13/22 blood sugar diagnostic (OneTouch #100 ea 07/03/22 Verio test strips) lancets 33 gauge (OneTouch Delica #100 ea 07/03/22 Lancets) carbidopa 25 mg-levodopa 100 mg 1 tab PO HS 90 days #90 tabs 07/22/22 tablet aspirin 81 mg tablet,delayed release 81 mg PO QAM meclizine 12.5 mg tablet 12.5 mg PO UD PRN [id number] 333 mg-133 mg-8.3 mg tablet 1 tab PO QAM guaifenesin 600 mg tablet, extended release 12 hr (Mucinex) 600 mg PO UD PRN cyanocobalamin (vitamin B-12) 500 mcg tablet 1,000 mcg PO QAM cyanocobalamin (vitamin B-12) 1,000 mcg/mL injection solution 1,000 mcg subcut MONTHLY folic acid 400 mcg tablet 400 mcg PO QAM mycophenolate mofetil 500 mg tablet 500 mg PO BID duloxetine 60 mg capsule,delayed release 60 mg PO QAM tamsulosin 0.4 mg capsule 0.4 mg PO HS diclofenac sodium 1 % topical gel (Voltaren Arthritis Pain) 2 g EXT QID PRN albuterol sulfate 90 mcg/actuation aerosol inhaler (ProAir HFA) 1 inh inhalation QID PRN fluticasone 100 mcg-salmeterol 50 mcg/dose blistr powdr for inhalation (Advair Diskus) 1 inh inhalation BID pramipexole 0.5 mg tablet 0.5 mg PO HS docusate sodium 100 mg capsule (Colace) 200 mg PO BID vitamin E succinate 268 mg (400 unit) tablet 268 mg PO QAM furosemide 40 mg tablet 40 mg PO QAM carbidopa 25 mg-levodopa 100 mg tablet 1 tab PO HS allopurinol 300 mg tablet 300 mg PO QPM amlodipine 5 mg tablet 5 mg PO QAM levothyroxine 175 mcg tablet 175 mcg PO QAM olmesartan 40 mg tablet 40 mg PO HS omeprazole 20 mg capsule,delayed release 20 mg PO QAM Continue as directed cyanocobalamin (vitamin B-12) 1,000 mcg/mL injection solution 1,000 mcg subcut MONTHLY meclizine 12.5 mg tablet 12.5 mg PO UD PRN(if needed) ASK your prescriber and surgeon aspirin 81 mg tablet,delayed release 81 mg PO QAM STOP taking 2 weeks before surgery (or as soon as possible if surgery is within 2 weeks) vitamin E succinate 268 mg (400 unit) tablet 268 mg PO QAM STOP taking 24 hours before surgery diclofenac sodium 1 % topical gel (Voltaren Arthritis Pain) 2 g EXT QID PRN DO NOT take the morning of surgery [id number]-rwimsuwjh-bblm 333 mg-133 mg-8.3 mg tablet 1 tab PO QAM guaifenesin 600 mg tablet, extended release 12 hr (Mucinex) 600 mg PO UD PRN cyanocobalamin (vitamin B-12) 500 mcg tablet 1,000 mcg PO QAM folic acid 400 mcg tablet 400 mcg PO QAM mycophenolate mofetil 500 mg tablet 500 mg PO BID docusate sodium 100 mg capsule (Colace) 200 mg PO BID furosemide 40 mg tablet 40 mg PO QAM Take morning of surgery With a small sip of water, OTHERWISE NOTHING TO EAT OR DRINK AFTER MIDNIGHT: duloxetine 60 mg capsule,delayed release 60 mg PO QAM albuterol sulfate 90 mcg/actuation aerosol inhaler (ProAir HFA) 1 inh inhalation QID PRN(use if needed; please bring with you to hospital day of surgery if possible) fluticasone 100 mcg-salmeterol 50 mcg/dose blistr powdr for inhalation (Advair Diskus) 1 inh inhalation BID amlodipine 5 mg tablet 5 mg PO QAM levothyroxine 175 mcg tablet 175 mcg PO QAM omeprazole 20 mg capsule,delayed release 20 mg PO QAM Take evening before surgery mycophenolate mofetil 500 mg tablet 500 mg PO BID tamsulosin 0.4 mg capsule 0.4 mg PO HS albuterol sulfate 90 mcg/actuation aerosol inhaler (ProAir HFA) 1 inh inhalation QID PRN(if needed) fluticasone 100 mcg-salmeterol 50 mcg/dose blistr powdr for inhalation (Advair Diskus) 1 inh inhalation BID pramipexole 0.5 mg tablet 0.5 mg PO HS docusate sodium 100 mg capsule (Colace) 200 mg PO BID carbidopa 25 mg-levodopa 100 mg tablet 1 tab PO HS allopurinol 300 mg tablet 300 mg PO QPM olmesartan 40 mg tablet 40 mg PO HS Other Notes If you have any questions please call us at [phone] or [phone] or [phone] or [phone]
--- NOTE | 2022-07-31 13:05 | Anesthesiology Consultation ---
Date of Service July 31, 2022 Assessment & Plan (1) Encounter for pre-operative examination: - Check BSG AM DOS - COVID screening: Per assessment on 07/31: No known COVID-19 positive contacts or current COVID-19 related symptoms. Travel screen negative. Patient vaccinated. At surgeon discretion if preop Covid testing being done. - Outpatient joint assessment: Pt currently scheduled for inpatient pathway. If surgeon requests review for outpatient joint pathway, patient is not recommended candidate for outpatient joint program from anesthesia standpoint. - Pulmonary visit (05/27/22): "ILD.. Etiology is most likely underlying Sjogren's given some cysts appreciated in the lung. He is a lifetime non-smoker but does have history of significant tobacco chewing. Sjogren's/LIP can give a similar picture Patient had apparentlypositive LAZARO long time ago.On CellCept,follows up with Dr Chou.. Supine PFT did show significant decrease in FVC by 24% and FEV1 by 22% on 03/17/2022.. That might be the reason why he gets short of breath when he is laying down from the belly pushing up onto the lungs. CPAP will be beneficial to him but he unfortunately does not use it on a regular basis.. Given there is high correlation of reflux disease and ILD.Continue with omeprazole.. Repeat PFT in 1 year given the stability.. Continue with the same regimen.. Exertional dyspnea Etiology is multifactorial.. Underlying ILD is definitely playing a role.. BMI of 36 as well as grade 1 diastolic dysfunction.. Patient is complaining of knee pain, is going to follow-up with orthopedic surgeon next week.. There is no absolute contraindication from pulmonary perspective for the patient to undergo knee replacement in the future if need be.. Would recommend 6-8 ML per KG tidal volume. CPAP/BiPAP postextubation.. Follow Up: 14 Months" - PCP visit (07/03/22): "He has numerous significant co-morbid conditions. Hypothyroidism - on Levothyroxine 200mcg daily, had recent decreased TSH on lab work here to review. We will decrease to Levothyroxine 175mcg as his TSH was decreased to level of 0.124. We will repeat in 3 months. leg swelling - notes still compliant with Furosemide 40mg daily. Also utilizing Olmesartan 20mg daily. His weight appears more elevated today and will need to watch fluid status. I will increase his Olmesartan to 40mg daily to work on RAAS axis. He was advised to repeat BMP in 2 weeks. HTN - Olmesartan 20mg daily, which was increased to 40mg to treat leg swelling and also microalbuminuria. Sees Rheumatology with reported history of Interstitial lung disease and Sjogren's syndrome. Noted to have PFTs scheduled for 03/17/22. On Cellcept, follows up with Dr Chou. Also follows with Dr. Castelan [facility] Pulmonology.Noted that Supine PFT did show significant decrease in FVC by 24% and FEV1 by 22% on 03/17/2022. Plan to repeat PFT in one year per outpatient note. Asthma-On Advair Diskus 100-50 MCG 1 puff twice daily, has albuterol inhaler. Grade I Diastolic Dysfunction - 2D echo 08/05/2021: EF 65-70%, RV not well visualized 2D echo 06/18/2020:EF 55-60%,grade 1 diastolic dysfunction, right ventricular not well visualized. Consider addition of Spironalactone [sic]. SUMANTH - on CPAP but notes poor compliance.. Parkinson's disease - Follows with [facility] Neurology. On Carbidopa-levodopa 25-100mg. On Parmiprexole [sic] 0.5mg PO HS.. DM2 with microablumenuria - His Hgb A1C is up to 7.2% from 6.4%. He actually doesn't appear to be on any medication. He had significant protein in his urine andsignificantly abnornal [sic] urine micro albumin ratio of 1483.6. He doesn't appear to have had any prior urine testing to compare. This is significant enough where he would benefit from nephrology consult especially given his history of autoimmune." - Nephrology visit (07/21/22): "CHRONIC KIDNEY DISEASE.. Baseline Cr 0.9 w/ EGFR 83 cc/min.. + microalbuminuria related to DKD.. Will order 24 hour urine Clcr, total protein.. Will order urinalysis w/ microscopy and renal US.. Will order SPEP, free light chain assay.. Continue Olmesartan therapy.. Recommend starting SGLT2i therapy due to AODM, DKD.. Continue Olmesartan, Furosemide.. If BP is elevated at next visit, will consider adding low dose Amlodipine.. Mild, asymptomatic anemia. No acute indication for HUGO at this time" > Patient has f/u nephro appt scheduled prior to surgery ([facility], appt 08/12)- Awaiting office visit note. Chart Review Chart Review: Patient seen in Pre Admission Testing Teaching & Discussion Pre-Anesthesia Teaching/Discussion Notes: Instructed NPO after midnight before surgery,except medications with 15 cc of water. Medication instructions provided according to the PAT guidelines. History Surgery Operation Date: 08/19/22 12:30 Proposed Procedures p Right Total Knee Arthroplasty - Heber Duffy MD Height/Weight Height: 5 ft 10 in Weight: 119.9 kg Allergies Allergy/AdvReac Type Severity Reaction Status Date / Time No Known Allergies Allergy Verified 07/30/22 08:46 Medications Home Medications Medication Instructions Recorded Confirmed Last Taken aspirin 81 mg tablet,delayed 81 mg PO QAM 06/15/18 07/30/22 09/23/21 release syringe with needle, safety 1 mL #4 ea 03/22/21 07/21/22 Unknown 28 gauge x 1/2" (Monoject TB Safety Syringe) meclizine 12.5 mg tablet 12.5 mg PO UD PRN dizziness 06/04/21 07/30/22 Unknown lrdkxuo-[id number]-pbzl 333 mg-133 1 tab PO QAM 07/18/21 07/30/22 09/23/21 mg-8.3 mg tablet guaifenesin 600 mg tablet, 600 mg PO UD PRN Cough 07/18/21 07/30/22 09/23/21 extended release 12 hr (Mucinex) Lift Chair #1 ea 07/26/21 07/21/22 Unknown cyanocobalamin (vitamin B-12) 500 1,000 mcg PO QAM #60 tabs 08/06/21 07/30/22 09/23/21 mcg tablet blood-glucose meter (OneTouch #1 ea 08/22/21 07/21/22 Unknown Verio Flex Start kit) foam bandage 4" X 4" (Optifoam) #20 ea 11/04/21 07/21/22 Unknown cyanocobalamin (vitamin B-12) 1,000 mcg subcut MONTHLY #3 mL 11/05/21 07/30/22 Unknown 1,000 mcg/mL injection solution folic acid 400 mcg tablet 400 mcg PO QAM #90 tabs 11/05/21 07/30/22 Unknown CPAP Machine #1 ea 11/26/21 07/21/22 Unknown mycophenolate mofetil 500 mg tablet 500 mg PO BID #60 tabs 12/03/21 07/30/22 Unknown duloxetine 60 mg capsule,delayed 60 mg PO QAM #90 caps 12/26/21 07/30/22 Unknown release tamsulosin 0.4 mg capsule 0.4 mg PO HS #90 caps 12/30/21 07/30/22 Unknown diclofenac sodium 1 % topical gel 2 g EXT QID PRN pain #100 grams 01/16/22 07/30/22 Unknown (Voltaren Arthritis Pain) albuterol sulfate 90 mcg/actuation 1 inh inhalation QID PRN shortness 05/27/22 07/30/22 Unknown aerosol inhaler (ProAir HFA) of breath or wheezing #8.5 grams fluticasone 100 mcg-salmeterol 50 1 inh inhalation BID #180 ea 05/27/22 07/30/22 Unknown mcg/dose blistr powdr for inhalation (Advair Diskus) pramipexole 0.5 mg tablet 0.5 mg PO HS #90 tabs 06/13/22 07/30/22 Unknown blood sugar diagnostic ([facility] ea 07/03/22 07/21/22 Unknown Verio test strips) docusate sodium 100 mg capsule 200 mg PO BID 07/03/22 07/30/22 Unknown (Colace) lancets 33 gauge (OneTouch Delica #100 ea 07/03/22 07/21/22 Unknown Lancets) vitamin E succinate 268 mg (400 268 mg PO QAM 07/03/22 07/30/22 Unknown unit) tablet furosemide 40 mg tablet 40 mg PO QAM 07/21/22 07/30/22 Unknown carbidopa 25 mg-levodopa 100 mg 1 tab PO HS 90 days #90 tabs 07/22/22 07/30/22 Unknown tablet allopurinol 300 mg tablet 300 mg PO QPM 07/30/22 07/30/22 Unknown amlodipine 5 mg tablet 5 mg PO QAM 07/30/22 07/30/22 Unknown levothyroxine 175 mcg tablet 175 mcg PO QAM 07/30/22 07/30/22 Unknown olmesartan 40 mg tablet 40 mg PO HS 07/30/22 07/30/22 Unknown omeprazole 20 mg capsule,delayed 20 mg PO QAM 07/30/22 07/30/22 Unknown release Past Medical History Medical History Acid reflux Asthma At high risk for falls Per patient Chronic hyponatremia Depression with anxiety Edema of right lower leg Enlarged prostate Folate deficiency Gout Hx Granulomatous lung disease Per records, patient unaware Hypertension Hypothyroidism Interstitial lung disease Parkinson's disease Restless legs Rheumatoid arthritis Follows with Dr. Caryl Chou Right knee DJD Sjogren's disease Sleep apnea CPAP (non-compliant) Type 2 diabetes mellitus without complication A1C 7.2% 06/25/22* Exercise / Class Metabolic Activity III < 4 Walking/Shop/Light housework Past Family History Family History Father Lung disease Hypertension Stroke Sister Diabetes Family history of reaction to anesthesia nausea/vomiting, trouble staying awake Mother Cancer Brother Diabetes Grandmother (Maternal) Diabetes Grandmother (Paternal) Diabetes Denies family history of Ovarian cancer Prostate cancer Myocardial infarction Breast cancer Colorectal cancer Past Surgical History Surgical History H/O inguinal hernia repair Left H/O parotidectomy H/O umbilical hernia repair History of colonoscopy with polypectomy Most recent 09/2021 ([facility]) S/P rotator cuff repair Right Past Anesthesia History No Hx of Anesthesia Complications Sister- PONV, "trouble staying awake" per records, patient unaware History of PONV No Hx of PONV and No Hx of Motion Sickness Social History Smoking Status: Never smoker Do You Dip or Chew Tobacco: No (Attempting to quit, advised none DOS) Hx Alcohol Use: No Hx Substance Use: No substance use type: does not use Review of Systems Patient denies chest pain, shortness of breath, fever, chills, cough, wheezing, palpitations. Physical Exam Vital Signs VITALS BP 109/70 P 92 TEMP 98.2 SP02 96%RA RESP 16 PHYSICAL Mildly decreased cervical extension range of motion. Full TMJ range of motion. TMD 3 finger breaths Mallampati Score 3 (macroglossia) Dentition: full upper, partial lower Lungs: lower lung base crackles Cardiac: regular rate and rhythm, distant heart sounds Spine: normal Carotid arteries: negative bruit Extremities: no LE edema Lab Results Anesthesia Preop Results Results Anesthesia Widget: WBC 5.32 K/ul (4.8-10.8) 07/31/22 Hgb 13.3 g/dl (14.0-18.0) L 07/31/22 Hct 40.2 % (42.0-52.0) L 07/31/22 Plt 203 K/uL (130-400) 07/31/22 Na 131 mmol/L (136-145) L 07/31/22 K 4.1 mmol/L (3.5-5.1) 07/31/22 Cl 102 mmol/L (98-107) 07/31/22 CO2 24 mmol/L (21-32) 07/31/22 BUN 13 mg/dl (6-23) 07/31/22 Creat 0.88 mg/dl (0.6-1.4) 07/31/22 Glucose Level 120 mg/dl (70-99(Fasting)) H 07/31/22 PT 10.9 Seconds (9.0-12.0) 07/31/22 PTT 29.5 Seconds (21.0-31.0) 07/31/22 INR 1.0 (0.9-1.1) 07/31/22 TSH 0.124 uIu/ml (0.300-4.500) L 06/25/22 HA1c 6.2 % (4.5-5.6) H 07/31/22 Blood Type O Positive 07/31/22 Antibody Screen NEGATIVE 07/31/22 Testing Laboratory Results *Chronic hyponatremia- baseline sodium low 130s, stable on preop labs* Electrocardiogram Date: 07/31/22 NSR at 93bpm. LAD. Chest X-Ray Date: 07/31/22 FINDINGS: No pneumothorax. The heart is normal in size. The lungs are hyperexpanded with apical predominant emphysematous changes. Interstitial thickening/vascular crowding again noted at the lung bases. Stable blunting of the costophrenic sulci which could be due to the hyperexpanded lungs. No definite pleural effusions. No new focal lung consolidations to suggest a pneumonia. No evidence for pulmonary edema. Calcified left hilar lymph nodes and a calcified granuloma within the left midlung zone again noted. IMPRESSION: No significant change compared to the prior study. No acute process. Emphysema again noted. Echocardiogram Date: 08/05/21 EF 65-70%. No regional motion abnormality. Mild concentric LVH. No significant valvular disease. Pulmonary Function Test Date: 03/17/22 Moderate obstructive lung disease, insignificant bronchodilator response. Normal TLC with normal ERV. Mild decrease in DLCO. Patient had supine spirometry done on the same day. There was a decrease in FVC by 24%, decrease in FEV 1 x 22%. Decrease in FVC by 70 mL, decrease in FEV 1 x 30 mL, increased DLCO 51 > 65% compared to 04/2021. Cervical Spine Date: 07/31/22 FINDINGS: Patient is mildly rotated which limits evaluation of the posterior elements. Moderate to severe multilevel intervertebral disc space narrowing with moderate spondylitic spurring and facet arthrosis. Normal predental interval. No definite acute fracture, subluxation or endplate erosion identified. No prevertebral edema. Degenerative partial bony fusion noted at the C5-C6 and C6- C7 levels. IMPRESSION: No acute fracture or subluxation identified. Degenerative changes as above. COVID-19 Risk Screen Screening Information COVID-19 Screen Date: 07/31/22 Exposure 21 Days Family/Household +COVID Last 21 Days: No Exposure 10 Days Any COVID Exposure Last 10 Days: No Symptoms Last 10 Days Experienced COVID Sx Last 10 Days: No + COVID 0-90 Days COVID + in Last 0-90 Days: No
[~2022-08-19 09:18] MED LIST changes: +ACETAMINOPHEN 500 MG TAB PO SCH; -ADVIN25/60 INH; -ALBUAER19 INH; -ALLO300T2 PO; -ASPI-319 PO; +BUPIVACAINE 0.5 % 5 MG/1 ML PF 10ML VIAL ONE; +BUPIVACAINE LIPOSOME/PF 266 MG, BUPIVACAINE/EPINEPHRINE 50 ML, SODIUM CHLORIDE 0.9% PF ... INFIL SCH; -CALCTAB5 PO; -CITA40TA12 PO; -CLC100X PO; +CeleBREX 200 MG CAP PO SCH; +FAMOTIDINE 20 MG TAB PO SCH; -GUAI1TAB55 PO; -LEVO125T5 PO; +LR 500ML BOLUS, THEN 15ML/HR IV SCH; +LR 60ML/HR IV SCH; +METOCLOPRAMIDE HCL 10 MG TABLET PO SCH; -MULTTAB58 PO; +ROPIVACAINE 0.5% 5 MG/ML 30 ML VIAL ONE; +TRANEXAMIC ACID 1,000 MG **IV Intra-op IV SCH; +ceFAZolin 2000MG 2,000 MG/15 ML SYR IV SCH
--- NOTE | 2022-08-19 11:19 | History & Physical Bridge Note ---
Date of Service August 19, 2022 History & Physical Bridge Note I have examined the patient, reviewed the History & Physical and in the interval since the performance of the History & Physical I have noted the following changes of clinical significance: no changes noted
[2022-08-19] MEDS ORDERED: PROMETHAZINE HCL 12.5 MG in SODIUM CHLORIDE 0.9% 50 ML IV PRN (12:24)
[2022-08-19] MEDS ORDERED: fentaNYL citrate PF 100 MCG/2 ML VIAL IV PRN (12:24)
[2022-08-19] MEDS ORDERED: ATROPINE SULFATE 0.1 MG/ML 10ML SYR IV PRN (12:24)
[2022-08-19] MEDS ORDERED: HYDROmorphone INJ 2 MG/ML SYR/VIAL IV PRN (12:24)
[2022-08-19] MEDS ORDERED: ONDANSETRON INJ 2 MG/ML 2 ML VIAL IV PRN ×2 (12:24→17:17)
[2022-08-19] MEDS ORDERED: ePHEDrine sulfate 50 MG/ML AMP IV PRN (12:24)
[2022-08-19] MEDS ORDERED: PROPOFOL IV EMULSION 10 MG/ML 100 ML VIAL IV ONE (12:36)
[2022-08-19] MEDS ORDERED: DEXAMETHASONE SOD INJ 4 MG/ML VIAL ONE (12:37)
[2022-08-19] MEDS ORDERED: ONDANSETRON INJ 2 MG/ML 2 ML VIAL ONE (12:37)
[2022-08-19] MEDS ORDERED: MIDAZOLAM HCL 1 MG/ML 2ML VIAL ONE (12:53)
[2022-08-19] MEDS ORDERED: BUPIVACAINE/EPINEPHRINE 0.25% 1:200,000 30 ML VIAL ONE (13:22)
[2022-08-19] MEDS ORDERED: BUPIVACAINE LIPOSOME 1.3% 266 MG/20 ML VIAL ONE (13:23)
[2022-08-19] MEDS ORDERED: SODIUM CHLORIDE 0.9% PF 50 ML VIAL ONE (13:23)
[2022-08-19] MEDS ORDERED: VANCOMYCIN HCL 1000MG/20ML VIAL ONE (13:24)
[2022-08-19] MEDS ORDERED: PROPOFOL IV EMULSION 10 MG/ML 20 ML VIAL IV ONE (15:18)
--- NOTE | 2022-08-19 16:02 | Operative Report ---
PG Post Operative Report Pre & Post Diagnosis Operation Date: 08/19/22 11:30 Pre-Op Diagnosis: Right Knee Degenerative Joint Disease Post-Op Diagnosis: Right Knee Degenerative Joint Disease I identified the patient and participated in the time-out.: Yes Procedure Operation Date: 08/19/22 11:30 Actual Procedures p Right Total Knee Arthroplasty(Right) - Heber Duffy MD Surgeon Heber Duffy MD Director Of Cardiopulmonary Services Jose Perez PA-C Estimated Blood Loss 50 Findings Consistent with Post-Op Diagnosis Operative findings revealed advanced right knee tricompartment DJD. Chronic ACL deficiency. Grade 4 [id number] disease in all 3 compartments with a large knee joint effusion. Specimens Right knee sent for pathology Anesthesia Type Spinal MAC Complications none Disposition Accompanied Patient To Recovery: No Indications Patient 72-year-old gent with multiple medical comorbidities has had a long history of knee pain and discomfort is gotten significant worse over time the point where he said use a cane to get around. He failed all conservative measures. He was a medically optimized and indicated and desired to proceed with total knee arthroplasty. Description of Procedure Operative implants consist of: 1 Biomet Vanguard size 70 right posterior stabilized femoral component. 2. Biomet size 79 tibial tray with a modular component and a 12.5 x 80 mm ce mented stem. 3. 10 mm posterior stabilized polyethylene insert. 4. 34 x 8 and half all poly patella. The patient was taken the operating, identified, placed on the operating table supine position but all contractors were appropriately padded. IV antibiotics provided by the anesthesia team. Spinal anesthetic and adductor canal block had been provided in the holding area. Tadeo catheter was placed in sterile fashion. Right thigh tourniquet was then placed in the right lower extremities then prepped and draped in usual sterile fashion. The right leg was elevated exsanguinated with use of an Esmarch and the tourniquet was placed at 300 mmHg. An anterior approach to the right knee was then performed through a longitudinal incision centered over the patella. Sharp dissection was carried through subcutaneous tissue down the extensor mechanism. A medial parapatellar arthrotomy incision was made. Some subperiosteal dissection was carried out medially. The fat pad was dissected from Neath patella tendon. Lateral patellofemoral ligament was released. Patella subluxated laterally and the knee was flexed. The osteophytes taken off distal femur. The ACL was absent. The PCL was released and the tibia subluxated anteriorly. The external tibial alignment jig was then placed in the interface the tibia and the proximal tibial cut was made. Removed about a millimeter bone from most deficient aspect medial tibial plateau. The tibia was sized to a size 79. Attention drawn the femur. The distal femur was held with a sharp drop with intramedullary canal was suction. A right 6 degree cutting guide was placed. Distal femoral cutting block was pinned in place. Distal femoral cut was made to take an additional 3 mm of bone off distal femur. The femur was then sized to a size 70. The AP cutting block was pinned parallel to the epicondylar axis which was 4 degrees of external rotation. The anterior cut, anterior chamfer, posterior cut, posterior chamfer cuts were made. The box cutting guide was placed in a just slight lateral and the box cut was made. The knee was flexed. The remnants of the medial and lateral menisci were excised. The osteophytes taken off the posterior aspect the femur. A trial femoral component was placed. The tibial tray was pinned in maximum external rotation. The drill and stem punch were used to create the fact in the proximal tibia for the tibial tray. I then used the tool filer hand to ream up to a size 15. The modular tibial tray was [address] I then trialed the knee and 10 mm insert fit most appropriately. Attention drawn the patella. The patella was cleaned of all soft tissues. Patella thickness measured 23 mm in thickness was cut down to 14. Was sized to a size 34 patella. The lug holes were drilled for the 34 patella. The lateral osteophytes removed. Patella button was placed. Knee was taken through range of motion patella tracked nicely with no thumbs test. Attention drawn to place the permanent pump components. Nupathe all trial components were removed. Bone plug was placed in the distal femur limit blood loss. Double batch Palacos G cement was mixed. I did add an additional gram of vancomycin due to this patient's multiple medical comorbidities and history of open skin scabs on his extremities. A Biomet [place] [employer] size 70 right posterior stabilized femoral component, a size 79 tibial tray with a 12.5 mm modular stem, a 10 mm posterior stabilized polyethylene insert, and 34 x 8 and half all Paller patella then cemented in place. Knee was brought out into full extension till cement hardened. Final cement check was then performed. Pericapsular tissues were injected with total of 100 cc of combination of 20 cc of Exparel, 30 cc normal saline, 50 cc of quarter percent Marcaine with epinephrine. Patient did receive 1 g tranexamic acid. The tourniquet was then let down for a final tourniquet time of 67 minutes. Hemostasis assured use electrocautery. Extensor mechanism then closed with combination 1 PDS suture and 1 Vicryl suture in [id number] fashion. Extensor mechanism checked found to be intact and the subcutaneous tissues then closed with 2 Dexon suture in a buried interrupted fashion skin was closed skin charles. Leg was then cleaned and dried and a sterile dressing was Xeroform, 4 x 4's, sterile cast padding, Norris bandage were applied. Patient then transferred to the recovery room in stable condition. Patient tolerated procedure well no complications. Jose Perez, my physician congressional assistant, was present for the entire procedure. His assistance was essential and required for appropriate patient positioning, prepping and draping, surgical exposure, performing the technical details of the operation, placement the implants, closure of the wound, and placement of the sterile bandage. I attest to the content of the Intraoperative Record and any orders documented therein. Any exceptions are noted below.
--- NOTE | 2022-08-19 16:32 | XRay Report ---
TWO VIEWS RIGHT KNEE CLINICAL HISTORY: Postoperative examination. FINDINGS: AP and crosstable lateral portable views of the right knee are obtained. A right knee arthr oplasty is in near anatomic alignment. There has been undersurface remodeling of the patella. No acut e fracture is seen. There are expected postoperative changes around the knee including skin clips, so ft tissue edema, and subcutaneous gas. IMPRESSION: Expected postoperative changes status post right knee arthroplasty. No acute fracture is seen. ACT 112: Negative or not required by law. Electronically signed by: Jeremy Rockwell M.D. 08/19/2022 4:31 PM
--- NOTE | 2022-08-19 16:51 | Anesthesiology Progress Note ---
Date of Service August 19, 2022 Anesthesia Post Procedure Vital Signs Vital Signs: Temp Pulse Pulse Resp BP Pulse Ox O2 Del Method 08/19/22 16:40 36.4 C L 65 18 120/70 95 Nasal Cannula 08/19/22 16:30 73 15 116/69 94 Nasal Cannula 08/19/22 16:20 74 14 122/70 94 Oxymask 08/19/22 16:10 71 14 105/65 94 Oxymask 08/19/22 16:00 69 14 72/47 L 94 Oxymask 08/19/22 15:54 36 C L 74 12 105/59 L 94 Oxymask 08/19/22 10:07 36.7 C 80 20 133/89 93 Room Air O2 Flow Rate 08/19/22 16:40 3 08/19/22 16:30 3 08/19/22 16:20 6 08/19/22 16:10 6 08/19/22 16:00 6 08/19/22 15:54 6 08/19/22 10:07 Transfer of Care Handoff Completed per policy Notes Mental Status: alert / awake / arousable Patient Amnestic to Procedure: Yes Nausea / Vomiting: adequately controlled Pain: adequately controlled Airway Patency, RR, SpO2: stable & adequate BP & HR: stable & adequate Hydration State: stable & adequate Anesthetic Complications: no major complications apparent
[2022-08-19] MEDS ORDERED: GLUCOSE 10 TAB/TUBE PO PRN (17:17)
[2022-08-19] MEDS ORDERED: SODIUM CHLORIDE 0.9% 1000ML 1,000 ML IV SCH (17:17)
[2022-08-19] MEDS ORDERED: METOCLOPRAMIDE HCL INJ 5 MG/ML 2 ML VIAL IV PRN (17:17)
[2022-08-19] MEDS ORDERED: NALOXONE HCL 0.4 MG/1 ML VIAL/CARP IV PRN (17:17)
[2022-08-19] MEDS ORDERED: bisacodyL 10 MG SUPP PR PRN (17:17)
[2022-08-19] MEDS ORDERED: GLUCOSE 40% GEL 15 GM TUBE PO PRN (17:17)
[2022-08-19] MEDS ORDERED: GLUCAGON FOR INJ 1 MG VIAL SQ PRN (17:17)
[2022-08-19] MEDS ORDERED: CARBOHYDRATES FOR HYPOGLYCEMIA PO PRN (17:17)
[2022-08-19] MEDS ORDERED: DICLOFENAC SOD 1% GEL 100 GM TUBE EXT PRN (17:17)
[2022-08-19] MEDS ORDERED: MAGNESIUM HYDROXIDE SUSP 30 ML UDC PO PRN (17:17)
[2022-08-19] MEDS ORDERED: MECLIZINE 12.5 MG TAB PO PRN (17:17)
[2022-08-19] MEDS ORDERED: HYDROmorphone INJ 0.5 MG/0.5 ML SYR IV PRN (17:17)
[2022-08-19] MEDS ORDERED: PHARMACY GLYCEMIC MGMT CONSULT PRN (17:17)
[2022-08-19] MEDS ORDERED: guaiFENesin 600 MG TABCR PO PRN (17:17)
[2022-08-19] MEDS ORDERED: DEXTROSE 50% 50 ML SYRINGE IV PRN (17:17)
[2022-08-19] MEDS ORDERED: ALBUTEROL HFA 8 GM INHALER INH PRN (17:17)
[2022-08-19] MEDS ORDERED: ALUMINUM/MAGNESIUM SUSP 30 ML UDC PO PRN (17:17)
[2022-08-19] MEDS: ASCORBIC ACID 500 MG TAB PO SCH (18:37)
[2022-08-19] MEDS: KETOROLAC TROMETHAMINE 15 MG/ML VIAL IV SCH (18:37)
[2022-08-19] MEDS: INSULIN ASPART PER UNIT CHARGE SC SCH ×2 (18:44→21:00)
[2022-08-19] MEDS ORDERED: DOCUSATE SODIUM 100 MG CAP PO SCH (21:00)
[2022-08-19] MEDS ORDERED: FLUTICASONE/SALMETEROL 100/50 (ADVAIR) 14 PUFF/1 INHALER INH SCH (21:00)
[2022-08-19] MEDS: ceFAZolin 2000MG 2,000 MG/15 ML SYR IV SCH (21:18)
[2022-08-19] MEDS: MYCOPHENOLATE MOFETIL 250 MG CAP PO SCH (21:18)
[2022-08-19] MEDS: ASPIRIN 81 MG ECTAB PO SCH (21:18)
[2022-08-19] MEDS: DOCUSATE SODIUM 100 MG CAP PO SCH (21:19)
[2022-08-19] MEDS: allopurinoL 300 MG TAB PO SCH (21:19)
[2022-08-19] MEDS: CARBIDOPA/LEVODOPA 25/100MG TAB PO SCH (21:20)
[2022-08-19] MEDS: PRAMIPEXOLE DIHYDROCHLO 0.5 MG TAB PO SCH (21:21)
[2022-08-19] MEDS: LOSARTAN POTASSIUM 50 MG TAB PO SCH (21:21)
[2022-08-19] MEDS: SENNA 8.6 MG TAB PO SCH (21:21)
[2022-08-19] MEDS: TAMSULOSIN HCL 0.4 MG CAP PO SCH (21:21)
[2022-08-19] MEDS: ACETAMINOPHEN 500 MG TAB PO SCH (21:22)
[2022-08-19] MEDS: oxyCODONE HCL IR 5 MG TAB (IMMEDIATE RELEASE) PO PRN (21:24)
[2022-08-19] MEDS ORDERED: TRANEXAMIC ACID / 0.7% NACL 1,000 MG/100 ML BAG IV SCH (22:00)
[2022-08-20] MEDS: KETOROLAC TROMETHAMINE 15 MG/ML VIAL IV SCH ×5 (00:51→17:46)
[2022-08-20] MEDS: ACETAMINOPHEN 500 MG TAB PO SCH ×3 (06:03→21:26)
[2022-08-20] MEDS: LEVOTHYROXINE SODIUM 175 MCG TABLET PO SCH (06:03)
[2022-08-20] MEDS: ceFAZolin 2000MG 2,000 MG/15 ML SYR IV SCH (06:04)
[2022-08-20 07:37] LABS: Hematocrit (blood only) 31.9 % (42.0-52.0); Hemoglobin 10.6 g/dl (14.0-18.0); Mean Corpuscular Hemoglobin 31.1 pg (25.0-34.0); Mean Corpuscular Hgb Conc 33.2 g/dL (32.0-36.0); Mean Corpuscular Volume 93.5 fL (80.0-100.0); Mean Platelet Volume 9.4 fL (9.4-12.4); Platelet Count 157 K/uL (130-400); RDW Coefficient of Variation 14.1 % (11.5-14.5); RDW Standard Deviation 47.7 fL (36.4-46.3); Red Blood Count 3.41 M/uL (4.70-6.10); White Blood Count 6.37 K/ul (4.8-10.8)
[2022-08-20 07:55] LABS: BUN Creatinine Ratio 18.3 (10-20); Calcium 7.7 mg/dl (8.6-10.3); Creatinine Clr Calc Pharmacy 77.3 ml/min; Est GFR (African American) 77.1 ml/min; Est GFR (Non-African American) 66.5 ml/min; Potassium 4.3 mmol/L (3.5-5.1)
[2022-08-20] MEDS: DOCUSATE SODIUM 100 MG CAP PO SCH ×2 (08:02→20:08)
[2022-08-20] MEDS: PANTOprazole 40 MG TAB PO SCH (08:03)
[2022-08-20] MEDS: amLODIPine BESYLATE 5 MG TAB PO SCH (08:03)
[2022-08-20] MEDS: MULTIVITAMIN TAB PO SCH (08:03)
[2022-08-20] MEDS: ASPIRIN 81 MG ECTAB PO SCH ×2 (08:03→20:07)
[2022-08-20] MEDS: CYANOCOBALAMIN (B-12) 500 MCG TABLET PO SCH (08:03)
[2022-08-20] MEDS: MYCOPHENOLATE MOFETIL 250 MG CAP PO SCH ×2 (08:03→20:09)
[2022-08-20] MEDS: DULoxetine HCL 60 MG CAP PO SCH (08:04)
[2022-08-20] MEDS: TOCOPHERYL, DL-ALPHA 100 UNITS 67 MG CAP PO SCH (08:04)
[2022-08-20] MEDS: ASCORBIC ACID 500 MG TAB PO SCH ×2 (08:04→16:41)
[2022-08-20] MEDS: FOLIC ACID 400 MCG TAB PO SCH (08:04)
[2022-08-20] MEDS: FUROSEMIDE 40 MG TAB PO SCH (08:04)
[2022-08-20] MEDS: FLUTICASONE/VILANTEROL 100/25MCG 14 PUFFS/INHALER INH SCH (08:05)
[2022-08-20] MEDS: INSULIN ASPART PER UNIT CHARGE SC SCH ×4 (08:59→20:17)
--- NOTE | 2022-08-20 09:35 | Pharmacy Report ---
Pharmacy Glycemic Short Note 2 - Date of Service August 20, 2022 - Glycemic Short BSG Results (Last 24 hours): 08/19/22 08/19/22 08/19/22 09:47 15:52 18:14 Glucose POC Glucose 116 H 107 H 112 H 08/19/22 08/20/22 08/20/22 20:23 07:11 08:04 Glucose 117 H POC Glucose 139 H 127 H 08/20/22 08:04 Glucose POC Glucose 127 H OUTPATIENT ANTIDIABETIC REGIMEN: * n/a - diet-controlled HbA1c: 6.2% (07/31/22) ASSESSMENT: * TK is a 72 year old male POD #1 s/p right total knee arthroplasty * BSGs well-controlled postoperatively, received 4 mg IV dexamethasone in OR * Fasting BSG of 127 mg/dL this morning, likely due to steroid administration yesterday * Will maintain tighter Novolog parameters this morning and loosen at lunchtime * Will hold basal insulin for time being PLAN FOR INPATIENT GLYCEMIC CONTROL: * Basal insulin * hold * Bolus insulin * NovoLog per scale ACHS or Q6hrs while NPO * Goal Range: Low 110 mg/dL - High 140 mg/dL * Correction Factor: 30 mg/dL/unit * Nutritional / Prandial insulin per carb ratio of 1 unit per 10 grams CHO consumed
--- NOTE | 2022-08-20 09:51 | Hospitalist Consultation ---
Date of Consultation August 20, 2022 Assessment & Plan (1) Osteoarthritis of right knee: S/p right total knee arthroplasty 08/19/22 Patient to have inpatient rehab upon discharge Ortho ordered ASA 81mg BID Has DAMION hose on left leg encouraged up and OOB, PT (2) SUMANTH (obstructive sleep apnea): Poor compliance with home CPAP Encouraged compliance and aware of risks (3) HTN (hypertension): Chronic and stable Continue olmesartan 40mg qhs (4) Parkinsonism: Chronic and stable Continue carbidopa-levodopa 25/100 and pramipexole 0.5 qhs Follows with neurology (5) Hypothyroidism: Chronic and stable Continue levothyroxine 175mcg Last TSH 0.124 on 06/25/22 (6) Anemia: Chronic On B12 1000 mcg daily (7) BPH (benign prostatic hyperplasia): Chronic and stable Continue Tamsulosin 0.4 daily (8) Grade I diastolic dysfunction: Chronic and stable 2D echo 08/05/2021: EF 65-70%, RV not well visualized 2D echo 06/18/2020:EF 55- 60%,grade 1 diastolic dysfunction, right ventricular not well visualized Supervising Physician Co-Signing Physician Notes PA Supervision Note: I personally saw and examined the patient. I verified all gonzales points and agree with DORA Nuñez with the following exceptions and/or additions: Subjective: 72-year-old male history of hypertension, SUMANTH, COPD, hypothyroidism, HFpEF admitted for right total knee arthroplasty, performed on 08/19/2022. Feeling well except for a little bit of right knee pain, but pain is improved from prior to surgery. No other complaints including no chest pain, shortness of breath, abdominal pain, nausea. Physical exam: Vitals reviewed Gen: Alert and oriented, NAD HEENT: anicteric sclerae, EOMI CV: RRR no murmurs Pulm: CTAB no wheezes Abd: +BS soft, protuberant abdomen, nontender, no masses Ext: Bilateral 1+ lower extremity edema, with Norirs bandage on right leg to the level of the mid thigh Skin: no rashes, warm/dry Neuro: No focal neurologic deficits Labs, Rads, and ECG reviewed Assessment and Plan: Right knee arthritis: Status post right knee arthroplasty on 08/19/2022, surgical care and DVT prophylaxis per Ortho team. PT and OT recommending rehab on discharge, case management working on arranging this. Anemia: Chronic, B12 deficiency related, with concurrent blood loss. Hemoglobin 13.3->10.6, not unexpected post surgery. Repeat H&H in the morning. Hypertension: History of, takes amlodipine, olmesartan. BP at goal for age on these medications, continue these or formulary equivalents while admitted. Recommend CPAP compliance both for SUMANTH and for hypertension management. Plan otherwise as stated above. We will follow blood count tomorrow. History of Present Illness Reason for Consultation: post op medical care Requesting Physician: Dr Duffy Attending Physician: Heber Duffy MD History of Present Illness 72 year old male with an extensive past medical history including DJD/arthritis, HTN, Hypothyroidism, DM, Interstitial lung disease, Sjogren's syndrome, Grade I diastolic dysfunction, SUMANTH (has home CPAP but noncompliant), B12 deficiency, parkinson's disease and asthma who presented for elective Right total knee arthroplasty. Post op day #1. EBL 50. Ortho is planning on ASA 81mg BID Patient and son tell me he is very mobile and walks alot regularly at home with a walker. He states he is very motivated to get up and moving and to have further PT. He tells me he is going to [facility] from here. He is awake in bed and states he is feeling well. He denies any abdominal pain, chest pain, SOB, Dyspnea, nausea, vomiting, cough, dysphagia, fevers or chills. He has not had a BM but is passing flatus Allergies Allergy/AdvReac Type Severity Reaction Status Date / Time No Known Allergies Allergy Verified 08/19/22 09:53 Home Medications Medication Instructions Recorded Confirmed Type aspirin 81 mg tablet,delayed 81 mg PO QAM 06/15/18 08/19/22 History release syringe with needle, safety 1 mL #4 ea 03/22/21 08/12/22 Rx 28 gauge x 1/2" (Monoject TB Safety Syringe) meclizine 12.5 mg tablet 12.5 mg PO UD PRN dizziness 06/04/21 08/19/22 History [id number]-fklwnyybp-cywd 333 mg-133 1 tab PO QAM 07/18/21 08/19/22 History mg-8.3 mg tablet guaifenesin 600 mg tablet, 600 mg PO UD PRN Cough 07/18/21 08/19/22 History extended release 12 hr (Mucinex) Lift Chair #1 ea 07/26/21 08/12/22 Rx cyanocobalamin (vitamin B-12) 500 1,000 mcg PO QAM #60 tabs 08/06/21 08/19/22 Rx mcg tablet blood-glucose meter (OneTouch #1 ea 08/22/21 08/12/22 Rx Verio Flex Start kit) foam bandage 4" X 4" (Optifoam) #20 ea 11/04/21 08/12/22 Rx cyanocobalamin (vitamin B-12) 1,000 mcg subcut MONTHLY #3 mL 11/05/21 08/19/22 Rx 1,000 mcg/mL injection solution folic acid 400 mcg tablet 400 mcg PO QAM #90 tabs 11/05/21 08/19/22 Rx CPAP Machine #1 ea 11/26/21 08/12/22 Rx mycophenolate mofetil 500 mg tablet 500 mg PO BID #60 tabs 12/03/21 08/19/22 Rx duloxetine 60 mg capsule,delayed 60 mg PO QAM #90 caps 12/26/21 08/19/22 Rx release tamsulosin 0.4 mg capsule 0.4 mg PO HS #90 caps 12/30/21 08/19/22 Rx diclofenac sodium 1 % topical gel 2 g EXT QID PRN pain #100 grams 01/16/22 08/19/22 Rx (Voltaren Arthritis Pain) albuterol sulfate 90 mcg/actuation 1 inh inhalation QID PRN shortness 05/27/22 08/19/22 Rx aerosol inhaler (ProAir HFA) of breath or wheezing #8.5 grams fluticasone 100 mcg-salmeterol 50 1 inh inhalation BID #180 ea 05/27/22 08/19/22 Rx mcg/dose blistr powdr for inhalation (Advair Diskus) pramipexole 0.5 mg tablet 0.5 mg PO HS #90 tabs 06/13/22 08/19/22 Rx blood sugar diagnostic (OneTouch #100 ea 07/03/22 08/12/22 Rx Verio test strips) docusate sodium 100 mg capsule 200 mg PO BID 07/03/22 08/19/22 History (Colace) lancets 33 gauge (OneTouch Delica #100 ea 07/03/22 08/12/22 Rx Lancets) vitamin E succinate 268 mg (400 268 mg PO QAM 07/03/22 08/19/22 History unit) tablet carbidopa 25 mg-levodopa 100 mg 1 tab PO HS 90 days #90 tabs 07/22/22 08/19/22 Rx tablet amlodipine 5 mg tablet 5 mg PO QAM 07/30/22 08/19/22 History levothyroxine 175 mcg tablet 175 mcg PO QAM 07/30/22 08/19/22 History olmesartan 40 mg tablet 40 mg PO HS 07/30/22 08/19/22 History omeprazole 20 mg capsule,delayed 20 mg PO QAM 07/30/22 08/19/22 History release allopurinol 300 mg tablet 300 mg PO QPM #90 tabs 08/20/22 Rx furosemide 40 mg tablet 40 mg PO QAM #90 tabs 08/20/22 Rx Patient History Medical History Acid reflux Asthma At high risk for falls Per patient Chronic hyponatremia Depression with anxiety Edema of right lower leg Enlarged prostate Folate deficiency Gout Hx Granulomatous lung disease Per records, patient unaware Hypertension Hypothyroidism Interstitial lung disease Parkinson's disease Restless legs Rheumatoid arthritis Follows with Dr. Caryl Chou Right knee DJD Sjogren's disease Sleep apnea CPAP (non-compliant) Type 2 diabetes mellitus without complication A1C 7.2% 06/25/22* Surgical History H/O inguinal hernia repair Left H/O parotidectomy H/O umbilical hernia repair History of colonoscopy with polypectomy Most recent 09/2021 ([facility]) S/P rotator cuff repair Right Family History Father Lung disease Hypertension Stroke Sister Diabetes Family history of reaction to anesthesia nausea/vomiting, trouble staying awake Mother Cancer Brother Diabetes Grandmother (Maternal) Diabetes Grandmother (Paternal) Diabetes Denies family history of Ovarian cancer Prostate cancer Myocardial infarction Breast cancer Colorectal cancer Social History Smoking Status: Never smoker Tobacco Type: Smokeless Tobacco (Dip or Chew) Second Hand Exposure: Yes (parents smoked); Do You Dip or Chew Tobacco: No (Attempting to quit, advised none DOS); Tobacco Cessation Education Requested by Patient: No Hx Alcohol Use: No Hx Substance Use: No Preferred Language: Hungarian Communication Ability: Effective Visual Impairment: No Limitations Hearing Ability: Normal Dry Cleaner Presser Required: No Beliefs That Will Affect Care: None marital status: / Current Living Situation: Alone Current Living Situation Comment: alone in apartment current occupational status: retired current occupation: used to work on a farm, 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 [employer] Other Information That Helps Us Care for You: No Feels Safe at Home: Yes Safety Concerns: Feels Safe At This Time Childhood Exposure to Second-Hand Smoke: Yes Diet: regular caffeine: Yes Dental Care, Regularly: No Physical Activity Frequency: Does not Exercise Seatbelt Use: always Sunscreen Use: No Assistive Devices: CPAP, Denture - Upper, Denture - Lower, Glasses and Walker Review of Systems Constitutional: no fever, no chills and no fatigue Respiratory: no cough, no chest congestion, no dyspnea and no hemoptysis Cardiovascular: no chest pain, no chest pain at rest, no dyspnea at rest, no s yncope and no calf pain Gastrointestinal: no abdominal pain, no nausea and no vomiting Integumentary: no rash, no lesions and no new lesions Psychiatric: no behavioral changes, no hopelessness, no anxiety and no confusion Endocrine: no polydipsia, no polyphagia and no polyuria Physical Exam Constitutional: WD/WN, vitals as above Neck: trachea midline, no thyromegaly Respiratory: normal respiratory effort, lungs clear to auscultation Cardiovascular: RRR, no murmur, no edema Extremities: normal capillary refill; no calf tenderness and no edema Gastrointestinal (Abdomen): normal bowel sounds, soft, nontender, no hepatosplenomegaly obese Skin: no rashes, warm and dry Psychiatric: A+Ox3, euthymic affect Results & Data Results & Data Vital Signs (Past 12 Hours) Vital Signs Temp Pulse Resp BP Pulse Ox O2 Del Method 08/20/22 07:40 36.6 C 83 16 141/77 H 94 Room Air 08/20/22 03:25 36.5 C 81 16 116/73 97 Room Air Laboratory Results Abnormal lab results 08/19/22 08/19/22 08/19/22 Range/Units 09:47 15:52 18:14 RBC (4.70-6.10) M/uL Hgb (14.0-18.0) g/dl Hct (42.0-52.0) % RDW Std Deviation (36.4-46.3) fL Sodium (136-145) mmol/L Glucose (70-99(Fasting)) mg/dl POC Glucose 116 H 107 H 112 H (70-99) mg/dl Calcium (8.6-10.3) mg/dl 08/19/22 08/20/22 08/20/22 Range/Units 20:23 07:11 07:11 RBC 3.41 L (4.70-6.10) M/uL Hgb 10.6 L (14.0-18.0) g/dl Hct 31.9 L (42.0-52.0) % RDW Std Deviation 47.7 H (36.4-46.3) fL Sodium 132 L (136-145) mmol/L Glucose 117 H (70-99(Fasting)) mg/dl POC Glucose 139 H (70-99) mg/dl Calcium 7.7 L (8.6-10.3) mg/dl 08/20/22 08/20/22 Range/Units 08:04 08:04 RBC (4.70-6.10) M/uL Hgb (14.0-18.0) g/dl Hct (42.0-52.0) % RDW Std Deviation (36.4-46.3) fL Sodium (136-145) mmol/L Glucose (70-99(Fasting)) mg/dl POC Glucose 127 H 127 H (70-99) mg/dl Calcium (8.6-10.3) mg/dl Diagnostic Findings Knee X-Ray 08/19/22 15:55 TWO VIEWS RIGHT KNEE CLINICAL HISTORY: Postoperative examination. FINDINGS: AP and crosstable lateral portable views of the right knee are obtained. A right knee arthroplasty is in near anatomic alignment. There has been undersurface remodeling of the patella. No acute fracture is seen. There are expected postoperative changes around the knee including skin clips, soft tissue edema, and subcutaneous gas. IMPRESSION: Expected postoperative changes status post right knee arthroplasty. No acute fracture is seen. ACT 112: Negative or not required by law. Electronically signed by: Jeremy Rockwell M.D. 08/19/2022 4:31 PM PG Care Time/CCT Total # of Minutes Spent Total Time Spent with Patient: Total time spent is greater than 50% in coordination of care (as documented) at patient's floor/unit and/or counseling patient: Coding Level of Care Code 59731 IN/OBS CONSULT LVL 3,45M Diagnoses Osteoarthritis of right knee M17.11 SUMANTH (obstructive sleep apnea) G47.33 HTN (hypertension) I10 Parkinsonism G20 Hypothyroidism E03.9 Anemia D64.9 BPH (benign prostatic hyperplasia) N40.0 Grade I diastolic dysfunction I51.89
--- NOTE | 2022-08-20 13:32 | Progress Notes ---
DATE OF SERVICE: 08/20/2022 SUBJECTIVE: A 72-year-old gentleman with multiple medical comorbidities, postoperative day 1 from ri ght knee replacement. He is doing pretty well. Really denies much in the way of pain. No chest tangela n or shortness of breath. Not feeling dizzy or lightheaded. OBJECTIVE: VITAL SIGNS: Temperature 36.6. Vital signs stable. PHYSICAL EXAMINATION: GENERAL: Shows a pleasant, elderly male. He is sitting up in a bedside chair, eating his lunch. He looks comfortable. LUNGS: Clear to auscultation. HEART: Regular rate and rhythm. ABDOMEN: Soft, nontender, nondistended. EXTREMITIES: Grossly neurovascularly intact except as follows. Examination of the right leg reveals the leg to be well aligned. Dressing is clean, dry, and intact. He can dorsiflex and plantarflex his foot appropriately. He is neurologically intact. LABORATORY DATA: Hemoglobin 10.6. Hematocrit 31.9. Electrolytes are stable. ASSESSMENT: A 72-year-old gentleman with multiple medical comorbidities, postoperative day 1 from ri ght knee replacement, doing pretty well. His pain is controlled. He is neurologically intact. I do not think this patient is safe to go home by himself. PLAN: 1. DVT prophylaxis to include thigh-high TEDs, SCDs, and aspirin twice a day. 2. PT/OT, weightbear as tolerated. Right total knee protocol. 3. Pain control, doing okay with current pain regimen. 4. Medical management as per the medicine service. 5. Disposition: We are looking for placement. Ideally he go to rehab. If denied that, likely [facility]. Awaiting a determination. Job ID: [id number]
[2022-08-20] MEDS: oxyCODONE HCL IR 5 MG TAB (IMMEDIATE RELEASE) PO PRN (16:40)
[2022-08-20] MEDS: allopurinoL 300 MG TAB PO SCH (20:07)
[2022-08-20] MEDS: LOSARTAN POTASSIUM 50 MG TAB PO SCH (20:08)
[2022-08-20] MEDS: CARBIDOPA/LEVODOPA 25/100MG TAB PO SCH (20:09)
[2022-08-20] MEDS: PRAMIPEXOLE DIHYDROCHLO 0.5 MG TAB PO SCH (20:10)
[2022-08-20] MEDS: TAMSULOSIN HCL 0.4 MG CAP PO SCH (20:10)
[2022-08-20] MEDS: SENNA 8.6 MG TAB PO SCH (20:10)
[2022-08-21] MEDS: KETOROLAC TROMETHAMINE 15 MG/ML VIAL IV SCH ×3 (00:10→12:18)
[2022-08-21] MEDS: ACETAMINOPHEN 500 MG TAB PO SCH ×3 (06:16→21:06)
[2022-08-21] MEDS: LEVOTHYROXINE SODIUM 175 MCG TABLET PO SCH (06:17)
[2022-08-21 06:48] LABS: Hemoglobin 9.7 g/dl (14.0-18.0)
--- NOTE | 2022-08-21 07:36 | Progress Notes ---
SUBJECTIVE: A 72-year-old gentleman, postoperative day 2 from a right knee replacement. He is doing pretty well. Some moderate amount of pain, but manageable. No chest pain or shortness of breath. Not feeling dizzy or lightheaded. OBJECTIVE: VITAL SIGNS: Temperature 36.9. Blood pressure is a little elevated at 157/92. EXTREMITIES: Examination of the right leg reveals the leg to be well aligned. Dressing is clean, dr y, and intact. Some moderate swelling. He can dorsiflex and plantarflex his foot appropriately. LABORATORY DATA: Hemoglobin 9.7. Hematocrit 29.0. ASSESSMENT: A 72-year-old gentleman with multiple medical comorbidities, postoperative day 2 from a right knee replacement, doing pretty well. He is anemic, but asymptomatic. His pain is pretty well controlled. He is going to certainly likely need some assistance postoperatively. PLAN: 1. DVT prophylaxis including thigh-high TEDs, SCDs, and aspirin twice a day. 2. PT/OT, weightbear as tolerated. Right total knee protocol. 3. Pain control, doing okay with current pain regimen. 4. Disposition: Plan to discharge to [facility] facility or rehab if approved and accepted. C urrently, I do not think it is safe for him to be discharged to home. We will see what we can clarissa greenberg Job ID: [id number]
[2022-08-21] MEDS: CYANOCOBALAMIN (B-12) 500 MCG TABLET PO SCH (08:36)
[2022-08-21] MEDS: DULoxetine HCL 60 MG CAP PO SCH (08:37)
[2022-08-21] MEDS: amLODIPine BESYLATE 5 MG TAB PO SCH (08:37)
[2022-08-21] MEDS: PANTOprazole 40 MG TAB PO SCH (08:37)
[2022-08-21] MEDS: FUROSEMIDE 40 MG TAB PO SCH (08:37)
[2022-08-21] MEDS: ASCORBIC ACID 500 MG TAB PO SCH ×2 (08:37→18:06)
[2022-08-21] MEDS: MYCOPHENOLATE MOFETIL 250 MG CAP PO SCH ×2 (08:37→20:53)
[2022-08-21] MEDS: MULTIVITAMIN TAB PO SCH (08:37)
[2022-08-21] MEDS: TOCOPHERYL, DL-ALPHA 100 UNITS 67 MG CAP PO SCH (08:37)
[2022-08-21] MEDS: ASPIRIN 81 MG ECTAB PO SCH ×2 (08:37→20:51)
[2022-08-21] MEDS: DOCUSATE SODIUM 100 MG CAP PO SCH ×2 (08:37→20:52)
[2022-08-21] MEDS: FOLIC ACID 400 MCG TAB PO SCH (08:38)
[2022-08-21] MEDS: FLUTICASONE/VILANTEROL 100/25MCG 14 PUFFS/INHALER INH SCH (08:38)
[2022-08-21] MEDS: INSULIN ASPART PER UNIT CHARGE SC SCH ×4 (08:50→21:57)
--- NOTE | 2022-08-21 09:38 | Pharmacy Report ---
Glycemic Ortho Sign Off Note - Date of Service August 21, 2022 - Scope Glycemic Pharmacist consulted for glycemic control and to write orders per [facility] inpatient glycemic control protocol. - Objective Accuchecks BSG (last 24hrs):: 08/20/22 08/20/22 08/20/22 12:08 16:58 20:08 POC Glucose 113 H 133 H 145 H 08/21/22 07:59 POC Glucose 148 H - Assessment * Pt is not on any anti-diabetic medications as an outpatient. Diet controlled. * Low stress weight based insulin dosing appropriate since patient has minimal risk factors for insulin resistance (i.e. no steroids). * Appropriate to DC insulin at discharge. * Goal is to maintain BSGs <200 mg/dl (ideally <150 mg/dl) to prevent post op complications - Plan For Inpatient Glycemic Control * Basal insulin * Not needed based on A1c, pre-op BSGs, and minimal risk factors for insulin resistance * Bolus insulin * Utilize low stress weight based NovoLog parameters per scale ACHS * Pharmacy has entered glycemic orders and is signing off of the glycemic consult. We will no longer be making adjustments to inpatient regimen. Please feel free to re-consult if needed. Thank you.
[2022-08-21] MEDS: allopurinoL 300 MG TAB PO SCH (20:50)
[2022-08-21] MEDS: CARBIDOPA/LEVODOPA 25/100MG TAB PO SCH (20:51)
[2022-08-21] MEDS: LOSARTAN POTASSIUM 50 MG TAB PO SCH (20:52)
[2022-08-21] MEDS: PRAMIPEXOLE DIHYDROCHLO 0.5 MG TAB PO SCH (20:53)
[2022-08-21] MEDS: SENNA 8.6 MG TAB PO SCH (20:53)
[2022-08-21] MEDS: TAMSULOSIN HCL 0.4 MG CAP PO SCH (20:54)
[2022-08-22] MEDS: LEVOTHYROXINE SODIUM 175 MCG TABLET PO SCH (06:21)
[2022-08-22] MEDS: ACETAMINOPHEN 500 MG TAB PO SCH ×3 (06:21→22:11)
[2022-08-22] MEDS: ASPIRIN 81 MG ECTAB PO SCH ×2 (08:31→20:31)
[2022-08-22] MEDS: FOLIC ACID 400 MCG TAB PO SCH (08:31)
[2022-08-22] MEDS: amLODIPine BESYLATE 5 MG TAB PO SCH (08:31)
[2022-08-22] MEDS: CYANOCOBALAMIN (B-12) 500 MCG TABLET PO SCH (08:31)
[2022-08-22] MEDS: DOCUSATE SODIUM 100 MG CAP PO SCH ×2 (08:31→20:30)
[2022-08-22] MEDS: ASCORBIC ACID 500 MG TAB PO SCH ×2 (08:31→18:10)
[2022-08-22] MEDS: TOCOPHERYL, DL-ALPHA 100 UNITS 67 MG CAP PO SCH (08:31)
[2022-08-22] MEDS: DULoxetine HCL 60 MG CAP PO SCH (08:31)
[2022-08-22] MEDS: PANTOprazole 40 MG TAB PO SCH (08:32)
[2022-08-22] MEDS: FUROSEMIDE 40 MG TAB PO SCH (08:32)
[2022-08-22] MEDS: MYCOPHENOLATE MOFETIL 250 MG CAP PO SCH ×2 (08:32→20:31)
[2022-08-22] MEDS: FLUTICASONE/VILANTEROL 100/25MCG 14 PUFFS/INHALER INH SCH (08:32)
[2022-08-22] MEDS: MULTIVITAMIN TAB PO SCH (08:32)
[2022-08-22] MEDS: INSULIN ASPART PER UNIT CHARGE SC SCH ×4 (08:38→20:48)
--- NOTE | 2022-08-22 09:41 | Orthopedic Progress Note ---
Date of Service August 22, 2022 Assessment & Plan (1) Status post total right knee replacement: DVT prophylaxis: teds, scd's, aspirin Pain controlled PT/OT WBAT Discharge planning: apparently encompasse vs home with home health. Awaiting case management. Discussed with Dr. Clive Frazier .72 year old POD #3 from right tka. Doing well. Not having much pain. Awaiting placement. No new complaints. Review of Systems All systems reviewed & are unremarkable except as noted in HPI & below. Physical Exam . alert and oriented. NAD. VSS Dressing on right knee intact. Small amount of bloody drainage on the gauze. Moderate swelling to his leg. Has difficulty with straight leg raise. Able to dorsilfex and plantarflex. NVI Results & Data Results & Data Laboratory Results . Diagnostic Findings . PG Care Time/CCT Total # of Minutes Spent Total Time Spent with Patient: Total time spent is greater than 50% in coordination of care (as documented) at patient's floor/unit and/or counseling patient: Coding Level of Care Code 83516 Post Operative Follow-Up Diagnoses Status post total right knee replacement Z96.651
[2022-08-22] MEDS: oxyCODONE HCL IR 5 MG TAB (IMMEDIATE RELEASE) PO PRN (12:30)
[2022-08-22] MEDS: PRAMIPEXOLE DIHYDROCHLO 0.5 MG TAB PO SCH (20:29)
[2022-08-22] MEDS: SENNA 8.6 MG TAB PO SCH (20:30)
[2022-08-22] MEDS: TAMSULOSIN HCL 0.4 MG CAP PO SCH (20:30)
[2022-08-22] MEDS: allopurinoL 300 MG TAB PO SCH (20:30)
[2022-08-22] MEDS: CARBIDOPA/LEVODOPA 25/100MG TAB PO SCH (20:31)
[2022-08-22] MEDS: LOSARTAN POTASSIUM 50 MG TAB PO SCH (20:38)
[2022-08-23] MEDS: LEVOTHYROXINE SODIUM 175 MCG TABLET PO SCH (05:46)
[2022-08-23] MEDS: ACETAMINOPHEN 500 MG TAB PO SCH ×3 (05:46→21:54)
[2022-08-23] MEDS: DOCUSATE SODIUM 100 MG CAP PO SCH ×2 (08:40→19:46)
[2022-08-23] MEDS: amLODIPine BESYLATE 5 MG TAB PO SCH (08:40)
[2022-08-23] MEDS: MULTIVITAMIN TAB PO SCH (08:40)
[2022-08-23] MEDS: CYANOCOBALAMIN (B-12) 500 MCG TABLET PO SCH (08:40)
[2022-08-23] MEDS: TOCOPHERYL, DL-ALPHA 100 UNITS 67 MG CAP PO SCH (08:40)
[2022-08-23] MEDS: ASPIRIN 81 MG ECTAB PO SCH ×2 (08:40→19:46)
[2022-08-23] MEDS: MYCOPHENOLATE MOFETIL 250 MG CAP PO SCH ×2 (08:40→19:47)
[2022-08-23] MEDS: ASCORBIC ACID 500 MG TAB PO SCH ×2 (08:40→17:29)
[2022-08-23] MEDS: FOLIC ACID 400 MCG TAB PO SCH (08:41)
[2022-08-23] MEDS: PANTOprazole 40 MG TAB PO SCH (08:41)
[2022-08-23] MEDS: DULoxetine HCL 60 MG CAP PO SCH (08:41)
[2022-08-23] MEDS: FUROSEMIDE 40 MG TAB PO SCH (08:41)
[2022-08-23] MEDS: INSULIN ASPART PER UNIT CHARGE SC SCH ×4 (08:48→20:40)
[2022-08-23] MEDS: FLUTICASONE/VILANTEROL 100/25MCG 14 PUFFS/INHALER INH SCH (08:49)
--- NOTE | 2022-08-23 08:52 | Progress Notes ---
SUBJECTIVE: A 72-year-old gentleman, postoperative day 4 from a right total knee replacement. He is doing pretty well. Pain has gotten significantly better. He is just waiting for placement. Denies any chest pa in or shortness of breath. OBJECTIVE VITAL SIGNS: Temperature 36.5. Vital signs are stable. GENERAL: Shows a pleasant, elderly male. He is sitting up in his bedside just cleaning up and washi ng up this morning. EXTREMITIES: Examination of the right leg reveals the dressing to be clean, dry and intact. He can dorsiflex and plantarflex his foot appropriately. He is neurologically intact. ASSESSMENT: A 72-year-old gentleman postoperative day 4 from a right knee replacement, doing reasona rasheed well. Really just waiting for placement. Medically, he seems stable. I do not think he is safe to go home by himself at this point. PLAN: 1. DVT prophylaxis including thigh-high TEDs, SCDs, and aspirin twice a day. 2. PT/OT, weightbear as tolerated. Right total knee protocol. 3. Pain control, doing okay with current pain regimen. 4. Disposition: Plan to discharge to a rehab or long-term facility once approved. Javid contreras for approval. Job ID: [id number]
[2022-08-23] MEDS: oxyCODONE HCL IR 5 MG TAB (IMMEDIATE RELEASE) PO PRN (11:39)
--- NOTE | 2022-08-23 15:46 | Communication Note ---
Date of Service: August 23, 2022 Visit with Mr. Salcedo today he is awaiting placement status post right total knee arthroplasty. His vital signs were stable he offers no physical complaints . His physical exam he appeared comfortable his heart was regular lungs were clear distal extremities were without edema and with good sensation intact Medically stable recommending continue exploration of rehabilitation postdischarge
[2022-08-23] MEDS: SENNA 8.6 MG TAB PO SCH (19:45)
[2022-08-23] MEDS: CARBIDOPA/LEVODOPA 25/100MG TAB PO SCH (19:45)
[2022-08-23] MEDS: PRAMIPEXOLE DIHYDROCHLO 0.5 MG TAB PO SCH (19:45)
[2022-08-23] MEDS: allopurinoL 300 MG TAB PO SCH (19:47)
[2022-08-23] MEDS: TAMSULOSIN HCL 0.4 MG CAP PO SCH (19:47)
[2022-08-23] MEDS: LOSARTAN POTASSIUM 50 MG TAB PO SCH (19:48)
[2022-08-24] MEDS: LEVOTHYROXINE SODIUM 175 MCG TABLET PO SCH (05:34)
[2022-08-24] MEDS: ACETAMINOPHEN 500 MG TAB PO SCH ×3 (05:34→20:15)
[2022-08-24] MEDS: ASPIRIN 81 MG ECTAB PO SCH ×2 (08:32→20:16)
[2022-08-24] MEDS: FLUTICASONE/VILANTEROL 100/25MCG 14 PUFFS/INHALER INH SCH (08:32)
[2022-08-24] MEDS: MYCOPHENOLATE MOFETIL 250 MG CAP PO SCH ×2 (08:32→20:17)
[2022-08-24] MEDS: DULoxetine HCL 60 MG CAP PO SCH (08:32)
[2022-08-24] MEDS: TOCOPHERYL, DL-ALPHA 100 UNITS 67 MG CAP PO SCH (08:33)
[2022-08-24] MEDS: ASCORBIC ACID 500 MG TAB PO SCH ×2 (08:33→17:28)
[2022-08-24] MEDS: PANTOprazole 40 MG TAB PO SCH (08:33)
[2022-08-24] MEDS: CYANOCOBALAMIN (B-12) 500 MCG TABLET PO SCH (08:33)
[2022-08-24] MEDS: FUROSEMIDE 40 MG TAB PO SCH (08:33)
[2022-08-24] MEDS: DOCUSATE SODIUM 100 MG CAP PO SCH ×2 (08:33→20:17)
[2022-08-24] MEDS: FOLIC ACID 400 MCG TAB PO SCH (08:33)
[2022-08-24] MEDS: amLODIPine BESYLATE 5 MG TAB PO SCH (08:33)
[2022-08-24] MEDS: MULTIVITAMIN TAB PO SCH (08:33)
[2022-08-24] MEDS: INSULIN ASPART PER UNIT CHARGE SC SCH ×4 (08:35→21:19)
--- NOTE | 2022-08-24 08:39 | Progress Notes ---
DATE OF NOTE: 08/24/2022 SUBJECTIVE: A 72-year-old gentleman, postoperative day 5 from a right knee replacement. He is doing pretty well. Pain has continued to improve. No real complaints today. OBJECTIVE: VITAL SIGNS: Temperature is 36.7. Vital signs are stable. GENERAL: Shows a pleasant, elderly male. He is lying in bed and looks comfortable this morning. EXTREMITIES: Examination of the right leg reveals the dressing to be in place. Just a trace bit of bloody drainage. He can dorsiflex and plantarflex his foot appropriately. Moderate swelling. He is neurologically intact. LABORATORY DATA: None. ASSESSMENT: A 72-year-old gentleman, postoperative day 5 from right knee replacement, doing well. M edically and clinically doing pretty well. Just waiting for placement and a decision on that. PLAN: 1. DVT prophylaxis includes thigh-high TEDs, SCDs, and aspirin twice a day. 2. PT/OT, weightbear as tolerated. Right total knee protocol. 3. Pain control, doing well with current pain regimen. 4. Disposition: Plan to discharge to a rehab or [facility] facility. Just waiting now for arr angements. Waiting for approval or denial. Job ID: [id number]
[2022-08-24] MEDS: oxyCODONE HCL IR 5 MG TAB (IMMEDIATE RELEASE) PO PRN ×2 (11:42→20:20)
[2022-08-24] MEDS: SENNA 8.6 MG TAB PO SCH (20:17)
[2022-08-24] MEDS: allopurinoL 300 MG TAB PO SCH (20:18)
[2022-08-24] MEDS: PRAMIPEXOLE DIHYDROCHLO 0.5 MG TAB PO SCH (20:18)
[2022-08-24] MEDS: TAMSULOSIN HCL 0.4 MG CAP PO SCH (20:18)
[2022-08-24] MEDS: LOSARTAN POTASSIUM 50 MG TAB PO SCH (20:19)
[2022-08-24] MEDS: CARBIDOPA/LEVODOPA 25/100MG TAB PO SCH (20:19)
[2022-08-25] MEDS: ACETAMINOPHEN 500 MG TAB PO SCH ×3 (06:34→22:10)
[2022-08-25] MEDS: LEVOTHYROXINE SODIUM 175 MCG TABLET PO SCH (06:34)
--- NOTE | 2022-08-25 07:59 | Progress Notes ---
DATE OF SERVICE: 08/25/2022. SUBJECTIVE: A 72-year-old gentleman, now 6 days out from a right knee replacement. He is doing pret ty well. Really not having much pain. No chest pain or shortness of breath. Just waiting for place ment. OBJECTIVE: VITAL SIGNS: Temperature 37.2. Vital signs are stable. GENERAL: Shows a pleasant, elderly male. He is lying in bed, looks completely comfortable. EXTREMITIES: Examination of the right leg reveals the leg to be well aligned. Dressing has got a li ttle bit of bloody drainage on it. Moderate swelling. He can dorsiflex and plantarflex his foot isr[place] ropriately. He is neurologically intact. ASSESSMENT: A 72-year-old gentleman, postoperative day #6 from a right knee replacement just waiting for placement. Pain is controlled. He is neurologically intact. PLAN: 1. DVT prophylaxis includes thigh-high TEDs, SCDs, and aspirin twice a day. 2. PT/OT, weight bear as tolerated. Right total knee protocol. 3. Pain control, doing okay with current pain regimen. 4. Disposition. Just waiting for placement. Hopefully, get word on that today with some final acti on. Job ID: [id number]
[2022-08-25] MEDS: DOCUSATE SODIUM 100 MG CAP PO SCH ×2 (08:10→19:54)
[2022-08-25] MEDS: MYCOPHENOLATE MOFETIL 250 MG CAP PO SCH ×2 (08:10→19:55)
[2022-08-25] MEDS: FOLIC ACID 400 MCG TAB PO SCH (08:11)
[2022-08-25] MEDS: FLUTICASONE/VILANTEROL 100/25MCG 14 PUFFS/INHALER INH SCH (08:11)
[2022-08-25] MEDS: FUROSEMIDE 40 MG TAB PO SCH (08:11)
[2022-08-25] MEDS: PANTOprazole 40 MG TAB PO SCH (08:11)
[2022-08-25] MEDS: CYANOCOBALAMIN (B-12) 500 MCG TABLET PO SCH (08:11)
[2022-08-25] MEDS: DULoxetine HCL 60 MG CAP PO SCH (08:11)
[2022-08-25] MEDS: MULTIVITAMIN TAB PO SCH (08:11)
[2022-08-25] MEDS: ASCORBIC ACID 500 MG TAB PO SCH ×2 (08:11→17:20)
[2022-08-25] MEDS: ASPIRIN 81 MG ECTAB PO SCH ×2 (08:11→19:54)
[2022-08-25] MEDS: amLODIPine BESYLATE 5 MG TAB PO SCH (08:11)
[2022-08-25] MEDS: TOCOPHERYL, DL-ALPHA 100 UNITS 67 MG CAP PO SCH (08:11)
[2022-08-25] MEDS: INSULIN ASPART PER UNIT CHARGE SC SCH ×4 (08:12→22:14)
[2022-08-25] MEDS: oxyCODONE HCL IR 5 MG TAB (IMMEDIATE RELEASE) PO PRN (11:46)
[2022-08-25] MEDS: LOSARTAN POTASSIUM 50 MG TAB PO SCH (19:52)
[2022-08-25] MEDS: PRAMIPEXOLE DIHYDROCHLO 0.5 MG TAB PO SCH (19:53)
[2022-08-25] MEDS: TAMSULOSIN HCL 0.4 MG CAP PO SCH (19:55)
[2022-08-25] MEDS: allopurinoL 300 MG TAB PO SCH (19:55)
[2022-08-25] MEDS: SENNA 8.6 MG TAB PO SCH (19:56)
[2022-08-25] MEDS: CARBIDOPA/LEVODOPA 25/100MG TAB PO SCH (19:56)
[2022-08-26] MEDS: ACETAMINOPHEN 500 MG TAB PO SCH ×2 (05:54→14:12)
[2022-08-26] MEDS: LEVOTHYROXINE SODIUM 175 MCG TABLET PO SCH (05:55)
[2022-08-26] MEDS: INSULIN ASPART PER UNIT CHARGE SC SCH ×2 (08:42→13:03)
[2022-08-26] MEDS: ASPIRIN 81 MG ECTAB PO SCH (08:47)
[2022-08-26] MEDS: CYANOCOBALAMIN (B-12) 500 MCG TABLET PO SCH (08:47)
[2022-08-26] MEDS: DOCUSATE SODIUM 100 MG CAP PO SCH (08:47)
[2022-08-26] MEDS: TOCOPHERYL, DL-ALPHA 100 UNITS 67 MG CAP PO SCH (08:47)
[2022-08-26] MEDS: amLODIPine BESYLATE 5 MG TAB PO SCH (08:47)
[2022-08-26] MEDS: ASCORBIC ACID 500 MG TAB PO SCH (08:47)
[2022-08-26] MEDS: MULTIVITAMIN TAB PO SCH (08:48)
[2022-08-26] MEDS: FUROSEMIDE 40 MG TAB PO SCH (08:48)
[2022-08-26] MEDS: MYCOPHENOLATE MOFETIL 250 MG CAP PO SCH (08:48)
[2022-08-26] MEDS: DULoxetine HCL 60 MG CAP PO SCH (08:48)
[2022-08-26] MEDS: PANTOprazole 40 MG TAB PO SCH (08:48)
[2022-08-26] MEDS: FOLIC ACID 400 MCG TAB PO SCH (08:48)
[2022-08-26] MEDS: FLUTICASONE/VILANTEROL 100/25MCG 14 PUFFS/INHALER INH SCH (08:48)
--- NOTE | 2022-08-26 11:24 | Progress Notes ---
DATE OF SERVICE: 08/26/2022 SUBJECTIVE: A 72-year-old gentleman, now 1 week out from a right total knee replacement. He has bee n just waiting for placement. Authorization still pending. He is doing well. He is not really havi ng much pain. He still has little bit of bloody drainage. OBJECTIVE: VITAL SIGNS: Temperature 36.4. Vital signs are stable. GENERAL: Shows a pleasant, elderly male. He is sitting up in his bedside chair, looks comfortable. EXTREMITIES: Examination of the right leg reveals the dressing to be in place. A little bit of bloo dy drainage inferiorly. He can dorsiflex and plantarflex his foot appropriately. He is neurological ly intact. ASSESSMENT: A 72-year-old gentleman with multiple medical comorbidities, lives by himself, postop da y 7 from a right total knee replacement. He is doing reasonably well. We are just kind of waiting f or placement. PLAN: 1. DVT prophylaxis includes thigh-high TEDs, SCDs, and aspirin twice a day. 2. PT/OT, weightbear as tolerated. Right total knee protocol. 3. Pain control, doing okay with current pain regimen. 4. Wound drainage. We are going to continue wound care. I am going to put him on some prophylactic Keflex for the next 5 days. 5. Disposition: Plan to discharge to rehab if possible. Just waiting for insurance authorization. Unfortunately, he lives alone and with his multiple medical comorbidities he is at risk. Job ID: [id number]
[2022-08-26] MEDS ORDERED: cephALEXin 500 MG CAP PO SCH (13:00)
--- NOTE | 2022-09-01 13:14 | Discharge Summary ---
Date of Service September 01, 2022 Discharge Data Consultations 08/19/22 17:17 Consult Hospitalist Routine Procedures Performed Operation Date: 08/19/22 11:30 Actual Procedures p Right Total Knee Arthroplasty(Right) - Heber Duffy MD Hospital Course (1) Status post total right knee replacement: This is a 72 year old patient admitted on 08/19/22 and underwent total knee arthroplasty. He tolerated the procedure well and there were no complications. Transferred to the PACU post op and later to the orthopedic floor for further ca re. He was given ancef for antibiotic prophylaxis. He was also given DAMION stockings, SCDs, and aspirin for DVT prophylaxis. Hemoglobin, hematocrit, and vital signs were monitored during his hospital stay and remained stable. Did not require any blood transfusions. There were no complications during his hospital stay. He was awaiting insurance approval regarding rehab vs home health. By post op da y #7 the patient was tolerating a diabetic diet, pain was reasonably controlled with oral pain medicine, and he was participating in physical therapy. On post op day #7 the patient was discharged home and set up with home health care. He was given printed discharge instructions including prescriptions for extra strength tylenol, aspirin, cefadroxil, senokot, and oxycodone. Continue physical therapy, weight bearing as tolerated. Continue DAMION stockings. Follow up approximately 2 weeks post op or sooner if there are problems or concerns. Coding Level of Care Code None Diagnoses Status post total right knee replacement Z96.651
== END 2022-08-26 14:53 | disposition home health service (06) | DRG 470 ==
LOC: ASU 09:18 → 3E 15:55 → INTOOBSV 15:55

== ENCOUNTER 2024-08-17 08:44 | Inpatient (IN) ==
--- NOTE | 2024-08-17 08:47 | Emergency Department Note ---
Impression & Plan CHICO (acute kidney injury), Parkinsonism, Weakness, Fall, Closed rib fracture, Rhabdomyolysis ED Provider Note NAME: MONALISA BAEZ AGE: 74 SEX: M : 1950 ARRIVES VIA: Ambulance INFORMANT: Patient, nursing/EMS report ED PROVIDER(S): Xander Waite MD CHIEF COMPLAINT: MEDICAL DECISION MAKING: Patient presents due to concern for fall versus syncope. Unclear downtime although patient last remembers getting in the shower sometime around 10:00 in the evening. On exam the patient does have midline mid thoracic pain. In light of this and the patient's prior report of neck pain although not present on exam currently patient was placed in a c-collar. Primary and secondary surveys were completed. Patient does have bilateral buttock rash. No obvious hematoma or ecchymosis noted on exam. Patient also with left-sided chest wall pain patient did not initially have screening chest x-ray. Rib series also ordered along with CT head cervical spine and thoracic spine. Patient was ordered IV Ofirmev. IV fluids also ordered. Room air sat in 96%. BSG was obtained. This was 96. The patient's imaging studies negative with the exception of possible left-sided rib fracture left fourth rib. Patient also with associated CHICO and elevation in CK. Additional 1 L of IV fluids ordered. In light of the patient's CHICO rib fracture falls weakness and on ability to get up on his own I do believe the patient would benefit from admission. Patient also lives by himself. I did speak with the on-call hospitalist service Dr. Stubbs and the patient was admitted to the medicine service. Discussion w/ other healthcare providers: Dr. Stubbs inpatient medicine service Prior /Outside records reviewed: I reviewed part of a primary care visit from August 04, 2024 from [facility]. Known history of CKD hyponatremia and hypothyroidism. Patient also with known prior history of hypertension and SUMANTH on CPAP anemia COPD. Patient also history with Parkinson's. Differential diagnosis: Infection, dehydration, metabolic abnormality, hypo/hyperglycemia, electrolyte imbalance, anemia, UTI, pneumonia, thyroid dysfunction among others were considered. Diagnostics, as interpreted by me: ECG: Appears to be normal sinus rhythm, rate of 72 normal QRS, normal axis no obvious STEMI. Cardiac monitoring: An order was placed for continuous cardiac monitoring. The monitor shows a rate of 75 with sinus rhythm. Patient was placed on pulse oximetry Medical decision rules: None Imaging studies: I informally interpreted the patient's chest x-ray does not show obvious pneumothorax with formal report to follow. HPI: Patient presents due to concern for possible fall versus syncope. Patient last remembers trying to get in the shower. Reportedly a downstairs neighbor where the patient lives. Some tapping on his ceiling so he went upstairs to check on the patient and he was leaning against the bathtub. Patient does not remember falling. The patient reports that he did have some neck pain earlier but does not complain of any pain now. Patient denies any blood thinner use. He does have a history of Parkinson's. He lives by himself. The patient denies any head neck chest back or abdominal pain. Patient denies any extremity pain. He denies any urinary symptoms. Patient reportedly was 88% on room air. No BSG checked prior to arrival. PAST MEDICAL HISTORY: See Below PAST SURGICAL HISTORY: See Below SOCIAL HISTORY: See Below HOME MEDICATIONS: See Below ALLERGIES: See Below VITALS: See Below PHYSICAL EXAMINATION: Primary Survey Airway: Intact Breathing: Normal, breath sounds equal bilaterally Circulation: Skin warm, well perfused, capillary refill less than 2 seconds Disability Pupils: Equal and reactive to light, 3mm, brisk GCS: 15, E = 4 V=5 M= 6 Motor Function: Moves all extremities. Sensory: No deficits Secondary Survey GENERAL: NAD, non-toxic. Nasal cannula in place. HEAD: Normal cephalic atraumatic EYE EXAM: Normal conjunctiva. PERRL, no anisocoria and EOM's grossly intact w/o pain. OROPHARYNX: Moist mucus membranes. Grossly normal dentition. NECK: Supple, trachea midline, no midline C spine TTP. Chest: Left-sided reproducible chest wall pain without crepitus or flail chest. LUNGS: Clear to auscultation. Normal chest wall mechanics. HEART: NSR, no MRG. ABDOMEN: Abdomen soft, non-tender, no obvious bruising, normo-active bowel sounds, no masses, no rebound or guarding. BACK: No CVA TTP. Mid midline thoracic pain without lumbar TTP. No overlying bruising. SKIN: Rash to the bilateral buttocks. UPPER EXTREMITIES: Upper extremities are grossly normal. Well-perfused and compartments are soft throughout. LOWER EXTREMITIES: Grossly normal, no edema. Well-perfused and compartments are soft throughout. NEURO EXAM: A&O x3, cranial nerves II-XII grossly intact, normal speech, moves all 4 extremities. 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 Caryl Chou Lewy body disease Right leg swelling Parkinsonism Morbid obesity Polyarthritis, inflammatory (Chronic) SUMANTH on CPAP (Chronic) Neuropathy (Chronic) Hypothyroidism Depression with anxiety Cystic-bullous disease of lung (Acute) Ataxia (Chronic) Anemia (Chronic) Medical History History of colonic polyps Confusion Left knee DJD Right knee DJD Decubitus ulcer Vitamin deficiency Hyperglobulinemia Osteoarthritis of right knee Knee pain, right Exertional dyspnea SUMANTH (obstructive sleep apnea) Vertigo Positive LAZARO (antinuclear antibody) Elevated blood protein Ataxia Cystic-bullous disease of lung Depression with anxiety Hypothyroidism Lewy body disease Neuropathy Osteoarthritis of both knees Polyarthritis, inflammatory Positive LAZARO (antinuclear antibody) Hx of vertigo Hx of gout Chronic kidney disease Ambulatory dysfunction uses cane and walker Rheumatoid arthritis per records, pt. denies COPD with emphysema pt denies, does follow with pulm at [facility] Exertional dyspnea BPH (benign prostatic hyperplasia) Seizure-like activity pt unaware of this - denies Grade I diastolic dysfunction Chronic hyponatremia Sjogren's disease Interstitial lung disease Folate deficiency Acid reflux Sleep apnea CPAP At high risk for falls Per patient Type 2 diabetes mellitus without complication diet controlled Edema of right lower leg Granulomatous lung disease Per records, patient unaware Restless legs Parkinson's disease Hypertension Asthma controlled per pt report Surgical History Status post total right knee replacement Hx of colonoscopy Hx of right cataract extraction (2021) History of knee replacement procedure of right knee History of colonoscopy with polypectomy Most recent 09/2021 ([facility]) H/O parotidectomy S/P rotator cuff repair Right H/O umbilical hernia repair H/O inguinal hernia repair Left Family History Father Lung disease Hypertension Stroke Sister Diabetes Family history of reaction to anesthesia nausea/vomiting, trouble staying awake Mother Cancer Brother Diabetes Grandmother (Maternal) Diabetes Grandmother (Paternal) Diabetes Denies family history of Ovarian cancer Prostate cancer Myocardial infarction Breast cancer Colorectal cancer Social History Smoking Status: Never smoker Second Hand Exposure: No; Do You Dip or Chew Tobacco: No; Hx Alcohol Use: No Hx Substance Use: No Preferred Language: Korean Communication Ability: Effective Visual Impairment: No Limitations Hearing Ability: Normal Metallography Teacher Required: No Beliefs That Will Affect Care: None marital status: / Current Living Situation: Alone Current Living Situation Comment: has workers helping out every am until noon current occupational status: retired current occupation: used to work on a farm, 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 [employer] Other Information That Helps Us Care for You: No Feels Safe at Home: Yes Safety Concerns: Feels Safe At This Time Childhood Exposure to Second-Hand Smoke: Yes Diet: regular caffeine: Yes Dental Care, Regularly: No Physical Activity Frequency: Does not Exercise Seatbelt Use: always Sunscreen Use: No Assistive Devices: Cane, CPAP, Denture - Upper, Denture - Lower, Glasses and Walker Allergies Allergies Allergy/AdvReac Type Severity Reaction Status Date / Time No Known Allergies Allergy Verified 08/04/24 13:39 Home Meds Home Medications Medication Instructions Recorded Confirmed meclizine 12.5 mg tablet 12.5 mg PO UD PRN dizziness 06/04/21 08/17/24 linaclotide 145 mcg capsule 145 mcg PO DAILY 11/17/23 08/17/24 (Linzess) hydrochlorothiazide 25 mg tablet 12.5 mg PO UD 08/17/24 08/17/24 Previous Rx's Medication Instructions Recorded Lift Chair #1 ea 07/26/21 blood-glucose meter (OneTouch #1 ea 08/22/21 Verio Flex Start kit) foam bandage 4" X 4" (Optifoam) #20 ea 11/04/21 CPAP Machine #1 ea 08/16/22 blood sugar diagnostic (OneTouch #100 ea 01/09/23 Verio test strips) syringe with needle, safety 1 mL #4 ea 01/09/23 28 gauge x 1/2" (Monoject TB Safety Syringe) duloxetine 60 mg capsule,delayed 60 mg PO QAM #90 caps 01/14/24 release omeprazole 20 mg capsule,delayed 20 mg PO QAM #90 caps 01/14/24 release carbidopa 25 mg-levodopa 100 mg 1 tab PO HS 90 days #90 tabs 01/20/24 tablet Breo Ellipta 100 mcg-25 mcg/dose 1 inh inhalation DAILY #3 Inhalers 02/09/24 powder for inhalation (fluticasone furoate-vilanterol) albuterol sulfate 90 mcg/actuation 2 inh inhalation QID PRN shortness 02/09/24 aerosol inhaler of breath or wheezing #8.5 grams cyanocobalamin (vitamin B-12) 500 1,000 mcg (2 x 500 mcg) PO QAM 02/10/24 mcg tablet #180 tabs pramipexole 0.5 mg tablet 0.5 mg PO HS #90 tabs 03/07/24 allopurinol 300 mg tablet 300 mg PO QPM #90 tabs 06/30/24 folic acid 400 mcg tablet 400 mcg PO QAM #90 tabs 06/30/24 lancets 33 gauge #100 ea 06/30/24 olmesartan 40 mg tablet 40 mg PO HS #90 tabs 06/30/24 tamsulosin 0.4 mg capsule 0.4 mg PO HS #90 caps 06/30/24 levothyroxine 175 mcg tablet 175 mcg PO DAILY #90 tabs 07/21/24 Results & Data (ED) Vital Signs Vital Signs - 24 hr 08/17/24 08:48 08/17/24 08:48 08/17/24 09:05 Temperature 36.7 C 36.7 C Temperature Source Oral Pulse Rate 88 78 81 Pulse Rate [Apical] Respiratory Rate 16 17 Respiratory Effort / Characteristics Non-Labored Spontaneous Respiratory Depth Normal Respiratory Pattern Regular Blood Pressure 166/110 H 166/110 H Blood Pressure [Left Arm] Blood Pressure Mean 128 Blood Pressure Mean [Left Arm] Pulse Oximetry 96 99 Oxygen Delivery Method Room Air Room Air Oxygen Flow Rate 0 Sepsis Recent Fever Within 48 Hours No Sepsis New/Unexplained Change in Mental Status No Sepsis Action Taken by Nursing No Action Required 08/17/24 09:31 08/17/24 09:31 08/17/24 09:45 Temperature Temperature Source Pulse Rate 77 Pulse Rate [Apical] 82 Respiratory Rate 17 Respiratory Effort / Characteristics Non-Labored Spontaneous Respiratory Depth Normal Respiratory Pattern Regular Blood Pressure Blood Pressure [Left Arm] 146/80 H Blood Pressure Mean Blood Pressure Mean [Left Arm] 102 Pulse Oximetry 95 96 96 Oxygen Delivery Method Room Air Room Air Room Air Oxygen Flow Rate Sepsis Recent Fever Within 48 Hours Sepsis New/Unexplained Change in Mental Status Sepsis Action Taken by Nursing 08/17/24 10:45 Temperature Temperature Source Pulse Rate Pulse Rate [Apical] 73 Respiratory Rate 16 Respiratory Effort / Characteristics Non-Labored Spontaneous Respiratory Depth Normal Respiratory Pattern Regular Blood Pressure Blood Pressure [Left Arm] 144/92 H Blood Pressure Mean Blood Pressure Mean [Left Arm] 109 Pulse Oximetry 94 Oxygen Delivery Method Room Air Oxygen Flow Rate Sepsis Recent Fever Within 48 Hours Sepsis New/Unexplained Change in Mental Status Sepsis Action Taken by [facility] Medications Current Medication List: was personally reviewed by me Laboratory Data Attestation: I reviewed the patient's lab results. 08/17/24 08:54 08/17/24 08:54 Lab Results 08/17/24 08/17/24 08/17/24 Range/Units 08:54 09:07 11:33 WBC 10.49 (4.8-10.8) K/ul RBC 4.33 L (4.70-6.10) M/uL Hgb 13.4 L (14.0-18.0) g/dl Hct 39.4 L (42.0-52.0) % MCV 91.0 (80.0-100.0) fL MCH 30.9 (25.0-34.0) pg MCHC 34.0 (32.0-36.0) g/dL RDW Std Deviation 49.9 H (36.4-46.3) fL RDW Coeff of Swathi 14.8 H (11.5-14.5) % Plt Count 234 (130-400) K/uL MPV 9.6 (9.4-12.4) fL Immature Gran % (Auto) 0.7 % Neut % (Auto) 85.5 % Lymph % (Auto) 9.2 % [place] % (Auto) 3.8 % Eos % (Auto) 0.6 % Baso % (Auto) 0.2 % Neut # (Auto) 8.98 H (1.40-6.50) K/uL Lymph # (Auto) 0.96 L (1.20-3.40) K/uL [place] # (Auto) 0.40 (0.11-0.59) K/uL Eos # (Auto) 0.06 (0.00-0.50) K/uL Baso # (Auto) 0.02 (0.00-0.20) K/uL Immature Gran # (Auto) 0.07 (0.01-0.20) K/uL PT 10.9 (9.0-12.0) Seconds INR 1.0 (0.9-1.1) APTT 20 L (21-31) Seconds PTT Ratio 0.7 Sodium 132 L (136-145) mmol/L Potassium 4.5 (3.5-5.1) mmol/L Chloride 96 L (98-107) mmol/L Carbon Dioxide 26 (21-32) mmol/L Anion Gap 10 (3-11) BUN 51 H (6-23) mg/dl Creatinine 2.94 H (0.6-1.4) mg/dl Est Cr Clr Drug Dosing 25.9 ml/min eGFR 21.38 BUN/Creatinine Ratio 17.3 (10-20) Glucose 116 H (70-99(Fasting)) mg/dl POC Glucose 96 (70-99) mg/dl Calcium 9.3 (8.6-10.3) mg/dl Total Bilirubin 0.7 (0.2-1.0) mg/dl AST 43 H (13-39) U/L ALT 17 (7-52) U/L Alkaline Phosphatase 79 (34-104) U/L Total Creatine Kinase 994 H (30-223) U/L Total Protein 8.6 H (6.0-8.3) gm/dl Albumin 3.7 (3.4-5.0) gm/dl Globulin 4.9 H (2.5-4.0) gm/dl Albumin/Globulin Ratio 0.8 L (0.9-2) Lipase 7 L (11-82) U/L Procalcitonin 0.16 (0-0.5) ng/ml Urine Color Dark Yellow Urine Appearance Clear (Clear) Urine pH 5.5 (4.5-7.5) Ur Specific [place] 1.020 (1.000-1.030) Urine Protein 3+ H (Negative) Urine Glucose (UA) Negative (Negative) Urine Ketones 1+ H (Negative) Urine Blood 1+ H (Negative) Urine Nitrite Negative (Negative) Urine Bilirubin Negative (Negative) Urine Urobilinogen Negative (Negative) Ur Leukocyte Esterase Negative (Negative) Urine WBC (Auto) 0-5 (0-5) /hpf Urine RBC (Auto) 0-2 (0-2) /hpf U Hyaline Cast (Auto) >20 H (0-2) /lpf U Epithel Cells (Auto) 0-2 (0-2) /hpf Urine Bacteria (Auto) None Seen (None Seen) Urine Mucus Present A (None Prsent) Administered Medications Heparin Sodium (Porcine) (Heparin Sod 5,000 Unit/0.5 Ml Vial) 5,000 units SQ Q8 JOSAFAT Stop: 09/16/24 13:59 Last Admin: 08/17/24 14:17 Dose: 5,000 units Documented By: PIPPA Lactated Ringer's (Lr) 1,000 mls @ 125 mls/hr IV .Q8H JOSAFAT Stop: 08/20/24 11:44 Last Admin: 08/17/24 14:17 Dose: 125 mls/hr Documented By: PIPPA Discontinued Medications Acetaminophen (Ofirmev) 1,000 mg in 100 mls @ 400 mls/hr IV NOW STA Stop: 08/17/24 09:13 Last Infusion: 08/17/24 09:51 Dose: Infused Documented By: Admin: 08/17/24 09:34 Dose: 400 mls/hr Documented By: DEMARIO Sodium Chloride (Nss) 500 mls @ 999 mls/hr IV .Q31M ONE Stop: 08/17/24 09:39 Last Infusion: 08/17/24 10:06 Dose: Infused Documented By: Admin: 08/17/24 09:34 Dose: 999 mls/hr Documented By: DEMARIO Sodium Chloride (Nss) 1,000 mls @ 999 mls/hr IV .Q1H1M ONE Stop: 08/17/24 11:29 Last Infusion: 08/17/24 13:25 Dose: Infused Documented By: Admin: 08/17/24 11:34 Dose: 999 mls/hr Documented By: ALOK Lidocaine (Lidocaine 5% 1 Patch) 1 patch TD NOW STA Stop: 08/17/24 10:52 Last Admin: 08/17/24 11:54 Dose: 1 patch Documented By: ALOK Imaging Data Radiologist's Impression: Chest X-Ray 08/17/24 08:59 XR chest 1V portable CLINICAL HISTORY: Trauma COMPARISON STUDY: 07/31/2022 FINDINGS: There is mild cardiomegaly without pulmonary vascular congestion. There is mild reticular opacity at the left lung base. No other consolidation or pleural effusion. No pneumothorax. No acute osseous finding seen. IMPRESSION: Mild reticular opacity at the left base, atelectasis versus early pneumonia. No other acute findings seen. ACT 112: Negative or not required by law. Electronically signed by: Petre Hart M.D. 08/17/2024 9:[address] 08/17/24 09:00 CT cervical spine wo con CLINICAL HISTORY: Trauma. COMPARISON: 01/24/2020 TECHNIQUE: Multiple axial CT images of the cervical spine were obtained without contrast. A dose lowering technique was utilized adhering to the principles of ALARA. FINDINGS: There is mild motion artifact. There is severe diffuse degenerative disc disease. There is stable grade 1 anterolisthesis of C7 on T1. No acute fracture or subluxation seen at the cervical spine. IMPRESSION: No cervical spine fracture seen. ACT 112: Negative or not required by law. The above report was generated using voice recognition software. It may contain grammatical, syntax or spelling errors. Electronically signed by: Peter Hart M.D. 08/17/2024 9:[address] 08/17/24 09:00 CT SCAN OF THE BRAIN WITHOUT IV CONTRAST CLINICAL HISTORY: Fall. COMPARISON STUDY: Head CT July 28, 2021. MRI of the brain May 04, 2023. TECHNIQUE: Unenhanced axial CT scan of the brain was performed from the vertex to the skull base. A dose lowering technique was utilized adhering to the principles of ALARA. FINDINGS: Brain parenchyma: No acute intracranial hemorrhage, midline shift or mass effect is present. [place]-white matter differentiation is preserved. There are no extra- axial fluid collections. There are no findings to suggest acute dural sinus thrombosis or acute territorial infarct. White matter hypodensity suggests small vessel disease. Ventricles, sulci, cisterns: There is no hydrocephalus. The basal cisterns are patent. Calvarium: No calvarial fractures. Sinuses and mastoids: The visualized paranasal sinuses are clear. The mastoid air cells are well pneumatized. Orbits: The bony orbits are grossly intact. IMPRESSION: 1. No acute intracranial findings. 2. No calvarial fractures. ACT 112: Negative or not required by law. Electronically signed by: Chris Salinas M.D. 08/17/2024 9:[address] 08/17/24 09:00 CT thoracic spine wo con CLINICAL HISTORY: trauma COMPARISON STUDY: 04/11/2021 FINDINGS: There is osteopenia. There are moderate diffuse degenerative changes with Schmorl's nodes at multiple levels. No acute fracture or subluxation seen. There are a few scattered small bulla in the visualized portion of the lungs. There is mild scarring in the visualized lung bases. IMPRESSION: No acute thoracic spine fracture seen. ACT 112: Negative or not required by law. Electronically signed by: Peter Hart M.D. 08/17/2024 9:48 AM Ribs X-Ray 08/17/24 09:34 XR ribs LT min 2V CLINICAL HISTORY: pain post fall COMPARISON: 08/17/2024 FINDINGS: There is an acute nondisplaced fracture laterally at the left fourth rib. There are a few likely old fractures anteriorly at the left eighth and ninth ribs. No displaced rib fractures seen. No pneumothorax seen. IMPRESSION: Acute nondisplaced fracture laterally at the left fourth rib. No pneumothorax seen. ACT 112: Negative or not required by law. Electronically signed by: Peter Hart M.D. 08/17/2024 10:42 AM Abdomen/Pelvis CT 08/17/24 10:[address] WITHOUT CONTRAST CT DOSE: 1491.62 mGy.cm HISTORY: unwitnessed fall, LLQ/LUQ tenderness TECHNIQUE: Multiaxial CT images of the abdomen and pelvis were performed without contrast. A dose lowering technique was utilized adhering to the principles of ALARA. COMPARISON STUDY: 02/06/2021 FINDINGS: There is interval mild reticular and groundglass opacity at the left lung base, atelectasis versus early pneumonia. ABDOMEN: Liver, gallbladder, spleen, and adrenal glands have an unremarkable non-IV contrasted appearance. There is progressive fatty atrophy of the pancreas. There is stable hazy central mesentery consistent with mesenteritis. The kidneys show no hydronephrosis. No renal calculi seen. No retroperitoneal hemorrhage. There are scattered atherosclerotic calcifications. 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 Prostate is enlarged. Urinary bladder is mildly distended. There is mild colonic diverticulosis. No acute diverticulitis. No bowel inflammation or obstruction. No free fluid or free air. No enlarged adenopathy. Osseous structures: There is osteopenia. There are moderate diffuse degenerative changes at the thoracolumbar spine. No acute fractures seen at the visualized osseous structures. IMPRESSION: 1. No evidence of acute injury seen in the abdomen or pelvis. 2. Atelectasis versus early pneumonia left lung base. 3. Otherwise as described. ACT 112: Negative or not required by law. The above report was generated using voice recognition software. It may contain grammatical, syntax or spelling errors. Electronically signed by: Peter Hart M.D. 08/17/2024 11:25 AM Discharge Plan Visit Data Chief Complaint: Trauma Stated Complaint: FALL ED Provider: Xander Waite Discharge Problem: CHICO (acute kidney injury), Parkinsonism, Weakness, Fall, Closed rib fracture, Rhabdomyolysis Patient Disposition: Admitted As Inpatient Condition: Good Discharge Instructions Interventions: ED Discharge Assessment Last Done: 08/17/24 12:35 Discharge Problem: Parkinsonism Qualifiers: Parkinsonism type: unspecified Qualified Code(s): G20.C - Parkinsonism, unspecified Fall Qualifiers: Encounter type: initial encounter Qualified Code(s): W19.XXXA - Unspecified fall, initial encounter Closed rib fracture Qualifiers: Encounter type: initial encounter Rib fracture type: single rib Laterality: l eft Qualified Code(s): S22.32XA - Fracture of one rib, left side, initial encounter for closed fracture Rhabdomyolysis Qualifiers: Rhabdomyolysis type: non-traumatic Qualified Code(s): M62.82 - Rhabdomyolysis
[2024-08-17 09:12] LABS: Basophils # (auto) 0.02 K/uL (0.00-0.20); Basophils % (auto) 0.2 %; Eosinophils # (auto) 0.06 K/uL (0.00-0.50); Eosinophils % (auto) 0.6 %; Hematocrit (blood only) 39.4 % (42.0-52.0); Hemoglobin 13.4 g/dl (14.0-18.0); Immature Granulocytes # (auto) 0.07 K/uL (0.01-0.20); Immature Granulocytes % (auto) 0.7 %; Lymphocytes # (auto) 0.96 K/uL (1.20-3.40); Lymphocytes % (auto) 9.2 %; Mean Corpuscular Hemoglobin 30.9 pg (25.0-34.0); Mean Platelet Volume 9.6 fL (9.4-12.4); Monocytes % (auto) 3.8 %; Neutrophils # (auto) 8.98 K/uL (1.40-6.50); Neutrophils % (auto) 85.5 %; Platelet Count 234 K/uL (130-400); RDW Coefficient of Variation 14.8 % (11.5-14.5); RDW Standard Deviation 49.9 fL (36.4-46.3); Red Blood Count 4.33 M/uL (4.70-6.10); White Blood Count 10.49 K/ul (4.8-10.8)
--- NOTE | 2024-08-17 09:20 | XRay Report ---
XR chest 1V portable CLINICAL HISTORY: Trauma COMPARISON STUDY: 07/31/2022 FINDINGS: There is mild cardiomegaly without pulmonary vascular congestion. There is mild reticular o pacity at the left lung base. No other consolidation or pleural effusion. No pneumothorax. No acute o sseous finding seen. IMPRESSION: Mild reticular opacity at the left base, atelectasis versus early pneumonia. No other ac marky findings seen. ACT 112: Negative or not required by law. Electronically signed by: Peter Hart M.D. 08/17/2024 9:19 AM
[2024-08-17 09:32] LABS: Albumin Globulin Ratio 0.8 (0.9-2); Albumin Level 3.7 gm/dl (3.4-5.0); BUN Creatinine Ratio 17.3 (10-20); Bilirubin,Total 0.7 mg/dl (0.2-1.0); Calcium 9.3 mg/dl (8.6-10.3); Creatinine Clr Calc Pharmacy 25.9 ml/min; Globulin 4.9 gm/dl (2.5-4.0); Potassium 4.5 mmol/L (3.5-5.1); Total Protein 8.6 gm/dl (6.0-8.3)
[2024-08-17] MEDS: ACETAMINOPHEN 1,000 MG/100 ML VIAL IV STA (09:34)
[2024-08-17] MEDS: SODIUM CHLORIDE 0.9% 500 ML IV ONE (09:34)
[2024-08-17 09:43] LABS: Partial Thromboplastin Ratio 0.7; Partial Thromboplastin Time 20 Seconds (21-31); Prothrombin Time 10.9 Seconds (9.0-12.0)
--- NOTE | 2024-08-17 09:46 | CT Scan Report ---
CT cervical spine wo con CLINICAL HISTORY: Trauma. COMPARISON: 01/24/2020 TECHNIQUE: Multiple axial CT images of the cervical spine were obtained without contrast. A dose low ering technique was utilized adhering to the principles of ALARA. FINDINGS: There is mild motion artifact. There is severe diffuse degenerative disc disease. There is stable grade 1 anterolisthesis of C7 on T1. No acute fracture or subluxation seen at the cervical spi ne. IMPRESSION: No cervical spine fracture seen. ACT 112: Negative or not required by law. The above report was generated using voice recognition software. It may contain grammatical, syntax o r spelling errors. Electronically signed by: Peter Hart M.D. 08/17/2024 9:44 AM
--- NOTE | 2024-08-17 09:46 | CT Scan Report ---
CT SCAN OF THE BRAIN WITHOUT IV CONTRAST CLINICAL HISTORY: Fall. COMPARISON STUDY: Head CT July 28, 2021. MRI of the brain May 04, 2023. TECHNIQUE: Unenhanced axial CT scan of the brain was performed from the vertex to the skull base. A dose lowering technique was utilized adhering to the principles of ALARA. FINDINGS: Brain parenchyma: No acute intracranial hemorrhage, midline shift or mass effect is present. [place]-whi te matter differentiation is preserved. There are no extra-axial fluid collections. There are no find ings to suggest acute dural sinus thrombosis or acute territorial infarct. White matter hypodensity s uggests small vessel disease. Ventricles, sulci, cisterns: There is no hydrocephalus. The basal cisterns are patent. Calvarium: No calvarial fractures. Sinuses and mastoids: The visualized paranasal sinuses are clear. The mastoid air cells are well pneu matized. Orbits: The bony orbits are grossly intact. IMPRESSION: 1. No acute intracranial findings. 2. No calvarial fractures. ACT 112: Negative or not required by law. Electronically signed by: Chris Salinas M.D. 08/17/2024 9:44 AM
--- NOTE | 2024-08-17 09:50 | CT Scan Report ---
CT thoracic spine wo con CLINICAL HISTORY: trauma COMPARISON STUDY: 04/11/2021 FINDINGS: There is osteopenia. There are moderate diffuse degenerative changes with Schmorl's nodes a t multiple levels. No acute fracture or subluxation seen. There are a few scattered small bulla in th e visualized portion of the lungs. There is mild scarring in the visualized lung bases. IMPRESSION: No acute thoracic spine fracture seen. ACT 112: Negative or not required by law. Electronically signed by: Peter Hart M.D. 08/17/2024 9:48 AM
--- NOTE | 2024-08-17 10:43 | XRay Report ---
XR ribs LT min 2V CLINICAL HISTORY: pain post fall COMPARISON: 08/17/2024 FINDINGS: There is an acute nondisplaced fracture laterally at the left fourth rib. There are a few likely old fractures anteriorly at the left eighth and ninth ribs. No displaced rib fractures seen. N o pneumothorax seen. IMPRESSION: Acute nondisplaced fracture laterally at the left fourth rib. No pneumothorax seen. ACT 112: Negative or not required by law. Electronically signed by: Peter Hart M.D. 08/17/2024 10:42 AM
[2024-08-17] MEDS ORDERED: traMADol HCL 50 MG TABLET PO PRN (10:46)
[2024-08-17] MEDS ORDERED: NALOXONE HCL 0.4 MG/1 ML VIAL/CARP IV PRN (10:46)
--- NOTE | 2024-08-17 10:51 | History & Physical Report ---
Date of Service August 17, 2024 Assessment & Plan (1) Unwitnessed fall: Plan: Unwitnessed fall Patient reports he does not remember being lightheaded dizzy or passing out. He reports he did have a fall previous Thursday and has felt generally weak Denies infectious symptoms. Denies fever/chills/sweats/dysuria/nausea/vomiting/cough. Reports he has some chronic abdominal tenderness which currently seems a little worse on the left side He reports he does not take any blood thinners X-ray shows a nondisplaced left rib fracture. Rib protocol ordered CTC-spine/T-spine without acute fracture/subluxation. Chronic changes are noted CTA/P noncontrast ordered due to left upper/left lower abdominal pain with ARF. No acute traumatic findings. No obstructive findings/stones. Basilar atelectasis versus early pneumonia is noted Weakness ? Deconditioning reports he feels more weak than baseline. Does have some history of dysfunction with history of parkinsonism, but feels weaker than his normal baseline for several days Denies acute infectious symptoms Feels thirsty and dehydrated Suspected prerenal CHICO No white count, procalcitonin is normal. UA is pending although no symptoms CTA/P shows basilar atelectasis versus early pneumonia. Patient has no white count, normal Pro-Ruddy and denies respiratory symptoms. Monitor closely. If he develops fever, trending leukocytosis or symptoms then treat with Rocephin/azithromycin UA pending ARF Baseline creatinine approximately 0.9 - Admitting creatinine 2.94, greater than 3 times normal meets criteria for ARF LR ordered for both clinically dry appearance, CHICO, and rhabdo History of grade 1 diastolic dysfunction with normal EF, monitor closely for evidence of developing fluid overload or pulmonary edema Received 500 cc NSS in the ER. Remains volume contracted on assessment Rhabdomyolysis CK 994. Lower risk of heme induced kidney injury Suspect with associated prerenal CHICO Will continue LR 100-125 cc/h for rhabdo and prerenal CHICO. Caution volume overload given history of diastolic dysfunction. Repeat CK5/8 ILD/asthma/COPD PFTs 01/2024: FVC 79% predicted (3.5 L), FEV1 (2.5 L per) 78% predicted. FEV1/FVC ratio 71.2 (98% predicted). No evidence of obstructive lung dysfunction. No significant bronchodilator response. Mild decrease in DLCO. Likely underlying Sjogren's with interstitial pneumonitis Follows with rheumatology. Continued on CellCept. Continue Breo, albuterol as needed. Hypertension Olmesartan, hydrochlorothiazide held for ARF Parkinson's Continue Sinemet, pramipexole BPH Cath as needed Continue Flomax UA/UC pending Depression/anxiety Continue duloxetine SUMANTH CPAP at bedtime Colon polyp 12/2023 4 mm distal ascending colon polyp, 7 to 9 mm polyp in the sigmoid colon able to be resected excessive tubular adenoma. 4 mm polyp carpet like and flat which was recommended for advanced endoscopic intervention rather than removal at that time. Pending endoscopic resection with PSH Denies hematochezia/melena DVT prophylaxis: Heparin due to renal dysfunction. SCDs. CODE STATUS: DNR/DNI. This is a change from prior. Discussed the patient at bedside, he expresses that if his heart/breathing were to stop he would not want to be brought back and would want to be allowed to pass. He does not want CPR/ventilation/intubation in that circumstance. Diet: Heart healthy Disposition: PCU (2) COPD with emphysema: (3) BPH (benign prostatic hyperplasia): (4) Chronic kidney disease: (5) HTN (hypertension): (6) Parkinsonism: (7) SUMANTH on CPAP: (8) Polyarthritis, inflammatory: History of Present Illness Primary Care Provider: Jose M Alonzo DO Mr. Hall is a 74-year-old male with a past medical history of COPD, SUMANTH on CPAP, ataxia, rheumatoid arthritis, hypertension, DM2, CKD, BPH who was coming in show around 10 AM and was then found by a neighbor who reportedly heard a noise coming from the ceiling and patient was found leaning against the bathtub with no memory of falling. Reported to the ER that had some neck pain earlier but not while in the ER but was placed in a collar pending trauma evaluation. He is not on anticoagulation. On ER evaluation is found to have an CHICO with creatinine baseline of approximately0.9, acutely elevated at 2.94. REmembers waking up and being thirsty this morning. THen reports he woke up here. Lives alone Had a fall, felt tired and weak on Thursday Reports that he remembers being thirsty this morning, and then [employer] members was waking up in the hospital He denies any recent chest pain, chest pressure, palpitations, lightheadedness, dizziness, syncope, or presyncope. He does not feel short of breath. He denies any new focal weakness or sensory change. He denies hip pain. He does not feel like he has been sick lately. He denies cough, URI symptoms including congestion. He reports he has not had any diarrhea or constipation. He denies dysuria/polyuria. He is not sure if he has been peeing any more or less than normal. He does report that he is tender in his left ribs and left upper/left lower abdomen. He reports he has some abdominal tenderness chronically, left-sided tenderness is a little worse than normal. He denies night sweats. He has not had any fevers. CK9 194. AST slightly elevated at 43, ALT/alk phos/bilirubin normal. Lipase is not elevated. No leukocytosis CTC-spine/T-spine: No acute spinal fractures or traumatic abnormalities seen. Diffuse degenerative disc disease is noted. CThead: No acute findings. Chest x-ray: Mild basilar reticular opacity. Atelectasis versus early pneumonia. No other acute findings seen. X-ray 2 view rib protocol: Acute nondisplaced fracture at the left fourth rib Medical History: Reviewed Medications: Reviewed Surgical History: Reviewed Family history: Reviewed Allergies: Reviewed Social History: No tobacco use. No ETOH use. Code Status: DNR/DNI. This is a change from prior CODE STATUS. Surroate DM would be sister Lisbeth. Allergies Allergy/AdvReac Type Severity Reaction Status Date / Time No Known Allergies Allergy Verified 08/04/24 13:39 Home Medications Medication Instructions Recorded Confirmed Type meclizine 12.5 mg tablet 12.5 mg PO UD PRN dizziness 06/04/21 08/17/24 History Lift Chair #1 ea 07/26/21 08/04/24 Rx blood-glucose meter (OneTouch #1 ea 08/22/21 08/04/24 Rx Verio Flex Start kit) foam bandage 4" X 4" (Optifoam) #20 ea 11/04/21 08/04/24 Rx CPAP Machine #1 ea 11/26/21 08/04/24 Rx blood sugar diagnostic (OneTouch #100 ea 01/09/23 08/04/24 Rx Verio test strips) syringe with needle, safety 1 mL #4 ea 01/09/23 08/04/24 Rx 28 gauge x 1/2" (Monoject TB Safety Syringe) linaclotide 145 mcg capsule 145 mcg PO DAILY 11/17/23 08/17/24 History (Linzess) duloxetine 60 mg capsule,delayed 60 mg PO QAM #90 caps 01/14/24 08/17/24 Rx release omeprazole 20 mg capsule,delayed 20 mg PO QAM #90 caps 01/14/24 08/17/24 Rx release carbidopa 25 mg-levodopa 100 mg 1 tab PO HS 90 days #90 tabs 01/20/24 08/17/24 Rx tablet Breo Ellipta 100 mcg-25 mcg/dose 1 inh inhalation DAILY #3 Inhalers 02/09/24 08/17/24 Rx powder for inhalation (fluticasone furoate-vilanterol) albuterol sulfate 90 mcg/actuation 2 inh inhalation QID PRN shortness 02/09/24 08/17/24 Rx aerosol inhaler of breath or wheezing #8.5 grams cyanocobalamin (vitamin B-12) 500 1,000 mcg (2 x 500 mcg) PO QAM 02/10/24 08/17/24 Rx mcg tablet #180 tabs pramipexole 0.5 mg tablet 0.5 mg PO HS #90 tabs 03/07/24 08/17/24 Rx allopurinol 300 mg tablet 300 mg PO QPM #90 tabs 06/30/24 08/17/24 Rx folic acid 400 mcg tablet 400 mcg PO QAM #90 tabs 06/30/24 08/17/24 Rx lancets 33 gauge #100 ea 06/30/24 08/04/24 Rx olmesartan 40 mg tablet 40 mg PO HS #90 tabs 06/30/24 08/17/24 Rx tamsulosin 0.4 mg capsule 0.4 mg PO HS #90 caps 06/30/24 08/17/24 Rx levothyroxine 175 mcg tablet 175 mcg PO DAILY #90 tabs 07/21/24 08/17/24 Rx hydrochlorothiazide 25 mg tablet 12.5 mg PO UD 08/17/24 08/17/24 History Past Med/Surg History Problem List (Updated 08/17/24 @ 11:09 by Rocky Stubbs MD) Unwitnessed fall Vitamin B deficiency BPH (benign prostatic hyperplasia) Chronic kidney disease Controlled diabetes mellitus with microalbuminuria COPD with emphysema Right knee DJD HTN (hypertension) Hyponatremia Ambulatory dysfunction (Acute) Vitamin D deficiency Osteoarthritis of knees, bilateral Rheumatoid arthritis Follows with Dr. Caryl Chou Lewy body disease Right leg swelling Parkinsonism Morbid obesity Polyarthritis, inflammatory (Chronic) SUMANTH on CPAP (Chronic) Neuropathy (Chronic) Hypothyroidism Depression with anxiety Cystic-bullous disease of lung (Acute) Ataxia (Chronic) Anemia (Chronic) Medical History (Updated 08/17/24 @ 11:09 by Rocky Stubbs MD) History of colonic polyps Confusion Left knee DJD Right knee DJD Decubitus ulcer Vitamin deficiency Hyperglobulinemia Osteoarthritis of right knee Knee pain, right Exertional dyspnea SUMANTH (obstructive sleep apnea) Vertigo Positive LAZARO (antinuclear antibody) Elevated blood protein Ataxia Cystic-bullous disease of lung Depression with anxiety Hypothyroidism Lewy body disease Neuropathy Osteoarthritis of both knees Polyarthritis, inflammatory Positive LAZARO (antinuclear antibody) Hx of vertigo Hx of gout Chronic kidney disease Ambulatory dysfunction uses cane and walker Rheumatoid arthritis per records, pt. denies COPD with emphysema pt denies, does follow with pulm at [facility] Exertional dyspnea BPH (benign prostatic hyperplasia) Seizure-like activity pt unaware of this - denies Grade I diastolic dysfunction Chronic hyponatremia Sjogren's disease Interstitial lung disease Folate deficiency Acid reflux Sleep apnea CPAP At high risk for falls Per patient Type 2 diabetes mellitus without complication diet controlled Edema of right lower leg Granulomatous lung disease Per records, patient unaware Restless legs Parkinson's disease Hypertension Asthma controlled per pt report Surgical History (Updated 06/30/24 @ 10:59 by Jose M Alonzo DO) Status post total right knee replacement Hx of colonoscopy Hx of right cataract extraction (2021) History of knee replacement procedure of right knee History of colonoscopy with polypectomy Most recent 09/2021 ([facility]) H/O parotidectomy S/P rotator cuff repair Right H/O umbilical hernia repair H/O inguinal hernia repair Left Family History Father Lung disease Hypertension Stroke Sister Diabetes Family history of reaction to anesthesia Mother Cancer Brother Diabetes Grandmother (Maternal) Diabetes Grandmother (Paternal) Diabetes Denies family history of Ovarian cancer Prostate cancer Myocardial infarction Breast cancer Colorectal cancer Social History (Updated 06/30/24 @ 10:53 by GERARDO Johnson) Smoking Status: Never smoker Second Hand Exposure: No; Do You Dip or Chew Tobacco: No; Hx Alcohol Use: No Hx Substance Use: No Preferred Language: Mongolian Communication Ability: Effective Visual Impairment: No Limitations Hearing Ability: Normal Plastics Bench Mechanic Required: No Beliefs That Will Affect Care: None marital status: / Current Living Situation: Alone Current Living Situation Comment: has workers helping out every am until noon current occupational status: retired current occupation: used to work on a farm, 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 He is oriented to name, hospital, year/month/day. HEENT: Atraumatic, normocephalic. Vision and hearing grossly intact. Very dry mucous membranes Pulm: Diminished, some left basilar crackles, otherwise clear.Symmetrical chest rise. No increased work of breathing. No respiratory distress. Cardiac: RRR, -mrg. Radial pulses intact and symmetrical. Abdominal: Nontender, nondistended, soft. BS present. Extremities: Warm, dry. Chronic stasis changes of the lower extremities without some soft tissue swelling and slight ankle pitting edema. No erythema/warmth/tenderness Results & Data Results & Data Vital Signs (Past 12 Hours) Vital Signs Temp Pulse Pulse Resp BP BP Pulse Ox 08/17/24 09:45 82 17 146/80 H 96 08/17/24 09:31 77 96 08/17/24 09:31 95 08/17/24 09:05 81 08/17/24 08:48 36.7 C 78 17 166/110 H 99 08/17/24 08:48 36.7 C 88 16 166/110 H 96 O2 Del Method O2 Flow Rate 08/17/24 09:45 Room Air 08/17/24 09:31 Room Air 08/17/24 09:31 Room Air 08/17/24 09:05 08/17/24 08:48 Room Air 0 05/07/25 08:48 Room Air PG Care Time/CCT Total # of Minutes Spent Total Time Spent with Patient: Total time spent is greater than 50% in coordination of care (as documented) at patient's floor/unit and/or counseling patient: Coding Level of Care Code 84667 INT INP/OBS CARE 3/75MIN Diagnoses Unwitnessed fall R29.6 COPD with emphysema J43.9 BPH (benign prostatic hyperplasia) N40.0 Chronic kidney disease N18.9 HTN (hypertension) I10 Parkinsonism G20 SUMANTH on CPAP G47.33; Z99.89 Polyarthritis, inflammatory M06.4
--- NOTE | 2024-08-17 11:26 | CT Scan Report ---
ABDOMEN AND PELVIS CT WITHOUT CONTRAST CT DOSE: 1491.62 mGy.cm HISTORY: unwitnessed fall, LLQ/LUQ tenderness TECHNIQUE: Multiaxial CT images of the abdomen and pelvis were performed without contrast. A dose lo wering technique was utilized adhering to the principles of ALARA. COMPARISON STUDY: 02/06/2021 FINDINGS: There is interval mild reticular and groundglass opacity at the left lung base, atelectasis versus early pneumonia. ABDOMEN: Liver, gallbladder, spleen, and adrenal glands have an unremarkable non-IV contrasted appear ance. There is progressive fatty atrophy of the pancreas. There is stable hazy central mesentery cons istent with mesenteritis. The kidneys show no hydronephrosis. No renal calculi seen. No retroperitone al hemorrhage. There are scattered atherosclerotic calcifications. 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 Prostate is enlarged. Urinary jamilah dder is mildly distended. There is mild colonic diverticulosis. No acute diverticulitis. No bowel inf lammation or obstruction. No free fluid or free air. No enlarged adenopathy. Osseous structures: There is osteopenia. There are moderate diffuse degenerative changes at the thora columbar spine. No acute fractures seen at the visualized osseous structures. IMPRESSION: 1. No evidence of acute injury seen in the abdomen or pelvis. 2. Atelectasis versus early pneumonia left lung base. 3. Otherwise as described. ACT 112: Negative or not required by law. The above report was generated using voice recognition software. It may contain grammatical, syntax o r spelling errors. Electronically signed by: Peter Hart M.D. 08/17/2024 11:25 AM
[2024-08-17] MEDS: SODIUM CHLORIDE 0.9% 1,000 ML IV ONE (11:34)
[2024-08-17] MEDS: LIDOCAINE 5% 1 PATCH TD STA (11:54)
[2024-08-17 11:59] LABS: Appearance Urine Clear (Clear); Bacteria Urine Automated None Seen (None Seen); Bilirubin Urine Negative (Negative); Blood Urine 1+ (Negative); Cast Urine Automated >20 /lpf (0-2); Color Urine Dark Yellow; Epithelial Cell Urine Auto 0-2 /hpf (0-2); Glucose Urine UA Negative (Negative); Ketones Urine 1+ (Negative); Leukocyte Esterase Urine Negative (Negative); Mucus Urine Present (None Prsent); Nitrite Urine Negative (Negative); Protein Urine 3+ (Negative); RBC Urine Automated 0-2 /hpf (0-2); Urobilinogen Urine Negative (Negative); WBC Urine Automated 0-5 /hpf (0-5); pH Urine 5.5 (4.5-7.5)
[2024-08-17] MEDS ORDERED: ONDANSETRON INJ 2 MG/ML 2 ML VIAL IV PRN (13:21)
[2024-08-17] MEDS ORDERED: ALBUTEROL HFA 8 GM INHALER INH PRN (13:21)
[2024-08-17] MEDS: LACTATED RINGER'S 1,000 ML IV SCH (14:17)
[2024-08-17] MEDS: HEPARIN SOD 5,000 UNIT/0.5 ML VIAL SQ SCH (14:17)
[2024-08-17] MEDS ORDERED: PNEUMOCOCCAL VACCINE (PCV20) 20-VAL CONJ-DIP CRM/PF 0.5 ML SYR IM ONE (14:21)
[2024-08-17] MEDS: ACETAMINOPHEN 325 MG TAB PO SCH (17:41)
[2024-08-17] MEDS: CARBIDOPA/LEVODOPA 25/100MG TAB PO SCH (22:12)
[2024-08-17] MEDS: PRAMIPEXOLE DIHYDROCHLO 0.5 MG TAB PO SCH (22:12)
[2024-08-17] MEDS: allopurinoL 300 MG TAB PO SCH (22:12)
[2024-08-17] MEDS: TAMSULOSIN HCL 0.4 MG CAP PO SCH (22:41)
[2024-08-18] MEDS: LEVOTHYROXINE SODIUM 175 MCG TABLET PO SCH (06:12)
[2024-08-18 07:06] LABS: Basophils # (auto) 0.04 K/uL (0.00-0.20); Basophils % (auto) 0.8 %; Eosinophils # (auto) 0.31 K/uL (0.00-0.50); Eosinophils % (auto) 6.1 %; Hematocrit (blood only) 29.1 % (42.0-52.0); Hemoglobin 9.8 g/dl (14.0-18.0); Immature Granulocytes # (auto) 0.02 K/uL (0.01-0.20); Immature Granulocytes % (auto) 0.4 %; Lymphocytes # (auto) 1.21 K/uL (1.20-3.40); Lymphocytes % (auto) 23.9 %; Mean Corpuscular Hemoglobin 30.4 pg (25.0-34.0); Mean Corpuscular Hgb Conc 33.7 g/dL (32.0-36.0); Mean Corpuscular Volume 90.4 fL (80.0-100.0); Mean Platelet Volume 9.6 fL (9.4-12.4); Monocytes # (auto) 0.37 K/uL (0.11-0.59); Monocytes % (auto) 7.3 %; Neutrophils # (auto) 3.11 K/uL (1.40-6.50); Neutrophils % (auto) 61.5 %; Platelet Count 174 K/uL (130-400); RDW Coefficient of Variation 14.6 % (11.5-14.5); RDW Standard Deviation 48.4 fL (36.4-46.3); Red Blood Count 3.22 M/uL (4.70-6.10); White Blood Count 5.06 K/ul (4.8-10.8)
[2024-08-18 07:29] LABS: Calcium 8.2 mg/dl (8.6-10.3); Potassium 3.6 mmol/L (3.5-5.1)
--- NOTE | 2024-08-18 08:10 | Electrocardiogram Report ---
Test Reason : Blood Pressure : */* mmHG Vent. Rate : 72 BPM Atrial Rate : * BPM P-R Int : * ms QRS Dur : 108 ms QT Int : 410 ms P-R-T Axes : * -16 113 degrees QTcB Int : 448 ms Normal sinus rhythm Nonspecific T wave abnormality Abnormal ECG When compared with ECG of 31-Jul-2022 13:24, No significant change Confirmed by Brad Leung ([id number]) on 08/18/2024 8:09:27 AM Referred By: REFERRED SELF Confirmed By: Brad Leung
[2024-08-18] MEDS: FLUTICASONE/VILANTEROL 100/25MCG 14 PUFFS/INHALER INH SCH (08:42)
[2024-08-18] MEDS: LINACLOTIDE 145 MCG CAPSULE PO SCH (08:42)
[2024-08-18] MEDS: CYANOCOBALAMIN (B-12) 500 MCG TABLET PO SCH (08:42)
[2024-08-18] MEDS: FOLIC ACID 400 MCG TAB PO SCH (08:42)
[2024-08-18] MEDS: LIDOCAINE 5% 1 PATCH TD SCH (08:42)
[2024-08-18] MEDS: DULoxetine HCL 60 MG CAP PO SCH (08:42)
[2024-08-18] MEDS: PANTOprazole 40 MG TAB PO SCH (08:42)
--- NOTE | 2024-08-18 14:01 | Hospitalist Progress Note ---
Date of Service August 18, 2024 Assessment & Plan (1) Unwitnessed fall: Plan: Unwitnessed fall Patient reports he does not remember being lightheaded dizzy or passing out. He reports he did have a fall previous Thursday and has felt generally weak Denies infectious symptoms. Denies fever/chills/sweats/dysuria/nausea/vomiting/cough. Reports he has some chronic abdominal tenderness which currently seems a little worse on the left side He reports he does not take any blood thinners X-ray shows a nondisplaced left rib fracture. Rib protocol ordered CTC-spine/T-spine without acute fracture/subluxation. Chronic changes are noted CTA/P noncontrast ordered due to left upper/left lower abdominal pain with ARF. No acute traumatic findings. No obstructive findings/stones. Basilar atelectasis versus early pneumonia is noted Weakness ? Deconditioning reports he feels more weak than baseline. Does have some history of dysfunction with history of parkinsonism, but feels weaker than his normal baseline for several days Denies acute infectious symptoms Feels thirsty and dehydrated Suspected prerenal CHICO No white count, procalcitonin is normal. UA is pending although no symptoms CTA/P shows basilar atelectasis versus early pneumonia. Patient has no white count, normal Pro-Ruddy and denies respiratory symptoms. Monitor closely. If he develops fever, trending leukocytosis or symptoms then treat with Rocephin/azithromycin UA unremarkable ARF Baseline creatinine approximately 0.9 - Admitting creatinine 2.94, With IV fluids, creatinine trended down LR ordered for both clinically dry appearance, CHICO, and rhabdo Reduced IV fluid rate to 100 mL an hour Rhabdomyolysis CK 994. Lower risk of heme induced kidney injury Suspect with associated prerenal CHICO Repeat CPK ILD/asthma/COPD PFTs 01/2024: FVC 79% predicted (3.5 L), FEV1 (2.5 L per) 78% predicted. FEV1/FVC ratio 71.2 (98% predicted). No evidence of obstructive lung dysfunction. No significant bronchodilator response. Mild decrease in DLCO. Likely underlying Sjogren's with interstitial pneumonitis Follows with rheumatology. Continued on CellCept. Continue Breo, albuterol as needed. Hypertension Olmesartan, hydrochlorothiazide held for ARF Parkinson's Continue Sinemet, pramipexole BPH Cath as needed Continue Flomax UA/UC pending Depression/anxiety Continue duloxetine SUMANTH CPAP at bedtime Colon polyp 12/2023 4 mm distal ascending colon polyp, 7 to 9 mm polyp in the sigmoid colon able to be resected excessive tubular adenoma. 4 mm polyp carpet like and flat which was recommended for advanced endoscopic intervention rather than removal at that time. Pending endoscopic resection with PSH Denies hematochezia/melena DVT prophylaxis: Heparin due to renal dysfunction. SCDs. CODE STATUS: DNR/DNI. This is a change from prior. Discussed the patient at bedside, he expresses that if his heart/breathing were to stop he would not want to be brought back and would want to be allowed to pass. He does not want CPR/ventilation/intubation in that circumstance. Diet: Heart healthy Disposition: PCU (2) COPD with emphysema: (3) BPH (benign prostatic hyperplasia): (4) Chronic kidney disease: (5) HTN (hypertension): (6) Parkinsonism: (7) SUMANTH on CPAP: (8) Polyarthritis, inflammatory: Admission and Anticipated Discharge Date Admission Date: August 17, 2024 Subjective Patient was seen and examined. He does not remember how he fell or how long he was down. Review of Systems Review of Systems: All systems reviewed & are unremarkable except as noted in Subjective Physical Exam Physical Exam: General: Awake, conversant. Frail looking elderly male. Obese Heart: S1, S2/regular rate and rhythm, no murmur rubs or gallops Lungs: Clear to auscultation bilaterally. Normal effort Abdomen: Soft/nontender/nondistended. No hepatosplenomegaly Extremities: No clubbing/cyanosis. Trace edema with chronic stasis changes of the lower extremities noted Behavior: Appropriate, cooperative Results & Data Results & Data Vital Signs (Past 12 Hours) Vital Signs Temp Pulse Resp BP Pulse Ox O2 Del Method 08/18/24 13:13 Room Air 08/18/24 11:47 36.7 C 73 18 132/79 92 Room Air 08/18/24 07:31 36.6 C 66 18 97/59 L 96 Room Air 08/18/24 03:38 82 18 93/60 L 96 Room Air Laboratory Results Abnormal lab results 08/18/24 Range/Units 06:29 RBC 3.22 L (4.70-6.10) M/uL Hgb 9.8 L D (14.0-18.0) g/dl Hct 29.1 L (42.0-52.0) % RDW Std Deviation 48.4 H (36.4-46.3) fL RDW Coeff of Swathi 14.6 H (11.5-14.5) % Sodium 132 L (136-145) mmol/L BUN 44 H (6-23) mg/dl Creatinine 1.76 H D (0.6-1.4) mg/dl BUN/Creatinine Ratio 25.0 H (10-20) Calcium 8.2 L (8.6-10.3) mg/dl Total Creatine Kinase 320 H (30-223) U/L PG Care Time/CCT Total # of Minutes Spent Total Time Spent with Patient: Total time spent is greater than 50% in coordination of care (as documented) at patient's floor/unit and/or counseling patient: Coding Level of Care Code 03928 SUB INP/OBS CARE 2/35MIN Diagnoses Unwitnessed fall R29.6 COPD with emphysema J43.9 BPH (benign prostatic hyperplasia) N40.0 Chronic kidney disease N18.9 HTN (hypertension) I10 Parkinsonism G20 SUMANTH on CPAP G47.33; Z99.89 Polyarthritis, inflammatory M06.4
[2024-08-18] MEDS ORDERED: Nursing to Pharmacy Communication SCH (21:45)
[2024-08-19 07:43] LABS: Basophils # (auto) 0.05 K/uL (0.00-0.20); Eosinophils # (auto) 0.27 K/uL (0.00-0.50); Eosinophils % (auto) 5.4 %; Hematocrit (blood only) 29.1 % (42.0-52.0); Hemoglobin 9.8 g/dl (14.0-18.0); Immature Granulocytes # (auto) 0.03 K/uL (0.01-0.20); Immature Granulocytes % (auto) 0.6 %; Lymphocytes # (auto) 0.91 K/uL (1.20-3.40); Lymphocytes % (auto) 18.3 %; Mean Corpuscular Hemoglobin 30.8 pg (25.0-34.0); Mean Corpuscular Hgb Conc 33.7 g/dL (32.0-36.0); Mean Corpuscular Volume 91.5 fL (80.0-100.0); Mean Platelet Volume 9.8 fL (9.4-12.4); Monocytes # (auto) 0.33 K/uL (0.11-0.59); Monocytes % (auto) 6.7 %; Neutrophils # (auto) 3.37 K/uL (1.40-6.50); Platelet Count 178 K/uL (130-400); RDW Coefficient of Variation 14.5 % (11.5-14.5); Red Blood Count 3.18 M/uL (4.70-6.10); White Blood Count 4.96 K/ul (4.8-10.8)
[2024-08-19 08:01] LABS: BUN Creatinine Ratio 22.1 (10-20); Calcium 8.3 mg/dl (8.6-10.3); Creatinine Clr Calc Pharmacy 55.1 ml/min; Potassium 3.7 mmol/L (3.5-5.1)
--- NOTE | 2024-08-19 14:42 | Hospitalist Progress Note ---
Date of Service August 19, 2024 Assessment & Plan (1) Unwitnessed fall: Plan: Unwitnessed fall Patient reports he does not remember being lightheaded dizzy or passing out. He reports he did have a fall previous Thursday and has felt generally weak Denies infectious symptoms. Denies fever/chills/sweats/dysuria/nausea/vomiting/cough. Reports he has some chronic abdominal tenderness which currently seems a little worse on the left side He reports he does not take any blood thinners X-ray shows a nondisplaced left rib fracture. Rib protocol ordered CTC-spine/T-spine without acute fracture/subluxation. Chronic changes are noted CTA/P noncontrast ordered due to left upper/left lower abdominal pain with ARF. No acute traumatic findings. No obstructive findings/stones. Basilar atelectasis versus early pneumonia is noted Weakness ? Deconditioning reports he feels more weak than baseline. Does have some history of dysfunction with history of parkinsonism, but feels weaker than his normal baseline for several days Denies acute infectious symptoms Feels thirsty and dehydrated Suspected prerenal CHICO No white count, procalcitonin is normal. UA is pending although no symptoms CTA/P shows basilar atelectasis versus early pneumonia. Patient has no white count, normal Pro-Ruddy and denies respiratory symptoms. Monitor closely. If he develops fever, trending leukocytosis or symptoms then treat with Rocephin/azithromycin UA unremarkable PT/OT recommends rehab. manager pipeline working on it. ARF Baseline creatinine approximately 0.9 - Creatinine continues to improve. Today down to 1.45 Discontinue IV fluids and encourage p.o. fluid intake. Monitor BMP daily Rhabdomyolysis CK 994. Lower risk of heme induced kidney injury Suspect with associated prerenal CHICO Resolved ILD/asthma/COPD PFTs 01/2024: FVC 79% predicted (3.5 L), FEV1 (2.5 L per) 78% predicted. FEV1/FVC ratio 71.2 (98% predicted). No evidence of obstructive lung dysfunction. No significant bronchodilator response. Mild decrease in DLCO. Likely underlying Sjogren's with interstitial pneumonitis Follows with rheumatology. Continued on CellCept. Continue Breo, albuterol as needed. Hypertension Olmesartan, hydrochlorothiazide held for ARF Parkinson's Continue Sinemet, pramipexole BPH Cath as needed Continue Flomax UA/UC negative Depression/anxiety Continue duloxetine SUMANTH CPAP at bedtime Colon polyp 12/2023 4 mm distal ascending colon polyp, 7 to 9 mm polyp in the sigmoid colon able to be resected excessive tubular adenoma. 4 mm polyp carpet like and flat which was recommended for advanced endoscopic intervention rather than removal at that time. Pending endoscopic resection with PSH Denies hematochezia/melena DVT prophylaxis: Heparin due to renal dysfunction. SCDs. CODE STATUS: DNR/DNI. This is a change from prior. Discussed the patient at bedside, he expresses that if his heart/breathing were to stop he would not want to be brought back and would want to be allowed to pass. He does not want CPR/ventilation/intubation in that circumstance. Diet: Heart healthy Disposition: Awaiting rehab placement (2) COPD with emphysema: (3) BPH (benign prostatic hyperplasia): (4) Chronic kidney disease: (5) HTN (hypertension): (6) Parkinsonism: (7) SUMANTH on CPAP: (8) Polyarthritis, inflammatory: Admission and Anticipated Discharge Date Admission Date: August 17, 2024 Subjective Patient feels well. Denies chest pain or shortness of breath Review of Systems Review of Systems: All systems reviewed & are unremarkable except as noted in Subjective Physical Exam Physical Exam: General: Awake, conversant. Frail looking elderly male. Obese Heart: S1, S2/regular rate and rhythm, no murmur rubs or gallops Lungs: Clear to auscultation bilaterally. Normal effort Abdomen: Soft/nontender/nondistended. No hepatosplenomegaly Extremities: No clubbing/cyanosis. Trace edema with chronic stasis changes of the lower extremities noted Behavior: Appropriate, cooperative Results & Data Results & Data Vital Signs (Past 12 Hours) Vital Signs Temp Pulse Pulse Resp BP Pulse Ox O2 Del Method 08/19/24 11:17 36.6 C 71 18 117/75 93 Room Air 08/19/24 07:35 36.3 C L 64 18 127/76 90 Room Air 08/19/24 04:07 36.5 C 69 18 126/66 94 Room Air 08/19/24 03:48 73 18 95 Laboratory Results Abnormal lab results 08/19/24 Range/Units 06:58 RBC 3.18 L (4.70-6.10) M/uL Hgb 9.8 L (14.0-18.0) g/dl Hct 29.1 L (42.0-52.0) % RDW Std Deviation 49.0 H (36.4-46.3) fL Lymph # (Auto) 0.91 L (1.20-3.40) K/uL Sodium 132 L (136-145) mmol/L BUN 32 H (6-23) mg/dl Creatinine 1.45 H D (0.6-1.4) mg/dl BUN/Creatinine Ratio 22.1 H (10-20) Glucose 101 H (70-99(Fasting)) mg/dl Calcium 8.3 L (8.6-10.3) mg/dl PG Care Time/CCT Total # of Minutes Spent Total Time Spent with Patient: Total time spent is greater than 50% in coordination of care (as documented) at patient's floor/unit and/or counseling patient: Coding Level of Care Code 19529 SUB INP/OBS CARE 2/35MIN Diagnoses Unwitnessed fall R29.6 COPD with emphysema J43.9 BPH (benign prostatic hyperplasia) N40.0 Chronic kidney disease N18.9 HTN (hypertension) I10 Parkinsonism G20 SUMANTH on CPAP G47.33; Z99.89 Polyarthritis, inflammatory M06.4
[2024-08-20 07:08] LABS: Basophils # (auto) 0.04 K/uL (0.00-0.20); Basophils % (auto) 1.1 %; Eosinophils # (auto) 0.27 K/uL (0.00-0.50); Eosinophils % (auto) 7.3 %; Hematocrit (blood only) 30.6 % (42.0-52.0); Hemoglobin 10.2 g/dl (14.0-18.0); Immature Granulocytes # (auto) 0.04 K/uL (0.01-0.20); Immature Granulocytes % (auto) 1.1 %; Lymphocytes % (auto) 24.4 %; Mean Corpuscular Hemoglobin 30.3 pg (25.0-34.0); Mean Corpuscular Hgb Conc 33.3 g/dL (32.0-36.0); Mean Corpuscular Volume 90.8 fL (80.0-100.0); Mean Platelet Volume 9.4 fL (9.4-12.4); Monocytes # (auto) 0.28 K/uL (0.11-0.59); Monocytes % (auto) 7.6 %; Neutrophils # (auto) 2.16 K/uL (1.40-6.50); Neutrophils % (auto) 58.5 %; Platelet Count 182 K/uL (130-400); RDW Coefficient of Variation 14.6 % (11.5-14.5); RDW Standard Deviation 48.6 fL (36.4-46.3); Red Blood Count 3.37 M/uL (4.70-6.10); White Blood Count 3.69 K/ul (4.8-10.8)
[2024-08-20 07:23] LABS: Calcium 8.7 mg/dl (8.6-10.3); Creatinine Clr Calc Pharmacy 69.4 ml/min; Potassium 3.9 mmol/L (3.5-5.1)
--- NOTE | 2024-08-20 12:10 | Hospitalist Progress Note ---
Date of Service August 20, 2024 Assessment & Plan (1) Unwitnessed fall: Plan: Unwitnessed fall/? Syncope Patient reports he does not remember being lightheaded dizzy or passing out. He reports he did have a fall previous Thursday and has felt generally weak Denies infectious symptoms. Denies fever/chills/sweats/dysuria/nausea/vomiting/cough. Reports he has some chronic abdominal tenderness which currently seems a little worse on the left side He reports he does not take any blood thinners X-ray shows a nondisplaced left rib fracture. Rib protocol ordered CTC-spine/T-spine without acute fracture/subluxation. Chronic changes are noted CT head was negative CTA/P noncontrast ordered due to left upper/left lower abdominal pain with ARF. No acute traumatic findings. No obstructive findings/stones. Basilar atelectasis versus early pneumonia is noted Patient came in dehydrated. He could have had a vasovagal syncope secondary to dehydration. He has not been hydrated and orthostatic vital signs will not help. Ordered an echocardiogram to complete a syncope workup Weakness ? Deconditioning reports he feels more weak than baseline. Does have some history of dysfunction with history of parkinsonism, but feels weaker than his normal baseline for several days Denies acute infectious symptoms [place] thirsty and dehydrated Suspected prerenal CHICO No white count, procalcitonin is normal. CTA/P shows basilar atelectasis versus early pneumonia. Patient has no white count, normal Pro-Ruddy and denies respiratory symptoms. Monitor closely. If he develops fever, trending leukocytosis or symptoms then treat with Rocephin/azit hromycin UA unremarkable PT/OT recommends rehab. wireless retail manager working on it. ARF Baseline creatinine approximately 0.9 - Resolved Discontinue IV fluids and encourage p.o. fluid intake. Monitor BMP daily Resume losartan Will keep the hydrochlorothiazide on hold in case the dehydration was related to diuretic use Rhabdomyolysis CK 994. Lower risk of heme induced kidney injury Suspect with associated prerenal CHICO Resolved ILD/asthma/COPD PFTs 01/2024: FVC 79% predicted (3.5 L), FEV1 (2.5 L per) 78% predicted. FEV1/FVC ratio 71.2 (98% predicted). No evidence of obstructive lung dysfunction. No significant bronchodilator response. Mild decrease in DLCO. Likely underlying Sjogren's with interstitial pneumonitis Follows with rheumatology. Continued on CellCept. Continue Breo, albuterol as needed. Hypertension Olmesartan resumed as acute kidney injury resolved Keep HCTZ on hold since the patient most likely was dehydrated on presentation Parkinson's Continue Sinemet, pramipexole BPH Cath as needed Continue Flomax UA/UC negative Depression/anxiety Continue duloxetine SUMANTH CPAP at bedtime Colon polyp 12/2023 4 mm distal ascending colon polyp, 7 to 9 mm polyp in the sigmoid colon able to be resected excessive tubular adenoma. 4 mm polyp carpet like and flat which was recommended for advanced endoscopic intervention rather than removal at that time. Pending endoscopic resection with PSH Denies hematochezia/melena DVT prophylaxis: Heparin due to renal dysfunction. SCDs. CODE STATUS: DNR/DNI. This is a change from prior. Discussed the patient at bedside, he expresses that if his heart/breathing were to stop he would not want to be brought back and would want to be allowed to pass. He does not want CPR/ventilation/intubation in that circumstance. Diet: Heart healthy Disposition: Awaiting rehab placement. [id number] was completed on 08/19. Acute rehab was declined. SNF approved. Texted case finishing machine adjuster at 3:58 PM on 08/19. wireless retail manager will need to work on SNF placement probably Tuesday 08/22 (2) COPD with emphysema: (3) BPH (benign prostatic hyperplasia): (4) Chronic kidney disease: (5) HTN (hypertension): (6) Parkinsonism: (7) SUMANTH on CPAP: (8) Polyarthritis, inflammatory: Admission and Anticipated Discharge Date Admission Date: August 17, 2024 Subjective Patient feels well. Denies chest pain or shortness of breath. Review of Systems Review of Systems: All systems reviewed & are unremarkable except as noted in Subjective Physical Exam Physical Exam: General: Awake, conversant. Frail looking elderly male. Obese Heart: S1, S2/regular rate and rhythm, no murmur rubs or gallops Lungs: Clear to auscultation bilaterally. Normal effort Abdomen: Soft/nontender/nondistended. No hepatosplenomegaly Extremities: No clubbing/cyanosis. Trace edema with chronic stasis changes of the lower extremities noted Behavior: Appropriate, cooperative Results & Data Results & Data Vital Signs (Past 12 Hours) Vital Signs Temp Pulse Pulse Resp BP Pulse Ox O2 Del Method 08/20/24 11:54 36.6 C 64 20 142/87 H 95 Room Air 08/20/24 08:04 36.4 C L 94 H 18 117/81 92 Room Air 08/20/24 03:24 64 22 99 08/20/24 03:10 36.7 C 64 20 154/80 H 96 CPAP 08/20/24 00:24 59 L PG Care Time/CCT Total # of Minutes Spent Total Time Spent with Patient: Total time spent is greater than 50% in coordination of care (as documented) at patient's floor/unit and/or counseling patient: Coding Level of Care Code 07777 SUB INP/OBS CARE 2/35MIN Diagnoses Unwitnessed fall R29.6 COPD with emphysema J43.9 BPH (benign prostatic hyperplasia) N40.0 Chronic kidney disease N18.9 HTN (hypertension) I10 Parkinsonism G20 SUMANTH on CPAP G47.33; Z99.89 Polyarthritis, inflammatory M06.4
--- NOTE | 2024-08-20 18:11 | XCELERA ---
[id number] \\[id number]
[2024-08-20] MEDS: LOSARTAN POTASSIUM 50 MG TAB PO SCH (21:57)
--- NOTE | 2024-08-21 17:51 | Hospitalist Progress Note ---
Date of Service August 21, 2024 Assessment & Plan (1) Unwitnessed fall: Plan: Unwitnessed fall/? Syncope Patient reports he does not remember being lightheaded dizzy or passing out. He reports he did have a fall previous Thursday and has felt generally weak Denies infectious symptoms. Denies fever/chills/sweats/dysuria/nausea/vomiting/cough. Reports he has some chronic abdominal tenderness which currently seems a little worse on the left side He reports he does not take any blood thinners X-ray shows a nondisplaced left rib fracture. Rib protocol ordered CTC-spine/T-spine without acute fracture/subluxation. Chronic changes are noted CT head was negative CTA/P noncontrast ordered due to left upper/left lower abdominal pain with ARF. No acute traumatic findings. No obstructive findings/stones. Basilar atelectasis versus early pneumonia is noted Patient came in dehydrated. He could have had a vasovagal syncope secondary to dehydration. He has not been hydrated and orthostatic vital signs will not help. Echocardiogram completed. Did not show reason for syncope. Weakness ? Deconditioning reports he feels more weak than baseline. Does have some history of dysfunction with history of parkinsonism, but feels weaker than his n ormal baseline for several days Denies acute infectious symptoms [place] thirsty and dehydrated Suspected prerenal CHICO No white count, procalcitonin is normal. CTA/P shows basilar atelectasis versus early pneumonia. Patient has no white count, normal Pro-Ruddy and denies respiratory symptoms. Monitor closely. UA unremarkable PT/OT recommends rehab. regional program manager working on it. ARF Baseline creatinine approximately 0.9 - Resolved Discontinue IV fluids and encourage p.o. fluid intake. Monitor BMP daily Resume losartan Will keep the hydrochlorothiazide on hold in case the dehydration was related to diuretic use Rhabdomyolysis CK 994. Lower risk of heme induced kidney injury Suspect with associated prerenal CHICO Resolved ILD/asthma/COPD PFTs 01/2024: FVC 79% predicted (3.5 L), FEV1 (2.5 L per) 78% predicted. FEV1/FVC ratio 71.2 (98% predicted). No evidence of obstructive lung dysfunction. No significant bronchodilator response. Mild decrease in DLCO. Likely underlying Sjogren's with interstitial pneumonitis Follows with rheumatology. Continued on CellCept. Continue Breo, albuterol as needed. Hypertension Olmesartan resumed as acute kidney injury resolved Keep HCTZ on hold since the patient most likely was dehydrated on presentation Parkinson's Continue Sinemet, pramipexole BPH Cath as needed Continue Flomax UA/UC negative Depression/anxiety Continue duloxetine SUMANTH CPAP at bedtime Colon polyp 12/2023 4 mm distal ascending colon polyp, 7 to 9 mm polyp in the sigmoid colon able to be resected excessive tubular adenoma. 4 mm polyp carpet like and flat which was recommended for advanced endoscopic intervention rather than removal at that time. Pending endoscopic resection with PSH Denies hematochezia/melena DVT prophylaxis: Heparin due to renal dysfunction. SCDs. CODE STATUS: DNR/DNI. This is a change from prior. Discussed the patient at bedside, he expresses that if his heart/breathing were to stop he would not want to be brought back and would want to be allowed to pass. He does not want CPR/ventilation/intubation in that circumstance. Diet: Heart healthy Disposition: Awaiting rehab placement. [id number]-[id number] was completed on 08/19. Acute rehab was declined. SNF approved. Texted case maker at 3:58 PM on 08/19. regional program manager will need to work on SNF placement probably Tuesday 08/22 (2) COPD with emphysema: (3) BPH (benign prostatic hyperplasia): (4) Chronic kidney disease: (5) HTN (hypertension): (6) Parkinsonism: (7) SUMANTH on CPAP: (8) Polyarthritis, inflammatory: Admission and Anticipated Discharge Date Admission Date: August 17, 2024 Subjective Patient feels well. Denies chest pain or shortness of breath. Review of Systems Review of Systems: All systems reviewed & are unremarkable except as noted in Subjective Physical Exam Physical Exam: General: Awake, conversant. Frail looking elderly male. Obese Heart: S1, S2/regular rate and rhythm, no murmur rubs or gallops Lungs: Clear to auscultation bilaterally. Normal effort Abdomen: Soft/nontender/nondistended. No hepatosplenomegaly Extremities: No clubbing/cyanosis. Trace edema with chronic stasis changes of the lower extremities noted Behavior: Appropriate, cooperative Results & Data Results & Data Vital Signs (Past 12 Hours) Vital Signs Temp Pulse Resp BP Pulse Ox O2 Del Method 08/21/24 16:55 36.4 C L 58 L 20 143/92 H 97 Room Air 08/21/24 12:01 36.5 C 81 20 158/87 H 97 Room Air 08/21/24 08:00 36.7 C 74 18 144/95 H 95 Room Air PG Care Time/CCT Total # of Minutes Spent Total Time Spent with Patient: Total time spent is greater than 50% in coordination of care (as documented) at patient's floor/unit and/or counseling patient: Coding Level of Care Code 84926 SUB INP/OBS CARE 2/35MIN Diagnoses Unwitnessed fall R29.6 COPD with emphysema J43.9 BPH (benign prostatic hyperplasia) N40.0 Chronic kidney disease N18.9 HTN (hypertension) I10 Parkinsonism G20 SUMANTH on CPAP G47.33; Z99.89 Polyarthritis, inflammatory M06.4
[2024-08-21 23:03] VITALS: RESP 18
--- NOTE | 2024-08-22 12:00 | Discharge Summary ---
Discharge Summary Date of Service August 22, 2024 Principal Dx & Hospital Course #1 = Principal Diagnosis (1) Unwitnessed fall: The patient states he simply tripped and fell at home. No apparent syncope. He lives alone. This was unwitnessed. Continue OT and PT while hospitalized. (2) Closed rib fracture: Left fourth rib on x-ray. Probably suffered when he fell. Pain control measures. (3) Rhabdomyolysis: Mild on admission. Resolved with IV fluids (4) COPD with emphysema: Currently stable. Continue current medical management (5) BPH (benign prostatic hyperplasia): Stable. Continue current medical management (6) Chronic kidney disease: Acute kidney injury present on admission. Creatinine was 1.7 and has now improved to 1.1. (7) HTN (hypertension): Stable. Continue current medical manage (8) Parkinsonism: Stable. Continue current medical management (9) SUMANTH on CPAP: Stable. Continue current medical management Plan Discharge to [facility] today, August 22 Admission HPI Per Admitting Provider Mr. Hall is a 74-year-old male with a past medical history of COPD, SUMANTH on CPAP, ataxia, rheumatoid arthritis, hypertension, DM2, CKD, BPH who was coming in show around 10 AM and was then found by a neighbor who reportedly heard a noise coming from the ceiling and patient was found leaning against the bathtub with no memory of falling. Reported to the ER that had some neck pain earlier but not while in the ER but was placed in a collar pending trauma evaluation. He is not on anticoagulation. On ER evaluation is found to have an CHICO with creatinine baseline of approximately0.9, acutely elevated at 2.94. REmembers waking up and being thirsty this morning. THen reports he woke up here. Lives alone Had a fall, felt tired and weak on Thursday Reports that he remembers being thirsty this morning, and then [employer] members was waking up in the hospital He denies any recent chest pain, chest pressure, palpitations, lightheadedness, dizziness, syncope, or presyncope. He does not feel short of breath. He denies any new focal weakness or sensory change. He denies hip pain. He does not feel like he has been sick lately. He denies cough, URI symptoms including congestion. He reports he has not had any diarrhea or constipation. He denies dysuria/polyuria. He is not sure if he has been peeing any more or less than normal. He does report that he is tender in his left ribs and left upper/left lower abdomen. He reports he has some abdominal tenderness chronically, left-sided tenderness is a little worse than normal. He denies night sweats. He has not had any fevers. CK9 194. AST slightly elevated at 43, ALT/alk phos/bilirubin normal. Lipase is not elevated. No leukocytosis CTC-spine/T-spine: No acute spinal fractures or traumatic abnormalities seen. Diffuse degenerative disc disease is noted. CThead: No acute findings. Chest x-ray: Mild basilar reticular opacity. Atelectasis versus early pneumonia. No other acute findings seen. X-ray 2 view rib protocol: Acute nondisplaced fracture at the left fourth rib Medical History: Reviewed Medications: Reviewed Surgical History: Reviewed Family history: Reviewed Allergies: Reviewed Social History: No tobacco use. No ETOH use. Code Status: DNR/DNI. This is a change from prior CODE STATUS. Mari DM would be sister Lisbeth. Discharge Plan Discharge Items Patient Disposition: Transfer [facility] Fac Reason For Visit: FALL, RHABDO, ARF Discharge Diagnosis: Mechanical fall, acute kidney injury, volume depletion, rhabdomyolysis Condition on Discharge: Good Activity: Resume your previous activity Non-emergency contact: Primary Care Provider Call non-emergency contact if: your symptoms worsen Follow-up/Referrals: Jose M Alonzo, [Primary Care Provider] - Diet: Regular Addtl Attending Provider Instructions: See your primary care provider soon as possible after discharge from Center care Pending Studies at Discharge: No Stand-Alone Forms: My [facility] Skilled Items Patient informed of condition?: Yes DNR: Yes Discharge Level of Care: Skilled Communicable Disease: No Discharge Prognosis: Stable Lines: None Urinary Catheter: No Medications and DC Order Prescriptions: New Linzess 145 mcg Capsule 145 mcg PO DAILY Qty: 0 0RF Continued (DME) Lift Chair Misc See Rx Instructions .Route Qty: 1 0RF Rx Instructions: As directed (DME) blood-glucose meter [OneTouch Verio Flex Start] Kit See Rx Instructions .Route Qty: 1 0RF Rx Instructions: As directed test once daily (DME) CPAP Machine Misc See Rx Instructions .MEDSUPPLY Qty: 1 0RF Rx Instructions: CPAP with 17 cm H20 pressure. G47.33 (DME) OneTouch Verio test strips Strip See Rx Instructions .Route Qty: 100 3RF Rx Instructions: As directed test once daily (DME) Monoject TB Safety Syringe 1 mL 28 gauge x 1/2" syringe See Rx Instructions .ROUTE .MEDSUPPLY Qty: 4 4RF Rx Instructions: B12 injections duloxetine 60 mg capsule,delayed release(DR/EC) 60 mg PO QAM Qty: 90 3RF omeprazole 20 mg capsule,delayed release(DR/EC) 20 mg PO QAM Qty: 90 3RF Rx Instructions: TAKE ONE CAPSULE BY MOUTH DAILY AT 9AM carbidopa-levodopa 25-100 mg tablet 1 tab PO HS 90 Days Qty: 90 1RF cyanocobalamin (vitamin B-12) 500 mcg tablet 1,000 mcg PO QAM Qty: 180 1RF pramipexole 0.5 mg tablet 0.5 mg PO HS Qty: 90 1RF Linzess 145 mcg capsule 145 mcg PO DAILY Qty: 90 3RF fluticasone furoate-vilanterol [Breo Ellipta] 100-25 mcg/dose blister with device 1 inh inhalation DAILY Qty: 3 4RF albuterol sulfate 90 mcg/actuation HFA aerosol inhaler 2 inh inhalation QID PRN (Reason: shortness of breath or wheezing) Qty: 8.5 5RF (DME) Optifoam 4 X 4 " bandage See Rx Instructions .Route Qty: 20 0RF Rx Instructions: As directed allopurinol 300 mg tablet 300 mg PO QPM Qty: 90 3RF folic acid 400 mcg tablet 400 mcg PO QAM Qty: 90 3RF Patient Comments: HASN'T BEEN TAKING olmesartan 40 mg tablet 40 mg PO HS Qty: 90 3RF tamsulosin 0.4 mg capsule 0.4 mg PO HS Qty: 90 3RF (DME) lancets 33 gauge misc See Rx Instructions .Route Qty: 100 3RF Rx Instructions: As directed test once daily levothyroxine 175 mcg tablet 175 mcg PO DAILY Qty: 90 3RF meclizine 12.5 mg tablet 12.5 mg PO UD PRN (Reason: dizziness) Rx Instructions: no fill history/otc unable to verify hydrochlorothiazide 25 mg tablet 12.5 mg PO UD Rx Instructions: per pcp visit 08/04/24, pt takes half tab. Discharge Orders: Discharge Order (Routine); Ordered 08/22/24 Ordered By: Hola Thornton Admission Data Admit Date/Time: 08/17/24 11:42 Attending Provider: Hola Thornton Admit Provider: Rocky Stubbs Primary Care Provider: Jose M Alonzo Other Providers: Rocky Stubbs; [facility] Stay Data Consultations 08/17/24 10:29 ED Decision to Admit Stat Diagnostic Imagining Performed 08/17/24 09:00 CT cervical spine wo con Stat CT head/brain wo con Stat CT thoracic spine wo con Stat 08/17/24 10:56 CT Abd and Pelvis [CT abd pelvis wo con] Stat Pending Results Patient Have Any Pending Studies at Discharge: No Discharge Instructions Given to Patient (Per Discharging Provider) See your primary care provider soon as possible after discharge from Center care Total Time Total Time Spent Total Time Spent (In Minutes): 45 minutes Coding Level of Care Code 55183 INP/OBS DISCH >30 MIN Diagnoses Unwitnessed fall R29.6 Closed rib fracture S22.32XA Encounter type: initial encounter Laterality: left Rib fracture type: single rib Rhabdomyolysis M62.82 Rhabdomyolysis type: non-traumatic COPD with emphysema J43.9 BPH (benign prostatic hyperplasia) N40.0 Chronic kidney disease N18.9 HTN (hypertension) I10 Parkinsonism G20 SUMANTH on CPAP G47.33; Z99.89
[2024-08-22 12:07] VITALS: BP 123/83; PULSE 75; TEMP 97.5; O2SAT 98
== END 2024-08-22 15:11 | DRG 92 ==
LOC: ED 08:44 → 2S 11:42 → SUATTDRO 11:42 → 2S 12:35